=== PATIENT | male | born 1970 | race Caucasian/White ===

== ENCOUNTER → 2020-10-24 | Outpatient (CLI) | payer OTHER, MEDICARE ==
[~2020-10-24] MED LIST: AC325T; AC500T PO; ACHYD1T PO; ACID REDUCER; ALBU17AE23 IH; ALN70T PO; AMIT100T2; AMIT100T2 PO; ASP325T PO; ASP325TEC PO; ASPI-892 PO; ASPI-999 PO; ASPI325T32 PO; CARV3.122 PO; CEPH250C PO; CIPR-225 PO; CITA40TA19 PO; CLIN150C17 PO; CLOP75TA PO; CLOP75TA28 PO; CPR500T PO; CYCL10TA9 PO; D50KC PO; DCS100C PO; DIGO125T PO; DOXY100C42 PO; DOXY100T61 PO; ENLP2.5T PO; ETAN50PE; FISH OIL 1,2001 EAC1; FLC1T PO; FOLIC ACID; FURO-124 PO; FURO20TA4 PO; FURO40TA4 PO; GABA-488 PO; GBPN300C PO; GBPN600T; GLIP5TAB26; GLIP5TAB26 PO; HYDR-2890 PO; HYDR1TAB PO; HYDR200T46 PO; HYDROXYCHLOROQUINE PO; IBP600T1 PO; IBUP-15 PO; IBUP-2473 PO; INSASP10V SQ; INSU100I14 SQ; INSU100I29 SQ; INSU100V16 SC; INSU100V5 SQ; Insulin Human Lispro SC; KCL20TCR PO; LEVE1U SQ; LNS30CCR; LOSA25TA15 PO; LSNP10T; LSRT50T PO; MAGN400T6 PO; METF-380; METF-380 PO; METF500T8 PO; METHOTREXATE; METO25TA PO; MICO90PO TOP; MORP30TA16; MTF500T; MTF500T PO; MTP25TSR PO; MTX2.5T; MULT-963 PO; Metformin Hcl PO; NCT14P TD; OMEP20TA2 PO; OXYC-12 PO; POLY17PO6 PO; PRD10T PO; PREDNISONE; PROP1TAB2 PO; PROP1TAB77 PO; Polyethylene Glycol PO; RANI150T90 PO; RNT150T PO; ROSU10TA12 PO; ROSU20TA14 PO; SIMV40TA2 PO; SITA100T PO; SPIR25TA3 PO; SULF-222 PO; SULF1TAB38 PO; SULF500T3 PO; SULFAZINE PO; TRAM50TA2 PO; TRM50T; VANC5VIA5 IV; [UNRECOGNIZED DRUG - OTHER]; [UNRECOGNIZED DRUG - OTHER] PO
== END ==
LOC: LABNPT 22:32
PROVIDERS: ATTEND Nurse Practitioner Family
DX: Z20.828 Contact with and (suspected) exposure to other viral communicable diseases (principal)
CPT/HCPCS: 84145; 87635

== ENCOUNTER 2020-10-25 00:33 | Inpatient (IN) | payer MEDICAID, MEDICARE ==
[~2020-10-25] VITALS: Ht 180.3 cm; Wt 78.6 kg
[~2020-10-25 00:33] MED LIST changes: -ACHYD1T PO; -ASPI-999 PO; -CARV3.122 PO; -CEPH250C PO; -ENLP2.5T PO; -FURO-124 PO; -IBUP-2473 PO; -INSU100V16 SC; -INSU100V5 SQ; -MICO90PO TOP
[2020-10-25] MEDS ORDERED: NS IV 1000 ML 1,000 ML ONE (01:24)
[2020-10-25] MEDS: NS IV 1000 ML 1,000 ML IV SCH ×3 (01:26→16:53)
[2020-10-25] MEDS ORDERED: morphine INJ 10 MG/ML 1ML (SYR OR VIAL) IVP STA (02:23)
[2020-10-25 02:25] LABS: BASOPHILS % (AUTO) 0 % (0-10); EOSINOPHILS % (AUTO) 0 % (0-10); HEMATOCRIT 29 % (40-54); LYMPHOCYTES # (AUTO) 0.4 10^3/uL (1.0-4.0); LYMPHOCYTES % (AUTO) 4 % (12-44); MEAN CORPUSCULAR HEMOGLOBIN 29 pg (25-34); MEAN CORPUSCULAR HGB CONC 34 g/dL (32-36); MEAN CORPUSCULAR VOLUME 85 fL (80-99); MEAN PLATELET VOLUME 11.1 fL (9.0-12.2); MONOCYTES # (AUTO) 0.4 10^3/uL (0.0-1.0); MONOCYTES % (AUTO) 4 % (0-12); NEUTROPHILS # (AUTO) 9.6 10^3/uL (1.8-7.8); NEUTROPHILS % (AUTO) 92 % (42-75); PLATELET COUNT 137 10^3/uL (130-400); WHITE BLOOD COUNT 10.4 10^3/uL (4.3-11.0)
[2020-10-25] MEDS ORDERED: MEROPENEM 1,000 MG in WATER (STERILE) FOR INJECTION 20 ML IV ONE (02:30)
[2020-10-25] MEDS ORDERED: VANCOMYCIN INJECTION 1,000 MG in NS (IVPB) 250 ML IV SCH (02:30)
[2020-10-25 02:32] LABS: ALBUMIN 2.3 GM/DL (3.2-4.5); CHLORIDE 90 MMOL/L (98-107); POTASSIUM 5.2 MMOL/L (3.6-5.0)
[2020-10-25 02:35] LABS: GLUCOSE 223 MG/DL (70-105); TOTAL PROTEIN 6.8 GM/DL (6.4-8.2)
[2020-10-25 02:36] LABS: CARBON DIOXIDE 19 MMOL/L (21-32)
[2020-10-25 02:37] LABS: BILIRUBIN,TOTAL 0.7 MG/DL (0.1-1.0)
[2020-10-25 02:38] LABS: ALKALINE PHOSPHATASE 118 U/L (40-136); CREATININE SERUM 0.81 MG/DL (0.60-1.30); PHOSPHORUS 2.6 MG/DL (2.3-4.7)
[2020-10-25 02:39] LABS: BUN/CREATININE RATIO 15
[2020-10-25 02:41] LABS: ALANINE AMINOTRANSFERASE 13 U/L (0-55); MAGNESIUM 1.5 MG/DL (1.6-2.4)
[2020-10-25 03:17] LABS: GFR ESTIMATED > 60
[2020-10-25 03:18] LABS: SODIUM 119 MMOL/L (135-145)
[2020-10-25 03:24] LABS: BAND NEUTROPHILS 4 %; LYMPHOCYTES % (MANUAL) 6 %; MICROCYTOSIS SLIGHT; MONOCYTES % (MANUAL) 4 %; NEUTROPHILS % (MANUAL) 86 %; POLYCHROMASIA SLIGHT
[2020-10-25 04:16] LABS: ABG BASE EXCESS 0.1 MMOL/L (-2.5-2.5); ABG OXYGEN SATURATION 94 % (94-100); ABG PCO2 34 MMHG (35-45); ABG PH 7.45 (7.37-7.43); ABG PO2 68 MMHG (79-93); ABG TCO2 24.5 MMOL/L (21.0-31.0)
[2020-10-25 04:19] LABS: ALLENS TEST POSITIVE; INSPIRED O2 3; PATIENT TEMP 37.4; VENTILATOR NO
--- NOTE | 2020-10-25 04:37 | Pulmonary Consultation ---
History of Present Illness History of Present Illness Date Seen by Provider: Oct 25, 2020 Time Seen by Provider: 04:32 Date of Admission History of Present Illness 50yo with hx of BKA and bed bound s/p fall [place] [facility] [place] to severe sepsis, UTI, and findings of right hip fracture. Pt was directly admitted to ICU. Ortho is consulted. Allergies and Home Medications Allergies Coded Allergies: raspberry (Unverified Allergy, Mild, 04/14/15) FROM UNCODED ALLERGIES Penicillins (Verified Allergy, Unknown, FEVER AND NAUSEA, 04/18/15) OCCURED AFTER RECEIVING IV Home Medications Aspirin 325 Mg Tab, 325 MG PO HS, (Reported) Ciprofloxacin HCl 500 Mg Tablet, 500 MG PO BID, (Reported) PICKED UP 08/09/15 FOR 14 DAY THERAPY Clindamycin HCl 150 Mg Capsule, 300 MG PO QID, (Reported) TAKES 2 (150 MG) CAPSULES; PICKED UP 08/09/15 FOR 14 DAY THERAPY Clopidogrel Bisulfate 75 Mg Tablet, 75 MG PO HS, (Reported) LAST PICKED UP 05/30/15 Cyclobenzaprine Hcl 10 Mg Tablet, 20 MG PO HS, (Reported) TAKES 2 (10MG) TABLETS; LAST PICKED UP 05/30/15 Gabapentin 300 Mg Capsule, 300 MG PO TID, (Reported) LAST PICKED UP 05/30/15 Hydrocodone Bit/Acetaminophen 1 Each Tablet, 1 TAB PO Q4H PRN for PAIN, (Reported) Hydroxychloroquine Sulfate 200 Mg Tab, 200 MG PO EVERY EVENING, (Reported) LAST PICKED UP 05/09/15 Insulin Aspart 300 Units/3 Ml Solution, 15 UNITS SQ TID, (Reported) WITH MEALS; LAST PICKED UP 06/14/15 Insulin Detemir 100 Unit/1 Ml Insuln.pen, 31 UNITS SQ HS, (Reported) LAST PICKED UP 06/14/15 Metformin Hcl 500 Mg Tab.sr.24h, 1,000 MG PO HS, (Reported) LAST PICKED UP 05/02/15 Polyethylene Glycol 3350 17 Gm Powd.pack, 17 GM PO DAILY PRN for CONSTIPATION, (Reported) Ranitidine Hcl 150 Mg Tablet, 150 MG PO TID PRN for ACID REFLUX, (Reported) Sitagliptin Phosphate 100 Mg Tablet, 100 MG PO HS, (Reported) LAST PICKED UP 05/09/15 Past Gqdchbn-Omnuul-Pypoln Hx Patient Social History Alcohol Use: Occasionally Uses Recreational Drug Use: No Smoking Status: Current Everyday Smoker Type Used: Cigarettes Recent Foreign Travel: No Contact w/Someone Who Travel: No Recent Infectious Disease Expo: No Immunizations Up To Date Tetanus Booster (TDap): Unknown PED Vaccines UTD: No Date of Pneumonia Vaccine: Sep 17, 2014 Date of Influenza Vaccine: Sep 13, 2014 Past Medical History Reproductive Disorders: No Sexually Transmitted Disease: No HIV/AIDS: No Gastroesophageal Reflux Arthritis Diabetes, Insulin dep Loss of Vision: Left Hearing Impairment: Denies Depression Adverse Reaction/Blood Tranf: No Family Medical History Colon cancer 19 FATHER Diabetes mellitus 19 FATHER Hypertension 19 FATHER Review of Systems Time Seen by Provider: 04:40 Sepsis Event Evaluation Height, Weight, BMI Height: 6'1.00" Weight: 216lbs. 4.0oz. 97.411092ec; 23.71 BMI Method:Stated Exam Exam Vital Signs Date Time Temp Pulse Resp B/P (MAP) Pulse Ox O2 Delivery O2 Flow Rate FiO2 10/25/20 04:23 36.6 10/25/20 04:20 90 22 89/45 (60) 90 Nasal Cannula 3.00 10/25/20 04:00 99 33 104/94 (97) 91 Nasal Cannula 3.00 10/25/20 03:00 96 31 86/44 (58) 92 Nasal Cannula 3.00 10/25/20 02:45 93 30 91/47 (62) 92 Nasal Cannula 3.00 10/25/20 02:30 95 27 86/53 (64) 93 Nasal Cannula 3.00 10/25/20 02:15 98 23 98/60 (73) 91 Nasal Cannula 2.00 10/25/20 02:00 99 24 91/57 (68) 91 Nasal Cannula 2.00 10/25/20 01:45 100 24 103/51 (68) 90 Nasal Cannula 2.00 10/25/20 01:34 104 30 114/56 (75) 89 Nasal Cannula 2.00 10/25/20 01:26 35.8 103 26 107/61 (76) 92 Nasal Cannula 2.00 10/25/20 01:25 105 I & O 10/25/20 07:00 Intake Total 0 ml Output Total 50 ml Balance -50 ml Height & Weight Height: 6'1.00" Weight: 216lbs. 4.0oz. 97.487527ds; 23.71 BMI Method:Stated Results Lab Laboratory Tests 10/25/20 02:08 Assessment/Plan Assessment/Plan Severe sepsis -Severe sepsis protocol -NS currently at 100cc/hr -[place] cultures -Vanco and cefepime R hip fracture -Ortho consulted Hypotension -IVF Will give NS bolus -Monitor -Check echo today. Hyponatremia -Repeat labs at 11 -Monitor -Currently on NS chronic debility CAD with hx of CABG - DVT PPX NILS ACHARYA DO Oct 25, 2020 04:37
[2020-10-25] MEDS ORDERED: NS IV 1000 ML 1,000 ML IV SCH (04:45)
[2020-10-25] MEDS ORDERED: SODIUM BICARB 8.4% 50 MEQ/50 ML VIAL IV ONE (04:45)
[2020-10-25] MEDS ORDERED: SODIUM PHOSPHATE INJ 15 MM in D5W 100 ML IVPB 100 ML IV ONE (04:45)
[2020-10-25] MEDS ORDERED: CEFEPIME 1 GM/10 ML (MAXIPIME) VIAL ONE (05:08)
[2020-10-25] MEDS ORDERED: WATER (STERILE) FOR INJECTION 10 ML ONE (05:08)
[2020-10-25] MEDS: MAGNESIUM 1 GM/100 ML IVPB 100 ML IV SCH ×3 (05:22→07:33)
[2020-10-25] MEDS: CEFEPIME 1,000 MG/SWFI 10 ML IV PUSH IV SCH ×6 (05:56→17:21)
[2020-10-25] MEDS ORDERED: CEFEPIME INJECTION 1,000 MG in NS (IVPB) 50 ML IV SCH (06:00)
[2020-10-25] MEDS ORDERED: NOREPINEPHRINE 4 MG/250 ML 250 ML IV ONE (07:35)
[2020-10-25] MEDS: NOREPINEPHRINE 4 MG/250 ML 250 ML IV SCH ×3 (07:40→17:41)
--- NOTE | 2020-10-25 07:40 | Diagnostic Imaging Report ---
INDICATION: Sepsis, urinary tract infection, hip fracture. TECHNIQUE: Single view chest 2:00 a.m.. CORRELATION STUDY: 04/25/2015 FINDINGS: Poststernotomy changes. Left-sided unipolar pacemaker. Unchanged cardiac enlargement. Vasculature is increased from prior. Question minimal patchy groundglass opacity at the left mid lung field. No consolidating infiltrate. IMPRESSION: 1. Cardiac enlargement. Vasculature has increased from prior study suggestive fluid overload or failure. Dictated by: Dictated on workstation # [id number]
--- NOTE | 2020-10-25 07:50 | NUR ---
pt alert and oriented at this time and stated to this RN and SUMEET Marshall that he did not want chest compressions or a tube down his throat. This was reported to Dr. Marcelino who stated that this RN could put in DNR order.
[2020-10-25] MEDS: ENOXAPARIN 40 MG/0.4 ML (LOVENOX) SYR SC SCH (08:42)
[2020-10-25] MEDS: VANCOMYCIN INJECTION 1,000 MG in NS (IVPB) 250 ML IV SCH ×2 (08:42→17:21)
[2020-10-25] MEDS: HYDROCORTISONE 100 MG/2 ML (Solu-CORTEF) VIAL IV SCH ×3 (08:43→22:11)
--- NOTE | 2020-10-25 10:36 | NUR ---
PTD VANCOMYCIN. 77 KG, SCr 0.81, CrCl 114.8, BMI 23.7. EPHARMACY PLAN WAS TO GIVE LOADING DOSE OF 1250MG FOLLOWED BY 1 G Q8H MAINTENANCE DOSING SCHEDULE, BUT 1 G Q8H WAS GIVEN INITIAL DOSE 10/25 @ 0900. PLAN IS TO NOT ADD TO INITIAL DOSE, BUT CONTINUE WITH 1 G Q8H (15 MG/KG). CHECK VANCOMYCIN LEVEL 10/26 @ 0800. IF TROUGH >20, HOLD DOSE & NOTIFY PHARMACY FOR ADJUSTMENTS.
--- NOTE | 2020-10-25 11:51 | Diagnostic Imaging Report ---
Indication: Fracture. Compared with the radiograph 04/22/2015. Findings: There is a fracture through the base of the neck likely extending into the base of the lesser trochanter and resulting in greater trochanteric irregularity. Its precise acuity is unclear but its new from prior. This may be subacute, correlate with the onset of complaint. There are severe osteoarthritic changes to the right hip. There is no dislocation. Impression: Possibly subacute fracture base neck with trochanteric involvement and severe hip joint osteoarthritis. Dictated by: Dictated on workstation # [id number]
--- NOTE | 2020-10-25 12:17 | Diagnostic Imaging Report ---
Indication: Fracture. Findings/ Impression: There is a fracture of the base of the femoral neck extending into the trochanters. There are positional limitations with no obvious varus or valgus angulation. No dislocation. The mid shaft and distal femur appeared nonacute. There are severe degenerative changes to the knee. We note underlying bony demineralization. The acuity of the femoral neck fracture is unclear. This may be subacute, correlate with the onset of pain and complaint. No findings of a recent midshaft or distal femoral injury Dictated by: Dictated on workstation # [id number]
--- NOTE | 2020-10-25 13:49 | NUR ---
This Palliative Care was consulted. I spoke with Jori Cortez who says to hold on this at this time.
--- NOTE | 2020-10-25 14:01 | History & Physical-Hospitalist ---
History of Present Illness HPI/Chief Complaint Richar Kasper is a 50 year old male who presented to [place] ER after falling out of bed. He is non-ambulatory at baseline and is wheelchair dependent. Upon arrival to [place], he was found to have a hip fracture. He was also found to have severe sepsis. Upon my examination, he was minimally conversant and only said a few words. He was answering questions by shaking his head yes and no. He denies any pain. He denied fevers. He denied trouble breathing. He denies nausea and vomiting. He was not feeling sick recently. Source: patient Exam Limitations: no limitations Date Seen 10/25/20 Time Seen by a Provider: 09:15 Attending Physician Lora Jones David F MD Referring Physician Date of Admission Oct 25, 2020 at 01:18 Home Medications & Allergies Home Medications Reviewed patient Home Medication Reconciliation performed by pharmacy medication reconciliations neon technician and/or nursing. Patients Allergies have been reviewed. Allergies Allergies Coded Allergies raspberry (Unverified Allergy, Mild, 04/14/15) FROM UNCODED ALLERGIES Penicillins (Verified Allergy, Unknown, FEVER AND NAUSEA, 04/18/15) OCCURED AFTER RECEIVING IV Past Smabksl-Cycdnh-Konpgs Hx Past Med/Social Hx: Reviewed Nursing Past Med/Soc Hx Patient Social History Alcohol Use: Occasionally Uses Recreational Drug Use: No Smoking Status: Current Everyday Smoker Type Used: Cigarettes Physical Abuse Screen: No Sexual Abuse: No Recent Foreign Travel: No Contact w/other who traveled: No Recent Hopitalizations: No Recent Infectious Disease Expo: No Immunizations Up To Date Tetanus Booster (TDap): Unknown Pediatric: No Date of Pneumonia Vaccine: Sep 17, 2014 Date of Influenza Vaccine: Sep 13, 2014 Seasonal Allergies Seasonal Allergies: No Past Medical History Reproductive: No Sexually Transmitted Disease: No HIV/AIDS: No Gastrointestinal: Gastroesophageal Reflux Musculoskeletal: Amputee, Arthritis, Rheumatoid Arthritis, Fractures, Co ntracture Endocrine: Diabetes, Insulin dep Loss of Vision: Left Hearing Impairment: Denies Psychosocial: Depression History of Blood Disorders: No Adverse Reaction to Blood Godwin: No Family History Colon cancer 19 FATHER Diabetes mellitus 19 FATHER Hypertension 19 FATHER Review of Systems Constitutional: see HPI Physical Exam Physical Exam Vital Signs Vital Signs - First Documented 10/25/20 10/25/20 01:25 01:26 Temp 35.8 Pulse 105 Resp 26 B/P (MAP) 107/61 (76) Pulse Ox 92 O2 Delivery Nasal Cannula O2 Flow Rate 2.00 Capillary Refill : Less Than 3 Seconds Height, Weight, BMI Height: 6'1.00" Weight: 216lbs. 4.0oz. 97.061866uo; 23.71 BMI Method:Stated General Appearance: No Apparent Distress, Chronically ill HEENT: PERRL/EOMI, Other (dry mucous membranes) Neck: Normal Inspection, Supple Respiratory: Lungs Clear, Normal Breath Sounds, No Respiratory Distress Cardiovascular: Regular Rate, Rhythm, No Edema, No Murmur Gastrointestinal: Normal Bowel Sounds, Non Tender, Soft Extremity: Pedal Edema, Other (left BKA) Neurologic/Psychiatric: Alert, No Motor/Sensory Deficits, Depressed Affect Skin: Warm/Dry, Rash (candidiasis within groin), Other (scaly skin, open lesions on thigh) Results Results/Procedures Labs Laboratory Tests 10/25/20 02:08 10/25/20 14:00 Patient resulted labs reviewed. Imaging: Reviewed Imaging Report Assessment/Plan Admission Diagnosis Closed right hip fracture Admission Status: Inpatient Order (span 2 midnights) Reason for Inpatient Admission: Hip fracture requiring surgical evaluation Sepsis requiring antibiotics Assessment and Plan Closed right hip fracture Hip xrays consistent with fracture Ortho consulted, appreciate assistance No plan for surgical intervention due to overlying cellulitis and baseline non-ambulatory status Pain regimen Septic shock UTI Cellulitis Levophed as needed Vanc and Cefepime Await culture results Hyponatremia Appears hypovolemic Na 119 Normal saline T2DM Levemir Sliding scale Candidal intertrigo Miconazole powder CAD s/p CABG Heart failure with reduced ejection fraction Cardiology consulted, appreciate assistance Echo with EF 25-30% Recommend follow up with CV surgery due to staple protrusion History of left BKA Chronic debility DVT prophylaxis: Lovenox Diagnosis/Problems Diagnosis/Problems (1) Hip fracture Status: Acute Qualifiers: Encounter type: initial encounter Fracture type: closed Laterality: right Qualified Codes: S72.001A - Fracture of unspecified part of neck of ri ght femur, initial encounter for closed fracture (2) Sepsis Status: Acute (3) UTI (urinary tract infection) Status: Acute (4) CAD (coronary artery disease) Status: Chronic (5) S/P CABG (coronary artery bypass graft) Status: Chronic (6) S/P BKA (below knee amputation) Status: Chronic Qualifiers: Laterality: left Qualified Codes: Z89.512 - Acquired absence of left leg below knee (7) Septic shock Status: Acute (8) Lactic acidosis Status: Acute (9) Cellulitis Status: Acute (10) Candidal intertrigo Status: Acute (11) T2DM (type 2 diabetes mellitus) Status: Chronic (12) HFrEF (heart failure with reduced ejection fraction) Status: Acute Clinical Quality Measures DVT/VTE Risk/Contraindication: Risk Factor Score Per Nursin RFS Level Per Nursing on Admit: 4+=Very High DIANA VINES MD Oct 25, 2020 14:01
--- NOTE | 2020-10-25 14:10 | NUR ---
"RD ASSESSMENT PMHx: GERD; DM: L BKA; PT INTERACTION: Note pt has AMS, per Kendy RN. Note all diet information for nutrition assessment is per Kendy or per princess review. Kendy states current appetite appears poor. Note pt is currently NPO, per chart review. Kendy states no issues with nausea, vomiting, constipation, or diarrhea that she is aware of, and pt has not had a BM yet. Note pt not currently on bowel regimen per chart review. Note unable to determine recent wt hx, per chart review. Note unable to determine current level of DM, and unable to determine recent HbA1c, per chart review. ABNORMAL NUTRITION-RELATED LAB VALUES LOW: Na 119; Cl 90; Ca 7.0; Mg 1.5; alb 2.3; HIGH: K 5.2; glu 223; AST 42; Est. kcal needs: 6014-0145 kcal | 25-30 kcal/kg Est. Pro needs: 77-93 g Pro | 1.0-1.2 g Pro/kg PES STATEMENT: Inadequate oral intake (NI-2.1) related to loss of appetite, and NPO status, as evidenced by chart review. INTERVENTION: Would recommend diet advancement to consistent CHO diet, when medically able and as tolerated. Did not offer diet education on DM management d/t pt's AMS. Will continue to follow and reassess as pt needs, intake, and status change. Bree TOPETE, MS RD LD [phone] cell"
--- NOTE | 2020-10-25 14:15 | CONSULTATION REPORT ---
DATE OF SERVICE: 10/25/2020 REASON FOR CONSULTATION: Right intertrochanteric femur fracture. HISTORY OF PRESENT ILLNESS: The patient is a 50-year-old gentleman, who was transferred from outside facility in the middle of the night due to sepsis. Apparently, he was admitted for hip fracture at another facility. I was consulted this morning. Obtaining history from the nurse and somewhat from the patient, he is bedbound. He has had a BKA on the contralateral side. He apparently fell out of bed and sustained this fracture. I asked the patient if he gets out of bed at all. He states that he does not. PHYSICAL EXAMINATION: Right lower extremity is slightly shortened and slightly externally rotated. Unfortunately, there is skin breakdown throughout the lateral aspect of his hip with open purulent wound directly over his potential incision sites. He is neurovascularly intact distally. Radiographs reveal displaced right intertrochanteric femur fracture. IMPRESSION: Right intertrochanteric femur fracture with skin compromise and sepsis. PLAN: Unfortunately, at this time, this fracture would have to be treated nonoperatively due to the skin breakdown with gross purulence. If the incisions were made through this area, which would be required for operative intervention, this will become infected. His hardware would become infected and would likely be a terminal event. I explained this to the patient. He is understanding. This fracture will likely heal without any operative intervention and as the patient is bedbound is a reasonable treatment. The patient can continue to turn as symptoms allow. He does not require traction or any other modality for the lower extremity other than pain management. Thank you for the consultation. I have spoken with Dr. Carrera regarding this as well. Job ID: [id number] DocumentID: [id number] Dictated Date: 10/25/2020 13:53:41 Geomorphology Teacher Date: 10/25/2020 14:14:23 Dictated By: DOM CORTÉS MD
[2020-10-25 14:44] LABS: ALANINE AMINOTRANSFERASE 12 U/L (0-55); ALBUMIN 2.3 GM/DL (3.2-4.5); ALKALINE PHOSPHATASE 102 U/L (40-136); BILIRUBIN,TOTAL 0.7 MG/DL (0.1-1.0); BUN/CREATININE RATIO 14; CALCIUM 6.8 MG/DL (8.5-10.1); CARBON DIOXIDE 24 MMOL/L (21-32); CHLORIDE 95 MMOL/L (98-107); CREATININE SERUM 0.73 MG/DL (0.60-1.30); GFR ESTIMATED > 60; GLUCOSE 229 MG/DL (70-105); PHOSPHORUS 2.8 MG/DL (2.3-4.7); POTASSIUM 4.1 MMOL/L (3.6-5.0); TOTAL PROTEIN 6.1 GM/DL (6.4-8.2)
[2020-10-25 14:56] LABS: SODIUM 125 MMOL/L (135-145)
--- NOTE | 2020-10-25 15:50 | Consultation-Cardiology ---
HPI-Cardiology Cardiology Consultation: Date of Consultation 10/25/20 Time Seen by a Provider: 15:30 Date of Admission 10-24-2020 Attending Physician Lora Jones DO Admitting Physician Andrew Dominguez MD Consulting Physician Dell Martel MD HPI: Chief Complaint: Pre-op cardiac clearance Mr. Kasper is a 50 yr old male admitted to ICU from [facility] [place] post fall at home resulting in a right hip fracture. He is a poor historian. He states he lives at home. He denies any c/o CP, SOB or palpitations. He reports he is bed bound. He has a h/o LLE amputation, he does not know the details. he reports h/o CABG in [place], at the "[facility]". He reports he smokes cigs. He has what appears to be sternal wires from his CABG protruding from the skin at the top of the sternum. He reports it has been like that for years. He states he has not followed with CV surgeons or cardiology since his CABG. Review of Systems-Cardiology Review of Systems Eyes: No vision change Ears/Nose/Throat: No epistaxis, No recent hearing loss Respiratory: As described under HPI Cardiovascular: As described under HPI Gastrointestinal: No diarrhea, No nausea, No vomiting Genitourinary: No dysuria Musculoskeletal: joint pain, muscle pain, other (L BKA) Skin: rash on exposed areas, ulcerations on exposed areas Psychiatric/Neurological: No seizure, No syncope Hematologic: No bleeding abnormalities LZK-Kkkdlg-Sidjon Hx Patient Social History Alcohol Use: Occasionally Uses Recreational Drug Use: No Smoking Status: Current Everyday Smoker Type Used: Cigarettes Recent Foreign Travel: No Recent Infectious Disease Expo: No Physical Abuse Screen: No Sexual Abuse: No Immunizations Up To Date Tetanus Booster (TDap): Unknown Date of Pneumonia Vaccine: Sep 17, 2014 Date of Influenza Vaccine: Sep 13, 2014 Past Medical History PMH As described under Assessment. Family Medical History Family Medical History: Reported history of father having HTN and DM Family History: Colon cancer 19 FATHER Diabetes mellitus 19 FATHER Hypertension 19 FATHER Allergies and Home Medications Allergies Coded Allergies: raspberry (Unverified Allergy, Mild, 04/14/15) FROM UNCODED ALLERGIES Penicillins (Verified Allergy, Unknown, FEVER AND NAUSEA, 04/18/15) OCCURED AFTER RECEIVING IV Home Medications Aspirin 325 Mg Tab, 325 MG PO HS, (Reported) Ciprofloxacin HCl 500 Mg Tablet, 500 MG PO BID, (Reported) PICKED UP 08/09/15 FOR 14 DAY THERAPY Clindamycin HCl 150 Mg Capsule, 300 MG PO QID, (Reported) TAKES 2 (150 MG) CAPSULES; PICKED UP 08/09/15 FOR 14 DAY THERAPY Clopidogrel Bisulfate 75 Mg Tablet, 75 MG PO HS, (Reported) LAST PICKED UP 05/30/15 Cyclobenzaprine Hcl 10 Mg Tablet, 20 MG PO HS, (Reported) TAKES 2 (10MG) TABLETS; LAST PICKED UP 05/30/15 Gabapentin 300 Mg Capsule, 300 MG PO TID, (Reported) LAST PICKED UP 05/30/15 Hydrocodone Bit/Acetaminophen 1 Each Tablet, 1 TAB PO Q4H PRN for PAIN, (Reported) Hydroxychloroquine Sulfate 200 Mg Tab, 200 MG PO EVERY EVENING, (Reported) LAST PICKED UP 05/09/15 Insulin Aspart 300 Units/3 Ml Solution, 15 UNITS SQ TID, (Reported) WITH MEALS; LAST PICKED UP 06/14/15 Insulin Detemir 100 Unit/1 Ml Insuln.pen, 31 UNITS SQ HS, (Reported) LAST PICKED UP 06/14/15 Metformin Hcl 500 Mg Tab.sr.24h, 1,000 MG PO HS, (Reported) LAST PICKED UP 05/02/15 Polyethylene Glycol 3350 17 Gm Powd.pack, 17 GM PO DAILY PRN for CONSTIPATION, (Reported) Ranitidine Hcl 150 Mg Tablet, 150 MG PO TID PRN for ACID REFLUX, (Reported) Sitagliptin Phosphate 100 Mg Tablet, 100 MG PO HS, (Reported) LAST PICKED UP 05/09/15 Physical Exam-Cardiology Physical Exam Vital Signs/I&O 10/25/20 10/25/20 10/25/20 10/25/20 04:00 04:20 04:23 05:00 Temp 36.6 Pulse 99 90 90 Resp 33 22 24 B/P (MAP) 104/94 (97) 89/45 (60) 79/43 (55) Pulse Ox 91 90 93 O2 Delivery Nasal Cannula Nasal Cannula Nasal Cannula O2 Flow Rate 3.00 3.00 3.00 10/25/20 10/25/20 10/25/20 10/25/20 06:00 07:00 07:00 07:40 Pulse 87 83 84 85 Resp 25 21 B/P (MAP) 92/43 (59) 83/42 (56) 81/42 Pulse Ox 93 89 O2 Delivery Nasal Cannula Nasal Cannula O2 Flow Rate 3.00 3.00 10/25/20 10/25/20 10/25/20 10/25/20 07:54 08:00 09:00 10:00 Temp 36.8 Pulse 84 87 90 Resp 23 23 22 B/P (MAP) 112/55 (74) 112/52 (72) 89/46 (60) Pulse Ox 99 99 92 O2 Delivery Nasal Cannula Nasal Cannula Nasal Cannula O2 Flow Rate 7.00 7.00 7.00 10/25/20 10/25/20 10/25/20 10/25/20 11:00 12:00 12:34 13:00 Temp 35.7 Pulse 92 90 90 Resp 29 19 19 B/P (MAP) 107/73 (84) 112/73 (86) 127/70 (89) Pulse Ox 90 93 96 O2 Delivery Nasal Cannula Nasal Cannula Nasal Cannula O2 Flow Rate 7.00 7.00 7.00 10/25/20 10/25/20 10/25/20 13:00 14:00 15:00 Pulse 91 93 85 Resp 35 21 B/P (MAP) 117/57 (77) 101/66 (78) Pulse Ox 95 95 O2 Delivery Nasal Cannula Nasal Cannula O2 Flow Rate 7.00 7.00 Capillary Refill : Less Than 3 Seconds Data Review Labs Laboratory Tests 10/25/20 02:08: White Blood Count 10.4, Red Blood Count 3.43L, Hemoglobin 10.0L, Hematocrit 29L, Mean Corpuscular Volume 85, Mean Corpuscular Hemoglobin 29, Mean Corpuscular Hemoglobin Concent 34, Red Cell Distribution Width 14.7H, Platelet Count 137, Mean Platelet Volume 11.1, Immature Granulocyte % (Auto) 1, Neutrophils (%) (Auto) 92H, Lymphocytes (%) (Auto) 4L, Monocytes (%) (Auto) 4, Eosinophils (%) (Auto) 0, Basophils (%) (Auto) 0, Neutrophils # (Auto) 9.6H, Lymphocytes # (Auto) 0.4L, Monocytes # (Auto) 0.4, Eosinophils # (Auto) 0.0, Basophils # (Auto) 0.0, Immature Granulocyte # (Auto) 0.1, Neutrophils % (Manual) 86, Lymphocytes % (Manual) 6, Monocytes % (Manual) 4, Band Neutrophils 4, Polychromasia SLIGHT, Microcytosis SLIGHT, Sodium Level 119*L, Potassium Level 5.2H, Chloride Level 90L, Carbon Dioxide Level 19L, Anion Gap 10, Blood Urea Nitrogen 12, Creatinine 0.81, Estimat Glomerular Filtration Rate > 60, BUN/Creatinine Ratio 15, Glucose Level 223H, Lactic Acid Level 2.25*H, Calcium Level 7.0L, Corrected Calcium 8.4L, Phosphorus Level 2.6, Magnesium Level 1.5L, Total Bilirubin 0.7, Aspartate Amino Transf (AST/SGOT) 42H, Alanine Aminotransferase (ALT/SGPT) 13, Alkaline Phosphatase 118, B-Type Natriuretic Peptide 1048.6H, Total Protein 6.8, Albumin 2.3L, Procalcitonin 0.47H 10/25/20 04:08: Lactic Acid Level 1.42, Blood Gas Puncture Site LEFT BRACHIAL, Blood Gas Patient Temperature 37.4, Arterial Blood pH 7.45H, Arterial Blood Partial Pressure CO2 34L, Arterial Blood Partial Pressure O2 68L, Arterial Blood HCO3 24, Arterial Blood Total CO2 24.5, Arterial Blood Oxygen Saturation 94, Arterial Blood Base Excess 0.1, Shantanu Test POSITIVE, Blood Gas Ventilator Setting NO, Blood Gas Inspired Oxygen 3 10/25/20 14:00: Sodium Level 125*L, Potassium Level 4.1, Chloride Level 95L, Carbon Dioxide Level 24, Anion Gap 6, Blood Urea Nitrogen 10, Creatinine 0.73, Estimat Glomerular Filtration Rate > 60, BUN/Creatinine Ratio 14, Glucose Level 229H, Calcium Level 6.8L, Corrected Calcium 8.2L, Phosphorus Level 2.8, Magnesium Level 2.0, Total Bilirubin 0.7, Aspartate Amino Transf (AST/SGOT) 25, Alanine Aminotransferase (ALT/SGPT) 12, Alkaline Phosphatase 102, Total Protein 6.1L, Albumin 2.3L Microbiology 10/25/20 Blood Culture - Preliminary, Resulted No growth A/P-Cardiology Assessment/Admission Diagnosis S/P non-syncopal fall out of bed resulting in a right hip fx - Dr. Atwood consulted H/O CABG - details unknown - records requested from [facility] Tobaccoism - cessation advised Probable COPD Left BKA - details unknown Chronic Clinical Quality Measures DVT/VTE Risk/Contraindication: Risk Factor Score Per Nursin RFS Level Per Nursing on Admit: 4+=Very High GOLDIE VARMA [facility] Oct 25, 2020 15:50
--- NOTE | 2020-10-25 18:17 | Consultation-Cardiology ---
HPI-Cardiology Cardiology Consultation: Date of Consultation 10/25/20 Time Seen by a Provider: 16:30 Date of Admission Attending Physician Lora Jones DO Admitting Physician Andrew Dominguez MD Consulting Physician ELLIOT NATH MD, MA, FACP, FACC, [facility], CCDS Physician requesting consult: Dr Hsieh HPI: Chief Complaint: Reason for consultation: Preop card eval for fall leading to R hip fracture HPI 50 yo man transferred to Dr Hsieh's S[facility] for eval and treatment of a hip fracture. He doesn't provide much history and tends to get angry if asked too many questions. He says that the fall was as he was trying to roll out of the bed in effort to use the toilet. He fell and broke his hip. No syncope. Not able to state when that happened. Denies cp or palp or syncope or shortness of breath. Has a h/o CABG and cardiac device placement. Unable to state when and where that was done. Has not been following with any campus wellness coordinator. Has not had any device f/u Does not report n/v. Denies focal weakness. Has gen weakness. Doesn't know why and when he had his L BKA Review of Systems-Cardiology Review of Systems Constitutional: other (To the extent that he provided a ROS is given above HPI. He tended to get angry if asked more questions. Most questions were answered by, "I don't know.") [id number] Hx Patient Social History Alcohol Use: Occasionally Uses Recreational Drug Use: No Smoking Status: Current Everyday Smoker Type Used: Cigarettes Recent Foreign Travel: No Recent Infectious Disease Expo: No Physical Abuse Screen: No Sexual Abuse: No Immunizations Up To Date Tetanus Booster (TDap): Unknown Date of Pneumonia Vaccine: Sep 17, 2014 Date of Influenza Vaccine: Sep 13, 2014 Past Medical History PMH As described under Assessment. Family Medical History Family History: Colon cancer 19 FATHER Diabetes mellitus 19 FATHER Hypertension 19 FATHER Allergies and Home Medications Allergies Coded Allergies: raspberry (Unverified Allergy, Mild, 04/14/15) FROM UNCODED ALLERGIES Penicillins (Verified Allergy, Unknown, FEVER AND NAUSEA, 04/18/15) OCCURED AFTER RECEIVING IV Home Medications Aspirin 325 Mg Tab, 325 MG PO HS, (Reported) Ciprofloxacin HCl 500 Mg Tablet, 500 MG PO BID, (Reported) PICKED UP 08/09/15 FOR 14 DAY THERAPY Clindamycin HCl 150 Mg Capsule, 300 MG PO QID, (Reported) TAKES 2 (150 MG) CAPSULES; PICKED UP 08/09/15 FOR 14 DAY THERAPY Clopidogrel Bisulfate 75 Mg Tablet, 75 MG PO HS, (Reported) LAST PICKED UP 05/30/15 Cyclobenzaprine Hcl 10 Mg Tablet, 20 MG PO HS, (Reported) TAKES 2 (10MG) TABLETS; LAST PICKED UP 05/30/15 Gabapentin 300 Mg Capsule, 300 MG PO TID, (Reported) LAST PICKED UP 05/30/15 Hydrocodone Bit/Acetaminophen 1 Each Tablet, 1 TAB PO Q4H PRN for PAIN, (Reported) Hydroxychloroquine Sulfate 200 Mg Tab, 200 MG PO EVERY EVENING, (Reported) LAST PICKED UP 05/09/15 Insulin Aspart 300 Units/3 Ml Solution, 15 UNITS SQ TID, (Reported) WITH MEALS; LAST PICKED UP 06/14/15 Insulin Detemir 100 Unit/1 Ml Insuln.pen, 31 UNITS SQ HS, (Reported) LAST PICKED UP 06/14/15 Metformin Hcl 500 Mg Tab.sr.24h, 1,000 MG PO HS, (Reported) LAST PICKED UP 05/02/15 Polyethylene Glycol 3350 17 Gm Powd.pack, 17 GM PO DAILY PRN for CONSTIPATION, (Reported) Ranitidine Hcl 150 Mg Tablet, 150 MG PO TID PRN for ACID REFLUX, (Reported) Sitagliptin Phosphate 100 Mg Tablet, 100 MG PO HS, (Reported) LAST PICKED UP 05/09/15 Patient Home Medication List Home Medication List Reviewed: Yes Physical Exam-Cardiology Physical Exam Vital Signs/I&O 10/25/20 10/25/20 10/25/20 10/25/20 07:00 07:00 07:40 07:54 Temp 36.8 Pulse 83 84 85 Resp 21 B/P (MAP) 83/42 (56) 81/42 Pulse Ox 89 O2 Delivery Nasal Cannula O2 Flow Rate 3.00 10/25/20 10/25/20 10/25/20 10/25/20 08:00 09:00 10:00 11:00 Pulse 84 87 90 92 Resp 23 23 22 29 B/P (MAP) 112/55 (74) 112/52 (72) 89/46 (60) 107/73 (84) Pulse Ox 99 99 92 90 O2 Delivery Nasal Cannula Nasal Cannula Nasal Cannula Nasal Cannula O2 Flow Rate 7.00 7.00 7.00 7.00 10/25/20 10/25/20 10/25/20 10/25/20 12:00 12:34 13:00 13:00 Temp 35.7 Pulse 90 90 91 Resp 19 19 B/P (MAP) 112/73 (86) 127/70 (89) Pulse Ox 93 96 O2 Delivery Nasal Cannula Nasal Cannula O2 Flow Rate 7.00 7.00 10/25/20 10/25/20 10/25/20 10/25/20 14:00 15:00 16:00 16:00 Temp 36.8 Pulse 93 85 87 Resp 35 21 19 B/P (MAP) 117/57 (77) 101/66 (78) 98/72 (81) Pulse Ox 95 95 97 O2 Delivery Nasal Cannula Nasal Cannula Nasal Cannula O2 Flow Rate 7.00 7.00 7.00 10/25/20 10/25/20 17:00 17:41 Pulse 92 97 Resp 28 B/P (MAP) 109/84 (92) 90/68 Pulse Ox 98 O2 Delivery Nasal Cannula O2 Flow Rate 7.00 Capillary Refill : Less Than 3 Seconds Constitutional: other (Appears oriented, but is intermittently agitated and combative. Appears to have poor short and roasterman memory) HEENT: PERRL; No xanthelasmas are seen Neck: carotid pulses are 2 + bilaterally Respiratory: No accessory muscle use; other (Fair air entry, diminished at the bases) Cardiovascular: regular rate-rhythm, S1 and S2, systolic murmur (soft LYNETTE at card base) Gastrointestinal: No tender; soft, audible bowel sounds Extremities: other (L BKA. We did not attemp any motion at the lower limbs because of his recent fracture) Neurologic/Psychiatric: other (for mental status exam, see above; he did not cooperate with any neuro exam) Skin: other (He has multiple areas of skin break down on the torso and abdomen and limbs; a short end of a sternal wire (apparently from his CABG) projects form the top of the sternum but there does not appeart to much inlammation at this area (he says he has had that projecting for years and has not consulted any one for it, nor does he want to)) Data Review Labs Laboratory Tests 10/25/20 02:08: White Blood Count 10.4, Red Blood Count 3.43L, Hemoglobin 10.0L, Hematocrit 29L, Mean Corpuscular Volume 85, Mean Corpuscular Hemoglobin 29, Mean Corpuscular Hemoglobin Concent 34, Red Cell Distribution Width 14.7H, Platelet Count 137, Mean Platelet Volume 11.1, Immature Granulocyte % (Auto) 1, Neutrophils (%) (Auto) 92H, Lymphocytes (%) (Auto) 4L, Monocytes (%) (Auto) 4, Eosinophils (%) (Auto) 0, Basophils (%) (Auto) 0, Neutrophils # (Auto) 9.6H, Lymphocytes # (Auto) 0.4L, Monocytes # (Auto) 0.4, Eosinophils # (Auto) 0.0, Basophils # (Auto) 0.0, Immature Granulocyte # (Auto) 0.1, Neutrophils % (Manual) 86, Lymphocytes % (Manual) 6, Monocytes % (Manual) 4, Band Neutrophils 4, Polychromasia SLIGHT, Microcytosis SLIGHT, Sodium Level 119*L, Potassium Level 5.2H, Chloride Level 90L, Carbon Dioxide Level 19L, Anion Gap 10, Blood Urea Nitrogen 12, Creatinine 0.81, Estimat Glomerular Filtration Rate > 60, BUN/Creatinine Ratio 15, Glucose Level 223H, Lactic Acid Level 2.25*H, Calcium Level 7.0L, Corrected Calcium 8.4L, Phosphorus Level 2.6, Magnesium Level 1.5L, Total Bilirubin 0.7, Aspartate Amino Transf (AST/SGOT) 42H, Alanine Aminotransferase (ALT/SGPT) 13, Alkaline Phosphatase 118, B-Type Natriuretic Peptide 1048.6H, Total Protein 6.8, Albumin 2.3L, Procalcitonin 0.47H 10/25/20 04:08: Lactic Acid Level 1.42, Blood Gas Puncture Site LEFT BRACHIAL, Blood Gas Patient Temperature 37.4, Arterial Blood pH 7.45H, Arterial Blood Partial Pressure CO2 34L, Arterial Blood Partial Pressure O2 68L, Arterial Blood HCO3 24, Arterial Blood Total CO2 24.5, Arterial Blood Oxygen Saturation 94, Arterial Blood Base Excess 0.1, Shantanu Test POSITIVE, Blood Gas Ventilator Setting NO, Blood Gas Insp ired Oxygen 3 10/25/20 14:00: Sodium Level 125*L, Potassium Level 4.1, Chloride Level 95L, Carbon Dioxide Level 24, Anion Gap 6, Blood Urea Nitrogen 10, Creatinine 0.73, Estimat Glomerular Filtration Rate > 60, BUN/Creatinine Ratio 14, Glucose Level 229H, Calcium Level 6.8L, Corrected Calcium 8.2L, Phosphorus Level 2.8, Magnesium Level 2.0, Total Bilirubin 0.7, Aspartate Amino Transf (AST/SGOT) 25, Alanine Aminotransferase (ALT/SGPT) 12, Alkaline Phosphatase 102, Total Protein 6.1L, Albumin 2.3L Microbiology 10/25/20 Blood Culture - Preliminary, Resulted No growth Laboratory Tests 10/25/20 02:08 10/25/20 14:00 A/P-Cardiology Assessment/Admission Diagnosis CAD. H/o CABG. Pt has no recollection, but previous records at this hosp indicate CABG was in 2009 in [place], [place]. Last card cath at this hosp was in 2012: occluded LAD and RCA, severely diseased LCX; patent JACINTO to LAD, patent SVG to PDA, patent SVG to OM, diffusely atretic and occluded SVG to RI, SVG 35- 40% A protruding end of a sternal wire from the cephalic part of the sternum. The patient states this has been present for many years and refuses any eval or treatment of this Ischemic cardiomyopathy (see above). Echo of 12/16/19 shows dilated cardiomyopathy with LV enlargement, diffuse hypokinesis and LVEF 25-30%, PASP approx 55 mmHg S/p single chamber ICD (as seen on CXR of 10/25/20). According to the patient, he has no f/u on this or any cardiac f/u for many years L BKA. He doesn't know when or where or why it was done, and has had no f/u R hip fracture in Oct 2020 after a nonsyncopal fall. Wound now considered inoperable due to pt's neglect of it that has led to purulent skin breakdown Multiple areas of skin breakdown Sepsis and anemia Deliberate self-neglect (see above) Discussion and Recomendations * Complex management, primarily because self-neglect on part of the patient * I advised that he see his CV surgeon to address the issue of the protruding sternal wire. He refuses * I have advised device f/u. He has not agreed * We recommend therapy for dilated ischemic cardiomyopathy. This should include bb, BEA-inhib, ASA. Spironolactone and furosemide should be considered if diuretic is needed at a later time. Currently, he appears volume depleted and that is being replenished * We also recommend DVT prophylaxis Clinical Quality Measures DVT/VTE Risk/Contraindication: Risk Factor Score Per Nursin RFS Level Per Nursing on Admit: 4+=Very High ELLIOT NATH MD FACP [facility] CCDS Oct 25, 2020 18:17
[2020-10-25] MEDS ORDERED: inSUlin ASPART (NovoLOG) 1 UNIT/0.01 ML (CHARGE PER UNIT) SC SCH (20:15)
[2020-10-25] MEDS: MICONAZOLE 2% POWDER (DESENEX AF) 90 GM TOP SCH (22:06)
[2020-10-26] MEDS: VANCOMYCIN INJECTION 1,000 MG in NS (IVPB) 250 ML IV SCH ×2 (01:22→08:58)
[2020-10-26] MEDS: CEFEPIME 1,000 MG/SWFI 10 ML IV PUSH IV SCH ×8 (01:23→16:30)
[2020-10-26 01:37] LABS: BASOPHILS % (AUTO) 0 % (0-10); EOSINOPHILS % (AUTO) 0 % (0-10); HEMATOCRIT 29 % (40-54); HEMOGLOBIN 9.7 g/dL (13.3-17.7); LYMPHOCYTES # (AUTO) 0.6 10^3/uL (1.0-4.0); LYMPHOCYTES % (AUTO) 7 % (12-44); MEAN CORPUSCULAR HEMOGLOBIN 29 pg (25-34); MEAN CORPUSCULAR HGB CONC 34 g/dL (32-36); MEAN CORPUSCULAR VOLUME 86 fL (80-99); MEAN PLATELET VOLUME 9.7 fL (9.0-12.2); MONOCYTES # (AUTO) 0.5 10^3/uL (0.0-1.0); MONOCYTES % (AUTO) 6 % (0-12); NEUTROPHILS # (AUTO) 7.3 10^3/uL (1.8-7.8); NEUTROPHILS % (AUTO) 86 % (42-75); PLATELET COUNT 148 10^3/uL (130-400); WHITE BLOOD COUNT 8.5 10^3/uL (4.3-11.0)
[2020-10-26 01:47] LABS: CHLORIDE 94 MMOL/L (98-107)
[2020-10-26 01:48] LABS: CALCIUM 7.1 MG/DL (8.5-10.1)
[2020-10-26 01:49] LABS: GLUCOSE 273 MG/DL (70-105)
[2020-10-26 01:51] LABS: CARBON DIOXIDE 19 MMOL/L (21-32)
[2020-10-26 01:53] LABS: CREATININE SERUM 0.69 MG/DL (0.60-1.30); GFR ESTIMATED > 60; PHOSPHORUS 2.4 MG/DL (2.3-4.7)
[2020-10-26 01:54] LABS: BUN/CREATININE RATIO 17
[2020-10-26 01:55] LABS: MAGNESIUM 2.1 MG/DL (1.6-2.4)
[2020-10-26 01:56] LABS: SODIUM 123 MMOL/L (135-145)
[2020-10-26] MEDS: fentaNYL INJECTION 100 MCG/2 ML AMP IVP PRN ×5 (02:00→10:19)
[2020-10-26] MEDS ORDERED: HYDROcodone/APAP 5 MG/325 MG (LORTAB) TAB PO PRN (04:00)
[2020-10-26] MEDS: HYDROcodone/APAP 10 MG/325 MG (LORTAB) TAB PO PRN ×3 (04:03→15:19)
[2020-10-26] MEDS: NS IV 1000 ML 1,000 ML IV SCH ×2 (04:07→15:18)
--- NOTE | 2020-10-26 05:44 | Pulmonary Progress Note ---
Subjective Time Seen by a Provider: 05:39 Subjective/Events-last exam Pt is awake and alert. Levophed is currently off Sepsis Event Evaluation Height, Weight, BMI Height: 6'1.00" Weight: 216lbs. 4.0oz. 97.752079gh; 23.71 BMI Method:Stated Focused Exam Lactate Level 10/25/20 02:08: Lactic Acid Level 2.25*H 10/25/20 04:08: Lactic Acid Level 1.42 Exam Exam Vital Signs Date Time Temp Pulse Resp B/P (MAP) Pulse Ox O2 Delivery O2 Flow Rate FiO2 10/26/20 04:00 96 19 99/73 (82) 92 Nasal Cannula 3.00 10/26/20 03:30 36.2 10/26/20 03:00 96 19 101/72 (82) 96 Nasal Cannula 3.00 10/26/20 02:00 93 22 94/70 (78) 95 Nasal Cannula 3.00 10/26/20 01:00 92 10/26/20 01:00 87 16 90/62 (71) 95 Nasal Cannula 3.00 10/26/20 00:30 36.3 95 Nasal Cannula 3.00 10/26/20 00:00 86 21 103/71 (82) 96 Nasal Cannula 5.00 10/25/20 23:00 88 20 92/60 (71) 97 Nasal Cannula 5.00 10/25/20 22:00 92 24 90/73 (79) 94 Nasal Cannula 5.00 10/25/20 21:00 98 High Flow N/C 5.00 10/25/20 21:00 89 20 102/67 (79) 95 Nasal Cannula 5.00 10/25/20 20:45 96 Nasal Cannula 5.00 10/25/20 20:00 87 14 104/69 (81) 98 Nasal Cannula 5.00 10/25/20 19:00 92 10/25/20 19:00 92 24 94/64 (74) 98 Nasal Cannula 5.00 10/25/20 18:54 36.3 10/25/20 18:00 94 30 102/69 (80) 98 Nasal Cannula 7.00 10/25/20 17:41 97 90/68 10/25/20 17:00 92 28 109/84 (92) 98 Nasal Cannula 7.00 10/25/20 16:00 36.8 10/25/20 16:00 87 19 98/72 (81) 97 Nasal Cannula 7.00 10/25/20 15:00 85 21 101/66 (78) 95 Nasal Cannula 7.00 10/25/20 14:00 93 35 117/57 (77) 95 Nasal Cannula 7.00 10/25/20 13:00 91 10/25/20 13:00 90 19 127/70 (89) 96 Nasal Cannula 7.00 10/25/20 12:34 35.7 10/25/20 12:00 90 19 112/73 (86) 93 Nasal Cannula 7.00 10/25/20 11:00 92 29 107/73 (84) 90 Nasal Cannula 7.00 10/25/20 10:00 90 22 89/46 (60) 92 Nasal Cannula 7.00 10/25/20 09:00 87 23 112/52 (72) 99 Nasal Cannula 7.00 10/25/20 08:00 84 23 112/55 (74) 99 Nasal Cannula 7.00 10/25/20 07:54 36.8 10/25/20 07:40 85 81/42 10/25/20 07:00 84 21 83/42 (56) 89 Nasal Cannula 3.00 10/25/20 07:00 83 10/25/20 06:00 87 25 92/43 (59) 93 Nasal Cannula 3.00 I & O 10/26/20 07:00 Intake Total 865 ml Output Total 1400 ml Balance -535 ml Height & Weight Height: 6'1.00" Weight: 216lbs. 4.0oz. 97.552514ub; 23.71 BMI Method:Stated General Appearance: No Apparent Distress, Chronically ill HEENT: PERRL/EOMI, Other (dry mucous membranes) Neck: Normal Inspection, Supple Respiratory: Lungs Clear, Normal Breath Sounds, No Respiratory Distress Cardiovascular: Regular Rate, Rhythm, No Edema, No Murmur Extremity: Pedal Edema, Other (left BKA) Neurologic/Psychiatric: Alert, No Motor/Sensory Deficits, Depressed Affect Skin: Warm/Dry, Rash (candidiasis within groin), Other (scaly skin, open lesions on thigh) Results Lab Laboratory Tests 10/25/20 02:08 10/25/20 14:00 10/26/20 01:24 Assessment/Plan Assessment/Plan Severe sepsis -Severe sepsis protocol -NS currently at 100cc/hr -[place] cultures -Vanco and cefepime R hip fracture -Ortho consulted Hypotension -IVF Will give NS bolus -Levophed is now off -Continue solucortef for now -Monitor -Check echo today. Cellulitis -Consult wound care CHF with EF 25-30% Hyponatremia -Monitor -Currently on NS chronic debility CAD with hx of CABG - DVT PPX NILS ACHARYA DO Oct 26, 2020 05:44
[2020-10-26] MEDS: HYDROCORTISONE 100 MG/2 ML (Solu-CORTEF) VIAL IV SCH ×3 (06:13→21:05)
[2020-10-26] MEDS ORDERED: TROUGH ORDER-PHARMACY XX NR (08:00)
--- NOTE | 2020-10-26 08:18 | Diagnostic Imaging Report ---
Indication: Sepsis Portable AP view of the chest is obtained with comparison made study one day earlier. There is cardiomegaly and pulmonary venous congestion similar to previous study. No pneumothorax or new consolidation is identified. There does appear to be mild left pleural fluid. IMPRESSION: Findings remain compatible with congestive heart failure and probable mild pulmonary edema. Dictated by: Dictated on workstation # [id number]
[2020-10-26] MEDS: ENOXAPARIN 40 MG/0.4 ML (LOVENOX) SYR SC SCH (08:58)
[2020-10-26] MEDS: FAMOTIDINE 20MG/2ML IV (PEPCID) IVP SCH (08:58)
[2020-10-26] MEDS: ASPIRIN 81 MG CHEW (CHILDREN'S ASA) PO SCH (08:58)
[2020-10-26] MEDS: MICONAZOLE 2% POWDER (DESENEX AF) 90 GM TOP SCH ×2 (09:11→20:51)
[2020-10-26] MEDS: NOREPINEPHRINE 4 MG/250 ML 250 ML IV SCH ×2 (11:05→17:07)
[2020-10-26] MEDS: inSUlin ASPART (NovoLOG) 1 UNIT/0.01 ML (CHARGE PER UNIT) SC SCH ×5 (11:22→20:51)
--- NOTE | 2020-10-26 13:38 | Progress Note - Hospitalist ---
Subjective HPI/CC On Admission Date Seen by Provider: Oct 26, 2020 Time Seen by Provider: 09:20 Richar Kasper is a 50 year old male who presented to [facility] after falling out of bed. He is non-ambulatory at baseline and is wheelchair dependent. Upon arrival to [facility], he was found to have a hip fracture. He was also found to have severe sepsis. Upon my examination, he was minimally conversant and only said a few words. He was answering questions by shaking his head yes and no. He denies any pain. He denied fevers. He denied trouble breathing. He denies nausea and vomiting. He was not feeling sick recently. Subjective/Events-last exam He is more talkative today. He is thirsty. He has some pain in his hip. He denies fevers. He denies trouble breathing. He denies nausea and vomiting. He has no other complaints. Focused Exam Lactate Level 10/25/20 02:08: Lactic Acid Level 2.25*H 10/25/20 04:08: Lactic Acid Level 1.42 Objective Exam Vital Signs Vital Signs Date Time Temp Pulse Resp B/P (MAP) Pulse Ox O2 Delivery O2 Flow Rate FiO2 10/26/20 13:00 79 25 118/70 (93) 100 Nasal Cannula 3.00 10/26/20 11:56 35.8 Capillary Refill : Less Than 3 Seconds General Appearance: No Apparent Distress, WD/WN Respiratory: Lungs Clear, Normal Breath Sounds, No Respiratory Distress Cardiovascular: Regular Rate, Rhythm, No Edema, No Murmur Gastrointestinal: Normal Bowel Sounds, Non Tender, Soft Extremity: Pedal Edema, Other (left BKA) Neurologic/Psychiatric: Alert, Oriented x3, No Motor/Sensory Deficits, Normal Mood/Affect Skin: Warm/Dry, Other (skin lesions bilateral lower extremities) Results/Procedures Lab Laboratory Tests 10/25/20 14:00 10/26/20 01:24 Patient resulted labs reviewed. Imaging: Reviewed Imaging Report Assessment/Plan Assessment and Plan Assess & Plan/Chief Complaint Closed right hip fracture Hip xrays consistent with fracture Ortho consulted, appreciate assistance No plan for surgical intervention due to overlying cellulitis and baseline non-ambulatory status Pain regimen Septic shock UTI Cellulitis Levophed stopped this morning Vanc and Cefepime Await culture results Hyponatremia Appears hypovolemic Na 123 Increase normal saline Obtain urine studies Repeat BMP this afternoon T2DM Levemir Sliding scale Candidal intertrigo Miconazole powder CAD s/p CABG Heart failure with reduced ejection fraction Cardiology consulted, appreciate assistance Echo with EF 25-30% Recommend follow up with CV surgery due to staple protrusion History of left BKA Chronic debility DVT prophylaxis: Lovenox Diagnosis/Problems Diagnosis/Problems (1) Hip fracture Status: Acute Qualifiers: Encounter type: initial encounter Fracture type: closed Laterality: right Qualified Codes: S72.001A - Fracture of unspecified part of neck of right femur, initial encounter for closed fracture (2) Sepsis Status: Acute (3) UTI (urinary tract infection) Status: Acute (4) CAD (coronary artery disease) Status: Chronic (5) S/P CABG (coronary artery bypass graft) Status: Chronic (6) S/P BKA (below knee amputation) Status: Chronic Qualifiers: Laterality: left Qualified Codes: Z89.512 - Acquired absence of left leg below knee (7) Septic shock Status: Acute (8) Lactic acidosis Status: Acute (9) Cellulitis Status: Acute (10) Candidal intertrigo Status: Acute (11) T2DM (type 2 diabetes mellitus) Status: Chronic (12) HFrEF (heart failure with reduced ejection fraction) Status: Acute Clinical Quality Measures DVT/VTE Risk/Contraindication: Risk Factor Score Per Nursin RFS Level Per Nursing on Admit: 4+=Very High DIANA VINES MD Oct 26, 2020 13:38
[2020-10-26 14:08] LABS: CHLORIDE 99 MMOL/L (98-107); POTASSIUM 3.6 MMOL/L (3.6-5.0)
[2020-10-26 14:09] LABS: CALCIUM 6.3 MG/DL (8.5-10.1); GLUCOSE 183 MG/DL (70-105)
[2020-10-26 14:11] LABS: CARBON DIOXIDE 18 MMOL/L (21-32)
[2020-10-26 14:13] LABS: CREATININE SERUM 0.57 MG/DL (0.60-1.30); GFR ESTIMATED > 60
[2020-10-26 14:14] LABS: BUN/CREATININE RATIO 21; SODIUM 124 MMOL/L (135-145)
[2020-10-26] MEDS ORDERED: IBUP-2473 PO (15:14)
--- NOTE | 2020-10-26 15:14 | NUR ---
SPOKE WITH THE PT (CALLED THE ROOM PHONE) TO COMPLETE THE MED REC PT DENIES TAKING ANY PRESCRIPTION MEDICATIONS OTC MEDS: IBUPROFEN 200MG- ACCORDING TO THE PT HE TAKES 1-2 TABS PRN AND NEVER TAKES MORE THEN 2 AT A TIME
--- NOTE | 2020-10-26 15:26 | Physical Therapy Progress Note ---
Therapy Progress Note Order for PT addy received. Nurse requests to start tomorrow due to agitation. Will check back in the morning. ELLA PINEDA PT Oct 26, 2020 15:26
--- NOTE | 2020-10-26 15:36 | Occ Therapy Progress Note ---
Therapy Progress Note OT orders received and chart reviewed. Nurse requests OT to start tomorrow due to pt's agitated state on this date. OT will attempt evaluation tomorrow. BONY KRUEGER OT Oct 26, 2020 15:36
--- NOTE | 2020-10-26 15:52 | NUR ---
CM/SS visited with patient for social service consult. The patient was lying in bed at time of visit. He reports that he is burning up right now but otherwise doing well. He was wiling to discuss discharge planning. Home: The patient lives at home with his daughter, Elizabeth. He states that he is bedbound and does not use a wheelchair to get around. The patient is concerned about transportation home due to not sitting in a seated position. Home Health: None. He reports he would be willing to have at time of discharge for wound care. CM/SS is unsure of the care that is being provided by Daughter for wound care. The patient reports that she "refuses" to do it because she doesn't want him to get infected. SNF: The patient's daughter reports he has never been to a skilled facility but feels that he would be willing to do short term if needed. Caregivers: None that are paid. Daughter helps clean and cook for the patient. Equipment: Hospital Bed Financial: Receives SSDI. Insurance: Medicare and has a Medicaid card. He is unsure if it is current. CM/SS contacted the daughter to get the card number. . CM/SS will call and check if it is active. CM/SS will continue to follow.
--- NOTE | 2020-10-26 16:00 | NUR ---
MADE CONTACT WITH [employer] IN [place] TO PT DEFIBRILLATOR. NO RECORD FOUND WITH [employer]. CONTACTED [facility]. PT WAS FOUND IN THEIR SYSTEM. PT HAS SINGLE CHAMBER ICD MODEL # [id number] SERIAL # [id number] WITH IMPLANT DATE OF 11-14-2010
[2020-10-26] MEDS: VANCOMYCIN INJECTION 750 MG in NS (IVPB) 250 ML IV SCH (16:28)
--- NOTE | 2020-10-26 18:32 | Progress Note - Cardiology ---
Cardiology SOAP Progress Note Subjective: No cp or palp or syncope or shortness of breath Gen malaise Gen body discomfort Objective: I&O/Vital Signs 10/26/20 10/26/20 10/26/20 10/26/20 06:30 06:45 07:00 07:00 Pulse 98 92 86 101 Resp 9 20 18 B/P (MAP) 94/82 (85) 87/57 (75) 82/56 (67) Pulse Ox 96 93 95 O2 Delivery Nasal Cannula O2 Flow Rate 3.00 10/26/20 10/26/20 10/26/20 10/26/20 07:15 07:30 07:45 07:53 Temp 36.3 Pulse 100 94 96 Resp 14 40 8 B/P (MAP) 99/66 (80) 92/66 (78) 101/71 (88) Pulse Ox 96 94 92 10/26/20 10/26/20 10/26/20 10/26/20 08:00 08:15 08:30 08:45 Pulse 92 91 87 84 Resp 13 18 33 16 B/P (MAP) 106/71 (89) 96/66 (76) 85/60 (69) 83/58 (66) Pulse Ox 94 94 O2 Delivery Nasal Cannula O2 Flow Rate 3.00 10/26/20 10/26/20 10/26/20 10/26/20 09:00 09:00 09:15 09:30 Pulse 84 91 92 Resp 13 14 13 B/P (MAP) 89/55 (69) 96/60 (68) 93/46 (72) Pulse Ox 94 94 94 94 O2 Delivery High Flow N/C Nasal Cannula O2 Flow Rate 4.00 3.00 10/26/20 10/26/20 10/26/20 10/26/20 09:45 10:00 10:15 10:30 Pulse 92 91 94 89 Resp 16 26 9 11 B/P (MAP) 103/60 (91) 93/69 (76) 103/73 (81) Pulse Ox 94 92 93 100 O2 Delivery Nasal Cannula O2 Flow Rate 3.00 10/26/20 10/26/20 10/26/20 10/26/20 10:45 11:00 11:15 11:30 Pulse 94 91 93 87 Resp 21 10 13 16 B/P (MAP) 97/68 (78) 129/103 (114) 135/67 (87) 136/80 (103) Pulse Ox 99 100 100 100 O2 Delivery Nasal Cannula O2 Flow Rate 3.00 10/26/20 10/26/20 10/26/20 10/26/20 11:45 11:56 12:00 12:15 Temp 35.8 Pulse 92 92 82 Resp 15 13 B/P (MAP) 143/78 (88) 132/77 (98) 122/81 (94) Pulse Ox 100 100 100 O2 Delivery Nasal Cannula O2 Flow Rate 3.00 10/26/20 10/26/20 10/26/20 10/26/20 12:30 12:45 12:56 13:00 Pulse 82 84 99 79 Resp 10 13 25 B/P (MAP) 125/81 (103) 131/74 (96) 118/70 (93) Pulse Ox 100 100 100 O2 Delivery Nasal Cannula O2 Flow Rate 3.00 10/26/20 10/26/20 10/26/20 10/26/20 13:15 13:30 13:45 14:00 Pulse 75 80 75 75 Resp 13 11 13 12 B/P (MAP) 129/71 (93) 133/73 (82) 123/71 (90) 125/70 (93) Pulse Ox 100 100 100 100 O2 Delivery Nasal Cannula O2 Flow Rate 3.00 10/26/20 10/26/20 10/26/20 10/26/20 14:15 14:30 14:45 15:00 Pulse 74 77 77 85 Resp 17 13 14 19 B/P (MAP) 127/73 (93) 133/68 (97) 136/74 (98) 142/83 (113) Pulse Ox 100 100 100 100 O2 Delivery Nasal Cannula O2 Flow Rate 3.00 10/26/20 10/26/20 10/26/20 10/26/20 15:15 15:30 15:45 15:58 Temp 36.0 Pulse 87 89 81 Resp 15 15 B/P (MAP) 113/70 (75) 142/78 (98) 135/82 (113) Pulse Ox 100 100 100 10/26/20 10/26/20 10/26/20 10/26/20 16:00 16:15 16:30 16:45 Pulse 75 78 78 74 Resp 11 14 27 14 B/P (MAP) 121/65 (90) 131/83 (106) 134/73 (93) 123/76 (95) Pulse Ox 100 100 O2 Delivery Nasal Cannula O2 Flow Rate 3.00 10/26/20 10/26/20 17:00 18:04 Pulse 76 81 Resp 11 13 B/P (MAP) 125/78 (97) 123/80 (94) Pulse Ox 100 99 O2 Delivery Nasal Cannula Nasal Cannula O2 Flow Rate 3.00 3.00 10/26/20 00:00 Intake Total 715 ml Output Total 900 ml Balance -185 ml Weight (Pounds): 216 Weight (Ounces): 4.0 Weight (Calculated Kilograms): 97.949107 Constitutional: other (Appears oriented, but is intermittently agitated and combative. Appears to have poor short and skilled nursing memory) Respiratory: No accessory muscle use; other (Fair air entry, diminished at the bases) Cardiovascular: regular rate-rhythm, S1 and S2, systolic murmur (soft LYNETTE at card base) Gastrointestional: No tender; soft, audible bowel sounds Extremities: other (L BKA. We did not attemp any motion at the lower limbs because of his recent fracture) Neurologic/Psychiatric: other (for mental status exam, see above; he did not cooperate with any neuro exam) Skin: other (He has multiple areas of skin break down on the torso and abdomen and limbs; a short end of a sternal wire (apparently from his CABG) projects form the top of the sternum but there does not appeart to much inlammation at this area (he says he has had that projecting for years and has not consulted any one for it, nor does he want to)) Results/Procedures: Labs Laboratory Tests 10/25/20 21:32: Glucometer 295H 10/26/20 01:24: White Blood Count 8.5, Red Blood Count 3.34L, Hemoglobin 9.7L, Hematocrit 29L, Mean Corpuscular Volume 86, Mean Corpuscular Hemoglobin 29, Mean Corpuscular Hemoglobin Concent 34, Red Cell Distribution Width 14.9H, Platelet Count 148, Mean Platelet Volume 9.7, Immature Granulocyte % (Auto) 1, Neutrophils (%) (Auto) 86H, Lymphocytes (%) (Auto) 7L, Monocytes (%) (Auto) 6, Eosinophils (%) (Auto) 0, Basophils (%) (Auto) 0, Neutrophils # (Auto) 7.3, Lymphocytes # (Auto) 0.6L, Monocytes # (Auto) 0.5, Eosinophils # (Auto) 0.0, Basophils # (Auto) 0.0, Immature Granulocyte # (Auto) 0.1, Sodium Level 123*L, Potassium Level 4.0, Chloride Level 94L, Carbon Dioxide Level 19L, Anion Gap 10, Blood Urea Nitrogen 12, Creatinine 0.69, Estimat Glomerular Filtration Rate > 60, BUN/Creatinine Ratio 17, Glucose Level 273H, Calcium Level 7.1L, Phosphorus Level 2.4, Magnesium Level 2.1 10/26/20 07:55: Vancomycin Level Trough 19.9 10/26/20 09:32: Urine Creatinine 166H 10/26/20 10:41: Glucometer 220H 10/26/20 13:50: Sodium Level 124*L, Potassium Level 3.6, Chloride Level 99, Carbon Dioxide Level 18L, Anion Gap 7, Blood Urea Nitrogen 12, Creatinine 0.57L, Estimat Glomerular Filtration Rate > 60, BUN/Creatinine Ratio 21, Glucose Level 183H, Calcium Level 6.3L 10/26/20 16:10: Glucometer 218H Microbiology 10/25/20 Blood Culture - Preliminary, Resulted No growth 10/25/20 MRSA Screen - Final, Complete MRSA not isolated Laboratory Tests 10/25/20 02:08 10/25/20 14:00 10/26/20 01:24 10/26/20 13:50 A/P: Assessment: CAD. H/o CABG. Pt has no recollection, but previous records at this hosp indicate CABG was in 2009 in [place], [place]. Last card cath at this hosp was in 2012: occluded LAD and RCA, severely diseased LCX; patent JACINTO to LAD, patent SVG to PDA, patent SVG to OM, diffusely atretic and occluded SVG to RI, SVG 35-4 0% A protruding end of a sternal wire from the cephalic part of the sternum. The patient states this has been present for many years and refuses any eval or treatment of this Ischemic cardiomyopathy (see above). Echo of 12/16/19 shows dilated cardiomyopathy with LV enlargement, diffuse hypokinesis and LVEF 25-30%, PASP approx 55 mmHg S/p single chamber ICD (as seen on CXR of 10/25/20). According to the patient, he has no f/u on this or any cardiac f/u for many years L BKA. He doesn't know when or where or why it was done, and has had no f/u R hip fracture in Oct 2020 after a nonsyncopal fall. Wound now considered inoperable due to pt's neglect of it that has led to purulent skin breakdown Multiple areas of skin breakdown Sepsis and anemia Apparently deliberate self-neglect (see above) Plan: * Complex management, primarily because of apparent self-neglect on part of the patient * This morning, had at first refused to see Cardiology. Then wanted us to see him * I advised that he see his CV surgeon to address the issue of the protruding sternal wire. He refuses * I have advised device f/u. He does not know the real estate closer of the device. We will try to investigate. This device is likely currently nonfunctional. He has not agreed to a new device, if needed, neither is this a suitable time for device replacement (sepsis) * We recommend therapy for dilated ischemic cardiomyopathy. This should include bb, BEA-inhib, ASA. Spironolactone and furosemide should be considered if diuretic is needed at a later time. Will try to add gradually * We also recommend DVT prophylaxis ELLIOT NATH MD FACP [facility] Oct 26, 2020 18:32
--- NOTE | 2020-10-26 18:44 | Wound Care Assessment ---
Wound Care Assessment Date Seen by Provider: Oct 26, 2020 Time Seen by Provider: 18:00 Chief Complaint Ulcers on R leg. HPI The patient is a 50 year old male with diabetes and disabling rheumatoid arthritis, admitted for fracture of hip from fall with unusual pettichial rash of the R leg and two necrotic ulcers, which appear to be full thickness. History of hypotension on admission and possible sepsis. Necrotic ulcers currently treated with Xeroform. Past Medical History: Admits Diabetes Type II Rheumatoid arthritis Smoking Status: Current Everyday Smoker Recreational Drug Use: No Alcohol Use: Occasionally Uses Review of Systems Pulmonary: No Dyspnea Cardiovascular: No: Chest Pain Exam Vital Signs Date Time Temp Pulse Resp B/P (MAP) Pulse Ox O2 Delivery O2 Flow Rate FiO2 10/26/20 18:04 81 13 123/80 (94) 99 Nasal Cannula 3.00 10/26/20 15:58 36.0 Capillary Refill : Less Than 3 Seconds General Appearance: no apparent distress Respiratory: no respiratory distress Extremities: other (Necrotic full thickness ulcers of R lateral leg.) Results Laboratory Tests 10/25/20 21:32: Glucometer 295H 10/26/20 01:24: White Blood Count 8.5, Red Blood Count 3.34L, Hemoglobin 9.7L, Hematocrit 29L, Mean Corpuscular Volume 86, Mean Corpuscular Hemoglobin 29, Mean Corpuscular Hemoglobin Concent 34, Red Cell Distribution Width 14.9H, Platelet Count 148, Mean Platelet Volume 9.7, Immature Granulocyte % (Auto) 1, Neutrophils (%) (Auto) 86H, Lymphocytes (%) (Auto) 7L, Monocytes (%) (Auto) 6, Eosinophils (%) (Auto) 0, Basophils (%) (Auto) 0, Neutrophils # (Auto) 7.3, Lymphocytes # (Auto) 0.6L, Monocytes # (Auto) 0.5, Eosinophils # (Auto) 0.0, Basophils # (Auto) 0.0, Immature Granulocyte # (Auto) 0.1, Sodium Level 123*L, Potassium Level 4.0, Chloride Level 94L, Carbon Dioxide Level 19L, Anion Gap 10, Blood Urea Nitrogen 12, Creatinine 0.69, Estimat Glomerular Filtration Rate > 60, BUN/Creatinine Ratio 17, Glucose Level 273H, Calcium Level 7.1L, Phosphorus Level 2.4, Magnesium Level 2.1 10/26/20 07:55: Vancomycin Level Trough 19.9 10/26/20 09:32: Urine Creatinine 166H 10/26/20 10:41: Glucometer 220H 10/26/20 13:50: Sodium Level 124*L, Potassium Level 3.6, Chloride Level 99, Carbon Dioxide Level 18L, Anion Gap 7, Blood Urea Nitrogen 12, Creatinine 0.57L, Estimat Glomerular Filtration Rate > 60, BUN/Creatinine Ratio 21, Glucose Level 183H, Calcium Level 6.3L 10/26/20 16:10: Glucometer 218H Microbiology 10/25/20 Blood Culture - Preliminary, Resulted No growth 10/25/20 MRSA Screen - Final, Complete MRSA not isolated Microbiology 10/25/20 Blood Culture - Preliminary, Resulted No growth 10/25/20 MRSA Screen - Final, Complete MRSA not isolated Assessment/Plan/Dx 1. Necrotic ulcers of R lateral leg, uncertain etiology. 2. Pettichial rash. 3. Tinea cruris. 4. Diabetes. 5. Rheumatoid arthritis. 6. Anasarca. Plan: continue present dressings, observe for deterioration of pettichial rash. DOM GU MD Oct 26, 2020 18:44
[2020-10-26] MEDS: ENALAPRIL 2.5 MG (VASOTEC) TAB PO SCH (20:50)
[2020-10-26] MEDS: CARVEDILOL 3.125 MG (COREG) TABLET PO SCH (20:51)
[2020-10-27] MEDS: VANCOMYCIN INJECTION 750 MG in NS (IVPB) 250 ML IV SCH ×3 (00:20→18:28)
[2020-10-27] MEDS: CEFEPIME 1,000 MG/SWFI 10 ML IV PUSH IV SCH ×12 (00:24→23:46)
[2020-10-27] MEDS: NS IV 1000 ML 1,000 ML IV SCH (00:24)
[2020-10-27] MEDS: HYDROcodone/APAP 10 MG/325 MG (LORTAB) TAB PO PRN ×5 (00:58→18:38)
[2020-10-27 03:40] LABS: BASOPHILS % (AUTO) 0 % (0-10); EOSINOPHILS % (AUTO) 0 % (0-10); HEMATOCRIT 28 % (40-54); HEMOGLOBIN 9.1 g/dL (13.3-17.7); LYMPHOCYTES # (AUTO) 0.8 10^3/uL (1.0-4.0); LYMPHOCYTES % (AUTO) 11 % (12-44); MEAN CORPUSCULAR HEMOGLOBIN 29 pg (25-34); MEAN CORPUSCULAR HGB CONC 33 g/dL (32-36); MEAN CORPUSCULAR VOLUME 88 fL (80-99); MEAN PLATELET VOLUME 9.8 fL (9.0-12.2); MONOCYTES # (AUTO) 0.6 10^3/uL (0.0-1.0); MONOCYTES % (AUTO) 8 % (0-12); NEUTROPHILS # (AUTO) 5.6 10^3/uL (1.8-7.8); NEUTROPHILS % (AUTO) 81 % (42-75); PLATELET COUNT 130 10^3/uL (130-400); WHITE BLOOD COUNT 6.9 10^3/uL (4.3-11.0)
[2020-10-27] MEDS: fentaNYL INJECTION 100 MCG/2 ML AMP IVP PRN ×2 (03:46→21:55)
[2020-10-27 04:04] LABS: BUN/CREATININE RATIO 26; CALCIUM 7.1 MG/DL (8.5-10.1); CARBON DIOXIDE 22 MMOL/L (21-32); CHLORIDE 95 MMOL/L (98-107); CREATININE SERUM 0.74 MG/DL (0.60-1.30); GFR ESTIMATED > 60; GLUCOSE 233 MG/DL (70-105); MAGNESIUM 2.2 MG/DL (1.6-2.4); PHOSPHORUS 1.8 MG/DL (2.3-4.7); POTASSIUM 4.4 MMOL/L (3.6-5.0)
[2020-10-27 04:22] LABS: SODIUM 123 MMOL/L (135-145)
--- NOTE | 2020-10-27 04:30 | NUR ---
Dressing to right upper leg saturated. Dressing removed, area cleaned, new xeroform and ABD pad applied. Patient very particular as to how perform each step. Pain medication given before and after dressing change.
[2020-10-27] MEDS: NOREPINEPHRINE 4 MG/250 ML 250 ML IV SCH (04:56)
[2020-10-27] MEDS: HYDROCORTISONE 100 MG/2 ML (Solu-CORTEF) VIAL IV SCH ×3 (06:40→21:49)
[2020-10-27] MEDS: inSUlin ASPART (NovoLOG) 1 UNIT/0.01 ML (CHARGE PER UNIT) SC SCH ×7 (06:41→21:49)
--- NOTE | 2020-10-27 06:47 | NUR ---
Unable to accurately weigh patient. When attempt to weigh it is showing only 20 lbs.
--- NOTE | 2020-10-27 07:41 | NUR ---
CLEAN WOUNDS ON R LEG WITH SOAP AND WATER. PAT DRY. USE XEROFORM GAUZE AND ABD PADS ON WOUNDS FROM HIP TO KNEE. SECURE WITH TAPE. USE NYSTATIN CREAM ON LOWER LEG AND GROIN. Addendum: 10/27/20 at 0746 by GREGORY BLUE RN Amended: Links added.
[2020-10-27] MEDS ORDERED: FUROSEMIDE 40 MG/4 ML INJ (LASIX) IVP NR (07:56)
--- NOTE | 2020-10-27 08:08 | Diagnostic Imaging Report ---
INDICATION: Coronary artery disease, shortness of breath Portable chest 1:07 AM There are postoperative changes from CABG surgery. Right upper extremity PICC line tip projects over the SVC. There is unipolar pacemaker with ICD. There is cardiomegaly. There is some volume loss at both lung bases with some vascular congestion. IMPRESSION: Mild pulmonary venous hypertension. Dictated by: Dictated on workstation # [id number]
[2020-10-27] MEDS: ENOXAPARIN 40 MG/0.4 ML (LOVENOX) SYR SC SCH (08:21)
[2020-10-27] MEDS: ENALAPRIL 2.5 MG (VASOTEC) TAB PO SCH ×2 (08:21→21:49)
[2020-10-27] MEDS: ASPIRIN 81 MG CHEW (CHILDREN'S ASA) PO SCH (08:21)
[2020-10-27] MEDS: FAMOTIDINE 20MG/2ML IV (PEPCID) IVP SCH (08:21)
[2020-10-27] MEDS: CARVEDILOL 3.125 MG (COREG) TABLET PO SCH ×2 (08:21→21:49)
[2020-10-27] MEDS: MICONAZOLE 2% POWDER (DESENEX AF) 90 GM TOP SCH ×2 (08:22→21:54)
[2020-10-27] MEDS: NYSTATIN CREAM (MYCOSTATIN) 30 GM TUBE TP SCH ×3 (08:22→21:55)
--- NOTE | 2020-10-27 09:48 | Physical Therapy Progress Note ---
Therapy Progress Note Patient is nonambulatory and bed bound PLOF at home with assist of family. PT visited with patient and patient declined PT. Due to patient's dependent PLOF, no skilled therapy indicated. 1 visit (560) IRAIS BEAN PT Oct 27, 2020 09:48
--- NOTE | 2020-10-27 10:00 | NUR ---
PT TRANSFERRED TO [phone] FROM ICU AT THIS TIME. A/O, PT WAS ORIENTED TO ROOM/CALL LIGHT.
--- NOTE | 2020-10-27 10:19 | NUR ---
CM/SS follow up. Plan: Patient will likely discharge to a ch[facility] facility for wound care, physical therapy, and occupational therapy. SNF: CM/SS was informed by Physician that the patient would benefit from a chcf facility placement. The physician spoke with the patient and he was agreeable with plan and wanted this sw to send a referral to [facility]. CM/SS contacted the facility but [facility] and [facility] were unavailable. A message was left with staff and the referral was faxed. CM/SS contacted the patient's daughter to give an update and inform her of a chcf referral. She verbalized understanding and was agreeable with plan. CM/SS will continue to follow.
[2020-10-27 11:27] VITALS: BP 132/68
--- NOTE | 2020-10-27 12:07 | Occupational Therapy Eval ---
OT Evaluation-General/PLF Medical Diagnosis Admission Date Oct 25, 2020 at 01:18 Medical Diagnosis: hip fx Onset Date: Oct 25, 2020 Therapy Diagnosis Therapy Diagnosis: decreased ADL status Height/Weight Height (Feet): 6 Height (Inches): 1.00 Weight (Pounds): 216 Weight (Ounces): 4.0 Precautions Precautions/Isolations: Fall Prevention, Standard Precautions Referral Physician: Jori Referral Reason: Evaluation/Treatment Medical History Pertinent Medical History: Arthritis, CABG, CAD, DM, Rheumatoid Arthritis, Smoking Additional Medical History GERD, Amputee, arthritis, RA, Fxs, contracture, DM, depression Current History Pt fell from bed and fractured hip. Social History Current Living Status: Children ADL-Prior Level of Function SCALE: Activities may be completed with or without assistive devices. 6-Dfidoklqrz-bymssfb completes the activity by him/herself with no assistance from a helper. 5-Set-up or Clean-up Assistance-helper sets up or cleans up; patient completes activity. Echo assists only prior to or following the activity. 4-Supervision or Touching Assistance-helper provides verbal cues and/or touching/steadying and/or contact guard assistance as patient completes activity. Assistance may be provided throughout the activity or intermittently. 3-Partial/Moderate Assistance-helper does LESS THAN HALF the effort. Echo lifts, holds or supports trunk or limbs, but provides less than half the effort. 2-Substantial/Maximal Assistance-helper does MORE THAN HALF the effort. Echo lifts or holds trunk or limbs and provides more than half the effort. 4-Mtnlfikgf-bgvkmw does ALL the effort. Patient does none of the effort to complete the activity. Or, the assistance of 2 or more helpers is required for the patient to complete the activity. If activity was not attempted, code reason: 7-Patient Refused. 9-Not Applicable-not attempted and the patient did not perform the activity before the current illness, exacerbation or injury. 10-Not Attempted due to Environmental Limitations-(lack of equipment, weather restraints, etc.). 88-Not Attempted due to Medical Conditions or Safety Concerns. ADL PLOF Comments Pt dependent with bathing, cooking, and cleaning. He does not wear clothing at PLOF, he uses a sheet or does not wear clothes. He lives with his daughter who takes care of him. Pt reports he is sometimes able to feed himself if he has a bent spoon and his meal is set up for him. Pt is bed bound at PLOF and non- ambulatory Self Care: Dependent Functional Cognition: Independent OT Current Status Subjective Pt laying in bed, indicates he does not feel like he needs OT services as there is nothing we are going to be able to help him with Current Upper Extremity ROM BUE contractures, pt able to move L thumb in order to hold utensil and water jug when placed in hand Upper Extremity Sensation WFL Upper Extremity Strength decreased due to contractures ADL-Treatment Eating (QC): 3 (Assist placing water jug in pt's hand, and turning lid/straw. Pt then able to bring to cup and take a drink.) Toileting Hygiene (QC): 1 (based on clinical [employer], pt would be dependent with task) Other Treatments Pt laying in bed, OT educated pt on purpose and benefit of OT, he verbalized understanding. Pt indicates he does not wish to have OT services as he does not feel like there is anything we can help him with. OT set up water jug, labeling level of ice and water so pt is able to bring cup to mouth. OT also provided pt with adaptive spoon that is bent and has tape, he is able to place utensil in hand and move spoon in motion like eating. Pt thanks OT for assistance but declines further tx as he is at his PLOF. Post tx, pt laying in bed, call light in reach and all needs met. Education OT Patient Education: Correct positioning, Modified ADL techniques, Progress toward Goal/Update tx plan, Purpose of tx/functional activities, Rehab process OT Mcfp Goals [employer] Goals 1=Demonstrate adherence to instructed precautions during ADL tasks. 2=Patient will verbalize/demonstrate understanding of assistive devices/modifications for ADL. 3=Patient will improve strength/tolerance for activity to enable patient to perform ADL's. OT Education/Plan Problem List/Assessment Assessment: No Skilled OT Needs ID'd No skilled OT services indicated at this time as pt is at his PLOF and he does not wish to have further tx. Discharge Recommendations Plan/Recommendations: Discharge/Goals Met Treatment Plan/Plan of Care Patient would benefit from OT for education, treatment and training to promote independence in ADL's, mobility, safety and/or upper extremity function for ADL's. Plan of Care: ADL Retraining Treatment Duration: Oct 27, 2020 Frequency: 1 time per week (eval only) Time/GCodes Start Time: 10:50 Stop Time: 11:13 Total Time Billed (hr/min): 23 Billed Treatment Time 1, EVL (10'), ADL (13') BONY KRUEGER OT Oct 27, 2020 12:07
--- NOTE | 2020-10-27 14:17 | Progress Note - Hospitalist ---
Subjective HPI/CC On Admission Date Seen by Provider: Oct 27, 2020 Time Seen by Provider: 09:15 Richar Kasper is a 50 year old male who presented to [facility] after falling out of bed. He is non-ambulatory at baseline and is wheelchair dependent. Upon arrival to [facility], he was found to have a hip fracture. He was also found to have severe sepsis. Upon my examination, he was minimally conversant and only said a few words. He was answering questions by shaking his head yes and no. He denies any pain. He denied fevers. He denied trouble breathing. He denies nausea and vomiting. He was not feeling sick recently. Subjective/Events-last exam He is feeling better. He denies fevers. He denies shortness of breath. He denies pain. Focused Exam Lactate Level 10/25/20 02:08: Lactic Acid Level 2.25*H 10/25/20 04:08: Lactic Acid Level 1.42 Objective Exam Vital Signs Vital Signs Date Time Temp Pulse Resp B/P (MAP) Pulse Ox O2 Delivery O2 Flow Rate FiO2 10/27/20 11:27 36.2 86 20 132/68 (89) 100 High Flow N/C 4.00 Capillary Refill : Less Than 3 Seconds General Appearance: No Apparent Distress, Chronically ill Respiratory: Lungs Clear, Normal Breath Sounds, No Respiratory Distress Cardiovascular: Regular Rate, Rhythm, No Murmur Gastrointestinal: Normal Bowel Sounds, Non Tender, Soft Extremity: Normal Inspection, Non Tender, Pedal Edema Neurologic/Psychiatric: Alert, Oriented x3 Skin: Rash, Other (lesions on bilateral legs) Results/Procedures Lab Laboratory Tests 10/27/20 03:30 Patient resulted labs reviewed. Imaging: Reviewed Imaging Report Assessment/Plan Assessment and Plan Assess & Plan/Chief Complaint Cellulitis Vanc and Cefepime Await culture results Hyponatremia Na 123, stable Begin Lasix T2DM Levemir Sliding scale Candidal intertrigo Miconazole powder CAD s/p CABG Heart failure with reduced ejection fraction Cardiology consulted, appreciate assistance Echo with EF 25-30% Begin Lasix Recommend follow up with CV surgery due to staple protrusion Closed right hip fracture Hip xrays consistent with fracture Ortho consulted, appreciate assistance No plan for surgical intervention due to overlying cellulitis and baseline non-ambulatory status Pain regimen History of left BKA Chronic debility PT/OT Likely discharge to [facility] next week DVT prophylaxis: Lovenox Septic shock, resolved Diagnosis/Problems Diagnosis/Problems (1) Cellulitis Status: Acute (2) Sepsis Status: Resolved Resolution Date/Time: 10/27/20 @ 14:20 (3) UTI (urinary tract infection) Status: Acute (4) CAD (coronary artery disease) Status: Chronic (5) S/P CABG (coronary artery bypass graft) Status: Chronic (6) S/P BKA (below knee amputation) Status: Chronic Qualifiers: Laterality: left Qualified Codes: Z89.512 - Acquired absence of left leg below knee (7) Septic shock Status: Resolved Resolution Date/Time: 10/27/20 @ 14:20 (8) Lactic acidosis Status: Resolved Resolution Date/Time: 10/27/20 @ 14:20 (9) Candidal intertrigo Status: Acute (10) T2DM (type 2 diabetes mellitus) Status: Chronic (11) HFrEF (heart failure with reduced ejection fraction) Status: Acute (12) Hip fracture Status: Acute Qualifiers: Encounter type: initial encounter Fracture type: closed Laterality: right Qualified Codes: S72.001A - Fracture of unspecified part of neck of right femur, initial encounter for closed fracture Clinical Quality Measures DVT/VTE Risk/Contraindication: Risk Factor Score Per Nursin RFS Level Per Nursing on Admit: 4+=Very High DIANA VINES MD Oct 27, 2020 14:17
--- NOTE | 2020-10-27 15:56 | Progress Note - Cardiology ---
Cardiology SOAP Progress Note Subjective: No cp or palp or syncope or shortness of breath No n/v Gen malaise present Objective: I&O/Vital Signs 10/27/20 10/27/20 10/27/20 10/27/20 04:00 05:00 06:00 06:41 Pulse 81 73 70 75 Resp 17 12 12 B/P (MAP) 139/74 (95) 138/80 (99) 131/76 (94) Pulse Ox 100 99 100 O2 Delivery Nasal Cannula Nasal Cannula Nasal Cannula O2 Flow Rate 4.00 4.00 4.00 10/27/20 10/27/20 10/27/20 10/27/20 07:00 08:00 09:00 11:27 Temp 36.3 36.2 Pulse 58 86 Resp 17 20 B/P (MAP) 101/66 (78) 132/68 (89) Pulse Ox 88 96 100 O2 Delivery Nasal Cannula High Flow N/C High Flow N/C O2 Flow Rate 4.00 4.00 4.00 10/27/20 00:00 Intake Total 1080 ml Output Total 550 ml Balance 530 ml Weight (Pounds): 216 Weight (Ounces): 4.0 Weight (Calculated Kilograms): 97.340363 Constitutional: other (Appears oriented, but is intermittently agitated and combative. Appears to have poor short and salvage determiner memory) Respiratory: No accessory muscle use; other (Fair air entry, diminished at the bases) Cardiovascular: regular rate-rhythm, S1 and S2, systolic murmur (soft LYNETTE at card base) Gastrointestional: No tender; soft, audible bowel sounds Extremities: other (L BKA. We did not attemp any motion at the lower limbs because of his recent fracture) Neurologic/Psychiatric: other (for mental status exam, see above; he did not cooperate with any neuro exam) Skin: other (He has multiple areas of skin break down on the torso and abdomen and limbs; a short end of a sternal wire (apparently from his CABG) projects form the top of the sternum but there does not appeart to much inlammation at this area (he says he has had that projecting for years and has not consulted any one for it, nor does he want to)) Results/Procedures: Labs Laboratory Tests 10/26/20 16:10: Glucometer 218H 10/26/20 20:44: Glucometer 226H 10/27/20 03:30: White Blood Count 6.9, Red Blood Count 3.11L, Hemoglobin 9.1L, Hematocrit 28L, Mean Corpuscular Volume 88, Mean Corpuscular Hemoglobin 29, Mean Corpuscular Hemoglobin Concent 33, Red Cell Distribution Width 14.8H, Platelet Count 130, Mean Platelet Volume 9.8, Immature Granulocyte % (Auto) 1, Neutrophils (%) (Auto) 81H, Lymphocytes (%) (Auto) 11L, Monocytes (%) (Auto) 8, Eosinophils (%) (Auto) 0, Basophils (%) (Auto) 0, Neutrophils # (Auto) 5.6, Lymphocytes # (Auto) 0.8L, Monocytes # (Auto) 0.6, Eosinophils # (Auto) 0.0, Basophils # (Auto) 0.0, Immature Granulocyte # (Auto) 0.1, Sodium Level 123*L, Potassium Level 4.4, Chloride Level 95L, Carbon Dioxide Level 22, Anion Gap 6, Blood Urea Nitrogen 19H, Creatinine 0.74, Estimat Glomerular Filtration Rate > 60, BUN/Creatinine Ratio 26, Glucose Level 233H, Calcium Level 7.1L, Phosphorus Level 1.8L, Magnesium Level 2.2 10/27/20 11:22: Glucometer 287H Microbiology 10/25/20 Blood Culture - Preliminary, Resulted No growth 10/25/20 MRSA Screen - Final, Complete MRSA not isolated Laboratory Tests 10/26/20 01:24 10/26/20 13:50 10/27/20 03:30 A/P: Assessment: CAD. H/o CABG. Pt has no recollection, but previous records at this hosp indicate CABG was in 2009 in [place], [place]. Last card cath at this hosp was in 2012: occluded LAD and RCA, severely diseased LCX; patent JACINTO to LAD, patent SVG to PDA, patent SVG to OM, diffusely atretic and occluded SVG to RI, SVG 35- 40% A protruding end of a sternal wire from the cephalic part of the sternum. The patient states this has been present for many years and refuses any eval or treatment of this Ischemic cardiomyopathy (see above). Echo of 12/16/19 shows dilated cardiomyopathy with LV enlargement, diffuse hypokinesis and LVEF 25-30%, PASP approx 55 mmHg S/p single chamber ICD (as seen on CXR of 10/25/20). This is [employer] device that was interrogated on 10/26/20 and found to be functioning normally with greter than 2 yrs of battery remaining L BKA. He doesn't know when or where or why it was done, and has had no f/u R hip fracture in Oct 2020 after a nonsyncopal fall. Wound now considered inoperable due to pt's neglect of it that has led to purulent skin breakdown Multiple areas of skin breakdown Sepsis and anemia Apparently deliberate self-neglect (see above) Plan: * Complex management, primarily because of apparent self-neglect on part of the patient * I again advised that he see his CV surgeon to address the issue of the protruding sternal wire. He has stil not agreed * Device has been interrogated (see above) * Continue therapy for dilated ischemic cardiomyopathy. This should include bb, BEA-inhib, ASA. Spironolactone and furosemide should be considered if diuretic is needed at a later time. Will try to add gradually * Continue DVT prophylaxis ELLIOT NATH MD FACP FAC CCDS Oct 27, 2020 15:55
[2020-10-27 16:05] VITALS: BP 132/68
[2020-10-27 16:29] VITALS: BP 93/65
[2020-10-27 19:49] VITALS: BP 98/61
[2020-10-27 23:54] VITALS: BP 100/55
[2020-10-28] MEDS: VANCOMYCIN INJECTION 750 MG in NS (IVPB) 250 ML IV SCH ×2 (00:55→09:01)
[2020-10-28] MEDS: HYDROcodone/APAP 10 MG/325 MG (LORTAB) TAB PO PRN ×4 (04:12→18:33)
[2020-10-28 04:13] VITALS: BP 120/66
[2020-10-28 04:18] LABS: BASOPHILS % (AUTO) 0 % (0-10); EOSINOPHILS % (AUTO) 0 % (0-10); HEMATOCRIT 26 % (40-54); HEMOGLOBIN 8.7 g/dL (13.3-17.7); LYMPHOCYTES # (AUTO) 0.8 10^3/uL (1.0-4.0); LYMPHOCYTES % (AUTO) 11 % (12-44); MEAN CORPUSCULAR HEMOGLOBIN 29 pg (25-34); MEAN CORPUSCULAR HGB CONC 33 g/dL (32-36); MEAN CORPUSCULAR VOLUME 88 fL (80-99); MEAN PLATELET VOLUME 9.3 fL (9.0-12.2); MONOCYTES # (AUTO) 0.5 10^3/uL (0.0-1.0); MONOCYTES % (AUTO) 8 % (0-12); NEUTROPHILS # (AUTO) 5.7 10^3/uL (1.8-7.8); NEUTROPHILS % (AUTO) 80 % (42-75); PLATELET COUNT 134 10^3/uL (130-400); WHITE BLOOD COUNT 7.1 10^3/uL (4.3-11.0)
[2020-10-28 04:29] LABS: CHLORIDE 97 MMOL/L (98-107); POTASSIUM 4.6 MMOL/L (3.6-5.0)
[2020-10-28 04:30] LABS: CALCIUM 7.5 MG/DL (8.5-10.1); GLUCOSE 190 MG/DL (70-105)
[2020-10-28 04:31] LABS: SODIUM 125 MMOL/L (135-145)
[2020-10-28 04:32] LABS: CARBON DIOXIDE 21 MMOL/L (21-32)
[2020-10-28 04:34] LABS: CREATININE SERUM 0.73 MG/DL (0.60-1.30); GFR ESTIMATED > 60
[2020-10-28 04:35] LABS: BUN/CREATININE RATIO 36
[2020-10-28] MEDS: inSUlin ASPART (NovoLOG) 1 UNIT/0.01 ML (CHARGE PER UNIT) SC SCH ×7 (06:24→21:25)
[2020-10-28] MEDS: HYDROCORTISONE 100 MG/2 ML (Solu-CORTEF) VIAL IV SCH ×3 (06:25→21:24)
[2020-10-28] MEDS: FUROSEMIDE 40 MG/4 ML INJ (LASIX) IVP SCH ×2 (06:25→17:43)
[2020-10-28] MEDS: CEFEPIME 1,000 MG/SWFI 10 ML IV PUSH IV SCH ×2 (06:25)
[2020-10-28 08:00] VITALS: BP 137/74
[2020-10-28] MEDS: CARVEDILOL 3.125 MG (COREG) TABLET PO SCH ×2 (09:01→21:24)
[2020-10-28] MEDS: ENALAPRIL 2.5 MG (VASOTEC) TAB PO SCH ×2 (09:01→21:24)
[2020-10-28] MEDS: FAMOTIDINE 20MG/2ML IV (PEPCID) IVP SCH (09:01)
[2020-10-28] MEDS: ASPIRIN 81 MG CHEW (CHILDREN'S ASA) PO SCH (09:01)
[2020-10-28] MEDS: ENOXAPARIN 40 MG/0.4 ML (LOVENOX) SYR SC SCH (09:02)
[2020-10-28] MEDS: MICONAZOLE 2% POWDER (DESENEX AF) 90 GM TOP SCH ×2 (09:03→21:26)
[2020-10-28] MEDS: NYSTATIN CREAM (MYCOSTATIN) 30 GM TUBE TP SCH ×3 (09:03→21:26)
--- NOTE | 2020-10-28 09:11 | Diagnostic Imaging Report ---
Indication: Septic. Broken hip. Examination: Chest 10/28/2020 Comparison: 10/27/2020 FINDINGS: There is cardiomegaly. There is pulmonary vascular congestion. There are findings of edema throughout both lungs with bibasal infiltrates suspected and similar to previous imaging. No significant effusions are seen with no pneumothorax. A right PICC line tip is in the SVC. Left-sided pacemaker and sternotomy wires stable. Impression: 1. Stable chest. Dictated by: Dictated on workstation # [id number]
--- NOTE | 2020-10-28 11:04 | Progress Note - Hospitalist ---
Subjective HPI/CC On Admission Date Seen by Provider: Oct 28, 2020 Time Seen by Provider: 07:10 Richar Kasper is a 50 year old male who presented to [facility] after falling out of bed. He is non-ambulatory at baseline and is wheelchair dependent. Upon arrival to [facility], he was found to have a hip fracture. He was also found to have severe sepsis. Upon my examination, he was minimally conversant and only said a few words. He was answering questions by shaking his head yes and no. He denies any pain. He denied fevers. He denied trouble breathing. He denies nausea and vomiting. He was not feeling sick recently. Subjective/Events-last exam He slept well. He feels like his legs are swollen. He denies fevers. He denies shortness of breath. Objective Exam Vital Signs Vital Signs Date Time Temp Pulse Resp B/P (MAP) Pulse Ox O2 Delivery O2 Flow Rate FiO2 10/28/20 08:00 36.6 88 20 137/74 (95) 99 High Flow N/C 4.00 Capillary Refill : Less Than 3 Seconds General Appearance: No Apparent Distress, Chronically ill Respiratory: Lungs Clear, Normal Breath Sounds, No Respiratory Distress Cardiovascular: Regular Rate, Rhythm, No Murmur Gastrointestinal: Normal Bowel Sounds, Non Tender, Soft Extremity: Non Tender, Pedal Edema, Other (left BKA) Neurologic/Psychiatric: Alert, Oriented x3 Skin: Other (bilateral leg wounds, skin lesions) Results/Procedures Lab Laboratory Tests 10/28/20 04:00 Patient resulted labs reviewed. Imaging: Reviewed Imaging Report Assessment/Plan Assessment and Plan Assess & Plan/Chief Complaint Cellulitis Cultures with no growth MRSA swab negative Stop Vanc and Cefepime Transition to oral Keflex Hyponatremia Na 125, improving Increase to twice daily Lasix T2DM with hyperglycemia Increase Levemir Increase mealtime Novolog Sliding scale Candidal intertrigo Miconazole powder CAD s/p CABG Heart failure with reduced ejection fraction Cardiology consulted, appreciate assistance Echo with EF 25-30% Increase Lasix Started on low dose Enalapril and Coreg Recommend follow up with CV surgery due to staple protrusion Closed right hip fracture Hip xrays consistent with fracture Ortho consulted, appreciate assistance No plan for surgical intervention due to overlying cellulitis and baseline non-ambulatory status Pain regimen History of left BKA Chronic debility PT/OT Likely discharge to [facility] next week DVT prophylaxis: Lovenox Septic shock, resolved Diagnosis/Problems Diagnosis/Problems (1) Cellulitis Status: Acute (2) Sepsis Status: Resolved Resolution Date/Time: 10/27/20 @ 14:20 (3) UTI (urinary tract infection) Status: Acute (4) CAD (coronary artery disease) Status: Chronic (5) S/P CABG (coronary artery bypass graft) Status: Chronic (6) S/P BKA (below knee amputation) Status: Chronic Qualifiers: Laterality: left Qualified Codes: Z89.512 - Acquired absence of left leg below knee (7) Septic shock Status: Resolved Resolution Date/Time: 10/27/20 @ 14:20 (8) Lactic acidosis Status: Resolved Resolution Date/Time: 10/27/20 @ 14:20 (9) Candidal intertrigo Status: Acute (10) T2DM (type 2 diabetes mellitus) Status: Acute Qualifiers: Diabetes mellitus skilled nursing insulin use: with watermelon inspector use Diabetes mellitus complication status: with hyperglycemia Qualified Codes: E11.65 - Type 2 diabetes mellitus with hyperglycemia; Z79.4 - MCC (current) use of insulin (11) HFrEF (heart failure with reduced ejection fraction) Status: Acute (12) Hip fracture Status: Acute Qualifiers: Encounter type: initial encounter Fracture type: closed Laterality: right Qualified Codes: S72.001A - Fracture of unspecified part of neck of right femur, initial encounter for closed fracture Clinical Quality Measures DVT/VTE Risk/Contraindication: Risk Factor Score Per Nursin RFS Level Per Nursing on Admit: 4+=Very High DIANA VINES MD Oct 28, 2020 11:04
[2020-10-28] MEDS: fentaNYL INJECTION 100 MCG/2 ML AMP IVP PRN ×4 (11:24→21:37)
[2020-10-28 12:00] VITALS: BP 117/63
[2020-10-28] MEDS: CEPHALEXIN 250 MG (KEFLEX) CAP PO SCH ×2 (12:47→21:24)
--- NOTE | 2020-10-28 15:49 | Progress Note - Cardiology ---
Cardiology SOAP Progress Note Subjective: Gen weakness and malaise and poor stamina Shortness of breath with activity No cp or palp or syncope No n/v Objective: I&O/Vital Signs 10/28/20 10/28/20 10/28/20 10/28/20 04:13 08:00 08:00 12:00 Temp 36.1 36.6 36.4 Pulse 77 88 80 Resp 18 20 16 B/P (MAP) 120/66 (84) 137/74 (95) 117/63 (81) Pulse Ox 97 99 98 O2 Delivery High Flow N/C High Flow N/C High Flow N/C High Flow N/C O2 Flow Rate 4.00 4.00 4.00 4.00 10/28/20 00:00 Intake Total 1440 ml Output Total 1475 ml Balance -35 ml Weight (Pounds): 216 Weight (Ounces): 4.0 Weight (Calculated Kilograms): 97.772887 Constitutional: other (Appears oriented, but is intermittently agitated and combative. Appears to have poor short and supervisor steno pool memory) Respiratory: No accessory muscle use; other (Fair air entry, diminished at the bases) Cardiovascular: regular rate-rhythm, S1 and S2, systolic murmur (soft LYNETTE at card base) Gastrointestional: No tender; soft, audible bowel sounds Extremities: other (L BKA. We did not attemp any motion at the lower limbs because of his recent fracture) Neurologic/Psychiatric: other (for mental status exam, see above; he did not cooperate with any neuro exam) Skin: other (He has multiple areas of skin break down on the torso and abdomen and limbs; a short end of a sternal wire (apparently from his CABG) projects form the top of the sternum but there does not appeart to much inlammation at this area (he says he has had that projecting for years and has not consulted any one for it, nor does he want to)) Results/Procedures: Labs Laboratory Tests 10/27/20 15:50: Glucometer 171H 10/27/20 20:27: Glucometer 224H 10/28/20 04:00: White Blood Count 7.1, Red Blood Count 3.00L, Hemoglobin 8.7L, Hematocrit 26L, Mean Corpuscular Volume 88, Mean Corpuscular Hemoglobin 29, Mean Corpuscular Hemoglobin Concent 33, Red Cell Distribution Width 14.6H, Platelet Count 134, Mean Platelet Volume 9.3, Immature Granulocyte % (Auto) 1, Neutrophils (%) (Auto) 80H, Lymphocytes (%) (Auto) 11L, Monocytes (%) (Auto) 8, Eosinophils (%) (Auto) 0, Basophils (%) (Auto) 0, Neutrophils # (Auto) 5.7, Lymphocytes # (Auto) 0.8L, Monocytes # (Auto) 0.5, Eosinophils # (Auto) 0.0, Basophils # (Auto) 0.0, Immature Granulocyte # (Auto) 0.1, Sodium Level 125*L, Potassium Level 4.6, Chloride Level 97L, Carbon Dioxide Level 21, Anion Gap 7, Blood Urea Nitrogen 26H, Creatinine 0.73, Estimat Glomerular Filtration Rate > 60, BUN/Creatinine Ratio 36, Glucose Level 190H, Calcium Level 7.5L 10/28/20 11:44: Glucometer 220H 10/28/20 15:26: Glucometer 186H Microbiology 10/25/20 Blood Culture - Preliminary, Resulted No growth 10/25/20 MRSA Screen - Final, Complete MRSA not isolated Laboratory Tests 10/27/20 03:30 10/28/20 04:00 A/P: Assessment: CAD. H/o CABG. Pt has no recollection, but previous records at this hosp indicate CABG was in 2009 in [place], [place]. Last card cath at this hosp was in 2012: occluded LAD and RCA, severely diseased LCX; patent JACINTO to LAD, patent SVG to PDA, patent SVG to OM, diffusely atretic and occluded SVG to RI, SVG 35- 40% A protruding end of a sternal wire from the cephalic part of the sternum. The patient states this has been present for many years and refuses any eval or treatment of this Ischemic cardiomyopathy (see above). Echo of 12/16/19 shows dilated cardiomyopathy with LV enlargement, diffuse hypokinesis and LVEF 25-30%, PASP approx 55 mmHg S/p single chamber ICD (as seen on CXR of 10/25/20). This is [employer] device that was interrogated on 10/26/20 and found to be functioning normally with greter than 2 yrs of battery remaining L BKA. He doesn't know when or where or why it was done, and has had no f/u R hip fracture in Oct 2020 after a nonsyncopal fall. Wound now considered inoperable due to pt's neglect of it that has led to purulent skin breakdown Multiple areas of skin breakdown Sepsis and anemia Apparently deliberate self-neglect (see above) Plan: * Continue therapy for dilated ischemic cardiomyopathy. This should include bb, BEA-inhib, ASA. Spironolactone and furosemide should be considered if diuretic is needed at a later time * We have advised that he see his CV surgeon to address the issue of the protruding sternal wire. He has not agreed * Continue DVT prophylaxis ELLIOT NATH MD FACP FAC CCDS Oct 28, 2020 15:49
[2020-10-28 16:10] VITALS: BP 114/69
[2020-10-28 20:00] VITALS: BP 129/75
[2020-10-29 00:40] VITALS: BP 127/67
[2020-10-29] MEDS: HYDROcodone/APAP 10 MG/325 MG (LORTAB) TAB PO PRN ×3 (02:51→17:45)
[2020-10-29 04:42] VITALS: BP 114/63
[2020-10-29] MEDS: fentaNYL INJECTION 100 MCG/2 ML AMP IVP PRN ×3 (05:04→21:40)
[2020-10-29 05:05] LABS: BASOPHILS % (AUTO) 0 % (0-10); EOSINOPHILS % (AUTO) 0 % (0-10); HEMATOCRIT 28 % (40-54); HEMOGLOBIN 9.1 g/dL (13.3-17.7); LYMPHOCYTES # (AUTO) 0.9 10^3/uL (1.0-4.0); LYMPHOCYTES % (AUTO) 13 % (12-44); MEAN CORPUSCULAR HEMOGLOBIN 29 pg (25-34); MEAN CORPUSCULAR HGB CONC 33 g/dL (32-36); MEAN CORPUSCULAR VOLUME 88 fL (80-99); MEAN PLATELET VOLUME 9.5 fL (9.0-12.2); MONOCYTES # (AUTO) 0.6 10^3/uL (0.0-1.0); MONOCYTES % (AUTO) 9 % (0-12); NEUTROPHILS # (AUTO) 5.2 10^3/uL (1.8-7.8); NEUTROPHILS % (AUTO) 77 % (42-75); PLATELET COUNT 140 10^3/uL (130-400); WHITE BLOOD COUNT 6.7 10^3/uL (4.3-11.0)
[2020-10-29 05:18] LABS: CHLORIDE 98 MMOL/L (98-107); POTASSIUM 4.4 MMOL/L (3.6-5.0); SODIUM 128 MMOL/L (135-145)
[2020-10-29 05:19] LABS: CALCIUM 7.8 MG/DL (8.5-10.1)
[2020-10-29 05:20] LABS: GLUCOSE 182 MG/DL (70-105)
[2020-10-29 05:21] LABS: CARBON DIOXIDE 23 MMOL/L (21-32)
[2020-10-29 05:23] LABS: CREATININE SERUM 0.71 MG/DL (0.60-1.30); GFR ESTIMATED > 60
[2020-10-29 05:24] LABS: BUN/CREATININE RATIO 39
[2020-10-29] MEDS: FUROSEMIDE 40 MG/4 ML INJ (LASIX) IVP SCH ×2 (06:45→17:45)
[2020-10-29] MEDS: HYDROCORTISONE 100 MG/2 ML (Solu-CORTEF) VIAL IV SCH ×3 (06:46→22:24)
[2020-10-29] MEDS: inSUlin ASPART (NovoLOG) 1 UNIT/0.01 ML (CHARGE PER UNIT) SC SCH ×7 (06:46→22:24)
[2020-10-29 08:00] VITALS: BP 134/76
[2020-10-29] MEDS: ENOXAPARIN 40 MG/0.4 ML (LOVENOX) SYR SC SCH (09:34)
[2020-10-29] MEDS: FAMOTIDINE 20MG/2ML IV (PEPCID) IVP SCH (09:35)
[2020-10-29] MEDS: ENALAPRIL 2.5 MG (VASOTEC) TAB PO SCH ×2 (09:36→21:39)
[2020-10-29] MEDS: CARVEDILOL 3.125 MG (COREG) TABLET PO SCH ×2 (09:36→21:40)
[2020-10-29] MEDS: NYSTATIN CREAM (MYCOSTATIN) 30 GM TUBE TP SCH ×3 (09:36→21:41)
[2020-10-29] MEDS: CEPHALEXIN 250 MG (KEFLEX) CAP PO SCH ×3 (09:36→21:39)
[2020-10-29] MEDS: ASPIRIN 81 MG CHEW (CHILDREN'S ASA) PO SCH (09:36)
[2020-10-29] MEDS: MICONAZOLE 2% POWDER (DESENEX AF) 90 GM TOP SCH ×2 (09:37→21:40)
[2020-10-29 12:00] VITALS: BP 112/56
--- NOTE | 2020-10-29 12:21 | Progress Note - Hospitalist ---
Subjective HPI/CC On Admission Date Seen by Provider: Oct 29, 2020 Time Seen by Provider: 07:25 Richar Kasper is a 50 year old male who presented to [facility] after falling out of bed. He is non-ambulatory at baseline and is wheelchair dependent. Upon arrival to [place], he was found to have a hip fracture. He was also found to have severe sepsis. Upon my examination, he was minimally conversant and only said a few words. He was answering questions by shaking his head yes and no. He denies any pain. He denied fevers. He denied trouble breathing. He denies nausea and vomiting. He was not feeling sick recently. Subjective/Events-last exam He is sleeping on my arrival. He reports some pain in his hip. He still has leg swelling. He is thirsty. He denies fevers. He denies chest pain. He is having some shortness of breath. He denies cough. Objective Exam Vital Signs Vital Signs Date Time Temp Pulse Resp B/P (MAP) Pulse Ox O2 Delivery O2 Flow Rate FiO2 10/29/20 08:00 35.6 91 18 134/76 (95) 100 High Flow N/C 4.00 Capillary Refill : Less Than 3 Seconds General Appearance: No Apparent Distress, Chronically ill Respiratory: Lungs Clear, Normal Breath Sounds, No Respiratory Distress Cardiovascular: Regular Rate, Rhythm, No Murmur Gastrointestinal: Normal Bowel Sounds, Non Tender, Soft Extremity: Pedal Edema, Swelling, Other (left BKA) Neurologic/Psychiatric: Alert, Oriented x3, Depressed Affect Skin: Other (bilateral leg lesions, no inflammation or drainage present) Results/Procedures Lab Laboratory Tests 10/29/20 04:55 Patient resulted labs reviewed. Imaging: Reviewed Imaging Report Assessment/Plan Assessment and Plan Assess & Plan/Chief Complaint Cellulitis Cultures with no growth MRSA swab negative Continue Keflex Hyponatremia Na 128, improving Continue Lasix T2DM with hyperglycemia Continue Levemir Continue mealtime Novolog Sliding scale Candidal intertrigo Miconazole powder CAD s/p CABG Heart failure with reduced ejection fraction Cardiology consulted, appreciate assistance Echo with EF 25-30% Continue Lasix Continue low dose Enalapril and Coreg Recommend follow up with CV surgery due to staple protrusion Closed right hip fracture Hip xrays consistent with fracture Ortho consulted, appreciate assistance No plan for surgical intervention due to overlying cellulitis and baseline non-ambulatory status Pain regimen History of left BKA Chronic debility PT/OT Likely discharge to [facility] next week DVT prophylaxis: Lovenox Septic shock, resolved Diagnosis/Problems Diagnosis/Problems (1) Cellulitis Status: Acute (2) Sepsis Status: Resolved Resolution Date/Time: 10/27/20 @ 14:20 (3) UTI (urinary tract infection) Status: Acute (4) CAD (coronary artery disease) Status: Chronic (5) S/P CABG (coronary artery bypass graft) Status: Chronic (6) S/P BKA (below knee amputation) Status: Chronic Qualifiers: Laterality: left Qualified Codes: Z89.512 - Acquired absence of left leg below knee (7) Septic shock Status: Resolved Resolution Date/Time: 10/27/20 @ 14:20 (8) Lactic acidosis Status: Resolved Resolution Date/Time: 10/27/20 @ 14:20 (9) Candidal intertrigo Status: Acute (10) T2DM (type 2 diabetes mellitus) Status: Acute Qualifiers: Diabetes mellitus fci insulin use: with intermediate designer use Diabetes mellitus complication status: with hyperglycemia Qualified Codes: E11.65 - Type 2 diabetes mellitus with hyperglycemia; Z79.4 - shelter (current) use of insulin (11) HFrEF (heart failure with reduced ejection fraction) Status: Acute (12) Hip fracture Status: Acute Qualifiers: Encounter type: initial encounter Fracture type: closed Laterality: right Qualified Codes: S72.001A - Fracture of unspecified part of neck of right femur, initial encounter for closed fracture Clinical Quality Measures DVT/VTE Risk/Contraindication: Risk Factor Score Per Nursin RFS Level Per Nursing on Admit: 4+=Very High DIANA VINES MD Oct 29, 2020 12:21
--- NOTE | 2020-10-29 15:33 | Progress Note - Cardiology ---
Cardiology SOAP Progress Note Subjective: Weakness and malaise No shortness of breath at rest No cp or palp or syncope No n/v/d Objective: I&O/Vital Signs 10/29/20 10/29/20 10/29/20 10/29/20 04:42 08:00 09:00 12:00 Temp 36.0 35.6 35.6 Pulse 81 91 81 Resp 19 18 16 B/P (MAP) 114/63 (80) 134/76 (95) 112/56 (74) Pulse Ox 98 100 98 O2 Delivery High Flow N/C High Flow N/C High Flow N/C High Flow N/C O2 Flow Rate 4.00 4.00 4.00 4.00 10/29/20 00:00 Intake Total 2020 ml Output Total 3300 ml Balance -1280 ml Weight (Pounds): 216 Weight (Ounces): 4.0 Weight (Calculated Kilograms): 97.500857 Constitutional: other (Appears oriented, but is intermittently agitated and combative. Appears to have poor short and longterm memory) Respiratory: No accessory muscle use; other (Fair air entry, diminished at the bases) Cardiovascular: regular rate-rhythm, S1 and S2, systolic murmur (soft LYNETTE at card base) Gastrointestional: No tender; soft, audible bowel sounds Extremities: other (L BKA. We did not attemp any motion at the lower limbs because of his recent fracture) Neurologic/Psychiatric: other (for mental status exam, see above; he did not cooperate with any neuro exam) Skin: other (He has multiple areas of skin break down on the torso and abdomen and limbs; a short end of a sternal wire (apparently from his CABG) projects form the top of the sternum but there does not appeart to much inlammation at this area (he says he has had that projecting for years and has not consulted any one for it, nor does he want to)) Results/Procedures: Labs Laboratory Tests 10/28/20 20:44: Glucometer 212H 10/29/20 04:55: White Blood Count 6.7, Red Blood Count 3.14L, Hemoglobin 9.1L, Hematocrit 28L, Mean Corpuscular Volume 88, Mean Corpuscular Hemoglobin 29, Mean Corpuscular Hemoglobin Concent 33, Red Cell Distribution Width 14.6H, Platelet Count 140, Mean Platelet Volume 9.5, Immature Granulocyte % (Auto) 1, Neutrophils (%) (Auto) 77H, Lymphocytes (%) (Auto) 13, Monocytes (%) (Auto) 9, Eosinophils (%) (Auto) 0, Basophils (%) (Auto) 0, Neutrophils # (Auto) 5.2, Lymphocytes # (Auto) 0.9L, Monocytes # (Auto) 0.6, Eosinophils # (Auto) 0.0, Basophils # (Auto) 0.0, Immature Granulocyte # (Auto) 0.1, Sodium Level 128L, Potassium Level 4.4, Chloride Level 98, Carbon Dioxide Level 23, Anion Gap 7, Blood Urea Nitrogen 28H , Creatinine 0.71, Estimat Glomerular Filtration Rate > 60, BUN/Creatinine Ratio 39, Glucose Level 182H, Calcium Level 7.8L 10/29/20 10:45: Glucometer 189H Microbiology 10/25/20 Blood Culture - Preliminary, Resulted No growth 10/25/20 MRSA Screen - Final, Complete MRSA not isolated Laboratory Tests 10/28/20 04:00 10/29/20 04:55 A/P: Assessment: CAD. H/o CABG. Pt has no recollection, but previous records at this hosp ind icate CABG was in 2009 in [place], [place]. Last card cath at this hosp was in 2012: occluded LAD and RCA, severely diseased LCX; patent JACINTO to LAD, patent SVG to PDA, patent SVG to OM, diffusely atretic and occluded SVG to RI, SVG 35-40% A protruding end of a sternal wire from the cephalic part of the sternum. The patient states this has been present for many years and refuses any eval or treatment of this Ischemic cardiomyopathy (see above). Echo of 12/16/19 shows dilated cardiomyopathy with LV enlargement, diffuse hypokinesis and LVEF 25-30%, PASP approx 55 mmHg S/p single chamber ICD (as seen on CXR of 10/25/20). This is [employer] device that was interrogated on 10/26/20 and found to be functioning normally with greter than 2 yrs of battery remaining L BKA. He doesn't know when or where or why it was done, and has had no f/u R hip fracture in Oct 2020 after a nonsyncopal fall. Wound now considered inoperable due to pt's neglect of it that has led to purulent skin breakdown Multiple areas of skin breakdown Sepsis and anemia Apparently deliberate self-neglect (see above) Plan: * Continue therapy for dilated ischemic cardiomyopathy. * We have advised that he see his CV surgeon to address the issue of the protruding sternal wire. He has not agreed * Continue DVT prophylaxis ELLIOT NATH MD FACP FAC CCDS Oct 29, 2020 15:33
[2020-10-29 16:00] VITALS: BP 110/64
[2020-10-29 21:30] VITALS: BP 129/66
[2020-10-30 00:12] VITALS: BP 119/59
[2020-10-30] MEDS: HYDROcodone/APAP 10 MG/325 MG (LORTAB) TAB PO PRN ×4 (02:13→21:32)
[2020-10-30 03:25] VITALS: BP 118/61
[2020-10-30] MEDS: fentaNYL INJECTION 100 MCG/2 ML AMP IVP PRN ×3 (05:05→15:28)
[2020-10-30 05:24] LABS: BASOPHILS % (AUTO) 0 % (0-10); EOSINOPHILS % (AUTO) 0 % (0-10); HEMATOCRIT 27 % (40-54); HEMOGLOBIN 8.7 g/dL (13.3-17.7); LYMPHOCYTES % (AUTO) 15 % (12-44); MEAN CORPUSCULAR HEMOGLOBIN 29 pg (25-34); MEAN CORPUSCULAR HGB CONC 33 g/dL (32-36); MEAN CORPUSCULAR VOLUME 89 fL (80-99); MEAN PLATELET VOLUME 9.5 fL (9.0-12.2); MONOCYTES # (AUTO) 0.7 10^3/uL (0.0-1.0); MONOCYTES % (AUTO) 10 % (0-12); NEUTROPHILS % (AUTO) 74 % (42-75); PLATELET COUNT 131 10^3/uL (130-400); WHITE BLOOD COUNT 6.8 10^3/uL (4.3-11.0)
[2020-10-30 05:40] LABS: CHLORIDE 97 MMOL/L (98-107); POTASSIUM 4.3 MMOL/L (3.6-5.0); SODIUM 129 MMOL/L (135-145)
[2020-10-30 05:41] LABS: CALCIUM 7.9 MG/DL (8.5-10.1)
[2020-10-30 05:42] LABS: GLUCOSE 192 MG/DL (70-105)
[2020-10-30 05:43] LABS: CARBON DIOXIDE 25 MMOL/L (21-32)
[2020-10-30 05:46] LABS: GFR ESTIMATED > 60
[2020-10-30 05:47] LABS: BUN/CREATININE RATIO 43
[2020-10-30] MEDS: FUROSEMIDE 40 MG/4 ML INJ (LASIX) IVP SCH ×2 (06:23→17:26)
[2020-10-30] MEDS: HYDROCORTISONE 100 MG/2 ML (Solu-CORTEF) VIAL IV SCH ×3 (06:23→21:32)
[2020-10-30 08:00] VITALS: BP 125/71
[2020-10-30] MEDS: inSUlin ASPART (NovoLOG) 1 UNIT/0.01 ML (CHARGE PER UNIT) SC SCH ×7 (08:59→21:33)
[2020-10-30] MEDS: ENOXAPARIN 40 MG/0.4 ML (LOVENOX) SYR SC SCH (09:00)
[2020-10-30] MEDS: CARVEDILOL 3.125 MG (COREG) TABLET PO SCH ×2 (09:01→21:32)
[2020-10-30] MEDS: ASPIRIN 81 MG CHEW (CHILDREN'S ASA) PO SCH (09:01)
[2020-10-30] MEDS: CEPHALEXIN 250 MG (KEFLEX) CAP PO SCH ×3 (09:01→21:32)
[2020-10-30] MEDS: ENALAPRIL 2.5 MG (VASOTEC) TAB PO SCH ×2 (09:01→21:32)
[2020-10-30] MEDS: MICONAZOLE 2% POWDER (DESENEX AF) 90 GM TOP SCH ×2 (09:02→21:34)
[2020-10-30] MEDS: NYSTATIN CREAM (MYCOSTATIN) 30 GM TUBE TP SCH ×3 (09:02→21:34)
[2020-10-30] MEDS: FAMOTIDINE 20MG/2ML IV (PEPCID) IVP SCH (09:25)
[2020-10-30 12:00] VITALS: BP 111/63
--- NOTE | 2020-10-30 15:05 | Progress Note - Cardiology ---
Cardiology SOAP Progress Note Subjective: No cp or palp or syncope Shortness of breath gradually improving Gen malaise No n/v Objective: I&O/Vital Signs 10/30/20 10/30/20 10/30/20 10/30/20 03:25 08:00 09:00 12:00 Temp 36.6 36.4 36.1 Pulse 79 86 90 Resp 20 18 18 B/P (MAP) 118/61 (80) 125/71 (89) 111/63 (79) Pulse Ox 96 96 94 O2 Delivery Room Air Room Air High Flow N/C Room Air O2 Flow Rate 3.00 10/30/20 00:00 Intake Total 2250 ml Output Total 2550 ml Balance -300 ml Weight (Pounds): 216 Weight (Ounces): 4.0 Weight (Calculated Kilograms): 97.352217 Constitutional: other (Appears oriented, but is intermittently agitated and combative. Appears to have poor short and watermaster memory) Respiratory: No accessory muscle use; other (Fair air entry, diminished at the bases) Cardiovascular: regular rate-rhythm, S1 and S2, systolic murmur (soft LYNETTE at card base) Gastrointestional: No tender; soft, audible bowel sounds Extremities: other (L BKA. We did not attemp any motion at the lower limbs because of his recent fracture) Neurologic/Psychiatric: other (for mental status exam, see above; he did not cooperate with any neuro exam) Skin: other (He has multiple areas of skin break down on the torso and abdomen and limbs; a short end of a sternal wire (apparently from his CABG) projects form the top of the sternum but there does not appeart to much inlammation at this area (he says he has had that projecting for years and has not consulted any one for it, nor does he want to)) Results/Procedures: Labs Laboratory Tests 10/29/20 16:11: Glucometer 147H 10/29/20 21:36: Glucometer 212H 10/30/20 05:15: White Blood Count 6.8, Red Blood Count 2.98L, Hemoglobin 8.7L, Hematocrit 27L, Mean Corpuscular Volume 89, Mean Corpuscular Hemoglobin 29, Mean Corpuscular Hemoglobin Concent 33, Red Cell Distribution Width 14.6H, Platelet Count 131, Mean Platelet Volume 9.5, Immature Granulocyte % (Auto) 1, Neutrophils (%) (Auto) 74, Lymphocytes (%) (Auto) 15, Monocytes (%) (Auto) 10, Eosinophils (%) (Auto) 0, Basophils (%) (Auto) 0, Neutrophils # (Auto) 5.0, Lymphocytes # (Auto) 1.0, Monocytes # (Auto) 0.7, Eosinophils # (Auto) 0.0, Basophils # (Auto) 0.0, Immature Granulocyte # (Auto) 0.1, Sodium Level 129L, Potassium Level 4.3, Chloride Level 97L, Carbon Dioxide Level 25, Anion Gap 7, Blood Urea Nitrogen 30H, Creatinine 0.70, Estimat Glomerular Filtration Rate > 60, BUN/Creatinine Ratio 43, Glucose Level 192H, Calcium Level 7.9L 10/30/20 11:11: Glucometer 221H Microbiology 10/25/20 Blood Culture - Preliminary, Resulted No growth 10/25/20 MRSA Screen - Final, Complete MRSA not isolated A/P: Assessment: CAD. H/o CABG. Pt has no recollection, but previous records at this hosp indicate CABG was in 2009 in [place], [place]. Last card cath at this hosp was in 2012: occluded LAD and RCA, severely diseased LCX; patent JACINTO to LAD, patent SVG to PDA, patent SVG to OM, diffusely atretic and occluded SVG to RI, SVG 35- 40% A protruding end of a sternal wire from the cephalic part of the sternum. The patient states this has been present for many years and refuses any eval or treatment of this Ischemic cardiomyopathy (see above). Echo of 12/16/19 shows dilated cardiomyopathy with LV enlargement, diffuse hypokinesis and LVEF 25-30%, PASP approx 55 mmHg S/p single chamber ICD (as seen on CXR of 10/25/20). This is [employer] device that was interrogated on 10/26/20 and found to be functioning normally with greter than 2 yrs of battery remaining L BKA. He doesn't know when or where or why it was done, and has had no f/u R hip fracture in Oct 2020 after a nonsyncopal fall. Wound now considered inoperable due to pt's neglect of it that has led to purulent skin breakdown Multiple areas of skin breakdown Sepsis and anemia Apparently deliberate self-neglect (see above) Plan: * Continue therapy for dilated ischemic cardiomyopathy. * We have advised that he see his CV surgeon to address the issue of the protruding sternal wire. He has not agreed * Continue DVT prophylaxis ELLIOT NATH MD FACP [facility] CCDS Oct 30, 2020 15:05
--- NOTE | 2020-10-30 15:27 | Progress Note - Hospitalist ---
Subjective HPI/CC On Admission Date Seen by Provider: Oct 30, 2020 Time Seen by Provider: 10:25 Richar Kasper is a 50 year old male who presented to [facility] after falling out of bed. He is non-ambulatory at baseline and is wheelchair dependent. Upon arrival to [facility], he was found to have a hip fracture. He was also found to have severe sepsis. Upon my examination, he was minimally conversant and only said a few words. He was answering questions by shaking his head yes and no. He denies any pain. He denied fevers. He denied trouble breathing. He denies nausea and vomiting. He was not feeling sick recently. Subjective/Events-last exam He is wanting to get out of the hospital. He is a bit grumpy this morning. He gets better once he realizes that it is only Saturday, not yet Saturday. He still has swollen legs. He is thirsty. He is not having any pain right now. Objective Exam Vital Signs Vital Signs Date Time Temp Pulse Resp B/P (MAP) Pulse Ox O2 Delivery O2 Flow Rate FiO2 10/30/20 12:00 36.1 90 18 111/63 (79) 94 Room Air 10/30/20 09:00 3.00 Capillary Refill : Less Than 3 Seconds General Appearance: No Apparent Distress, Chronically ill Respiratory: Lungs Clear, Normal Breath Sounds, No Respiratory Distress Cardiovascular: Regular Rate, Rhythm, No Murmur Gastrointestinal: Normal Bowel Sounds, Non Tender, Soft Extremity: Normal Inspection, Non Tender, Pedal Edema, Swelling Neurologic/Psychiatric: Alert, Oriented x3, Depressed Affect, Motor Weakness Skin: Warm/Dry, Other (skin lesions on bilateral legs) Results/Procedures Lab Laboratory Tests 10/30/20 05:15 Patient resulted labs reviewed. Imaging: Reviewed Imaging Report Assessment/Plan Assessment and Plan Assess & Plan/Chief Complaint Cellulitis Cultures with no growth MRSA swab negative Continue Keflex Heart failure with reduced ejection fraction Hyponatremia CAD s/p CABG Cardiology consulted, appreciate assistance Echo with EF 25-30% Continue Lasix Continue low dose Enalapril and Coreg Recommend follow up with CV surgery due to staple protrusion T2DM with hyperglycemia Increase Levemir Increase mealtime Novolog Sliding scale Candidal intertrigo Miconazole powder Closed right hip fracture Hip xrays consistent with fracture Ortho consulted, appreciate assistance No plan for surgical intervention due to overlying cellulitis and baseline non-ambulatory status Pain regimen History of left BKA Chronic debility PT/OT Likely discharge to [facility] next week DVT prophylaxis: Lovenox Septic shock, resolved Diagnosis/Problems Diagnosis/Problems (1) Cellulitis Status: Acute (2) Sepsis Status: Resolved Resolution Date/Time: 10/27/20 @ 14:20 (3) UTI (urinary tract infection) Status: Acute (4) CAD (coronary artery disease) Status: Chronic (5) S/P CABG (coronary artery bypass graft) Status: Chronic (6) S/P BKA (below knee amputation) Status: Chronic Qualifiers: Laterality: left Qualified Codes: Z89.512 - Acquired absence of left leg below knee (7) Septic shock Status: Resolved Resolution Date/Time: 10/27/20 @ 14:20 (8) Lactic acidosis Status: Resolved Resolution Date/Time: 10/27/20 @ 14:20 (9) Candidal intertrigo Status: Acute (10) T2DM (type 2 diabetes mellitus) Status: Acute Qualifiers: Diabetes mellitus terminal gauger supervisor insulin use: with terminal gauger supervisor use Diabetes mellitus complication status: with hyperglycemia Qualified Codes: E11.65 - Type 2 diabetes mellitus with hyperglycemia; Z79.4 - watermelon inspector (current) use of insulin (11) HFrEF (heart failure with reduced ejection fraction) Status: Acute (12) Hip fracture Status: Acute Qualifiers: Encounter type: initial encounter Fracture type: closed Laterality: right Qualified Codes: S72.001A - Fracture of unspecified part of neck of right femur, initial encounter for closed fracture Clinical Quality Measures DVT/VTE Risk/Contraindication: Risk Factor Score Per Nursin RFS Level Per Nursing on Admit: 4+=Very High DIANA VINES MD Oct 30, 2020 15:27
[2020-10-30 16:00] VITALS: BP 106/55
[2020-10-30 19:48] VITALS: BP 137/66
[2020-10-31] VITALS: BP 130/61
[2020-10-31] MEDS: HYDROcodone/APAP 10 MG/325 MG (LORTAB) TAB PO PRN ×3 (01:32→15:45)
[2020-10-31] MEDS: FUROSEMIDE 40 MG/4 ML INJ (LASIX) IVP SCH (05:37)
[2020-10-31] MEDS: inSUlin ASPART (NovoLOG) 1 UNIT/0.01 ML (CHARGE PER UNIT) SC SCH ×4 (05:37→12:22)
[2020-10-31] MEDS: HYDROCORTISONE 100 MG/2 ML (Solu-CORTEF) VIAL IV SCH (05:37)
[2020-10-31 05:52] LABS: BASOPHILS % (AUTO) 0 % (0-10); EOSINOPHILS % (AUTO) 0 % (0-10); HEMATOCRIT 27 % (40-54); HEMOGLOBIN 8.6 g/dL (13.3-17.7); LYMPHOCYTES # (AUTO) 1.4 10^3/uL (1.0-4.0); LYMPHOCYTES % (AUTO) 22 % (12-44); MEAN CORPUSCULAR HEMOGLOBIN 28 pg (25-34); MEAN CORPUSCULAR HGB CONC 32 g/dL (32-36); MEAN CORPUSCULAR VOLUME 89 fL (80-99); MEAN PLATELET VOLUME 9.4 fL (9.0-12.2); MONOCYTES # (AUTO) 0.7 10^3/uL (0.0-1.0); MONOCYTES % (AUTO) 11 % (0-12); NEUTROPHILS # (AUTO) 4.3 10^3/uL (1.8-7.8); NEUTROPHILS % (AUTO) 67 % (42-75); PLATELET COUNT 136 10^3/uL (130-400); WHITE BLOOD COUNT 6.5 10^3/uL (4.3-11.0)
[2020-10-31 06:04] LABS: BUN/CREATININE RATIO 42; CALCIUM 7.9 MG/DL (8.5-10.1); CARBON DIOXIDE 29 MMOL/L (21-32); CHLORIDE 97 MMOL/L (98-107); CREATININE SERUM 0.73 MG/DL (0.60-1.30); GFR ESTIMATED > 60; GLUCOSE 158 MG/DL (70-105); POTASSIUM 4.2 MMOL/L (3.6-5.0); SODIUM 130 MMOL/L (135-145)
[2020-10-31 08:46] VITALS: BP 135/67
[2020-10-31] MEDS: ASPIRIN 81 MG CHEW (CHILDREN'S ASA) PO SCH (09:26)
[2020-10-31] MEDS: ENALAPRIL 2.5 MG (VASOTEC) TAB PO SCH (09:26)
[2020-10-31] MEDS: CARVEDILOL 3.125 MG (COREG) TABLET PO SCH (09:26)
[2020-10-31] MEDS: FAMOTIDINE 20MG/2ML IV (PEPCID) IVP SCH (09:26)
[2020-10-31] MEDS: CEPHALEXIN 250 MG (KEFLEX) CAP PO SCH ×2 (09:26→13:01)
[2020-10-31] MEDS: ENOXAPARIN 40 MG/0.4 ML (LOVENOX) SYR SC SCH (09:27)
[2020-10-31] MEDS: MICONAZOLE 2% POWDER (DESENEX AF) 90 GM TOP SCH (09:29)
[2020-10-31] MEDS: NYSTATIN CREAM (MYCOSTATIN) 30 GM TUBE TP SCH (09:29)
--- NOTE | 2020-10-31 10:35 | Progress Note - Cardiology ---
Cardiology SOAP Progress Note Objective: I&O/Vital Signs 11/01/20 00:00 Intake Total 580 ml Output Total 1100 ml Balance -520 ml Weight (Pounds): 216 Weight (Ounces): 4.0 Weight (Calculated Kilograms): 97.076196 Constitutional: other (Appears oriented, but is intermittently agitated and combative. Appears to have poor short and exterminator helper memory) Respiratory: No accessory muscle use; other (Fair air entry, diminished at the bases) Cardiovascular: regular rate-rhythm, S1 and S2, systolic murmur (soft LYNETTE at card base) Gastrointestional: No tender; soft, audible bowel sounds Extremities: other (L BKA. We did not attemp any motion at the lower limbs because of his recent fracture) Neurologic/Psychiatric: other (for mental status exam, see above; he did not cooperate with any neuro exam) Skin: other (He has multiple areas of skin break down on the torso and abdomen and limbs; a short end of a sternal wire (apparently from his CABG) projects form the top of the sternum but there does not appeart to much inlammation at this area (he says he has had that projecting for years and has not consulted any one for it, nor does he want to)) Results/Procedures: Labs Microbiology 10/25/20 Blood Culture - Final, Complete No growth 10/25/20 MRSA Screen - Final, Complete MRSA not isolated A/P: Assessment: CAD. H/o CABG. Pt has no recollection, but previous records at this hosp indicate CABG was in 2009 in [place], [place]. Last card cath at this hosp was in 2012: occluded LAD and RCA, severely diseased LCX; patent JACINTO to LAD, patent SVG to PDA, patent SVG to OM, diffusely atretic and occluded SVG to RI, SVG 35- 40% A protruding end of a sternal wire from the cephalic part of the sternum. The patient states this has been present for many years and refuses any eval or treatment of this Ischemic cardiomyopathy (see above). Echo of 12/16/19 shows dilated cardiomyopathy with LV enlargement, diffuse hypokinesis and LVEF 25-30%, PASP approx 55 mmHg S/p single chamber ICD (as seen on CXR of 10/25/20). This is [employer] device that was interrogated on 10/26/20 and found to be functioning normally with greter than 2 yrs of battery remaining L BKA. He doesn't know when or where or why it was done, and has had no f/u R hip fracture in Oct 2020 after a nonsyncopal fall. Wound now considered radha perable due to pt's neglect of it that has led to purulent skin breakdown Multiple areas of skin breakdown Sepsis and anemia Apparently deliberate self-neglect (see above) Plan: * Continue therapy for dilated ischemic cardiomyopathy. * We have advised that he see his CV surgeon to address the issue of the protruding sternal wire. He has not agreed * Continue DVT prophylaxis GOLDIE VARMA Oct 31, 2020 10:35
[2020-10-31] MEDS ORDERED: ASPI-999 PO (11:36)
[2020-10-31] MEDS ORDERED: FURO-124 PO (11:36)
[2020-10-31] MEDS ORDERED: ENLP2.5T PO (11:36)
[2020-10-31] MEDS ORDERED: CEPH250C PO (11:36)
[2020-10-31] MEDS ORDERED: INSU100V5 SQ (11:36)
[2020-10-31] MEDS ORDERED: MICO90PO TOP (11:36)
[2020-10-31] MEDS ORDERED: CARV3.122 PO (11:36)
[2020-10-31] MEDS ORDERED: ACHYD1T PO (11:36)
[2020-10-31] MEDS ORDERED: INSU100V16 SC (11:36)
--- NOTE | 2020-10-31 11:43 | Discharge Inst-Simple/Standard ---
Discharge Inst-Standard Patient Instructions/Follow Up Plan of Care/Instructions/FU: Please continue to take your medications as written. Please follow up with your primary care doctor tomorrow as scheduled to follow up this hospital stay. Activity as Tolerated: Yes Discharge Diet: Cardiac Diet Return to The Hospital For: Chest pain, shortness of breath, abdominal pain, hip pain, confusion, fever, if you feel you are getting worse. CHIO HERNANDEZ MD Oct 31, 2020 11:43
--- NOTE | 2020-10-31 12:45 | NUR ---
Xeroform in place on Rt leg wounds X3, covered with gauze and ABD, secured with tape. Red, Scaly, moist Wounds redressed with xeroform, gauze, abd/tape. education to re-dress wounds @ home shared, as patient is planning to leave after lunch. voices understanding. Tolerates dressing change well.
--- NOTE | 2020-10-31 13:08 | NUR ---
CM/SS finalized discharge. Plan: Patient will discharge home today 10/31. The patient will be transported by non-emergent EMS. Summary: CM/SS received a call from the patient's daughter Elizabeth stating the patient wanted her to speak with this sw in person. CM/SS informed her that there are no visitors at this time but a phone meeting can be arranged when this sw, patient, and Elizabeth. CM/SS visited with the patient while daughter was present via phone. The patient expressed that he was wanting to and going to discharge home today with assistance from his daughter (for wounds) until set up with home health. The patient at this time refuses a [facility]. The patient reports that he will discharge today and there is no question about it. He reports his daughter's significant other used to work for [employer] and could also assist. [facility]: CM/SS contacted the facility to cancel the referral. CM/SS notified physician of patient's choice. Hospice: The patient reports he is seeking curative treatment and Hospice is not an option. CM/SS explained Hospice and the services they can offer. Patient declines at this time. Home Health: The patient is seeking home health services. CM/SS explained that this sw cannot set up home health due to patient not having a primary care physician. He verbalized understanding and is [facility] New primary care will set up. Primary Care: CM/SS set up an appointment for tomorrow 11/01 at 1:40 p.m. to see Laureen Moon. They will set up home health after getting established. The nurse will provide dressing changes for the patient to hold him over until tomorrows appointment. Will send discharge to [facility]. Transportation: A non-emergent EMS will be used for transportation due to broken hip, wounds, and patient being bed bound. A form was filled out and faxed to EMS. The nurse will call when patient is ready. No further needs.
--- NOTE | 2020-10-31 15:30 | Progress Note - Cardiology ---
Cardiology SOAP Progress Note Subjective: Gen malaise present, but improved Shortness of breath with activity, albeit improved No cp or palp or syncope No n/v Objective: I&O/Vital Signs 10/31/20 10/31/20 08:46 09:00 Temp 36.2 Pulse 85 Resp 20 B/P (MAP) 135/67 (89) Pulse Ox 94 94 O2 Delivery Room Air Room Air 10/31/20 00:00 Intake Total 1940 ml Output Total 2350 ml Balance -410 ml Weight (Pounds): 216 Weight (Ounces): 4.0 Weight (Calculated Kilograms): 97.435190 Constitutional: other (Appears oriented, but is intermittently agitated and combative. Appears to have poor short and long distance billing operator memory) Respiratory: No accessory muscle use; other (Fair air entry, diminished at the bases) Cardiovascular: regular rate-rhythm, S1 and S2, systolic murmur (soft LYNETTE at card base) Gastrointestional: No tender; soft, audible bowel sounds Extremities: other (L BKA. We did not attemp any motion at the lower limbs because of his recent fracture) Neurologic/Psychiatric: other (for mental status exam, see above; he did not cooperate with any neuro exam) Skin: other (He has multiple areas of skin break down on the torso and abdomen and limbs; a short end of a sternal wire (apparently from his CABG) projects form the top of the sternum but there does not appeart to much inlammation at this area (he says he has had that projecting for years and has not consulted any one for it, nor does he want to)) Results/Procedures: Labs Laboratory Tests 10/30/20 15:52: Glucometer 194H 10/30/20 20:17: Glucometer 192H 10/31/20 05:34: Glucometer 135H 10/31/20 05:40: White Blood Count 6.5, Red Blood Count 3.03L, Hemoglobin 8.6L, Hematocrit 27L, Mean Corpuscular Volume 89, Mean Corpuscular Hemoglobin 28, Mean Corpuscular Hemoglobin Concent 32, Red Cell Distribution Width 14.6H, Platelet Count 136, Mean Platelet Volume 9.4, Immature Granulocyte % (Auto) 1, Neutrophils (%) (Auto) 67, Lymphocytes (%) (Auto) 22, Monocytes (%) (Auto) 11, Eosinophils (%) (Auto) 0, Basophils (%) (Auto) 0, Neutrophils # (Auto) 4.3, Lymphocytes # (Auto) 1.4, Monocytes # (Auto) 0.7, Eosinophils # (Auto) 0.0, Basophils # (Auto) 0.0, Immature Granulocyte # (Auto) 0.1, Sodium Level 130L, Potassium Level 4.2, Chloride Level 97L, Carbon Dioxide Level 29, Anion Gap 4L, Blood Urea Nitrogen 31H, Creatinine 0.73, Estimat Glomerular Filtration Rate > 60, BUN/Creatinine Ratio 42, Glucose Level 158H, Calcium Level 7.9L 10/31/20 11:33: Glucometer 231H Microbiology 10/25/20 Blood Culture - Final, Complete No growth 10/25/20 MRSA Screen - Final, Complete MRSA not isolated Laboratory Tests 10/30/20 05:15 10/31/20 05:40 A/P: Assessment: CAD. H/o CABG. Pt has no recollection, but previous records at this hosp indicate CABG was in 2009 in [place], [place]. Last card cath at this hosp was in 2012: occluded LAD and RCA, severely diseased LCX; patent JACINTO to LAD, patent SVG to PDA, patent SVG to OM, diffusely atretic and occluded SVG to RI, SVG 35- 40% A protruding end of a sternal wire from the cephalic part of the sternum. The patient states this has been present for many years and refuses any eval or treatment of this Ischemic cardiomyopathy (see above). Echo of 12/16/19 shows dilated cardiomyopathy with LV enlargement, diffuse hypokinesis and LVEF 25-30%, PASP approx 55 mmHg S/p single chamber ICD (as seen on CXR of 10/25/20). This is [employer] device that was interrogated on 10/26/20 and found to be functioning normally with greter than 2 yrs of battery remaining L BKA. He doesn't know when or where or why it was done, and has had no f/u R hip fracture in Oct 2020 after a nonsyncopal fall. Wound now considered inoperable due to pt's neglect of it that has led to purulent skin breakdown Multiple areas of skin breakdown Sepsis and anemia Apparently deliberate self-neglect (see above) Plan: * Continue therapy for dilated ischemic cardiomyopathy * We have advised that he see his CV surgeon to address the issue of the protruding sternal wire. He has not agreed * Continue DVT prophylaxis * Close outpt f/u advised ELLIOT NATH MD FACP [facility] CCDS Oct 31, 2020 15:30
--- NOTE | 2020-10-31 16:00 | NUR ---
EMS contacted for non emergent transportation and they arrived about 1550 to pick Patient up. Paperwork provided to them. I contacted daughter Elizabeth regarding discharge orders, medications and follow up. Pt also will be starting on insulin and I discussed process for this. She indicated she felt comfortable with this, diabetic supplies and glucometer sent with patient as well as dressing supplies. He has an appointment tomorrow with [facility] and they will provide other supplies for diabetes. Patient discharged at 1600.
--- NOTE | 2020-10-31 19:28 | Discharge Summary ---
Diagnosis/Chief Complaint Date of Admission Oct 25, 2020 at 01:18 Date of Discharge Discharge Date: Oct 31, 2020 Admission Diagnosis Closed right hip fracture Primary Care Discharge Diagnosis (1) Cellulitis Status: Acute (2) Sepsis Status: Resolved (3) UTI (urinary tract infection) Status: Acute (4) CAD (coronary artery disease) Status: Chronic (5) S/P CABG (coronary artery bypass graft) Status: Chronic (6) S/P BKA (below knee amputation) Status: Chronic (7) Septic shock Status: Resolved (8) Lactic acidosis Status: Resolved (9) Candidal intertrigo Status: Acute (10) T2DM (type 2 diabetes mellitus) Status: Acute (11) HFrEF (heart failure with reduced ejection fraction) Status: Acute (12) Hip fracture Status: Acute Discharge Summary Discharge Physical Exam Allergies: Coded Allergies: raspberry (Unverified Allergy, Mild, 04/14/15) FROM UNCODED ALLERGIES Penicillins (Verified Allergy, Unknown, FEVER AND NAUSEA, 04/18/15) OCCURED AFTER RECEIVING IV Vitals & I&Os Vital Signs Date Time Temp Pulse Resp B/P (MAP) Pulse Ox O2 Delivery O2 Flow Rate FiO2 10/31/20 09:00 94 Room Air 10/31/20 08:46 36.2 85 20 135/67 (89) 10/30/20 09:00 3.00 Hospital Course Labs (last 24 hrs) Laboratory Tests 10/30/20 20:17: Glucometer 192H 10/31/20 05:34: Glucometer 135H 10/31/20 05:40: White Blood Count 6.5, Red Blood Count 3.03L, Hemoglobin 8.6L, Hematocrit 27L, Mean Corpuscular Volume 89, Mean Corpuscular Hemoglobin 28, Mean Corpuscular Hemoglobin Concent 32, Red Cell Distribution Width 14.6H, Platelet Count 136, Mean Platelet Volume 9.4, Immature Granulocyte % (Auto) 1, Neutrophils (%) (Auto) 67, Lymphocytes (%) (Auto) 22, Monocytes (%) (Auto) 11, Eosinophils (%) (Auto) 0, Basophils (%) (Auto) 0, Neutrophils # (Auto) 4.3, Lymphocytes # (Auto) 1.4, Monocytes # (Auto) 0.7, Eosinophils # (Auto) 0.0, Basophils # (Auto) 0.0, Immature Granulocyte # (Auto) 0.1, Sodium Level 130L, Potassium Level 4.2, Chloride Level 97L, Carbon Dioxide Level 29, Anion Gap 4L, Blood Urea Nitrogen 31H, Creatinine 0.73, Estimat Glomerular Filtration Rate > 60, BUN/Creatinine Ratio 42, Glucose Level 158H, Calcium Level 7.9L 10/31/20 11:33: Glucometer 231H Microbiology 10/25/20 Blood Culture - Final, Complete No growth 10/25/20 MRSA Screen - Final, Complete MRSA not isolated Patient resulted labs reviewed. Pending Labs Laboratory Tests 10/31/20 11:33: Glucometer 231 Imaging: Reviewed Imaging Report Discharge Home Medications: Active Scripts Active HYDROcodone/APAP 10/325 TABLET (Acetaminophen/Hydrocodone Bitart) 1 Ea Tab 1 Ea PO Q4H PRN Lasix (Furosemide) 40 Mg Tablet 40 Mg PO DAILY Lotrimin AF (Miconazole Nitrate) 90 Gm Powder 0 Gm TOP BID Novolog (Insulin Aspart) 100 Unit/1 Ml Susp 10 Unit SC AC Levemir (Insulin Determir) 1,000 Units/10 Ml Soln 25 Unit SQ BID Cephalexin 250 Mg Capsule 500 Mg PO TID Carvedilol 3.125 Mg Tablet 3.125 Mg PO BID Enalapril Maleate 2.5 Mg Tablet 2.5 Mg PO BID Aspirin 81 Mg Tab.chew 81 Mg PO DAILY Reported Ibuprofen 200 Mg Tablet 200-400 Mg PO Q6H PRN Instructions to patient/family Please see electronic discharge instructions given to patient. Clinical Quality Measures DVT/VTE Risk/Contraindication: Risk Factor Score Per Nursin RFS Level Per Nursing on Admit: 4+=Very High Problem Qualifiers (1) S/P BKA (below knee amputation): Laterality: left Qualified Codes: Z89.512 - Acquired absence of left leg below knee (2) T2DM (type 2 diabetes mellitus): Diabetes mellitus manager terminal insulin use: with penitentiary use Diabetes mellitus complication status: with hyperglycemia Qualified Codes: E11.65 - Type 2 diabetes mellitus with hyperglycemia; Z79.4 - senior care (current) use of insulin (3) Hip fracture: Encounter type: initial encounter Fracture type: closed Laterality: right Qualified Codes: S72.001A - Fracture of unspecified part of neck of right femur, initial encounter for closed fracture CHIO HERNANDEZ MD Oct 31, 2020 19:28
== END 2020-10-31 16:00 | disposition home health service (06) | DRG 871 ==
LOC: ICU 01:18 → 4TH 10-27 09:53
PROVIDERS: ADMIT Internal Medicine; ATTEND Internal Medicine
DX: A41.9 Sepsis, unspecified organism (principal); S72.141A Displaced intertrochanteric fracture of right femur, initial encounter for closed fracture; R65.21 Severe sepsis with septic shock; I50.21 Acute systolic (congestive) heart failure; N39.0 Urinary tract infection, site not specified; L03.115 Cellulitis of right lower limb; I42.0 Dilated cardiomyopathy; L97.919 Non-pressure chronic ulcer of unspecified part of right lower leg with unspecified severity; Z66 Do not resuscitate; E87.1 Hypo-osmolality and hyponatremia; I25.810 Atherosclerosis of coronary artery bypass graft(s) without angina pectoris; Z99.3 Dependence on wheelchair; E11.9 Type 2 diabetes mellitus without complications; T84.298D Other mechanical complication of internal fixation device of other bones, subsequent encounter; R60.1 Generalized edema; I25.5 Ischemic cardiomyopathy; B35.6 Tinea cruris; B37.2 Candidiasis of skin and nail; L30.4 Erythema intertrigo; I95.9 Hypotension, unspecified; I25.10 Atherosclerotic heart disease of native coronary artery without angina pectoris; M06.9 Rheumatoid arthritis, unspecified; M19.91 Primary osteoarthritis, unspecified site; K21.9 Gastro-esophageal reflux disease without esophagitis; F17.210 Nicotine dependence, cigarettes, uncomplicated; F32.9 Major depressive disorder, single episode, unspecified; Z89.512 Acquired absence of left leg below knee; Z79.4 Long term (current) use of insulin; Z95.1 Presence of aortocoronary bypass graft; Z88.0 Allergy status to penicillin; Y92.003 Bedroom of unspecified non-institutional (private) residence as the place of occurrence of the external cause; W06.XXXA Fall from bed, initial encounter
CPT/HCPCS: 36415; 36569; 71045; 73502; 73552; 76937; 80048; 80053; 80202; 82570; 82805; 82962; 83605; 83735; 83880; 83930; 83935; 84100; 84145; 84300; 85007; 85025; 85027; 87040; 87081; 93306

== ENCOUNTER 2020-11-12 09:56 | Inpatient (IN) | payer MEDICARE ==
[~2020-11-12] VITALS: Ht 175 cm; Wt 115.3 kg
[2020-11-12] VITALS (15 sets, daily range): BP systolic 87–112; BP diastolic 50–77
[~2020-11-12 09:56] MED LIST changes: +ACHYD1T PO; +ASPI-999 PO; +CARV3.122 PO; +CEPH250C PO; -CLIN150C17 PO; +CLIN150C18 PO; +ENLP2.5T PO; +FURO-124 PO; +IBUP-2473 PO; +INSU100V16 SC; +INSU100V5 SQ; +MICO90PO TOP
[2020-11-12] MEDS ORDERED: LACTATED RINGERS 1,000 ML IV ONE (10:00)
--- NOTE | 2020-11-12 10:00 | NUR ---
PT REFUSES TO LET US WARM HIM WITH BLANKTS. PT ARRIVED WITH BLANKETS THAT EMS ARRIVED. SHEET UNDER HIM COVERED IN FECES AND URINE.
--- NOTE | 2020-11-12 10:19 | NUR ---
LAB HERE FOR BLOOD DRAW.
[2020-11-12 10:40] LABS: BILIRUBIN,URINE 1+ (NEGATIVE); CLARITY,URINE CLOUDY; COLOR,URINE YELLOW; GLUCOSE, URINE (UA) NEGATIVE (NEGATIVE); KETONES,URINE TRACE (NEGATIVE); LEUKOCYTE ESTERASE ,URINE TRACE (NEGATIVE); NITRITE,URINE NEGATIVE (NEGATIVE); PROTEIN,URINE 2+ (NEGATIVE)
--- NOTE | 2020-11-12 10:50 | NUR ---
SUZIE IN ROOM STARTING A CENTRAL LINE.
[2020-11-12 10:57] LABS: BASOPHILS % (AUTO) 0 % (0-10); EOSINOPHILS # (AUTO) 0.1 10^3/uL (0.0-0.3); EOSINOPHILS % (AUTO) 1 % (0-10); LYMPHOCYTES # (AUTO) 1.7 10^3/uL (1.0-4.0); LYMPHOCYTES % (AUTO) 10 % (12-44); MEAN CORPUSCULAR HEMOGLOBIN 29 pg (25-34); MEAN CORPUSCULAR HGB CONC 31 g/dL (32-36); MEAN CORPUSCULAR VOLUME 94 fL (80-99); MEAN PLATELET VOLUME 11.3 fL (9.0-12.2); MONOCYTES # (AUTO) 0.9 10^3/uL (0.0-1.0); MONOCYTES % (AUTO) 5 % (0-12); NEUTROPHILS # (AUTO) 14.1 10^3/uL (1.8-7.8); NEUTROPHILS % (AUTO) 81 % (42-75); PLATELET COUNT 238 10^3/uL (130-400); WHITE BLOOD COUNT 17.4 10^3/uL (4.3-11.0)
--- NOTE | 2020-11-12 11:01 | ED Cough/URI ---
General Chief Complaint: Respiratory Problems Stated Complaint: SOB Nursing Triage Note: ARRIVED VIA EMS FROM HOME WITH INCREASED SOA. WAS DISCHARGED FROM THE HOSPITAL RECENTLY WITH A RIGHT BROKEN HIP. PT ARRIVED NAKED. BREAKDOWN NOTICED ON RIGHT OUTER THIGH. PT ALERT. Sepsis Screen: No Definite Risk (SUZIE REYES APRN) Source: patient, old records Exam Limitations: no limitations (GEORGES GAMINO MD) History of Present Illness Date Seen by Provider: Nov 12, 2020 Time Seen by Provider: 09:58 Initial Comments This is a 50-year-old gentleman presents to the emergency room via EMS from his home because he was short of breath and not feeling well this morning. EMS notes he appeared to be in respiratory distress and they applied a nonrebreather. He had been discharged from the hospital October 31 after falling out of bed and fracturing his right hip. He was deemed to be a poor surgical candidate. He also had sepsis at that time. He declined long term admission and went home. EMS reports his living conditions were quite poor and not sanitary. Patient states he has had no appetite for food or beverage since returning home. He is afebrile but noted to be hypotensive. He has lower extremity edema of his right foot. He has amputation of the left leg. (GEORGES GAMINO MD) Allergies and Home Medications Allergies Coded Allergies: raspberry (Unverified Allergy, Mild, 04/14/15) FROM UNCODED ALLERGIES Penicillins (Verified Allergy, Unknown, FEVER AND NAUSEA, 04/18/15) OCCURED AFTER RECEIVING IV Home Medications Aspirin 81 Mg Tab.chew, 81 MG PO DAILY Prescribed by: CHIO HERNANDEZ on 10/31/20 1136 Carvedilol 3.125 Mg Tablet, 3.125 MG PO BID Prescribed by: CHIO HERNANDEZ on 10/31/20 1136 Cephalexin 250 Mg Capsule, 500 MG PO TID Prescribed by: CHIO HERNANEDZ on 10/31/20 1136 Enalapril Maleate 2.5 Mg Tablet, 2.5 MG PO BID Prescribed by: CHIO HERNANDEZ on 10/31/20 1136 Furosemide 40 Mg Tablet, 40 MG PO DAILY Prescribed by: CHIO HERNANDEZ on 10/31/20 1136 Hydrocodone Bit/Acetaminophen 1 Ea Tab, 1 EA PO Q4H PRN for PAIN-MODERATE (5-7) Prescribed by: CHIO HERNANDEZ on 10/31/20 1136 Ibuprofen 200 Mg Tablet, 200-400 MG PO Q6H PRN for PAIN-MILD (1-4), (Reported) Insulin Aspart 100 Unit/1 Ml Susp, 10 UNIT SC AC Prescribed by: CHIO HERNANDEZ on 10/31/20 1136 Insulin Determir 1,000 Units/10 Ml Soln, 25 UNIT SQ BID Prescribed by: CHIO HERNANDEZ on 10/31/20 1136 Miconazole Nitrate 90 Gm Powder, 0 GM TOP BID Prescribed by: CHIO HERNANDEZ on 10/31/20 1136 Patient Home Medication List Home Medication List Reviewed: Yes (GEORGES GAMINO MD) Review of Systems Review of Systems Constitutional: no symptoms reported EENTM: no symptoms reported Respiratory: see HPI Cardiovascular: see HPI Gastrointestinal: no symptoms reported Genitourinary: no symptoms reported Musculoskeletal: see HPI Skin: other (Decubitus ulcers on the feet) Psychiatric/Neurological: No Symptoms Reported Hematologic/Lymphatic: No Symptoms Reported Immunological/Allergic: no symptoms reported (GEORGES GAMINO MD) Past Hzgborb-[place] Hx Past Med/Social Hx: Reviewed Nursing Past Med/Soc Hx (GEORGES GAMINO MD) Patient Social History Type Used: Cigarettes Recent Foreign Travel: No Contact w/Someone Who Travel: No Recent Infectious Disease Expo: No Recent Hopitalizations: No (SUZIE REYES APRN) Immunizations Up To Date Tetanus Booster (TDap): Unknown PED Vaccines UTD: No Date of Pneumonia Vaccine: Sep 17, 2014 Date of Influenza Vaccine: Sep 13, 2014 (SUZIE REYES APRN) Seasonal Allergies Seasonal Allergies: No (SUZIE REYES APRN) Past Medical History Surgeries: Yes (LEFT BKA, DEBRIDEMENT) Respiratory: No Cardiac: Yes Neurological: Yes Reproductive Disorders: No Sexually Transmitted Disease: No HIV/AIDS: No Genitourinary: No Gastrointestinal: Yes Gastroesophageal Reflux Musculoskeletal: Yes Amputee, Arthritis, Rheumatoid Arthritis, Fractures, Contracture Endocrine: Yes Diabetes, Insulin dep HEENT: No Loss of Vision: Left Hearing Impairment: Denies Cancer: No (FAMILY) Psychosocial: Yes Depression Integumentary: Yes (ULCER WOUNDS ON RIGHT LOWER LEG/FOOT) Blood Disorders: No Adverse Reaction/Blood Tranf: No (SUZIE REYES APRN) CABG, Pacemaker (GEORGES GAMINO MD) Family Medical History Colon cancer 19 FATHER Diabetes mellitus 19 FATHER Hypertension 19 FATHER Physical Exam Vital Signs - First Documented 11/12/20 11/12/20 09:56 10:21 Temp 34.4 Pulse 85 Resp 16 B/P (MAP) 84/43 (57) Pulse Ox 100 O2 Delivery Non Rebreather O2 Flow Rate 4.00 (GEORGES GAMINO MD) Capillary Refill : Less Than 3 Seconds (SUZIE REYES APRN) Height: 6'1.00" Weight: 216lbs. 4.0oz. 97.442051nv; 29.00 BMI Method:Stated (SUZIE REYES APRN) General Appearance: WD/WN, mild distress HEENT: PERRL/EOMI, normal ENT inspection, other (Mucous membranes dry) Neck: normal inspection Respiratory: lungs clear, no respiratory distress, no accessory muscle use, decreased breath sounds Cardiovascular: regular rate, rhythm, no edema, no murmur Gastrointestinal: normal bowel sounds, soft, tenderness (Generalized) Extremities: non-tender, normal inspection, pedal edema, swelling, other (Left BKA) Neurologic/Psychiatric: door patcher II-XII nml as tested, no motor/sensory deficits, alert, oriented x 3, other (Irritable) Skin: warm/dry, ecchymosis (Bruising over the right arm and right abdomen), other (Sternotomy wire protruding from the chest wall) (GEORGES GAMINO MD) Focused Exam Sepsis Stage: Septic Shock Possible Source: Unknown Lactate Level 11/12/20 10:41: Lactic Acid Level 8.41*H 11/12/20 13:18: Lactic Acid Level 5.80*H (GEORGES GAMINO MD) Time of Focused Exam: 14:15 Respiratory: Normal Breath Sounds, No Accessory Muscle Use, No Respiratory Distress Cardiovascular: Regular Rate, Rhythm, Normal Peripheral Pulses (Radial) Capillary Refill: Greater Than 3 Seconds Peripheral Pulses: 1+ Radial Pulses (L) Skin: normal color, warm/dry Lactic Acid Level Laboratory Tests Test 11/12/20 10:41 11/12/20 13:18 Lactic Acid Level 8.41 MMOL/L (0.50-2.00) *H 5.80 MMOL/L (0.50-2.00) *H (GEORGES GAMINO MD) Within 3hrs of presentation: Admin fluids, Admin ABX, Blood cultures prior to ABX's, Focus exam, Lactate level, Vasopressin therapy (GEORGES GAMINO MD) Procedures/Interventions Central Line Procedure: betadine prep, sterile drapes applied, sterile dressing applied Position: internal jugular (R) Anesthesia: local Volume Anesthetic (ccs): 5 Complications: none Post Position: sutured (SUZIE REYES APRN) Progress/Results/Core Measures Suspected Sepsis Recent Fever Within 48 Hours: No Infection Criteria Present: Suspected New Infection New/Unexplained Altered Menta: No Sepsis Screen: No Definite Risk SIRS Temperature: Pulse: 85 Respiratory Rate: 16 Laboratory Tests 11/12/20 10:41: Blood Pressure 84 /43 Mean: 57 11/12/20 10:41: Laboratory Tests 11/12/20 10:41: (SUZIE REYES APRN) Results/Orders Lab Results Laboratory Tests Test 11/12/20 10:10 11/12/20 10:41 11/12/20 13:18 Range/Units Urine Color YELLOW Urine Clarity CLOUDY Urine pH 5.0 5-9 Urine Specific [place] >=1.030 1.016-1.022 Urine Protein 2+ H NEGATIVE Urine Glucose (UA) NEGATIVE NEGATIVE Urine Ketones TRACE H NEGATIVE Urine Nitrite NEGATIVE NEGATIVE Urine Bilirubin 1+ H NEGATIVE Urine Urobilinogen 1.0 < = 1.0 MG/DL Urine Leukocyte Esterase TRACE H NEGATIVE Urine RBC (Auto) NEGATIVE NEGATIVE Urine RBC 0 /HPF Urine WBC 0 /HPF Urine Crystals NONE /LPF Urine Bacteria TRACE /HPF Urine Casts NONE /LPF Urine Mucus NEGATIVE /LPF Urine Culture Indicated NO Coronavirus 2019 (CITLALY) Negative Negative White Blood Count 17.4 H 4.3-11.0 10^3/uL Red Blood Count 1.65 L 4.30-5.52 10^6/uL Hemoglobin 4.8 *L 13.3-17.7 g/dL Hematocrit 16 *L 40-54 % Mean Corpuscular Volume 94 80-99 fL Mean Corpuscular Hemoglobin 29 25-34 pg Mean Corpuscular Hemoglobin Concent 31 L 32-36 g/dL Red Cell Distribution Width 18.6 H 10.0-14.5 % Platelet Count 238 130-400 10^3/uL Mean Platelet Volume 11.3 9.0-12.2 fL Immature Granulocyte % (Auto) 3 % Neutrophils (%) (Auto) 81 H 42-75 % Lymphocytes (%) (Auto) 10 L 12-44 % Monocytes (%) (Auto) 5 0-12 % Eosinophils (%) (Auto) 1 0-10 % Basophils (%) (Auto) 0 0-10 % Neutrophils # (Auto) 14.1 H 1.8-7.8 10^3/uL Lymphocytes # (Auto) 1.7 1.0-4.0 10^3/uL Monocytes # (Auto) 0.9 0.0-1.0 10^3/uL Eosinophils # (Auto) 0.1 0.0-0.3 10^3/uL Basophils # (Auto) 0.0 0.0-0.1 10^3/uL Immature Granulocyte # (Auto) 0.6 H 0.0-0.1 10^3/uL Neutrophils % (Manual) 83 % Lymphocytes % (Manual) 14 % Monocytes % (Manual) 3 % Blood Morphology Comment NORMAL Prothrombin Time 17.3 H 12.2-14.7 SEC INR Comment 1.4 0.8-1.4 Activated Partial Thromboplast Time 28 24-35 SEC D-Dimer 4.25 H 0.00-0.49 UG/ML Sodium Level 122 *L 135-145 MMOL/L Potassium Level 5.3 H 3.6-5.0 MMOL/L Chloride Level 91 L 98-107 MMOL/L Carbon Dioxide Level 15 L 21-32 MMOL/L Anion Gap 16 H 5-14 MMOL/L Blood Urea Nitrogen 92 H 7-18 MG/DL Creatinine 1.51 H 0.60-1.30 MG/DL Estimat Glomerular Filtration Rate 49 BUN/Creatinine Ratio 61 Glucose Level 340 H 70-105 MG/DL Lactic Acid Level 8.41 *H 5.80 *H 0.50-2.00 MMOL/L Calcium Level 7.3 L 8.5-10.1 MG/DL Corrected Calcium 8.6 8.5-10.1 MG/DL Total Bilirubin 0.5 0.1-1.0 MG/DL Aspartate Amino Transf (AST/SGOT) 64 H 5-34 U/L Alanine Aminotransferase (ALT/SGPT) 49 0-55 U/L Alkaline Phosphatase 157 H 40-136 U/L Lactate Dehydrogenase 219 125-220 U/L C-Reactive Protein High Sensitivity 5.72 H 0.00-0.50 MG/DL B-Type Natriuretic Peptide 1259.6 H <100.0 PG/ML Total Protein 5.4 L 6.4-8.2 GM/DL Albumin 2.4 L 3.2-4.5 GM/DL Procalcitonin 0.29 H <0.10 NG/ML (GEORGES GAMINO MD) Micro Results Microbiology 11/12/20 Influenza Types A,B Antigen (DIANA) - Final, Complete (GEORGES GAMINO MD) My Orders Orders - GEORGES GAMINO MD Cbc With Automated Diff (11/12/20 10:00) Comprehensive Metabolic Panel (11/12/20 10:00) Blood Culture (11/12/20 10:00) Sputum Culture (11/12/20 10:00) Urinalysis (11/12/20 10:00) Urine Culture (11/12/20 10:00) Protime With Inr (11/12/20 10:00) Partial Thromboplastin Time (11/12/20 10:00) Ed Iv/Invasive Line Start (11/12/20 10:00) Ed Iv/Invasive Line Start (11/12/20 10:00) Vital Signs Adult Sepsis Patie Q15M (11/12/20 10:00) O2 (11/12/20 10:00) Remove Rings In Anticipation O (11/12/20 10:00) Lactic Acid Analyzer (11/12/20 10:00) Lactated Ringers (Lr 1000 Ml Iv Solution (11/12/20 10:00) Fibrin Degradation Products (11/12/20 10:00) Procalcitonin (Pct) (11/12/20 10:00) Hs C Reactive Protein (11/12/20 10:00) LDH (11/12/20 10:00) Influenza A And B Antigens (11/12/20 10:00) Covid 19 Inhouse Test (11/12/20 10:00) Manual Differential (11/12/20 10:41) Red Cells Leukocytes Reduced (11/12/20 11:03) Type And Screen (11/12/20 11:03) Morphine Injection (Morphine Injection (11/12/20 11:13) Ct Roxana Chest/Noang Abd-Pelv W (11/12/20 11:25) Iohexol Injection (Omnipaque 350 Mg/Ml 1 (11/12/20 11:30) Received Contrast (Hold Metformin- Contr (11/12/20 11:30) Ns (Ivpb) (Sodium Chloride 0.9% Ivpb Bag (11/12/20 11:30) Ns Iv 500 Ml (Sodium Chloride 0.9%) (11/12/20 12:45) BNP (11/12/20 12:49) Norepinephrine 4 Mg/250 Ml (Norepinephri (11/12/20 13:28) Norepinephrine 4 Mg/250 Ml (Norepinephri (11/12/20 13:45) (GEORGES GAMINO MD) Medications Given in ED Current Medications Medications Dose Ordered Sig/Rachell Route Start Time Stop Time Status Last Admin Dose Admin Iohexol 100 ml ONCE ONCE IV 11/12/20 11:30 11/12/20 11:31 DC 11/12/20 12:28 88 ML Lactated Ringer's 1,000 ml @ 0 mls/hr Q0M ONCE IV 11/12/20 10:00 11/12/20 10:02 DC 11/12/20 11:15 1,000 MLS/HR Sodium Chloride 100 ml ONCE ONCE IV 11/12/20 11:30 11/12/20 11:31 DC 11/12/20 12:28 80 ML Sodium Chloride 500 ml @ 0 mls/hr Q0M ONCE IV 11/12/20 12:45 11/12/20 12:46 DC 11/12/20 12:54 500 MLS/HR (GEORGES GAMINO MD) Vital Signs/I&O 11/12/20 11/12/20 11/12/20 11/12/20 09:56 10:21 13:18 13:37 Temp 34.4 34.1 Pulse 85 87 86 Resp 16 B/P (MAP) 84/43 (57) 111/67 (82) 77/51 Pulse Ox 100 100 O2 Delivery Non Rebreather Nasal Cannula O2 Flow Rate 4.00 (GEORGES GAMINO MD) Vital Signs/I&O Capillary Refill : Less Than 3 Seconds (SUZIE REYES APRN) Blood Pressure Mean: 57 Progress Note : Progress Note Septic work-up was pursued. Fluid resuscitation with 2 L of IVF was administered. He was also receiving 2 units of blood along with a 500 mL normal saline drip with the blood. These fluids combine satisfy the 30 mL/kg fluid bolus requirements. Antibiotic therapy was initiated with meropenem as he has a penicillin allergy. Exact cause of the sepsis is uncertain. Patient has history of osteomyelitis in the past. D-dimer was elevated and patient had respiratory symptoms. CT angiogram of the chest was obtained. No pulmonary emboli were found. CT was extended into the abdomen where ascites was noted. This was discussed with Dr. Bennett. Given the patient's severe anemia, it is likely this is old blood from his prior trauma. Patient's blood pressure did not resuscitate with IV fluids. Levophed was started in the ER. Rapid Covid screen was negative. The PCR specimen was obtained. Dr. Jones presented to the ER to evaluate the patient. She requested paracentesis for diagnostic purposes. Abdomen was evaluated by Dr. Bennett. Ultrasound did not reveal a large enough pocket to safely perform paracentesis. Patient was admitted to the ICU. (GEORGES GAMINO MD) Diagnostic Imaging Diagonstic Imaging: CT Plain Films/CT/US/NM/MRI: chest, abdomen, pelvis Comments CT angiogram of the chest and CT abdomen and pelvis viewed by me and report reviewed. See report below: NAME: MANJIT OZUNA [facility] REC#: [id number] PT STATUS: REG ER : 1970 PHYSICIAN: GEORGES GAMINO MD ADMIT DATE: 11/12/20/ER Draft Date of Exam:11/12/20 CT ROXANA CHEST/NOANG ABD-PELV W INDICATION: Abdominal pain, hypotension. Increasing shortness of air. Recent discharge from hospital for a broken right hip. CTA chest, abdomen and pelvis TECHNIQUE: Thin axial sections through the chest, abdomen and pelvis are obtained following intravenous contrast bolus. Multiplanar MIP images were reconstructed and reviewed. All CT scans use one or more of the following dose optimizing techniques: automated exposure control, MA and/or KvP adjustment based on patient size and exam type or iterative reconstruction. CORRELATION STUDY: CT chest 11/23/2009 FINDINGS: CTA CHEST: Heart size is enlarged. Left unipolar pacemaker lead tip near the right ventricular apex. No significant pericardial effusion. Coronary artery calcification. Scattered mediastinal clips. There is no definitive pulmonary artery filling defects to suggest pulmonary embolism. Small bilateral pleural effusions layer dependently. Advanced emphysematous changes about the lung parenchyma. Subpleural bullous and honeycombing changes are present. No consolidating infiltrate. No pneumothorax. Very small semisolid nodule right middle lobe at approximately 5 mm. There is severely advanced degenerative changes of the right shoulder. There is mild compression deformity at the superior T4-T5 as well as T3 vertebral endplates. Age of these are indeterminate but appear to be likely nonacute. CT ABDOMEN and PELVIS: There is presence of moderate abdominal and pelvic fluid. No free air. Generalized 3rd spacing with anasarca present. There is extensive attenuation artifact in the upper extremities in the zdeps-lj-nool over the abdomen. Given this, the liver, spleen, pancreas, adrenal glands demonstrate no acute findings. Kidneys with a normal appendix. No hydronephrosis. Gallbladder is slightly thick walled likely owing to the ascites. No overt bile duct dilatation. The abdominal aorta with mild wall calcification, nonaneurysmal. Stomach is distended with fluid and retained gastric contents. No small bowel obstruction. Moderate stool retention throughout the colon. Normal appendix is present. Urinary bladder decompressed around a Farias catheter. There is presence of a comminuted impacted right intertrochanteric femur fracture. Findings are superimposed on rather severely advanced degenerative changes of both hips. IMPRESSION: CTA CHEST: 1. No CTA evidence for pulmonary embolism. 2. Small bilateral pleural effusions layering dependently. Advanced emphysematous changes about the lung parenchyma. Question of very small right middle lobe nodule. Follow-up assessment. 3. Mild compression deformity with multiple thoracic vertebral bodies favoring nonacute findings. Age however is indeterminate. CT ABDOMEN and PELVIS: 1. Moderate abdominal and pelvic ascites. Generalized 3rd spacing with subcutaneous edema. 2. Comminuted impacted right intertrochanteric femur fracture. The possibility of this being pathologic fracture is not completely excluded on this study. 3. Moderate atherosclerotic changes about the abdominal aorta, nonaneurysmal. Dictated on workstation # [id number] Dict: 11/12/20 1244 Trans: 11/12/20 1303 [facility] [id number] Interpreted by: MICHELLE LEE DO Diagonstic Imaging: Xray Plain Films/CT/US/NM/MRI: chest Comments Chest x-ray viewed by me and report reviewed. See report below: NAME: MANJIT OZUNA [facility] REC#: [id number] PT STATUS: REG ER : 1970 PHYSICIAN: SUZIE REYES APRN ADMIT DATE: 11/12/20/ER Draft Date of Exam:11/12/20 CHEST 1 VIEW, AP/PA ONLY INDICATION: Central line placement. TECHNIQUE: Single view chest 11:59 a.m. CORRELATION STUDY: 10/28/2020. FINDINGS: A right IJ central line has been placed. Tip appears to be over the expected location of the SVC. Left-sided unipolar pacemaker. Poststernotomy. Cardiac enlargement is present. Pulmonary vascular congestion and perihilar edema appear slightly more prominent from previous study. Diffuse groundglass opacities as well as small pleural effusion. No indira lobar consolidation. IMPRESSION: 1. Right IJ central line tip in the expected location of the SVC. 2. Cardiac enlargement, pulmonary vascular congestion and perihilar edema. There may be a component of underlying pulmonary edema as well. Probable small effusions. Dictated on workstation # [id number] Dict: 11/12/20 1233 Trans: 11/12/20 1241 [facility] [id number] Interpreted by: MICHELLE LEE DO (GEORGES GAMINO MD) Departure Communication (Admissions) Time/Spoke to Admitting Phy: 13:45 Dr. Jones Time/Spoke to Consulting Phy: 13:45 Dr. Bennett (GEORGES GAMINO MD) Impression Primary Impression: Septic shock Additional Impressions: Severe anemia Abdominal fluid collection Hyponatremia Person under investigation for COVID-19 Disposition: ADMITTED INPATIENT Condition: Critical Admissions Decision to Admit Reason: Admit from ER (General) Decision to Admit/Date: Nov 12, 2020 Time/Decision to Admit Time: 11:00 (GEORGES GAMINO MD) Departure-Patient Inst. Referrals: BRAD MUNOZ MD (PCP/Family) Primary Care Physician Copy Copies To 1: BRAD MUNOZ MD, PETER J APRN Nov 12, 2020 11:00 GEORGES GAMINO MD Nov 12, 2020 14:22
[2020-11-12 11:02] LABS: ALBUMIN 2.4 GM/DL (3.2-4.5); HEMATOCRIT 16 % (40-54); HEMOGLOBIN 4.8 g/dL (13.3-17.7); POTASSIUM 5.3 MMOL/L (3.6-5.0)
[2020-11-12 11:03] LABS: CALCIUM 7.3 MG/DL (8.5-10.1)
[2020-11-12 11:05] LABS: TOTAL PROTEIN 5.4 GM/DL (6.4-8.2)
[2020-11-12 11:06] LABS: BILIRUBIN,TOTAL 0.5 MG/DL (0.1-1.0)
[2020-11-12 11:08] LABS: CREATININE SERUM 1.51 MG/DL (0.60-1.30)
[2020-11-12 11:12] LABS: FIBRIN DEGRADATION PRODUCTS 4.25 UG/ML (0.00-0.49); INR 1.4 (0.8-1.4); PROTHROMBIN TIME PATIENT 17.3 SEC (12.2-14.7)
[2020-11-12] MEDS ORDERED: morphine INJ 10 MG/ML 1ML (SYR OR VIAL) IVP STA (11:13)
[2020-11-12 11:22] LABS: BACTERIA,URINE TRACE /HPF; RBC,URINE 0 /HPF; WBC,URINE 0 /HPF
[2020-11-12] MEDS ORDERED: HOLD METFORMIN - RECEIVED CONTRAST 20 ML VIAL IV SCH (11:30)
[2020-11-12] MEDS ORDERED: NS 100 ML (IVPB) BAG IV ONE (11:30)
[2020-11-12] MEDS ORDERED: IOHEXOL 350 MG/ML 100 ML (OMNIPAQUE 350) VIAL IV ONE (11:30)
[2020-11-12 11:34] LABS: LYMPHOCYTES % (MANUAL) 14 %; MONOCYTES % (MANUAL) 3 %; NEUTROPHILS % (MANUAL) 83 %
[2020-11-12 11:35] LABS: RBC MORPH NORMAL
--- NOTE | 2020-11-12 12:42 | Diagnostic Imaging Report ---
INDICATION: Central line placement. TECHNIQUE: Single view chest 11:59 a.m. CORRELATION STUDY: 10/28/2020. FINDINGS: A right IJ central line has been placed. Tip appears to be over the expected location of the SVC. Left-sided unipolar pacemaker. Poststernotomy. Cardiac enlargement is present. Pulmonary vascular congestion and perihilar edema appear slightly more prominent from previous study. Diffuse groundglass opacities as well as small pleural effusion. No indira lobar consolidation. IMPRESSION: 1. Right IJ central line tip in the expected location of the SVC. 2. Cardiac enlargement, pulmonary vascular congestion and perihilar edema. There may be a component of underlying pulmonary edema as well. Probable small effusions. Dictated by: Dictated on workstation # [id number]
[2020-11-12] MEDS ORDERED: NS IV 500 ML 500 ML IV ONE (12:45)
--- NOTE | 2020-11-12 13:05 | Diagnostic Imaging Report ---
INDICATION: Abdominal pain, hypotension. Increasing shortness of air. Recent discharge from hospital for a broken right hip. CTA chest, abdomen and pelvis TECHNIQUE: Thin axial sections through the chest, abdomen and pelvis are obtained following intravenous contrast bolus. Multiplanar MIP images were reconstructed and reviewed. All CT scans use one or more of the following dose optimizing techniques: automated exposure control, MA and/or KvP adjustment based on patient size and exam type or iterative reconstruction. CORRELATION STUDY: CT chest 11/23/2009 FINDINGS: CTA CHEST: Heart size is enlarged. Left unipolar pacemaker lead tip near the right ventricular apex. No significant pericardial effusion. Coronary artery calcification. Scattered mediastinal clips. There is no definitive pulmonary artery filling defects to suggest pulmonary embolism. Small bilateral pleural effusions layer dependently. Advanced emphysematous changes about the lung parenchyma. Subpleural bullous and honeycombing changes are present. No consolidating infiltrate. No pneumothorax. Very small semisolid nodule right middle lobe at approximately 5 mm. There is severely advanced degenerative changes of the right shoulder. There is mild compression deformity at the superior T4-T5 as well as T3 vertebral endplates. Age of these are indeterminate but appear to be likely nonacute. CT ABDOMEN and PELVIS: There is presence of moderate abdominal and pelvic fluid. No free air. Generalized 3rd spacing with anasarca present. There is extensive attenuation artifact in the upper extremities in the [id number]-rm-qtka over the abdomen. Given this, the liver, spleen, pancreas, adrenal glands demonstrate no acute findings. Kidneys with a normal appendix. No hydronephrosis. Gallbladder is slightly thick walled likely owing to the ascites. No overt bile duct dilatation. The abdominal aorta with mild wall calcification, nonaneurysmal. Stomach is distended with fluid and retained gastric contents. No small bowel obstruction. Moderate stool retention throughout the colon. Normal appendix is present. Urinary bladder decompressed around a Farias catheter. There is presence of a comminuted impacted right intertrochanteric femur fracture. Findings are superimposed on rather severely advanced degenerative changes of both hips. IMPRESSION: CTA CHEST: 1. No CTA evidence for pulmonary embolism. 2. Small bilateral pleural effusions layering dependently. Advanced emphysematous changes about the lung parenchyma. Question of very small right middle lobe nodule. Follow-up assessment. 3. Mild compression deformity with multiple thoracic vertebral bodies favoring nonacute findings. Age however is indeterminate. CT ABDOMEN and PELVIS: 1. Moderate abdominal and pelvic ascites. Generalized 3rd spacing with subcutaneous edema. 2. Comminuted impacted right intertrochanteric femur fracture. The possibility of this being pathologic fracture is not completely excluded on this study. 3. Moderate atherosclerotic changes about the abdominal aorta, nonaneurysmal. Dictated by: Dictated on workstation # [id number]
--- NOTE | 2020-11-12 13:10 | NUR ---
UNABLE TO SCAN BLOOD. THIS NURSE AND CATHERINE FAY ATTEMPTED. UNIT NUMBER [id number] STARTED. 34.1-87 -64/46. BLOOD STARTED AT 75ML/HR WITH NS HANGING AT 30CC/HR. OTHER LITER OF FLUID HANGING WAS PLACED ON A PRESSURE BAG.
--- NOTE | 2020-11-12 13:10 | NUR ---
Kody rivera in [facility] - 11/12/20 at 1326 by SEA UNABLE TO SCAN BLOOD. THIS NURSE AND CATHERINE FAY ATTEMPTED. UNIT NUMBER [id number] STARTED. 34.1-87 -116/67
--- NOTE | 2020-11-12 13:18 | NUR ---
LARGE DECUBE NOTICED ON OUTER RIGHT FOOT. DR HILLIARD IN ROOM ET AWARE.
--- NOTE | 2020-11-12 13:22 | NUR ---
PT CONTINUES TO NOT LET US WARM HIM WITH BLANKETS.
--- NOTE | 2020-11-12 13:25 | NUR ---
STAYED WITH PT FOR 15 MINS DURING. NO SIGNS OF A REACTION. VS 34.1-85-65/45 BLOOD INFUSING AT 300ML/HR PER DR GAMINO VERBAL ORDER.
[2020-11-12] MEDS ORDERED: NOREPINEPHRINE 4 MG/250 ML 250 ML IV ONE (13:28)
[2020-11-12] MEDS ORDERED: NOREPINEPHRINE 4 MG/250 ML 250 ML IV SCH ×2 (13:45)
--- NOTE | 2020-11-12 14:00 | NUR ---
PT HAS BEEN CUSSING AT STAFF THE ENTIRE TIME HE HAS BEEN HERE. STATES HE DOES NOT THINK WE HAVE DONE NOTHING FOR HIM SINCE HE HAS BEEN HERE. EXPLAINED TO HIM I HAVE BEEN IN THE ROOM THE LAST HOUR AND A HALF TAKING CARE OF HIM PLUS EVERYTHING THAT WAS DONE BEFORE. PT APOLOGISED.
[2020-11-12] MEDS ORDERED: MEROPENEM 1,000 MG in WATER (STERILE) FOR INJECTION 20 ML IV ONE (14:15)
--- NOTE | 2020-11-12 14:20 | NUR ---
BLOOD STILL INFUSING UPON TRANSFER .
--- NOTE | 2020-11-12 14:52 | NUR ---
PT'S DAUGHTER UPDATED.
[2020-11-12] MEDS ORDERED: VANCOMYCIN INJECTION 0.1 MG in NS (IVPB) 250 ML IV SCH (15:00)
[2020-11-12] MEDS ORDERED: VANCOMYCIN INJECTION 1,000 MG in NS (IVPB) 250 ML IV SCH (15:00)
[2020-11-12] MEDS ORDERED: EPINEPHrine 1 MG INJECTION 4 MG in NS (IVPB) 248 ML IV SCH (15:00)
[2020-11-12] MEDS ORDERED: CATHETER FLUSH 10 ML SYR IV PRN (15:15)
--- NOTE | 2020-11-12 15:18 | NUR ---
CR 1.51; CR CL ~57; WT 90 KG; VANCO 1500 MG IV BOLUS THEN 1000 MG IV Q12H X 3 DAYS
[2020-11-12] MEDS: VASOPRESSIN INJECTION 20 UNIT in NS (IVPB) 100 ML IV SCH ×2 (15:24→23:25)
[2020-11-12] MEDS: NOREPINEPHRINE 4 MG/250 ML 250 ML IV SCH ×2 (15:24→18:37)
[2020-11-12] MEDS: NS IV 1000 ML 1,000 ML IV SCH ×2 (15:26→21:35)
[2020-11-12] MEDS ORDERED: VANCOMYCIN 1500 MG/NS 500 ML IVPB IV NR ×2 (15:30)
--- NOTE | 2020-11-12 15:46 | History & Physical-Hospitalist ---
History of Present Illness HPI/Chief Complaint CC: Septic shock with severe anemia HPI: This is a 50yoWM who presented to the ER with AMS and overall body pain. Patient was found to have septic shock with ascites on CT scan and new decubitus ulcer right lateral foot and right lateral leg. To note he was admitted here on 10/25/20 for hip fracture and cellulitis and ultimately did not undergo surgical repair due to high risk for complications in addition to cellulitis of the skin of the affected hip and since he was bedbound anyway they elected to not repair it so jail was arranged but ultimately patient refused NH placement and daughter brought him home to be caregiver. He presented today with stained bed clothes and hypotensive with elevated lactic acid and finding c/w septic shock with severe anemia of hgb 4.8. Patient was placed on broad spectrum abx and transfused and Dr Bennett has been consulted for acites which was too minimal for paracentesis but also for hemoccult positive stools and severe diarrhea requiring rectal tube. Patient has high risk for mortality considering his baseline debility and other med issues like left AKA and bedbound status. Source: RN/MD, old records Exam Limitations: clinical condition Date Seen 11/12/20 Time Seen by a Provider: 13:40 Attending Physician Lora Jones David F MD Referring Physician Date of Admission Nov 12, 2020 at 13:59 Home Medications & Allergies Home Medications Reviewed patient Home Medication Reconciliation performed by pharmacy medication reconciliations drafting technician and/or nursing. Patients Allergies have been reviewed. Allergies Allergies Coded Allergies raspberry (Unverified Allergy, Mild, 04/14/15) FROM UNCODED ALLERGIES Penicillins (Verified Allergy, Unknown, FEVER AND NAUSEA, 04/18/15) OCCURED AFTER RECEIVING IV Past Afaunjy-Hcawtg-Jwwdvc Hx Past Med/Social Hx: Reviewed Nursing Past Med/Soc Hx, Reviewed and Corrections made Patient Social History Marrital Status: single Employed/Student: unemployed Smoking Status: Current Everyday Smoker Type Used: Cigarettes Recent Foreign Travel: No Contact w/other who traveled: No Recent Hopitalizations: No Recent Infectious Disease Expo: No Immunizations Up To Date Tetanus Booster (TDap): Unknown Pediatric: No Date of Pneumonia Vaccine: Sep 17, 2014 Date of Influenza Vaccine: Sep 13, 2014 Seasonal Allergies Seasonal Allergies: No Past Medical History Surgeries: CABG, Orthopedic (left BKA), Pacemaker Cardiac: High Cholesterol Reproductive: No Sexually Transmitted Disease: No HIV/AIDS: No Gastrointestinal: Gastroesophageal Reflux Musculoskeletal: Amputee, Arthritis, Rheumatoid Arthritis, Fractures, Contracture Endocrine: Diabetes, Insulin dep Loss of Vision: Left Hearing Impairment: Denies Psychosocial: Depression History of Blood Disorders: No Adverse Reaction to Blood Godwin: No Family History Colon cancer 19 FATHER Diabetes mellitus 19 FATHER Hypertension 19 FATHER Review of Systems Constitutional: see HPI, weakness Gastrointestinal: diarrhea Physical Exam Physical Exam Vital Signs Vital Signs - First Documented 11/12/20 11/12/20 09:56 10:21 Temp 34.4 Pulse 85 Resp 16 B/P (MAP) 84/43 (57) Pulse Ox 100 O2 Delivery Non Rebreather O2 Flow Rate 4.00 Capillary Refill : Greater Than 3 SecondsGreater Than 3 Seconds Height, Weight, BMI Height: 6'1.00" Weight: 216lbs. 4.0oz. 97.610408pp; 29.00 BMI Method:Stated General Appearance: Anxious, Chronically ill, Severe Distress, Other (acutely ill, pale) Respiratory: Accessory Muscle Use, Decreased Breath Sounds Cardiovascular: Regular Rate, Rhythm Neurologic/Psychiatric: Alert, Disoriented Results Results/Procedures Labs Laboratory Tests 11/12/20 10:41 Patient resulted labs reviewed. Assessment/Plan Admission Diagnosis Assessment: Septic shock Decubitus ulcers Cellulitis Anemia severe 4.8 hgb Elevated lactic acid Bedound status baseline GIB Left BKA hx Plan: ICU Abx IVF Pressors Transfuse Mortality high Admission Status: Inpatient Order (span 2 midnights) Reason for Inpatient Admission: septic shock Diagnosis/Problems Diagnosis/Problems (1) Septic shock Status: Resolved Resolution Date/Time: 10/27/20 @ 14:20 (2) Person under investigation for COVID-19 Status: Acute (3) Abdominal fluid collection Status: Acute (4) Severe anemia Status: Acute (5) Hyponatremia Status: Acute (6) Hip fracture Status: Acute (7) CAD (coronary artery disease) Status: Chronic (8) T2DM (type 2 diabetes mellitus) Status: Acute (9) Lactic acidosis Status: Resolved Resolution Date/Time: 10/27/20 @ 14:20 (10) HFrEF (heart failure with reduced ejection fraction) Status: Acute (11) S/P BKA (below knee amputation) Status: Chronic (12) S/P CABG (coronary artery bypass graft) Status: Chronic Clinical Quality Measures DVT/VTE Risk/Contraindication: Risk Factor Score Per Nursin RFS Level Per Nursing on Admit: 4+=Very High LORA JONES DO Nov 12, 2020 15:46
[2020-11-12] MEDS: inSUlin ASPART (NovoLOG) 1 UNIT/0.01 ML (CHARGE PER UNIT) SC SCH ×2 (17:04→21:34)
[2020-11-12] MEDS: ONDANSETRON 4 MG/2 ML (SDV) Z0FRAN IV PRN (18:10)
--- NOTE | 2020-11-12 19:47 | Diagnostic Imaging Report ---
INDICATION: NG tube placement. EXAMINATION: Frontal chest was obtained at 7:18 p.m. COMPARISON: Same day at 11:59 a.m. FINDINGS: There is cardiomegaly and post sternotomy change with unchanged pacemaker device. Right IJ central catheter is unchanged. There is central vascular congestion with interstitial edema and bibasilar infiltrate appearing similar to the prior study. There is a new NG tube seen with tip overlying the proximal portion of the stomach. IMPRESSION: New NG tube seen with tip overlying the proximal portion of stomach. Cardiomegaly and postoperative changes are again noted with unchanged central vascular congestion, edema and bibasilar infiltrate. Dictated by: Dictated on workstation # [id number]
[2020-11-12 20:39] LABS: MEAN PLATELET VOLUME 10.7 fL (9.0-12.2)
[2020-11-12 20:46] LABS: HEMOGLOBIN 6.6 g/dL (13.3-17.7)
[2020-11-12 20:48] LABS: POTASSIUM 4.5 MMOL/L (3.6-5.0)
[2020-11-12 20:49] LABS: CALCIUM 7.2 MG/DL (8.5-10.1)
[2020-11-12 20:53] LABS: CREATININE SERUM 1.3 MG/DL (0.60-1.30)
--- NOTE | 2020-11-12 21:07 | NUR ---
CALLED [facility] AND INFORMED THEM OF CRITICAL LAB VALUES-H&H, NA+, AND LACTIC ACID. RECEIVED ORDER TO INFUSE ONE UNIT PACKED RED CELLS.
[2020-11-12] MEDS: PANTOPRAZOLE 40 MG (PROTONIX) VIAL IV SCH (21:27)
[2020-11-12] MEDS: MEROPENEM 500 MG/SWFI 10 ML IV PUSH IV SCH ×2 (21:27)
[2020-11-12] MEDS ORDERED: NS IV 500 ML 500 ML IV SCH (21:30)
--- NOTE | 2020-11-12 23:46 | Consultation - Surgery ---
History of Present Illness History of Present Illness Patient Consulted On(remedios/time) 11/12/20 23:41 Date Seen by Provider: Nov 12, 2020 Time Seen by Provider: 23:41 History of Present Illness Consult requested by Dr. Jones for anemia, gi bleed 50 year old male to er who had altered mental status and body aches. Was found to have hgb of 4.8. Recent admission for right hip fracture which he did not have surgical intervention. Patient with multiple medical issues. Has been bed bound for about 5 years. Patient having diarrhea multiple that is occult positive. Patient has been feeling weak and had cough. Found to be in septic shock. Not having any abdominal pain. States has been taking pain medication maybe ibuprofen at home to help control pain. Has been having nausea and vomiting that he thinks maybe was blood. No other complaints at this time. Being transfused prbc currently and on Protonix. Had CTA: CTA CHEST: 1. No CTA evidence for pulmonary embolism. 2. Small bilateral pleural effusions layering dependently. Advanced emphysematous changes about the lung parenchyma. Question of very small right middle lobe nodule. Follow-up assessment. 3. Mild compression deformity with multiple thoracic vertebral bodies favoring nonacute findings. Age however is indeterminate. CT ABDOMEN and PELVIS: 1. Moderate abdominal and pelvic ascites. Generalized 3rd spacing with subcutaneous edema. 2. Comminuted impacted right intertrochanteric femur fracture. The possibility of this being pathologic fracture is not completely excluded on this study. 3. Moderate atherosclerotic changes about the abdominal aorta, nonaneurysmal. Allergies and Home Medications Allergies Coded Allergies: raspberry (Unverified Allergy, Mild, 04/14/15) FROM UNCODED ALLERGIES Penicillins (Verified Allergy, Unknown, FEVER AND NAUSEA, 04/18/15) OCCURED AFTER RECEIVING IV Home Medications Aspirin 81 Mg Tab.chew, 81 MG PO DAILY Prescribed by: CHIO HERNANDEZ on 10/31/20 1136 Carvedilol 3.125 Mg Tablet, 3.125 MG PO BID Prescribed by: CHIO HERNANDEZ on 10/31/20 1136 Cephalexin 250 Mg Capsule, 500 MG PO TID Prescribed by: CHIO HERNANDEZ on 10/31/20 1136 Enalapril Maleate 2.5 Mg Tablet, 2.5 MG PO BID Prescribed by: CHIO HERNANDEZ on 10/31/20 1136 Furosemide 40 Mg Tablet, 40 MG PO DAILY Prescribed by: CHIO HERNANDEZ on 10/31/20 113 Hydrocodone Bit/Acetaminophen 1 Ea Tab, 1 EA PO Q4H PRN for PAIN-MODERATE (5-7) Prescribed by: CHIO HERNANDEZ on 10/31/20 113 Ibuprofen 200 Mg Tablet, 200-400 MG PO Q6H PRN for PAIN-MILD (1-4), (Reported) Insulin Aspart 100 Unit/1 Ml Susp, 10 UNIT SC AC Prescribed by: CHIO HERNANDEZ on 10/31/201135 Insulin Determir 1,000 Units/10 Ml Soln, 25 UNIT SQ BID Prescribed by: CHIO HERNANDEZ on 10/31/201135 Miconazole Nitrate 90 Gm Powder, 0 GM TOP BID Prescribed by: CHIO HERNANDEZ on 10/31/201135 Patient Home Medication List Home Medication List Reviewed: Yes Past Blypojl-Dlbagf-Kotmuu Hx Patient Social History Smoking Status: Current Everyday Smoker Type Used: Cigarettes Recent Foreign Travel: No Contact w/Someone Who Travel: No Recent Infectious Disease Expo: No Recent Hopitalizations: No Immunizations Up To Date Tetanus Booster (TDap): Unknown PED Vaccines UTD: No Date of Pneumonia Vaccine: Sep 17, 2014 Date of Influenza Vaccine: Sep 13, 2014 Seasonal Allergies Seasonal Allergies: No Surgeries History of Surgeries: Yes (LEFT BKA, DEBRIDEMENT) Surgeries: CABG, Orthopedic (left BKA), Pacemaker Respiratory History of Respiratory Disorde: No Cardiovascular History of Cardiac Disorders: Yes Cardiac Disorders: High Cholesterol Neurological History of Neurological Disord: Yes Reproductive System Hx Reproductive Disorders: No Sexually Transmitted Disease: No HIV/AIDS: No Genitourinary History of Genitourinary Disor: No Gastrointestinal History of Gastrointestinal Di: Yes Gastrointestinal Disorders: Gastroesophageal Reflux Musculoskeletal History of Musculoskeletal Dis: Yes Musculoskeletal Disorders: Amputee, Arthritis, Rheumatoid Arthritis, Fractures, Contracture Endocrine History of Endocrine Disorders: Yes Endocrine Disorders: Diabetes, Insulin dep HEENT History of HEENT Disorders: No Loss of Vision: Left Hearing Impairment: Denies Cancer History of Cancer: No (FAMILY) Psychosocial History of Psychiatric Problem: Yes Behavioral Health Disorders: Depression Integumentary History of Skin or Integumenta: Yes (ULCER WOUNDS ON RIGHT LOWER LEG/FOOT) Blood Transfusions History of Blood Disorders: No Adverse Reaction to a Blood Tr: No Reviewed Nursing Assessment Reviewed/Agree w Nursing PMH: Yes Family Medical History Significant Family History: No Pertinent Family Hx Family Medial History: Colon cancer 19 FATHER Diabetes mellitus 19 FATHER Hypertension 19 FATHER Review of Systems-General Constitutional: No chills; weakness EENTM: No ear pain, No blurred vision Respiratory: cough, short of breath Cardiovascular: No chest pain; edema; No palpitations Gastrointestinal: No abdominal pain; diarrhea, nausea, vomiting Genitourinary: decreased output; No discharge Musculoskeletal: joint pain Psychiatric/Neurological: Denies Anxiety, Denies Depressed, Denies Emotional Problems All Other Systems Reviewed Negative Unless Noted: Yes (Negative excepted noted.) Physical Exam-General Problems Physical Exam Vital Signs Vital Signs - First Documented 11/12/20 11/12/20 09:56 10:21 Temp 34.4 Pulse 85 Resp 16 B/P (MAP) 84/43 (57) Pulse Ox 100 O2 Delivery Non Rebreather O2 Flow Rate 4.00 Capillary Refill : Greater Than 3 SecondsLess Than 3 Seconds General Appearance: no apparent distress, obese HEENT: PERRL/EOMI, normal ENT inspection, other (Ng tube ) Neck: supple, normal inspection (right IJ central line) Respiratory: chest non-tender, no respiratory distress, no accessory muscle use, other (chest wound at sternotomy scar open wound with exposed wire.) Cardiovascular: regular rate, rhythm, no JVD Gastrointestinal: non tender, other (edema lower portion of abdomen) Rectal: deferred Back: no CVA tenderness Extremities: other (left bka, right lower extremity wounds) Neurologic/Psychiatric: alert, motor weakness Skin: other (right lower ext wounds), pallor Lymphatic: no adenopathy Data Review Labs Laboratory Tests 11/12/20 00:00: Stool Occult Blood Immunoassay POSITIVEH 11/12/20 10:10: Urine Color YELLOW, Urine Clarity CLOUDY, Urine pH 5.0, Urine Specific [place] >=1.030, Urine Protein 2+H, Urine Glucose (UA) NEGATIVE, Urine Ketones TRACEH, Urine Nitrite NEGATIVE, Urine Bilirubin 1+H, Urine Urobilinogen 1.0, Urine Leukocyte Esterase TRACEH, Urine RBC (Auto) NEGATIVE, Urine RBC 0, Urine WBC 0, Urine Crystals NONE, Urine Bacteria TRACE, Urine Casts NONE, Urine Mucus NEGATIVE, Urine Culture Indicated NO, Coronavirus 2019 (CITLALY) Negative 11/12/20 10:41: White Blood Count 17.4H, Red Blood Count 1.65L, Hemoglobin 4.8*L, Hematocrit 16*L, Mean Corpuscular Volume 94, Mean Corpuscular Hemoglobin 29, Mean Corpuscular Hemoglobin Concent 31L, Red Cell Distribution Width 18.6H, Platelet Count 238, Mean Platelet Volume 11.3, Immature Granulocyte % (Auto) 3, Neutrophils (%) (Auto) 81H, Lymphocytes (%) (Auto) 10L, Monocytes (%) (Auto) 5, Eosinophils (%) (Auto) 1, Basophils (%) (Auto) 0, Neutrophils # (Auto) 14.1H, Lymphocytes # (Auto) 1.7, Monocytes # (Auto) 0.9, Eosinophils # (Auto) 0.1, Basophils # (Auto) 0.0, Immature Granulocyte # (Auto) 0.6H, Neutrophils % (Manual) 83, Lymphocytes % (Manual) 14, Monocytes % (Manual) 3, Blood Morphology Comment NORMAL, Prothrombin Time 17.3H, INR Comment 1.4, Activated Partial Thromboplast Time 28, D-Dimer 4.25H, Sodium Level 122*L, Potassium Level 5.3H, Chloride Level 91L, Carbon Dioxide Level 15L, Anion Gap 16H, Blood Urea Nitrogen 92H, Creatinine 1.51H, Estimat Glomerular Filtration Rate 49, BUN/Creatinine Ratio 61, Glucose Level 340H, Lactic Acid Level 8.41*H, Calcium Level 7.3L, Corrected Calcium 8.6, Total Bilirubin 0.5, Aspartate Amino Transf (AST/SGOT) 64H, Alanine Aminotransferase (ALT/SGPT) 49, Alkaline Phosphatase 157H, Lactate Dehydrogenase 219, C-Reactive Protein High Sensitivity 5.72H, B-Type Natriuretic Peptide 1259.6H, Total Protein 5.4L, Albumin 2.4L, Procalcitonin 0.29H 11/12/20 13:18: Lactic Acid Level 5.80*H 11/12/20 14:00: 11/12/20 15:36: Lactic Acid Level 4.21*H 11/12/20 16:15: Glucometer 330H 11/12/20 17:58: Lactic Acid Level 2.60*H 11/12/20 20:30: White Blood Count 19.0H, Red Blood Count 2.30L, Hemoglobin 6.6#*L, Hematocrit 20*L, Mean Corpuscular Volume 87, Mean Corpuscular Hemoglobin 29, Mean Corpuscular Hemoglobin Concent 33, Red Cell Distribution Width 17.2H, Platelet Count 249, Mean Platelet Volume 10.7, Sodium Level 124*L, Potassium Level 4.5, Chloride Level 92L, Carbon Dioxide Level 20L, Anion Gap 12, Blood Urea Nitrogen 88H, Creatinine 1.30, Estimat Glomerular Filtration Rate 58, BUN/Creatinine Ratio 68, Glucose Level 261H, Lactic Acid Level 2.16*H, Calcium Level 7.2L Microbiology 11/12/20 Influenza Types A,B Antigen (DIANA) - Final, Complete Assessment/Plan Assessment/Plan Assessment/Plan severe anemia upper GI bleed right hip fracture ascites PUI covid 19 CAD Chest wound -exposed wire from cabg NPO Being transfused prbc follow hgb and transfuse prbc as needed Protonix NG tube to liws- bloody return Avoid any anticoagulation Continue conservative measures, may need EGD Mulitple wounds right lower extremity and chest with exposed wire, wound care keep clean and dry. Clinical Quality Measures DVT/VTE Risk/Contraindication: Risk Factor Score Per Nursin RFS Level Per Nursing on Admit: 4+=Very High ANTONY DANIELS DO Nov 12, 2020 23:46
[2020-11-13] VITALS (64 sets, daily range): BP systolic 90–123; BP diastolic 57–79
[2020-11-13] MEDS: NOREPINEPHRINE 4 MG/250 ML 250 ML IV SCH ×5 (00:12→16:13)
[2020-11-13] MEDS: NS IV 1000 ML 1,000 ML IV SCH ×4 (03:04→18:57)
[2020-11-13] MEDS: VANCOMYCIN 1 GM/NS 250 ML IVPB IV SCH ×4 (03:16→16:09)
[2020-11-13] MEDS: MEROPENEM 500 MG/SWFI 10 ML IV PUSH IV SCH ×8 (03:16→22:13)
[2020-11-13 03:29] LABS: BASOPHILS # (AUTO) 0.1 10^3/uL (0.0-0.1); BASOPHILS % (AUTO) 0 % (0-10); EOSINOPHILS # (AUTO) 0.1 10^3/uL (0.0-0.3); EOSINOPHILS % (AUTO) 0 % (0-10); HEMATOCRIT 22 % (40-54); HEMOGLOBIN 7.3 g/dL (13.3-17.7); LYMPHOCYTES # (AUTO) 1.9 10^3/uL (1.0-4.0); LYMPHOCYTES % (AUTO) 9 % (12-44); MEAN CORPUSCULAR HEMOGLOBIN 29 pg (25-34); MEAN CORPUSCULAR HGB CONC 34 g/dL (32-36); MEAN CORPUSCULAR VOLUME 87 fL (80-99); MEAN PLATELET VOLUME 10.5 fL (9.0-12.2); MONOCYTES % (AUTO) 5 % (0-12); NEUTROPHILS # (AUTO) 17.9 10^3/uL (1.8-7.8); NEUTROPHILS % (AUTO) 85 % (42-75); PLATELET COUNT 238 10^3/uL (130-400); WHITE BLOOD COUNT 21.2 10^3/uL (4.3-11.0)
[2020-11-13 03:41] LABS: INR 1.2 (0.8-1.4); PROTHROMBIN TIME PATIENT 15.6 SEC (12.2-14.7)
[2020-11-13 03:43] LABS: ALBUMIN 2.3 GM/DL (3.2-4.5)
[2020-11-13 03:44] LABS: CHLORIDE 94 MMOL/L (98-107); POTASSIUM 4.3 MMOL/L (3.6-5.0)
[2020-11-13 03:45] LABS: CALCIUM 7.1 MG/DL (8.5-10.1)
[2020-11-13 03:46] LABS: GLUCOSE 184 MG/DL (70-105); TOTAL PROTEIN 5.1 GM/DL (6.4-8.2)
[2020-11-13 03:47] LABS: CARBON DIOXIDE 21 MMOL/L (21-32)
[2020-11-13 03:48] LABS: BILIRUBIN,TOTAL 0.6 MG/DL (0.1-1.0)
[2020-11-13 03:49] LABS: ALKALINE PHOSPHATASE 136 U/L (40-136); PHOSPHORUS 3.2 MG/DL (2.3-4.7)
[2020-11-13 03:50] LABS: CREATININE SERUM 1.23 MG/DL (0.60-1.30); GFR ESTIMATED > 60
[2020-11-13 03:51] LABS: BUN/CREATININE RATIO 68
[2020-11-13 03:52] LABS: ALANINE AMINOTRANSFERASE 57 U/L (0-55); MAGNESIUM 1.8 MG/DL (1.6-2.4)
[2020-11-13] MEDS: KCL 20 MEQ TAB (K-DUR) PO SCH (04:01)
[2020-11-13] MEDS: POTASSIUM CL 10MEQ/50ML IVPB 50 ML IV SCH (04:01)
[2020-11-13] MEDS: MAGNESIUM 1 GM/100 ML IVPB 100 ML IV SCH (04:01)
[2020-11-13 04:04] LABS: SODIUM 125 MMOL/L (135-145)
[2020-11-13] MEDS: inSUlin ASPART (NovoLOG) 1 UNIT/0.01 ML (CHARGE PER UNIT) SC SCH ×4 (04:25→21:14)
--- NOTE | 2020-11-13 06:35 | NUR ---
DR. DANIELS ON FLOOR TO SEE PATIENT.
--- NOTE | 2020-11-13 07:08 | Progress Note - Surgery ---
Subjective Date Seen by a Provider: Nov 13, 2020 Time Seen by a Provider: 07:03 Subjective/Events-last exam On Levophed. Ng tube in place. Less bloody bm. NG tube bloody/coffee ground appearance. Hgb 7.3 After 3 units of PRBC. NPO Focused Exam Lactate Level 11/12/20 17:58: Lactic Acid Level 2.60*H 11/12/20 20:30: Lactic Acid Level 2.16*H 11/13/20 03:10: Lactic Acid Level 0.98 Time of Focused Exam: 14:15 Lactic Acid Level Laboratory Tests Test 11/13/20 03:10 Lactic Acid Level 0.98 MMOL/L (0.50-2.00) Objective Exam Vital Signs Date Time Temp Pulse Resp B/P (MAP) Pulse Ox O2 Delivery O2 Flow Rate FiO2 11/13/20 06:00 93 30 109/62 (78) 95 Nasal Cannula 2.00 11/13/20 05:00 89 16 109/64 (79) 97 Nasal Cannula 2.00 11/13/20 04:36 36.6 11/13/20 04:26 93 101/61 11/13/20 04:00 92 22 101/61 (74) 94 Nasal Cannula 2.00 11/13/20 03:00 93 22 105/62 (76) 95 Nasal Cannula 2.00 11/13/20 02:00 92 24 113/64 (80) 93 Nasal Cannula 2.00 11/13/20 01:00 91 11/13/20 01:00 91 30 99/59 (72) 99 Nasal Cannula 2.00 11/13/20 00:40 36.0 96 96/61 11/13/20 00:13 36.0 11/13/20 00:12 96 92/59 11/13/20 00:00 95 25 98/72 (81) 99 Nasal Cannula 2.00 11/13/20 00:00 36.0 11/12/20 23:00 93 21 101/60 (74) 97 Nasal Cannula 2.00 11/12/20 22:33 36.9 95 99/56 96 Nasal Cannula 2.00 11/12/20 22:18 36.9 96 90/51 95 11/12/20 22:00 97 20 87/50 (62) 98 Nasal Cannula 2.00 11/12/20 21:36 36.4 1/9/21 21:27 95 87/50 11/12/20 21:00 96 20 106/64 (78) 93 Nasal Cannula 2.00 11/12/20 20:12 36.0 11/12/20 20:00 35.6 Nasal Cannula 2.00 11/12/20 20:00 96 22 104/61 (75) 96 Nasal Cannula 2.00 11/12/20 19:00 92 28 108/63 (78) 100 Nasal Cannula 2.00 11/12/20 19:00 92 11/12/20 18:54 97 Room Air 11/12/20 18:37 99 95/77 11/12/20 18:37 35.1 98 16 95/77 100 Nasal Cannula 2.00 11/12/20 18:00 90 14 103/62 (76) 100 Nasal Cannula 2.00 11/12/20 17:33 92 112/62 11/12/20 17:23 36.7 92 22 112/64 100 Nasal Cannula 2.00 11/12/20 17:08 34.2 96 27 93/69 100 Nasal Cannula 2.00 11/12/20 17:00 96 11 93/69 (77) 100 Nasal Cannula 2.00 11/12/20 16:00 96 24 107/65 (79) 100 Nasal Cannula 2.00 11/12/20 15:33 92 85/56 11/12/20 15:23 Nasal Cannula 2.00 11/12/20 15:04 100 Nasal Cannula 4.00 11/12/20 15:00 92 11 108/77 (87) 100 Nasal Cannula 2.00 11/12/20 14:45 92 27 109/68 (82) 100 Nasal Cannula 2.00 11/12/20 14:42 33.4 Nasal Cannula 4.00 11/12/20 14:42 33.4 Nasal Cannula 4.00 11/12/20 14:20 34.1 89 16 89/46 100 Room Air 11/12/20 13:37 86 77/51 11/12/20 13:18 34.1 87 111/67 (82) 11/12/20 10:21 100 Nasal Cannula 4.00 11/12/20 09:56 34.4 85 16 84/43 (57) 100 Non Rebreather I & O 11/13/20 07:00 Intake Total 3585 ml Output Total 2350 ml Balance 1235 ml Capillary Refill : Greater Than 3 SecondsLess Than 3 Seconds General Appearance: Anxious, Chronically ill, Other (acutely ill, pale) HEENT: Normal ENT Inspection Neck: Normal Inspection, Non Tender Respiratory: Chest Non Tender, No Respiratory Distress, Accessory Muscle Use, Decreased Breath Sounds Cardiovascular: Regular Rate, Rhythm, No JVD Peripheral Pulses: 1+ Radial Pulses (L) Gastrointestinal: non tender, soft, other (edema lower portion of abdomen) Extremity: Other (left bka, right leg wounds) Neurologic/Psychiatric: Alert Skin: Pallor, Other (sternotomy wound with exposed wire) Lymphatic: No Adenopathy Results Lab Laboratory Tests 11/12/20 10:10: Urine Color YELLOW, Urine Clarity CLOUDY, Urine pH 5.0, Urine Specific [place] >=1.030, Urine Protein 2+H, Urine Glucose (UA) NEGATIVE, Urine Ketones TRACEH, Urine Nitrite NEGATIVE, Urine Bilirubin 1+H, Urine Urobilinogen 1.0, Urine Leukocyte Esterase TRACEH, Urine RBC (Auto) NEGATIVE, Urine RBC 0, Urine WBC 0, Urine Crystals NONE, Urine Bacteria TRACE, Urine Casts NONE, Urine Mucus NEGATIVE, Urine Culture Indicated NO, Coronavirus 2019 (CITL[facility]Y) Negative 11/12/20 10:41: White Blood Count 17.4H, Red Blood Count 1.65L, Hemoglobin 4.8*L, Hematocrit 16*L, Mean Corpuscular Volume 94, Mean Corpuscular Hemoglobin 29, Mean Corpuscular Hemoglobin Concent 31L, Red Cell Distribution Width 18.6H, Platelet Count 238, Mean Platelet Volume 11.3, Immature Granulocyte % (Auto) 3, Neutrophils (%) (Auto) 81H, Lymphocytes (%) (Auto) 10L, Monocytes (%) (Auto) 5, Eosinophils (%) (Auto) 1, Basophils (%) (Auto) 0, Neutrophils # (Auto) 14.1H, Lymphocytes # (Auto) 1.7, Monocytes # (Auto) 0.9, Eosinophils # (Auto) 0.1, Basophils # (Auto) 0.0, Immature Granulocyte # (Auto) 0.6H, Neutrophils % (Manual) 83, Lymphocytes % (Manual) 14, Monocytes % (Manual) 3, Blood Morphology Comment NORMAL, Prothrombin Time 17.3H, INR Comment 1.4, Activated Partial Thromboplast Time 28, D-Dimer 4.25H, Sodium Level 122*L, Potassium Level 5.3H, Chloride Level 91L, Carbon Dioxide Level 15L, Anion Gap 16H, Blood Urea Nitrogen 92H, Creatinine 1.51H, Estimat Glomerular Filtration Rate 49, BUN/Creatinine Ratio 61, Glucose Level 340H, Lactic Acid Level 8.41*H, Calcium Level 7.3L, Corrected Calcium 8.6, Total Bilirubin 0.5, Aspartate Amino Transf (AST/SGOT) 64H, Alanine Aminotransferase (ALT/SGPT) 49, Alkaline Phosphatase 157H, Lactate Dehydrogenase 219, C-Reactive Protein High Sensitivity 5.72H, B-Type Natriuretic Peptide 1259.6H, Total Protein 5.4L, Albumin 2.4L, Procalcitonin 0.29H 11/12/20 13:18: Lactic Acid Level 5.80*H 11/12/20 14:00: 11/12/20 15:36: Lactic Acid Level 4.21*H 11/12/20 16:15: Glucometer 330H 11/12/20 17:58: Lactic Acid Level 2.60*H 11/12/20 20:30: Lactic Acid Level 2.16*H, White Blood Count 19.0H, Red Blood Count 2.30L, Hemoglobin 6.6#*L, Hematocrit 20*L, Mean Corpuscular Volume 87, Mean Corpuscular Hemoglobin 29, Mean Corpuscular Hemoglobin Concent 33, Red Cell Distribution Width 17.2H, Platelet Count 249, Mean Platelet Volume 10.7, Sodium Level 124*L, Potassium Level 4.5, Chloride Level 92L, Carbon Dioxide Level 20L, Anion Gap 12, Blood Urea Nitrogen 88H, Creatinine 1.30, Estimat Glomerular Filtration Rate 58, BUN/Creatinine Ratio 68, Glucose Level 261H, Calcium Level 7.2L 11/13/20 03:10: White Blood Count 21.2H, Red Blood Count 2.52L, Hemoglobin 7.3L, Hematocrit 22L, Mean Corpuscular Volume 87, Mean Corpuscular Hemoglobin 29, Mean Corpuscular Hemoglobin Concent 34, Red Cell Distribution Width 17.0H, Platelet Count 238, Mean Platelet Volume 10.5, Immature Granulocyte % (Auto) 1, Neutrophils (%) (Auto) 85H, Lymphocytes (%) (Auto) 9L, Monocytes (%) (Auto) 5, Eosinophils (%) (Auto) 0, Basophils (%) (Auto) 0, Neutrophils # (Auto) 17.9H, Lymphocytes # (Auto) 1.9, Monocytes # (Auto) 1.0, Eosinophils # (Auto) 0.1, Basophils # (Auto) 0.1, Immature Granulocyte # (Auto) 0.2H, Prothrombin Time 15.6H, INR Comment 1.2, Sodium Level 125*L, Potassium Level 4.3, Chloride Level 94L, Carbon Dioxide Level 21, Anion Gap 10, Blood Urea Nitrogen 84H, Creatinine 1.23, Estimat G lomerular Filtration Rate > 60, BUN/Creatinine Ratio 68, Glucose Level 184H, Lactic Acid Level 0.98, Calcium Level 7.1L, Corrected Calcium 8.5, Phosphorus Level 3.2, Magnesium Level 1.8, Total Bilirubin 0.6, Aspartate Amino Transf (AST/SGOT) 74H, Alanine Aminotransferase (ALT/SGPT) 57H, Alkaline Phosphatase 136, Total Protein 5.1L, Albumin 2.3L Microbiology 11/12/20 Influenza Types A,B Antigen (DIANA) - Final, Complete Assessment/Plan Assessment/Plan Assessment/Plan severe anemia upper GI bleed right hip fracture ascites PUI covid 19 CAD Chest wound -exposed wire from cabg hyponatremia NPO Transfused prbc 3 units. follow hgb and transfuse prbc as needed Protonix NG tube to liws- bloody return Avoid any anticoagulation Continue conservative measures, may need EGD Mulitple wounds right lower extremity and chest with exposed wire, wound care keep clean and dry. Clinical Quality Measures DVT/VTE Risk/Contraindication: Risk Factor Score Per Nursin RFS Level Per Nursing on Admit: 4+=Very High ANTONY DANIELS DO Nov 13, 2020 07:08
[2020-11-13] MEDS: VASOPRESSIN INJECTION 20 UNIT in NS (IVPB) 100 ML IV SCH ×2 (07:22→15:31)
--- NOTE | 2020-11-13 07:41 | Diagnostic Imaging Report ---
EXAM: Portable erect AP chest at 3:40 INDICATION: Dyspnea FINDINGS: The cardiomegaly and the sternotomy wires and left-sided defibrillator device seen on the prior exam of 11/12/2020 are again evident and no different. The central pulmonary vasculature does not seem quite as prominent as on the prior exam and the right lower lobe also appears better aerated. There still appears to be some residual atelectasis/infiltrate and fluid in both lung bases however. The mediastinum is not widened. The osseous structures are intact. The supportive tubes and lines seem similar in position to the prior exam. IMPRESSION: The appearance of the chest has improved somewhat since the prior exam as there does appear to be slightly less pulmonary congestion. The right lung base is also better aerated. A follow-up study would be recommended for continued evaluation. Dictated by: Dictated on workstation # [id number]
[2020-11-13] MEDS: PANTOPRAZOLE 40 MG (PROTONIX) VIAL IV SCH ×2 (08:06→20:00)
[2020-11-13] MEDS ORDERED: ALBUMIN 25% 25 GM/100 ML 50 ML IV ONE (10:30)
--- NOTE | 2020-11-13 12:17 | Progress Note - Hospitalist ---
Subjective HPI/CC On Admission Date Seen by Provider: Nov 13, 2020 Time Seen by Provider: 11:00 CC: Septic shock with severe anemia HPI: This is a 50yoWM who presented to the ER with AMS and overall body pain. Patient was found to have septic shock with ascites on CT scan and new decubitus ulcer right lateral foot and right lateral leg. To note he was admitted here on 10/25/20 for hip fracture and cellulitis and ultimately did not undergo surgical repair due to high risk for complications in addition to cellulitis of the skin of the affected hip and since he was bedbound anyway they elected to not repair it so custodial was arranged but ultimately patient refused NH placement and daughter brought him home to be caregiver. He presented today with stained bed clothes and hypotensive with elevated lactic acid and finding c/w septic shock with severe anemia of hgb 4.8. Patient was placed on broad spectrum abx and transfused and Dr Bennett has been consulted for acites which was too minimal for paracentesis but also for hemoccult positive stools and severe diarrhea requiring rectal tube. Patient has high risk for mortality considering his baseline debility and other med issues like left AKA and bedbound status. Subjective/Events-last exam Patient has improved Diarrhea is less Dr Bennett placed NGT due to hematemesis and blood in stool Levophed weaning off Albumin will be given before IVF next Full code still PPI BID Patient very pale and debilitated Poor prognosis Review of Systems General: Fatigue, Malaise Focused Exam Lactate Level 11/12/20 17:58: Lactic Acid Level 2.60*H 11/12/20 20:30: Lactic Acid Level 2.16*H 11/13/20 03:10: Lactic Acid Level 0.98 Time of Focused Exam: 14:15 Objective Exam Vital Signs Vital Signs Date Time Temp Pulse Resp B/P (MAP) Pulse Ox O2 Delivery O2 Flow Rate FiO2 11/13/20 18:00 25 114/63 (82) 95 Nasal Cannula 2.00 11/13/20 17:00 93 11/13/20 16:04 36.6 Capillary Refill : Greater Than 3 SecondsLess Than 3 Seconds General Appearance: Chronically ill, Thin, Other (pale, jensen) Respiratory: Lungs Clear Cardiovascular: Regular Rate, Rhythm Neurologic/Psychiatric: Alert, Depressed Affect, Disoriented Results/Procedures Lab Laboratory Tests 11/12/20 20:30 11/13/20 03:10 11/13/20 14:52 Patient resulted labs reviewed. Assessment/Plan Assessment and Plan Assess & Plan/Chief Complaint Assessment: Septic shock Decubitus ulcers Cellulitis Anemia severe 4.8 hgb Elevated lactic acid Bedound status baseline GIB Left BKA hx Plan: ICU Abx IVF Pressors Transfuse Mortality high 11/13/20: Wean pressors Monitor diarrhea Supportive care Diagnosis/Problems Diagnosis/Problems (1) Septic shock Status: Resolved Resolution Date/Time: 10/27/20 @ 14:20 (2) Person under investigation for COVID-19 Status: Acute (3) Abdominal fluid collection Status: Acute (4) Severe anemia Status: Acute (5) Hyponatremia Status: Acute (6) Hip fracture Status: Acute (7) CAD (coronary artery disease) Status: Chronic (8) T2DM (type 2 diabetes mellitus) Status: Acute (9) Lactic acidosis Status: Resolved Resolution Date/Time: 10/27/20 @ 14:20 (10) HFrEF (heart failure with reduced ejection fraction) Status: Acute (11) S/P BKA (below knee amputation) Status: Chronic (12) S/P CABG (coronary artery bypass graft) Status: Chronic Clinical Quality Measures DVT/VTE Risk/Contraindication: Risk Factor Score Per Nursin RFS Level Per Nursing on Admit: 4+=Very High ALLISON HILLIARD DO Nov 13, 2020 12:17
[2020-11-13 15:07] LABS: HEMOGLOBIN 7.3 g/dL (13.3-17.7)
[2020-11-13 15:18] LABS: CHLORIDE 96 MMOL/L (98-107); POTASSIUM 3.9 MMOL/L (3.6-5.0); SODIUM 126 MMOL/L (135-145)
[2020-11-13 15:20] LABS: CALCIUM 7.3 MG/DL (8.5-10.1); GLUCOSE 180 MG/DL (70-105)
[2020-11-13 15:21] LABS: CARBON DIOXIDE 20 MMOL/L (21-32)
[2020-11-13 15:24] LABS: GFR ESTIMATED > 60
[2020-11-13 15:25] LABS: BUN/CREATININE RATIO 62
[2020-11-13] MEDS: morphine INJ 4 MG/ML 1 ML (VIAL/SYRINGE) IV PRN (17:04)
--- NOTE | 2020-11-13 21:16 | NUR ---
CALLED PATIENT'S DAUGHTER, RADHIKA, TO ATTEMPT TO UPDATE HER ON PATIENT CONDITION. SHE DID NOT KNOW PASSWORD. INFORMED HER THAT I WOULD BE GOWNING UP TO GO BACK INTO THE PATIENT'S ROOM AND THAT I WOULD CALL HER AT THAT POINT AND HAVE HIM GIVE HER THE PASSWORD SO THAT I WOULD BE ABLE TO UPDATE HER ON HIS CONDITION. 2224-ENTERED PATIENT'S ROOM AND INFORMED HIM THAT I COULD CALL HIS DAUGHTER AND IF HE WOULD GIVE HER THE PASSWORD, THEN I COULD UPDATE HER ON HIS STATUS. PATIENT STATED "NO, DON'T DO THAT. I'LL GET HOME WHEN I GET HOME". CLARIFIED THAT WITHOUT THE PASSWORD, HIS FAMILY WOULD NOT BE UPDATED ON HIS CONDITION. PATIENT CONTINUED TO MAINTAIN THAT HE DID NOT CARE IF THEY WERE UPDATED. 2227-CALLED PATIENT'S DAUGHTER BACK AND INFORMED HER THAT HE CHOSE NOT TO SHARE HIS PASSWORD WITH HER AND, THEREFORE, SHE WOULD NOT GETTING ANY UPDATES. SHE VERBALIZED UNDERSTANDING.
[2020-11-14] VITALS (26 sets, daily range): BP systolic 89–134; BP diastolic 50–82
[2020-11-14] MEDS: NOREPINEPHRINE 4 MG/250 ML 250 ML IV SCH ×3 (00:16→17:33)
[2020-11-14] MEDS: VASOPRESSIN INJECTION 20 UNIT in NS (IVPB) 100 ML IV SCH ×3 (00:37→17:37)
[2020-11-14 02:38] LABS: BASOPHILS % (AUTO) 0 % (0-10); EOSINOPHILS # (AUTO) 0.1 10^3/uL (0.0-0.3); EOSINOPHILS % (AUTO) 1 % (0-10); HEMATOCRIT 21 % (40-54); LYMPHOCYTES # (AUTO) 1.7 10^3/uL (1.0-4.0); LYMPHOCYTES % (AUTO) 13 % (12-44); MEAN CORPUSCULAR HEMOGLOBIN 29 pg (25-34); MEAN CORPUSCULAR HGB CONC 33 g/dL (32-36); MEAN CORPUSCULAR VOLUME 88 fL (80-99); MONOCYTES # (AUTO) 0.8 10^3/uL (0.0-1.0); MONOCYTES % (AUTO) 6 % (0-12); NEUTROPHILS # (AUTO) 10.3 10^3/uL (1.8-7.8); NEUTROPHILS % (AUTO) 79 % (42-75); PLATELET COUNT 167 10^3/uL (130-400); WHITE BLOOD COUNT 13.1 10^3/uL (4.3-11.0)
[2020-11-14 02:53] LABS: PHOSPHORUS 2.6 MG/DL (2.3-4.7)
[2020-11-14 02:55] LABS: MAGNESIUM 1.9 MG/DL (1.6-2.4)
[2020-11-14 02:58] LABS: HEMOGLOBIN 6.7 g/dL (13.3-17.7)
[2020-11-14] MEDS: POTASSIUM CL 10MEQ/50ML IVPB 50 ML IV SCH (03:28)
[2020-11-14] MEDS: KCL 20 MEQ TAB (K-DUR) PO SCH (03:28)
[2020-11-14] MEDS: MAGNESIUM 1 GM/100 ML IVPB 100 ML IV SCH (03:28)
[2020-11-14 03:43] LABS: CHLORIDE 98 MMOL/L (98-107); SODIUM 128 MMOL/L (135-145)
[2020-11-14 03:45] LABS: CALCIUM 7.3 MG/DL (8.5-10.1); GLUCOSE 192 MG/DL (70-105)
[2020-11-14 03:47] LABS: CARBON DIOXIDE 19 MMOL/L (21-32)
[2020-11-14 03:49] LABS: CREATININE SERUM 0.96 MG/DL (0.60-1.30); GFR ESTIMATED > 60
[2020-11-14 03:50] LABS: BUN/CREATININE RATIO 57
--- NOTE | 2020-11-14 04:40 | Pulmonary Consultation ---
History of Present Illness History of Present Illness Date Seen by Provider: Nov 14, 2020 Time Seen by Provider: 04:35 Date of Admission Allergies and Home Medications Allergies Coded Allergies: raspberry (Unverified Allergy, Mild, 04/14/15) FROM UNCODED ALLERGIES Penicillins (Verified Allergy, Unknown, FEVER AND NAUSEA, 04/18/15) OCCURED AFTER RECEIVING IV Home Medications Aspirin 81 Mg Tab.chew, 81 MG PO DAILY Prescribed by: CHIO HERNANDEZ on 10/31/20 1136 Carvedilol 3.125 Mg Tablet, 3.125 MG PO BID Prescribed by: CHIO HERNANDEZ on 10/31/20 1136 Cephalexin 250 Mg Capsule, 500 MG PO TID Prescribed by: CHIO HERNANDEZ on 10/31/20 1136 Enalapril Maleate 2.5 Mg Tablet, 2.5 MG PO BID Prescribed by: CHIO HERNANDEZ on 10/31/20 1136 Furosemide 40 Mg Tablet, 40 MG PO DAILY Prescribed by: CHIO HERNANDEZ on 10/31/20 1136 Hydrocodone Bit/Acetaminophen 1 Ea Tab, 1 EA PO Q4H PRN for PAIN-MODERATE (5-7) Prescribed by: CHIO HERNANDEZ on 10/31/20 1136 Ibuprofen 200 Mg Tablet, 200-400 MG PO Q6H PRN for PAIN-MILD (1-4), (Reported) Insulin Aspart 100 Unit/1 Ml Susp, 10 UNIT SC AC Prescribed by: CHIO HERNANDEZ on 10/31/20 113 Insulin Determir 1,000 Units/10 Ml Soln, 25 UNIT SQ BID Prescribed by: CHIO HERNANDEZ on 10/31/20 113 Miconazole Nitrate 90 Gm Powder, 0 GM TOP BID Prescribed by: CHIO HERNANDEZ on 10/31/20 1136 Past Scqzdyz-Ryuwut-Swkbwu Hx Past Med/Social Hx: Reviewed Nursing Past Med/Soc Hx, Reviewed and Corrections made Patient Social History Smoking Status: Current Everyday Smoker Type Used: Cigarettes Recent Foreign Travel: No Contact w/Someone Who Travel: No Recent Infectious Disease Expo: No Recent Hopitalizations: No Immunizations Up To Date Tetanus Booster (TDap): Unknown PED Vaccines UTD: No Date of Pneumonia Vaccine: Sep 17, 2014 Date of Influenza Vaccine: Sep 13, 2014 Seasonal Allergies Seasonal Allergies: No Past Medical History Surgeries: Yes (LEFT BKA, DEBRIDEMENT) CABG, Orthopedic (left BKA), Pacemaker Respiratory: No Cardiac: Yes High Cholesterol Neurological: Yes Reproductive Disorders: No Sexually Transmitted Disease: No HIV/AIDS: No Genitourinary: No Gastrointestinal: Yes Gastroesophageal Reflux Musculoskeletal: Yes Amputee, Arthritis, Rheumatoid Arthritis, Fractures, Contracture Endocrine: Yes Diabetes, Insulin dep HEENT: No Loss of Vision: Left Hearing Impairment: Denies Cancer: No (FAMILY) Psychosocial: Yes Depression Integumentary: Yes (ULCER WOUNDS ON RIGHT LOWER LEG/FOOT) Blood Disorders: No Adverse Reaction/Blood Tranf: No Family Medical History Colon cancer 19 FATHER Diabetes mellitus 19 FATHER Hypertension 19 FATHER No Pertinent Family Hx Review of Systems Time Seen by Provider: 04:35 Sepsis Event Evaluation Height, Weight, BMI Height: 6'1.00" Weight: 216lbs. 4.0oz. 97.162302pk; 29.00 BMI Method:Stated Exam Exam Vital Signs Date Time Temp Pulse Resp B/P (MAP) Pulse Ox O2 Delivery O2 Flow Rate FiO2 11/14/20 04:00 92 20 118/76 (90) 94 Nasal Cannula 2.00 11/14/20 03:32 98 95/60 11/14/20 03:00 92 20 111/54 (73) 94 Nasal Cannula 2.00 11/14/20 02:00 92 20 93/50 (64) 94 Nasal Cannula 2.00 11/14/20 01:00 92 20 95/57 (70) 94 Nasal Cannula 2.00 11/14/20 00:57 91 11/14/20 00:33 36.5 11/14/20 00:16 95 93/57 11/14/20 00:00 92 20 113/50 (71) 94 Nasal Cannula 2.00 11/13/20 23:00 92 20 93/79 (84) 95 Nasal Cannula 2.00 11/13/20 22:13 112/65 11/13/20 22:00 91 22 112/65 (85) 95 11/13/20 21:00 96 Nasal Cannula 2.00 11/13/20 21:00 91 22 111/64 (81) 96 11/13/20 20:03 97 115/58 11/13/20 20:00 36.6 11/13/20 20:00 93 11 115/58 (80) 96 11/13/20 19:45 93 24 115/66 (87) 96 11/13/20 19:30 92 33 105/66 (79) 95 11/13/20 19:15 93 0 113/64 (84) 11/13/20 19:00 91 11/13/20 19:00 92 26 109/64 (80) 96 11/13/20 18:00 25 114/63 (82) 95 Nasal Cannula 2.00 11/13/20 17:45 39 107/65 (82) 96 11/13/20 17:30 34 112/77 (87) 93 11/13/20 17:15 28 103/71 (88) 11/13/20 17:00 93 17 101/61 (73) 95 Nasal Cannula 2.00 11/13/20 16:45 93 26 113/66 (81) 11/13/20 16:30 96 56 120/72 (88) 11/13/20 16:15 94 23 112/62 (84) 11/13/20 16:13 93 117/70 11/13/20 16:04 36.6 11/13/20 16:00 93 29 117/70 (89) 96 Nasal Cannula 2.00 11/13/20 15:45 93 16 117/66 (86) 93 11/13/20 15:30 93 21 117/68 (85) 97 11/13/20 15:15 93 21 117/69 (83) 100 11/13/20 15:00 93 17 110/72 (84) 96 Nasal Cannula 2.00 11/13/20 14:58 94 122/69 11/13/20 14:45 91 15 122/69 (86) 93 11/13/20 14:30 91 20 116/70 (82) 92 11/13/20 14:15 92 22 116/72 (88) 11/13/20 14:00 92 16 114/71 (84) 96 Nasal Cannula 2.00 11/13/20 13:45 90 21 116/78 (89) 97 11/13/20 13:30 89 15 118/68 (88) 96 11/13/20 13:15 89 18 120/69 (88) 98 11/13/20 13:00 91 11/13/20 13:00 89 16 120/67 (84) 97 Nasal Cannula 2.00 11/13/20 12:45 90 16 116/74 (88) 96 11/13/20 12:30 81 36 114/66 (82) 95 11/13/20 12:19 36.6 11/13/20 12:15 93 14 90/62 (76) 95 11/13/20 12:15 93 108/63 11/13/20 12:00 89 16 108/63 (77) 97 Nasal Cannula 2.00 11/13/20 11:45 89 17 107/64 (76) 96 11/13/20 11:30 90 17 119/67 (83) 96 11/13/20 11:15 91 19 111/68 (81) 94 11/13/20 11:00 90 15 109/67 (84) 97 Nasal Cannula 2.00 11/13/20 10:45 89 17 123/68 (95) 99 11/13/20 10:30 89 18 117/68 (85) 95 11/13/20 10:15 89 18 109/65 (76) 95 11/13/20 10:00 89 15 114/65 (82) 96 Nasal Cannula 2.00 11/13/20 09:45 89 17 110/64 (79) 96 11/13/20 09:30 89 25 107/67 (78) 91 11/13/20 09:15 90 17 107/60 (77) 94 11/13/20 09:00 90 18 109/65 (82) 97 Nasal Cannula 2.00 11/13/20 08:45 90 32 107/59 (77) 96 11/13/20 08:32 95 Nasal Cannula 2.00 11/13/20 08:30 89 25 110/63 (75) 92 11/13/20 08:15 90 32 102/57 (73) 96 11/13/20 08:11 36.4 11/13/20 08:07 92 118/66 11/13/20 08:00 91 17 118/66 (84) 96 Nasal Cannula 2.00 11/13/20 07:45 92 28 105/60 (86) 95 11/13/20 07:30 90 21 112/67 (81) 11/13/20 07:15 92 53 114/67 (83) 94 11/13/20 07:00 117 28 108/63 (71) 95 Nasal Cannula 2.00 11/13/20 07:00 91 11/13/20 06:45 89 20 99/58 (68) 97 11/13/20 06:30 93 23 112/60 (73) 91 11/13/20 06:15 28 115/66 (85) 96 11/13/20 06:00 93 30 109/62 (78) 95 Nasal Cannula 2.00 11/13/20 05:00 89 16 109/64 (79) 97 Nasal Cannula 2.00 11/13/20 04:36 36.6 I & O 11/14/20 06:59 Intake Total 800 ml Output Total 1725 ml Balance -925 ml Height & Weight Height: 6'1.00" Weight: 216lbs. 4.0oz. 97.208235av; 29.00 BMI Method:Stated General Appearance: Chronically ill, Thin, Other (pale, jensen) HEENT: Normal ENT Inspection Neck: Normal Inspection, Non Tender Respiratory: Lungs Clear Cardiovascular: Regular Rate, Rhythm Capillary Refill: Less Than 3 Seconds Peripheral Pulses: 1+ Radial Pulses (L) Gastrointestinal: non tender, soft, other (edema lower portion of abdomen) Extremity: Other (left bka, right leg wounds) Neurologic/Psychiatric: Alert, Depressed Affect, Disoriented Skin: Pallor, Other (sternotomy wound with exposed wire) Lymphatic: No Adenopathy Results Lab Laboratory Tests 11/12/20 10:41 11/12/20 20:30 11/13/20 03:10 11/13/20 14:52 11/14/20 02:25 Assessment/Plan Assessment/Plan Cellulitis with severe septic shock -Currently on Levophed - Titrate to D/C -Start Solucortef -Merrem and Vanco -liter bolus of LR -give 25gms of Albumin Anemia with upper GIB s/p 3 units of PRBC -Transfuse another unit of PRBC -Start Octreotide gtt -Protonix BID -Bleeding from NG tube -Surgery is consulted Cardiomyopathy Decubitus ulcers - pt is bed bound Left NILS MARTINEZ DO Nov 14, 2020 04:40
[2020-11-14] MEDS ORDERED: LACTATED RINGERS 1,000 ML IV ONE (04:42)
[2020-11-14] MEDS ORDERED: LACTATED RINGERS 1,000 ML IV SCH (04:45)
[2020-11-14] MEDS: MEROPENEM 500 MG/SWFI 10 ML IV PUSH IV SCH ×8 (04:46→20:52)
[2020-11-14] MEDS: VANCOMYCIN 1 GM/NS 250 ML IVPB IV SCH ×2 (04:46)
[2020-11-14] MEDS: inSUlin ASPART (NovoLOG) 1 UNIT/0.01 ML (CHARGE PER UNIT) SC SCH ×4 (04:52→20:52)
[2020-11-14] MEDS ORDERED: ALBUMIN 25% 25 GM/100 ML 100 ML IV ONE (04:52)
[2020-11-14] MEDS: HYDROCORTISONE 100 MG/2 ML (Solu-CORTEF) VIAL IV SCH ×3 (06:12→20:51)
[2020-11-14] MEDS: morphine INJ 4 MG/ML 1 ML (VIAL/SYRINGE) IV PRN ×2 (06:37→09:30)
--- NOTE | 2020-11-14 06:59 | Progress Note - Surgery ---
RONY DÍAZ MED STUDENT 11/14/20 0659: Subjective Date Seen by a Provider: Nov 14, 2020 Time Seen by a Provider: 06:57 Subjective/Events-last exam Pt asleep upon entering room. Pt lethargic and unable to maintain open eyes. Pt c/o general pain, headache, and thirst. Pt notes passing flatus but denies BM. Denies N/V reported. Review of Systems HEENT: Head Aches Pulmonary: Cough (Sputum production) Cardiovascular: Edema (Pitting); No: Chest Pain Gastrointestinal: No: Nausea, Vomiting, Abdominal Pain Musculoskeletal: other (Hip pain), back pain, leg pain Focused Exam Lactate Level 11/12/20 17:58: Lactic Acid Level 2.60*H 11/12/20 20:30: Lactic Acid Level 2.16*H 11/13/20 03:10: Lactic Acid Level 0.98 Time of Focused Exam: 14:15 Objective Exam Vital Signs Date Time Temp Pulse Resp B/P (MAP) Pulse Ox O2 Delivery O2 Flow Rate FiO2 11/14/20 06:48 36.4 89 89/51 Nasal Cannula 2.00 11/14/20 06:33 36.7 89 94/59 Nasal Cannula 2.00 11/14/20 06:28 90 97/50 11/14/20 06:00 93 20 97/50 (66) 97 Nasal Cannula 2.00 11/14/20 05:00 92 20 118/76 (90) 94 Nasal Cannula 2.00 11/14/20 05:00 91 20 92/56 (68) 97 Nasal Cannula 2.00 11/14/20 04:00 92 20 118/76 (90) 94 Nasal Cannula 2.00 11/14/20 03:32 98 95/60 11/14/20 03:00 92 20 111/54 (73) 94 Nasal Cannula 2.00 11/14/20 02:00 92 20 93/50 (64) 94 Nasal Cannula 2.00 11/14/20 01:00 92 20 95/57 (70) 94 Nasal Cannula 2.00 11/14/20 00:57 91 11/14/20 00:33 36.5 11/14/20 00:16 95 93/57 11/14/20 00:00 92 20 113/50 (71) 94 Nasal Cannula 2.00 11/13/20 23:00 92 20 93/79 (84) 95 Nasal Cannula 2.00 11/13/20 22:13 112/65 11/13/20 22:00 91 22 112/65 (85) 95 11/13/20 21:00 96 Nasal Cannula 2.00 11/13/20 21:00 91 22 111/64 (81) 96 11/13/20 20:03 97 115/58 11/13/20 20:00 36.6 11/13/20 20:00 93 11 115/58 (80) 96 11/13/20 19:45 93 24 115/66 (87) 96 11/13/20 19:30 92 33 105/66 (79) 95 11/13/20 19:15 93 0 113/64 (84) 11/13/20 19:00 91 11/13/20 19:00 92 26 109/64 (80) 96 11/13/20 18:00 25 114/63 (82) 95 Nasal Cannula 2.00 11/13/20 17:45 39 107/65 (82) 96 11/13/20 17:30 34 112/77 (87) 93 11/13/20 17:15 28 103/71 (88) 11/13/20 17:00 93 17 101/61 (73) 95 Nasal Cannula 2.00 11/13/20 16:45 93 26 113/66 (81) 11/13/20 16:30 96 56 120/72 (88) 11/13/20 16:15 94 23 112/62 (84) 11/13/20 16:13 93 117/70 11/13/20 16:04 36.6 11/13/20 16:00 93 29 117/70 (89) 96 Nasal Cannula 2.00 11/13/20 15:45 93 16 117/66 (86) 93 11/13/20 15:30 93 21 117/68 (85) 97 11/13/20 15:15 93 21 117/69 (83) 100 11/13/20 15:00 93 17 110/72 (84) 96 Nasal Cannula 2.00 11/13/20 14:58 94 122/69 11/13/20 14:45 91 15 122/69 (86) 93 11/13/20 14:30 91 20 116/70 (82) 92 11/13/20 14:15 92 22 116/72 (88) 11/13/20 14:00 92 16 114/71 (84) 96 Nasal Cannula 2.00 11/13/20 13:45 90 21 116/78 (89) 97 11/13/20 13:30 89 15 118/68 (88) 96 11/13/20 13:15 89 18 120/69 (88) 98 11/13/20 13:00 91 11/13/20 13:00 89 16 120/67 (84) 97 Nasal Cannula 2.00 11/13/20 12:45 90 16 116/74 (88) 96 11/13/20 12:30 81 36 114/66 (82) 95 11/13/20 12:19 36.6 11/13/20 12:15 93 14 90/62 (76) 95 11/13/20 12:15 93 108/63 11/13/20 12:00 89 16 108/63 (77) 97 Nasal Cannula 2.00 11/13/20 11:45 89 17 107/64 (76) 96 11/13/20 11:30 90 17 119/67 (83) 96 11/13/20 11:15 91 19 111/68 (81) 94 11/13/20 11:00 90 15 109/67 (84) 97 Nasal Cannula 2.00 11/13/20 10:45 89 17 123/68 (95) 99 11/13/20 10:30 89 18 117/68 (85) 95 11/13/20 10:15 89 18 109/65 (76) 95 11/13/20 10:00 89 15 114/65 (82) 96 Nasal Cannula 2.00 11/13/20 09:45 89 17 110/64 (79) 96 11/13/20 09:30 89 25 107/67 (78) 91 11/13/20 09:15 90 17 107/60 (77) 94 11/13/20 09:00 90 18 109/65 (82) 97 Nasal Cannula 2.00 11/13/20 08:45 90 32 107/59 (77) 96 11/13/20 08:32 95 Nasal Cannula 2.00 11/13/20 08:30 89 25 110/63 (75) 92 11/13/20 08:15 90 32 102/57 (73) 96 11/13/20 08:11 36.4 1/10/21 08:07 92 118/66 11/13/20 08:00 91 17 118/66 (84) 96 Nasal Cannula 2.00 11/13/20 07:45 92 28 105/60 (86) 95 11/13/20 07:30 90 21 112/67 (81) 11/13/20 07:15 92 53 114/67 (83) 94 11/13/20 07:00 117 28 108/63 (71) 95 Nasal Cannula 2.00 11/13/20 07:00 91 I & O 11/14/20 06:59 Intake Total 800 ml Output Total 3075 ml Balance -2275 ml Capillary Refill : Greater Than 3 SecondsLess Than 3 Seconds General Appearance: Chronically ill, Thin, Other (pale, jensen) HEENT: Normal ENT Inspection Neck: Normal Inspection, Non Tender Respiratory: Chest Non Tender, No Respiratory Distress, Rhonci (Bilateral) Cardiovascular: Regular Rate, Rhythm; No No Edema Gastrointestinal: non tender, soft, other (edema lower portion of abdomen) Extremity: Non Tender, Pedal Edema (Pitting), Other (left bka, right leg wounds) Neurologic/Psychiatric: Alert, Depressed Affect, Disoriented Skin: Pallor, Other (sternotomy wound with exposed wire) Lymphatic: No Adenopathy Results Lab Laboratory Tests 11/13/20 11:10: Glucometer 184H 11/13/20 14:52: White Blood Count 18.0H, Red Blood Count 2.56L, Hemoglobin 7.3L, Hematocrit 22L, Mean Corpuscular Volume 87, Mean Corpuscular Hemoglobin 29, Mean Corpuscular Hemoglobin Concent 33, Red Cell Distribution Width 17.5H, Platelet Count 206, Mean Platelet Volume 10.0, Sodium Level 126L, Potassium Level 3.9, Chloride Level 96L, Carbon Dioxide Level 20L, Anion Gap 10, Blood Urea Nitrogen 68H, Creatinine 1.10, Estimat Glomerular Filtration Rate > 60, BUN/Creatinine Ratio 62, Glucose Level 180H, Calcium Level 7.3L 11/13/20 21:11: Glucometer 180H 11/14/20 02:25: White Blood Count 13.1H, Red Blood Count 2.35L, Hemoglobin 6.7*L, Hematocrit 21L , Mean Corpuscular Volume 88, Mean Corpuscular Hemoglobin 29, Mean Corpuscular Hemoglobin Concent 33, Red Cell Distribution Width 17.6H, Platelet Count 167, Mean Platelet Volume 10.0, Sodium Level 128L, Potassium Level 4.0, Chloride Level 98, Carbon Dioxide Level 19L, Anion Gap 11, Blood Urea Nitrogen 55H, Creatinine 0.96, Estimat Glomerular Filtration Rate > 60, BUN/Creatinine Ratio 57, Glucose Level 192H, Calcium Level 7.3L, Immature Granulocyte % (Auto) 1, N eutrophils (%) (Auto) 79H, Lymphocytes (%) (Auto) 13, Monocytes (%) (Auto) 6, Eosinophils (%) (Auto) 1, Basophils (%) (Auto) 0, Neutrophils # (Auto) 10.3H, Lymphocytes # (Auto) 1.7, Monocytes # (Auto) 0.8, Eosinophils # (Auto) 0.1, Basophils # (Auto) 0.0, Immature Granulocyte # (Auto) 0.1, Phosphorus Level 2.6, Magnesium Level 1.9, Albumin 2.3L Microbiology 11/12/20 MRSA Screen - Final, Complete 11/12/20 Blood Culture - Preliminary, Resulted No growth 11/12/20 Urine Culture - Final, Complete NO GROWTH Assessment/Plan Assessment/Plan Assessment/Plan severe anemia upper GI bleed right hip fracture ascites Covid negative CAD Chest wound -exposed wire from cabg hyponatremia NPO Transfused prbc 3 units. follow hgb and transfuse prbc as needed Protonix NG tube to liws- bloody return Avoid any anticoagulation Continue conservative measures, may need EGD Multiple wounds right lower extremity and chest with exposed wire, wound care keep clean and dry. Clinical Quality Measures DVT/VTE Risk/Contraindication: Risk Factor Score Per Nursin RFS Level Per Nursing on Admit: 4+=Very High ANTONY DANIELS DO 11/14/20 1356: Subjective Subjective/Events-last exam Patient resting. Reports pain especially in the right hip. BM slowed down. NG tube. Wanting food/drink. Currently NPO. Hgb slight drop. On Protonix. Denies n/v fever sweats chills or chest pain. Objective Exam General Appearance: No Apparent Distress, Chronically ill HEENT: PERRL/EOMI, Normal ENT Inspection Neck: Normal Inspection, Non Tender Respiratory: Chest Non Tender, No Accessory Muscle Use, No Respiratory Distress Cardiovascular: Regular Rate, Rhythm, No JVD Gastrointestinal: non tender, soft, other (edema lower portion of abdomen) Extremity: Pedal Edema (Pitting), Other (left bka, right leg wounds, extreme pain with movement) Neurologic/Psychiatric: Alert, Depressed Affect Skin: Pallor, Other (sternotomy wound with exposed wire) Lymphatic: No Adenopathy Assessment/Plan Assessment/Plan Assessment/Plan severe anemia upper GI bleed right hip fracture ascites Covid negative CAD Chest wound -exposed wire from cabg hyponatremia NPO Transfused prbc 3 units. follow hgb and transfuse prbc as needed Protonix NG tube to liws- bloody return Avoid any anticoagulation Continue conservative measures, may need EGD Multiple wounds right lower extremity and chest with exposed wire, wound care keep clean and dry. If hgb stable remove ng tomorrow and start clears Supervisory-Addendum Brief Verification & Attestation Participated in pt care: history, MDM, physical Personally performed: exam, history, MDM, supervision of care Care discussed with: Medical Student Procedures: n/a Results interpretation: Verified all documentation Verification and Attestation of Medical Student E/M Service A medical student performed and documented this service in my presence. I reviewed and verified all information documented by the medical student and made modifications to such information, when appropriate. I personally performed the physical exam and medical decision making. Antony Daniels, Nov 14, 2020,13:56 RONY DÍAZ MED STUDENT Nov 14, 2020 06:59 ANTONY DANIELS DO Nov 14, 2020 13:56
--- NOTE | 2020-11-14 07:25 | Diagnostic Imaging Report ---
Indication: Shortness of breath. Comparison: 11/13/2020 Findings: Single view of the chest demonstrates cardiac enlargement with unchanged interstitial edema. There is no pneumothorax or effusion. Support devices are stable. Sternal wires are midline. Impression: Unchanged aeration of the lungs. Dictated by: Dictated on workstation # [id number]
[2020-11-14] MEDS ORDERED: SODIUM PHOSPHATE INJ 30 MM in NS (IVPB) 250 ML INJ ONE (08:00)
[2020-11-14] MEDS: PANTOPRAZOLE 40 MG (PROTONIX) VIAL IV SCH ×2 (08:35→20:51)
[2020-11-14] MEDS: OCTREOTIDE INJECTION 500 MCG in NS (IVPB) 99 ML IV SCH ×2 (08:47→17:36)
[2020-11-14] MEDS: NS IV 1000 ML 1,000 ML IV SCH (08:53)
--- NOTE | 2020-11-14 10:24 | Progress Note - Hospitalist ---
BUSHRA MOBLEY MED STUDENT 11/14/20 1024: Subjective HPI/CC On Admission Date Seen by Provider: Nov 14, 2020 Time Seen by Provider: 08:15 CC: Septic shock with severe anemia HPI: This is a 50yoWM who presented to the ER with AMS and overall body pain. Patient was found to have septic shock with ascites on CT scan and new decubitus ulcer right lateral foot and right lateral leg. To note he was admitted here on 10/25/20 for hip fracture and cellulitis and ultimately did not undergo surgical repair due to high risk for complications in addition to cellulitis of the skin of the affected hip and since he was bedbound anyway they elected to not repair it so detention was arranged but ultimately patient refused NH placement and daughter brought him home to be caregiver. He presented today with stained bed clothes and hypotensive with elevated lactic acid and finding c/w septic shock with severe anemia of hgb 4.8. Patient was placed on broad spectrum abx and transfused and Dr Bennett has been consulted for acites which was too minimal for paracentesis but also for hemoccult positive stools and severe diarrhea requiring rectal tube. Patient has high risk for mortality considering his baseline debility and other med issues like left AKA and bedbound status. Subjective/Events-last exam Pt doing well this am Requests pain medication for LEROY and overall body pain Vasopressin drip continued (BP 110/67) NGT remains with bloody output Pt requested use of stethoscope to listen to his heart Focused Exam Lactate Level 11/12/20 17:58: Lactic Acid Level 2.60*H 11/12/20 20:30: Lactic Acid Level 2.16*H 11/13/20 03:10: Lactic Acid Level 0.98 Time of Focused Exam: 14:15 Objective Exam Vital Signs Vital Signs Date Time Temp Pulse Resp B/P (MAP) Pulse Ox O2 Delivery O2 Flow Rate FiO2 11/14/20 09:00 86 25 120/70 (87) 97 Nasal Cannula 2.00 11/14/20 07:52 36.8 Capillary Refill : Greater Than 3 SecondsLess Than 3 Seconds General Appearance: No Apparent Distress, Chronically ill, Thin Respiratory: Lungs Clear, No Accessory Muscle Use, No Respiratory Distress Cardiovascular: Regular Rate, Rhythm, No JVD Gastrointestinal: Other (NGT remains in place) Neurologic/Psychiatric: Alert, Oriented x3, Depressed Affect Skin: No Normal Color (pale) Results/Procedures Lab Laboratory Tests 11/13/20 14:52 11/14/20 02:25 Patient resulted labs reviewed. Assessment/Plan Assessment and Plan Assess & Plan/Chief Complaint Assessment: Septic shock Decubitus ulcers Cellulitis Anemia 6.7 hgb Elevated lactic acid Bedound status baseline GIB Left BKA hx Plan: ICU Abx IVF Pressors Mortality high 11/13/20: Wean pressors Monitor diarrhea Supportive care 11/14/20: Continue to wean pressors Continue Octreotide Monitor diarrhea Supportive care Clinical Quality Measures DVT/VTE Risk/Contraindication: Risk Factor Score Per Nursin RFS Level Per Nursing on Admit: 4+=Very High LORA HILLIARD DO 11/15/20 0829: Subjective Subjective/Events-last exam Pt was up all night with a headache NG tube is still receiving bloody return Dr. Bennett evaluated him Hgb 6.7, given one unit of blood BP 106/52 Pt appears to be much more alert Review of Systems General: Fatigue Objective Exam General Appearance: No Apparent Distress, WD/WN, Chronically ill Respiratory: Lungs Clear Cardiovascular: Regular Rate, Rhythm Neurologic/Psychiatric: Alert, Oriented x3 Assessment/Plan Assessment and Plan Assess & Plan/Chief Complaint 11/14/20: Monitor hgb and GIB Diagnosis/Problems Diagnosis/Problems (1) Septic shock Status: Resolved Resolution Date/Time: 10/27/20 @ 14:20 (2) Lactic acidosis Status: Resolved Resolution Date/Time: 10/27/20 @ 14:20 (3) HFrEF (heart failure with reduced ejection fraction) Status: Acute (4) T2DM (type 2 diabetes mellitus) Status: Acute (5) Severe anemia Status: Acute Supervisory-Addendum Brief Verification & Attestation Participated in pt care: history, MDM, physical Personally performed: exam, history, MDM, supervision of care Care discussed with: Medical Student Procedures: n/a Results interpretation: Verified all documentation Verification and Attestation of Medical Student E/M Service A medical student performed and documented this service in my presence. I review ed and verified all information documented by the medical student and made modifications to such information, when appropriate. I personally performed the physical exam and medical decision making. Lora Hilliard, Nov 15, 2020,08:27 BUSHRA MOBLEY MED STUDENT Nov 14, 2020 10:24 LORA HILLIARD DO Nov 15, 2020 08:29
--- NOTE | 2020-11-14 11:05 | NUR ---
JAYLEEN following patient for social service consult. APS Report ID: [id number] JIM/CAITLIN made a Adult Protective Service report based on EMS stating there are poor living conditions, wounds, refusal for snf, and readmission due to failed outpatient. The patient refused snf placement at last admission. JIM/CAITLIN will discuss with patient again. The patient was resting when this sw went to visit. JIM/CAITLIN will visit with nurse for further information and visit with patient at a later time. Addendum: 11/14/20 at 1431 by DIANN FERGUSON Update: Received a call from Wen with [facility]. She asked to come visit the patient today. JIM/CAITLIN contacted powerhouse operator who reported she should be able to come. JAYLEEN called ICU desk to inform them of visit.
[2020-11-14] MEDS ORDERED: FURO40TA4 PO (12:57)
[2020-11-14] MEDS ORDERED: HYDR-3820 PO (12:57)
[2020-11-14] MEDS ORDERED: INSU100V5 SQ (12:57)
[2020-11-14] MEDS ORDERED: CARV3.122 PO (12:57)
[2020-11-14] MEDS ORDERED: ASPI-999 PO (12:57)
[2020-11-14] MEDS ORDERED: ENLP2.5T PO (12:57)
[2020-11-14] MEDS ORDERED: INSU100V16 SQ (12:57)
--- NOTE | 2020-11-14 12:58 | NUR ---
SPOKE WITH THE PT (CALLED THE ROOM PHONE) AND GOT A MED LIST FROM [facility] (WILL ATTACH TO THE CHART) TO COMPLETE THE MED REC PT WAS RECENTLY DISCHARGED AND ACCORDING TO THE PT HE IS TAKING ALL THE MEDICATIONS PRESCRIBED TO HIM DIRECTED LEVEMIR AND NOVOLOG WERE BOTH FILLED ON 10-31-2020 #1 VIAL BUT ARE NOT SHOWN ON THE EXT MED HISTORY OTC MEDS: IBUPROFEN
[2020-11-14] MEDS ORDERED: TROUGH ORDER-PHARMACY XX ONE (15:00)
--- NOTE | 2020-11-14 15:52 | NUR ---
JIM/CAITLIN follow up. JIM/SS spoke with the patient's nurse Yeimi. She reports that Wen from [facility] did visit with patient for a short period of time. Wen did not give an update on visit. Wen did not inform this sw of plans at this time. Will continue to follow.
[2020-11-14] MEDS ORDERED: VANCOMYCIN 1500 MG/NS 500 ML IVPB IV SCH ×2 (16:00)
--- NOTE | 2020-11-14 16:57 | NUR ---
Received dietary consult for TF. Note pt currently has GI bleed, per chart review. Would not recommend initiation of TF at this time. Will continue to follow and reassess as pt needs, intake, and status change. London Mishra, MS RD LD [phone] cell
--- NOTE | 2020-11-14 17:56 | NUR ---
Pt on phone with daughter at this time, daughter updated at this time.
[2020-11-14] MEDS: VANCOMYCIN 1500 MG/NS 500 ML IVPB IV SCH ×2 (20:51)
[2020-11-15] VITALS (25 sets, daily range): BP systolic 100–134; BP diastolic 57–84
[2020-11-15] MEDS: OCTREOTIDE INJECTION 500 MCG in NS (IVPB) 99 ML IV SCH ×3 (02:57→23:06)
[2020-11-15] MEDS: MEROPENEM 500 MG/SWFI 10 ML IV PUSH IV SCH ×8 (02:58→21:55)
[2020-11-15] MEDS: morphine INJ 4 MG/ML 1 ML (VIAL/SYRINGE) IV PRN ×4 (03:16→18:09)
[2020-11-15 03:19] LABS: BASOPHILS % (AUTO) 0 % (0-10); EOSINOPHILS % (AUTO) 0 % (0-10); HEMATOCRIT 23 % (40-54); HEMOGLOBIN 7.5 g/dL (13.3-17.7); LYMPHOCYTES % (AUTO) 11 % (12-44); MEAN CORPUSCULAR HEMOGLOBIN 28 pg (25-34); MEAN CORPUSCULAR HGB CONC 32 g/dL (32-36); MEAN CORPUSCULAR VOLUME 88 fL (80-99); MEAN PLATELET VOLUME 10.3 fL (9.0-12.2); MONOCYTES # (AUTO) 0.5 10^3/uL (0.0-1.0); MONOCYTES % (AUTO) 5 % (0-12); NEUTROPHILS % (AUTO) 83 % (42-75); PLATELET COUNT 129 10^3/uL (130-400); WHITE BLOOD COUNT 9.6 10^3/uL (4.3-11.0)
[2020-11-15 03:32] LABS: ALBUMIN 2.6 GM/DL (3.2-4.5); CHLORIDE 100 MMOL/L (98-107); POTASSIUM 4.5 MMOL/L (3.6-5.0); SODIUM 130 MMOL/L (135-145)
[2020-11-15 03:33] LABS: CALCIUM 7.6 MG/DL (8.5-10.1)
[2020-11-15 03:34] LABS: GLUCOSE 194 MG/DL (70-105); TOTAL PROTEIN 5.4 GM/DL (6.4-8.2)
[2020-11-15 03:35] LABS: CARBON DIOXIDE 21 MMOL/L (21-32)
[2020-11-15 03:36] LABS: BILIRUBIN,TOTAL 0.8 MG/DL (0.1-1.0)
[2020-11-15 03:37] LABS: ALKALINE PHOSPHATASE 107 U/L (40-136); PHOSPHORUS 3.7 MG/DL (2.3-4.7)
[2020-11-15 03:38] LABS: CREATININE SERUM 0.85 MG/DL (0.60-1.30); GFR ESTIMATED > 60
[2020-11-15 03:39] LABS: BUN/CREATININE RATIO 46
[2020-11-15 03:40] LABS: MAGNESIUM 2.1 MG/DL (1.6-2.4)
[2020-11-15 03:41] LABS: ALANINE AMINOTRANSFERASE 36 U/L (0-55)
--- NOTE | 2020-11-15 05:25 | Pulmonary Progress Note ---
Subjective Time Seen by a Provider: 05:20 Subjective/Events-last exam PT is still requiring levophed Sepsis Event Evaluation Height, Weight, BMI Height: 6'1.00" Weight: 216lbs. 4.0oz. [id number]; 29.00 BMI Method:Stated Focused Exam Lactate Level 11/12/20 17:58: Lactic Acid Level 2.60*H 11/12/20 20:30: Lactic Acid Level 2.16*H 11/13/20 03:10: Lactic Acid Level 0.98 Time of Focused Exam: 14:15 Exam Exam Vital Signs Date Time Temp Pulse Resp B/P (MAP) Pulse Ox O2 Delivery O2 Flow Rate FiO2 11/15/20 03:22 36.2 Room Air 11/15/20 02:00 82 13 103/65 (78) 100 Nasal Cannula 2.00 11/15/20 01:00 80 11/15/20 01:00 79 10 107/61 (76) 100 Nasal Cannula 2.00 11/15/20 00:00 84 15 100/61 (74) 100 Nasal Cannula 2.00 11/14/20 23:00 80 14 104/54 (71) 100 Nasal Cannula 2.00 11/14/20 23:00 Nasal Cannula 2.00 11/14/20 22:00 84 16 105/60 (75) 100 Nasal Cannula 2.00 11/14/20 21:00 94 Nasal Cannula 2.00 11/14/20 21:00 86 22 128/76 (93) 98 Nasal Cannula 2.00 11/14/20 20:00 81 13 121/76 (91) 98 Nasal Cannula 2.00 11/14/20 20:00 Nasal Cannula 2.00 11/14/20 19:46 35.8 11/14/20 19:00 81 11/14/20 19:00 82 25 131/82 (98) 95 Nasal Cannula 2.00 11/14/20 18:00 84 31 133/81 (98) 99 Nasal Cannula 2.00 11/14/20 17:33 98 121/71 11/14/20 17:00 79 14 122/73 (89) 97 Nasal Cannula 2.00 11/14/20 16:00 85 25 126/79 (95) 97 Nasal Cannula 2.00 11/14/20 15:16 35.7 11/14/20 15:00 84 28 134/78 (96) 100 Nasal Cannula 2.00 11/14/20 14:00 84 34 109/73 (85) 95 Nasal Cannula 2.00 11/14/20 13:00 87 14 107/66 (80) 97 Nasal Cannula 2.00 11/14/20 13:00 87 11/14/20 12:00 87 20 125/70 (88) 97 Nasal Cannula 2.00 11/14/20 11:09 36.1 11/14/20 11:00 87 22 126/70 (88) 95 Nasal Cannula 2.00 11/14/20 10:00 87 32 111/62 (78) 95 Nasal Cannula 2.00 11/14/20 09:00 86 25 120/70 (87) 97 Nasal Cannula 2.00 11/14/20 08:50 95 Nasal Cannula 2.00 11/14/20 08:00 94 22 110/67 (81) 94 Nasal Cannula 2.00 11/14/20 07:52 36.8 11/14/20 07:00 89 23 111/62 (78) 95 Nasal Cannula 2.00 11/14/20 06:48 36.4 89 89/51 Nasal Cannula 2.00 11/14/20 06:47 88 11/14/20 06:33 36.7 89 94/59 Nasal Cannula 2.00 11/14/20 06:28 90 97/50 11/14/20 06:00 93 20 97/50 (66) 97 Nasal Cannula 2.00 I & O 11/15/20 07:00 Intake Total 820 ml Output Total 1400 ml Balance -580 ml Height & Weight Height: 6'1.00" Weight: 216lbs. 4.0oz. [id number]; 29.00 BMI Method:Stated General Appearance: No Apparent Distress, Chronically ill HEENT: PERRL/EOMI, Normal ENT Inspection Neck: Normal Inspection, Non Tender Respiratory: Chest Non Tender, No Accessory Muscle Use, No Respiratory Distress Cardiovascular: Regular Rate, Rhythm, No JVD Capillary Refill: Less Than 3 Seconds Gastrointestinal: non tender, soft, other (edema lower portion of abdomen) Extremity: Pedal Edema (Pitting), Other (left bka, right leg wounds, extreme pain with movement) Neurologic/Psychiatric: Alert, Depressed Affect Skin: Pallor, Other (sternotomy wound with exposed wire) Lymphatic: No Adenopathy Results Lab Laboratory Tests 11/13/20 14:52 11/14/20 02:25 11/15/20 03:05 Assessment/Plan Assessment/Plan Cellulitis with severe septic shock -Currently on Levophed - Titrate to D/C - Solucortef -Liter bolus of LR -Merrem and Vanco -liter bolus of LR -give 25gms of Albumin Anemia with upper GIB s/p 4 units of PRBC -Monitor Hb - Octreotide gtt started 11/14 -Protonix BID -Bleeding from NG tube -Surgery is consulted Cardiomyopathy Decubitus ulcers - pt is bed bound Left NILS MARTINEZ DO Nov 15, 2020 05:25
[2020-11-15] MEDS ORDERED: LACTATED RINGERS 1,000 ML IV SCH (05:30)
[2020-11-15] MEDS: KCL 20 MEQ TAB (K-DUR) PO SCH (05:34)
[2020-11-15] MEDS: MAGNESIUM 1 GM/100 ML IVPB 100 ML IV SCH (05:34)
[2020-11-15] MEDS: POTASSIUM CL 10MEQ/50ML IVPB 50 ML IV SCH (05:34)
[2020-11-15] MEDS: inSUlin ASPART (NovoLOG) 1 UNIT/0.01 ML (CHARGE PER UNIT) SC SCH ×4 (05:40→21:55)
[2020-11-15] MEDS: HYDROCORTISONE 100 MG/2 ML (Solu-CORTEF) VIAL IV SCH ×3 (05:40→21:55)
[2020-11-15] MEDS: NS IV 1000 ML 1,000 ML IV SCH ×3 (05:41→19:40)
--- NOTE | 2020-11-15 07:10 | Progress Note - Surgery ---
RONY DÍAZ MED STUDENT 11/15/20 0710: Subjective Date Seen by a Provider: Nov 15, 2020 Time Seen by a Provider: 07:05 Subjective/Events-last exam Pt awake and alert upon entry. Pt is less lethargic and more cooperative with assessment. Pt c/o hip pain and headache. Pt foot ulcer still showing exudate appreciated on bed linens. NG tube contains bloody return remnants. Continued cough with sputum production. Review of Systems General: No Chills HEENT: Head Aches Pulmonary: Cough (sputum produced) Cardiovascular: No: Chest Pain Gastrointestinal: No: Abdominal Pain Musculoskeletal: other (Hip pain), leg pain (with movement), foot pain (with movement) Focused Exam Lactate Level 11/12/20 17:58: Lactic Acid Level 2.60*H 11/12/20 20:30: Lactic Acid Level 2.16*H 11/13/20 03:10: Lactic Acid Level 0.98 Time of Focused Exam: 14:15 Objective Exam Vital Signs Date Time Temp Pulse Resp B/P (MAP) Pulse Ox O2 Delivery O2 Flow Rate FiO2 11/15/20 06:00 86 14 106/70 (82) 96 Room Air 11/15/20 05:46 Room Air 11/15/20 05:00 86 17 125/74 (91) 96 Room Air 11/15/20 04:00 82 19 134/84 (101) 95 Room Air 11/15/20 03:22 36.2 Room Air 11/15/20 03:00 83 20 102/57 (72) 100 Nasal Cannula 2.00 11/15/20 02:00 82 13 103/65 (78) 100 Nasal Cannula 2.00 11/15/20 01:00 80 11/15/20 01:00 79 10 107/61 (76) 100 Nasal Cannula 2.00 11/15/20 00:00 84 15 100/61 (74) 100 Nasal Cannula 2.00 11/14/20 23:00 80 14 104/54 (71) 100 Nasal Cannula 2.00 11/14/20 23:00 Nasal Cannula 2.00 11/14/20 22:00 84 16 105/60 (75) 100 Nasal Cannula 2.00 11/14/20 21:00 94 Nasal Cannula 2.00 11/14/20 21:00 86 22 128/76 (93) 98 Nasal Cannula 2.00 11/14/20 20:00 81 13 121/76 (91) 98 Nasal Cannula 2.00 11/14/20 20:00 Nasal Cannula 2.00 11/14/20 19:46 35.8 11/14/20 19:00 81 11/14/20 19:00 82 25 131/82 (98) 95 Nasal Cannula 2.00 11/14/20 18:00 84 31 133/81 (98) 99 Nasal Cannula 2.00 11/14/20 17:33 98 121/71 11/14/20 17:00 79 14 122/73 (89) 97 Nasal Cannula 2.00 11/14/20 16:00 85 25 126/79 (95) 97 Nasal Cannula 2.00 11/14/20 15:16 35.7 11/14/20 15:00 84 28 134/78 (96) 100 Nasal Cannula 2.00 11/14/20 14:00 84 34 109/73 (85) 95 Nasal Cannula 2.00 11/14/20 13:00 87 14 107/66 (80) 97 Nasal Cannula 2.00 11/14/20 13:00 87 11/14/20 12:00 87 20 125/70 (88) 97 Nasal Cannula 2.00 11/14/20 11:09 36.1 11/14/20 11:00 87 22 126/70 (88) 95 Nasal Cannula 2.00 11/14/20 10:00 87 32 111/62 (78) 95 Nasal Cannula 2.00 11/14/20 09:00 86 25 120/70 (87) 97 Nasal Cannula 2.00 11/14/20 08:50 95 Nasal Cannula 2.00 11/14/20 08:00 94 22 110/67 (81) 94 Nasal Cannula 2.00 11/14/20 07:52 36.8 I & O 11/15/20 07:00 Intake Total 820 ml Output Total 1625 ml Balance -805 ml Capillary Refill : Greater Than 3 SecondsLess Than 3 Seconds General Appearance: No Apparent Distress, Chronically ill HEENT: PERRL/EOMI, Normal ENT Inspection Neck: Normal Inspection, Non Tender Respiratory: Chest Non Tender, No Accessory Muscle Use, No Respiratory Distress Cardiovascular: Regular Rate, Rhythm, No JVD Gastrointestinal: non tender, soft, other (edema lower portion of abdomen) Extremity: Pedal Edema (Pitting), Other (left bka, right leg wounds, extreme pain with movement) Neurologic/Psychiatric: Alert, Depressed Affect Skin: Pallor, Other (sternotomy wound with exposed wire) Lymphatic: No Adenopathy Results Lab Laboratory Tests 11/14/20 10:53: Glucometer 205H 11/14/20 14:20: Vancomycin Level Trough 23.1H 11/14/20 15:17: Glucometer 221H 11/14/20 19:44: Glucometer 187H 11/15/20 03:05: White Blood Count 9.6, Red Blood Count 2.65L, Hemoglobin 7.5L, Hematocrit 23L, Mean Corpuscular Volume 88, Mean Corpuscular Hemoglobin 28, Mean Corpuscular Hemoglobin Concent 32, Red Cell Distribution Width 17.2H, Platelet Count 129L, Mean Platelet Volume 10.3, Immature Granulocyte % (Auto) 1, Neutrophils (%) (Auto) 83H, Lymphocytes (%) (Auto) 11L, Monocytes (%) (Auto) 5, Eosinophils (%) (Auto) 0, Basophils (%) (Auto) 0, Neutrophils # (Auto) 8.0H, Lymphocytes # (Auto) 1.0, Monocytes # (Auto) 0.5, Eosinophils # (Auto) 0.0, Basophils # (Auto) 0.0, Immature Granulocyte # (Auto) 0.1, Sodium Level 130L, Potassium Level 4.5, Chloride Level 100, Carbon Dioxide Level 21, Anion Gap 9, Blood Urea Nitrogen 39H, Creatinine 0.85, Estimat Glomerular Filtration Rate > 60, BUN/Creatinine Ratio 46, Glucose Level 194H, Calcium Level 7.6L, Corrected Calcium 8.7, Phosphorus Level 3.7, Magnesium Level 2.1, Total Bilirubin 0.8, Aspartate Amino Transf (AST/SGOT) 25, Alanine Aminotransferase (ALT/SGPT) 36, Alkaline P hosphatase 107, Total Protein 5.4L, Albumin 2.6L Microbiology 11/12/20 MRSA Screen - Final, Complete 11/12/20 Blood Culture - Preliminary, Resulted No growth 11/12/20 Urine Culture - Final, Complete NO GROWTH Assessment/Plan Assessment/Plan Assessment/Plan severe anemia upper GI bleed right hip fracture ascites Covid negative CAD Chest wound -exposed wire from cabg hyponatremia NPO Transfused prbc 3 units. follow hgb and transfuse prbc as needed Protonix NG tube to liws- bloody return Avoid any anticoagulation Continue conservative measures, may need EGD Multiple wounds right lower extremity and chest with exposed wire, wound care keep clean and dry. If hgb stable remove ng tomorrow and start clears Clinical Quality Measures DVT/VTE Risk/Contraindication: Risk Factor Score Per Nursin RFS Level Per Nursing on Admit: 4+=Very High ANTONY BENNETT DO 11/15/201828: Subjective Subjective/Events-last exam Patient states felt better. His hemoglobin is up to 7.7. Patient has NG tube and is n.p.o. No abdominal pain. No new complaints. Denies nausea vomiting fever sweats chills shortness of breath or chest pain at this time. Objective Exam General Appearance: No Apparent Distress, WD/WN HEENT: PERRL/EOMI, TMs Normal Neck: Non Tender, Supple Respiratory: Chest Non Tender, No Accessory Muscle Use, No Respiratory Distress Cardiovascular: Regular Rate, Rhythm Gastrointestinal: non tender, soft, other (Lower abdomen with edema of abdominal wall) Extremity: Pedal Edema (Pitting right), Other (left bka, right leg wounds, extreme pain with movement) Neurologic/Psychiatric: Alert, Oriented x3 Skin: Normal Color, Warm/Dry, Other (Sternotomy scar upper portion opening with exposed wire) Lymphatic: No Adenopathy Assessment/Plan Assessment/Plan Assessment/Plan severe anemia upper GI bleed right hip fracture ascites Covid negative CAD Chest wound -exposed wire from cabg hyponatremia Transfused prbc 3 units. follow hgb and transfuse prbc as needed Protonix NG tube to liws- bloody return Avoid any anticoagulation Continue conservative measures, may need EGD Multiple wounds right lower extremity and chest with exposed wire, wound care keep clean and dry. remove ng and start clears Supervisory-Addendum Brief Verification & Attestation Participated in pt care: history, MDM, physical Personally performed: exam, history, MDM, supervision of care Care discussed with: Medical Student Procedures: n/a Results interpretation: Verified all documentation Verification and Attestation of Medical Student E/M Service A medical student performed and documented this service in my presence. I reviewed and verified all information documented by the medical student and made modifications to such information, when appropriate. I personally performed the physical exam and medical decision making. Antony Bennett, Nov 15, 2020,18:28 RONY DÍAZ MED STUDENT Nov 15, 2020 07:10 ANTONY BENNETT DO Nov 15, 2020 18:29
--- NOTE | 2020-11-15 08:17 | Diagnostic Imaging Report ---
CHEST 1 VIEW, AP/PA ONLY Indication: Dyspnea Comparison: 11/14/2020 Findings: Enteric tube has been retracted and now has tip in the lower one-third of the esophagus. Stable right IJ central venous catheter. Bibasilar hazy pulmonary opacities have improved but persists. Small left pleural effusion has improved. No pneumothorax. Stable cardiomediastinal silhouette. Impression: 1. Enteric tube has now been retracted in the lower one-third of esophagus. Advancement is advised. 2. Improving but persistent small left pleural effusion and left basilar pulmonary opacities. Dictated by: Dictated on workstation # [id number]
[2020-11-15] MEDS: PANTOPRAZOLE 40 MG (PROTONIX) VIAL IV SCH ×2 (08:35→19:40)
[2020-11-15] MEDS: VASOPRESSIN INJECTION 20 UNIT in NS (IVPB) 100 ML IV SCH ×3 (09:40→23:37)
--- NOTE | 2020-11-15 10:03 | Progress Note - Hospitalist ---
BUSHRA MOBLEY MED STUDENT 11/15/20 1003: Subjective HPI/CC On Admission Date Seen by Provider: Nov 15, 2020 Time Seen by Provider: 08:15 CC: Septic shock with severe anemia HPI: This is a 50yoWM who presented to the ER with AMS and overall body pain. Patient was found to have septic shock with ascites on CT scan and new decubitus ulcer right lateral foot and right lateral leg. To note he was admitted here on 10/25/20 for hip fracture and cellulitis and ultimately did not undergo surgical repair due to high risk for complications in addition to cellulitis of the skin of the affected hip and since he was bedbound anyway they elected to not repair it so longterm was arranged but ultimately patient refused NH placement and daughter brought him home to be caregiver. He presented today with stained bed clothes and hypotensive with elevated lactic acid and finding c/w septic shock with severe anemia of hgb 4.8. Patient was placed on broad spectrum abx and transfused and Dr Bennett has been consulted for acites which was too minimal for paracentesis but also for hemoccult positive stools and severe diarrhea requiring rectal tube. Patient has high risk for mortality considering his baseline debility and other med issues like left AKA and bedbound status. Subjective/Events-last exam Pt alert and awake this am Requesting to be taken off NPO status, given wet sponge stick Complains of R hip pain Bloody output subsided from NGT which has regressed into esophagus as seen on CXR, plan to remove tomorrow Focused Exam Lactate Level 11/12/20 17:58: Lactic Acid Level 2.60*H 11/12/20 20:30: Lactic Acid Level 2.16*H 11/13/20 03:10: Lactic Acid Level 0.98 Time of Focused Exam: 14:15 Objective Exam Vital Signs Vital Signs Date Time Temp Pulse Resp B/P (MAP) Pulse Ox O2 Delivery O2 Flow Rate FiO2 11/15/20 08:45 36.3 11/15/20 08:44 97 Room Air 11/15/20 06:00 86 14 106/70 (82) 11/15/20 03:00 2.00 Capillary Refill : Greater Than 3 SecondsLess Than 3 Seconds General Appearance: No Apparent Distress, Chronically ill HEENT: PERRL/EOMI, Pharynx Normal Neck: Non Tender; No JVD Respiratory: Chest Non Tender, Normal Breath Sounds, No Accessory Muscle Use, No Respiratory Distress Cardiovascular: Regular Rate, Rhythm, No Edema, Normal Peripheral Pulses Gastrointestinal: Other (NGT remains in place, bloody ouput subsided) Extremity: Normal Capillary Refill, No Calf Tenderness, Other (L BKA, R leg wounds) Neurologic/Psychiatric: Alert, Oriented x3, Depressed Affect Skin: No Normal Color (pale) Results/Procedures Lab Laboratory Tests 11/15/20 03:05 Patient resulted labs reviewed. Assessment/Plan Assessment and Plan Assess & Plan/Chief Complaint Assessment: Septic shock Decubitus ulcers Cellulitis Anemia 7.5 hgb Elevated lactic acid Bedound status baseline GIB Left BKA hx Plan: ICU Abx IVF Pressors Mortality high 11/13/20: Wean pressors Monitor diarrhea Supportive care 11/14/20: Continue to wean pressors Continue Octreotide Monitor diarrhea Supportive care 11/15/20 Wean Levophed Continue Octreotide Continue Solucortef and abx NGT to be removed tomorrow Start clear liquids tomorrow Supportive care Clinical Quality Measures DVT/VTE Risk/Contraindication: Risk Factor Score Per Nursin RFS Level Per Nursing on Admit: 4+=Very High LORA HILLIARD DO 11/16/20 0612: Subjective Subjective/Events-last exam Pt doing very well CXR appears to require NG tube to advance position Still on Levophed BP 106/70 Hgb 7.5 Overall just very debilitated and still remains very ill Review of Systems General: Fatigue, Malaise Objective Exam General Appearance: No Apparent Distress, WD/WN, Chronically ill Respiratory: Lungs Clear Cardiovascular: Regular Rate, Rhythm Assessment/Plan Assessment and Plan Assess & Plan/Chief Complaint 11/15/20: Monitor BP Wean Levophed Supervisory-Addendum Brief Verification & Attestation Participated in pt care: history, MDM, physical Personally performed: exam, history, MDM, supervision of care Care discussed with: Medical Student Procedures: n/a Results interpretation: Verified all documentation Verification and Attestation of Medical Student E/M Service A medical student performed and documented this service in my presence. I reviewed and verified all information documented by the medical student and made modifications to such information, when appropriate. I personally performed the physical exam and medical decision making. Lora Hilliard, Nov 16, 2020,06:11 BUSHRA MOBLEY MED STUDENT Nov 15, 2020 10:03 LORA HILLIARD DO Nov 16, 2020 06:12
--- NOTE | 2020-11-15 12:00 | NUR ---
NGT removed at this time, pt placed on clear liquid diet by Dr. Bennett.
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
[2020-11-15 15:29] LABS: HEMOGLOBIN 7.7 g/dL (13.3-17.7); MEAN PLATELET VOLUME 9.8 fL (9.0-12.2); WHITE BLOOD COUNT 9.1 10^3/uL (4.3-11.0)
[2020-11-15] MEDS: NOREPINEPHRINE 4 MG/250 ML 250 ML IV SCH ×2 (17:13→23:37)
--- NOTE | 2020-11-15 18:15 | NUR ---
Call placed to E-ICU for pt low urine output. message left with nurse. awaiting orders at this time.
[2020-11-15] MEDS: VANCOMYCIN 1500 MG/NS 500 ML IVPB IV SCH ×2 (19:40)
[2020-11-16] VITALS (13 sets, daily range): BP systolic 90–120; BP diastolic 54–80
[2020-11-16] MEDS: morphine INJ 4 MG/ML 1 ML (VIAL/SYRINGE) IV PRN ×6 (00:57→19:01)
[2020-11-16 03:15] LABS: BASOPHILS % (AUTO) 0 % (0-10); EOSINOPHILS % (AUTO) 0 % (0-10); HEMATOCRIT 24 % (40-54); HEMOGLOBIN 7.5 g/dL (13.3-17.7); LYMPHOCYTES # (AUTO) 0.7 10^3/uL (1.0-4.0); LYMPHOCYTES % (AUTO) 9 % (12-44); MEAN CORPUSCULAR HEMOGLOBIN 29 pg (25-34); MEAN CORPUSCULAR HGB CONC 32 g/dL (32-36); MEAN CORPUSCULAR VOLUME 90 fL (80-99); MEAN PLATELET VOLUME 10.4 fL (9.0-12.2); MONOCYTES # (AUTO) 0.4 10^3/uL (0.0-1.0); MONOCYTES % (AUTO) 5 % (0-12); NEUTROPHILS # (AUTO) 6.5 10^3/uL (1.8-7.8); NEUTROPHILS % (AUTO) 86 % (42-75); PLATELET COUNT 110 10^3/uL (130-400); WHITE BLOOD COUNT 7.7 10^3/uL (4.3-11.0)
[2020-11-16 03:26] LABS: PHOSPHORUS 3.3 MG/DL (2.3-4.7)
[2020-11-16 03:28] LABS: MAGNESIUM 2.1 MG/DL (1.6-2.4)
[2020-11-16 03:29] LABS: CHLORIDE 103 MMOL/L (98-107); POTASSIUM 4.2 MMOL/L (3.6-5.0); SODIUM 132 MMOL/L (135-145)
[2020-11-16 03:30] LABS: CALCIUM 7.4 MG/DL (8.5-10.1)
[2020-11-16 03:31] LABS: GLUCOSE 236 MG/DL (70-105)
[2020-11-16 03:32] LABS: CARBON DIOXIDE 19 MMOL/L (21-32)
[2020-11-16 03:35] LABS: CREATININE SERUM 0.82 MG/DL (0.60-1.30); GFR ESTIMATED > 60
[2020-11-16 03:36] LABS: BUN/CREATININE RATIO 41
[2020-11-16] MEDS: MEROPENEM 500 MG/SWFI 10 ML IV PUSH IV SCH ×8 (03:50→22:24)
[2020-11-16] MEDS: NS IV 1000 ML 1,000 ML IV SCH ×4 (03:59→18:39)
[2020-11-16] MEDS: KCL 20 MEQ TAB (K-DUR) PO SCH (04:00)
[2020-11-16] MEDS: MAGNESIUM 1 GM/100 ML IVPB 100 ML IV SCH (04:00)
[2020-11-16] MEDS: POTASSIUM CL 10MEQ/50ML IVPB 50 ML IV SCH (04:00)
[2020-11-16] MEDS: inSUlin ASPART (NovoLOG) 1 UNIT/0.01 ML (CHARGE PER UNIT) SC SCH ×4 (05:13→21:19)
[2020-11-16] MEDS: HYDROCORTISONE 100 MG/2 ML (Solu-CORTEF) VIAL IV SCH (05:13)
--- NOTE | 2020-11-16 06:02 | Pulmonary Progress Note ---
Subjective Date Seen by a Provider: Nov 16, 2020 Time Seen by a Provider: 05:56 Subjective/Events-last exam No complications noted. Sepsis Event Evaluation Height, Weight, BMI Height: 6'1.00" Weight: 216lbs. 4.0oz. 97.088449me; 29.00 BMI Method:Stated Focused Exam Time of Focused Exam: 14:15 Exam Exam Vital Signs Date Time Temp Pulse Resp B/P (MAP) Pulse Ox O2 Delivery O2 Flow Rate FiO2 11/16/20 05:45 Room Air 11/16/20 05:00 85 25 107/71 (83) 97 Nasal Cannula 2.00 11/16/20 04:00 36.0 11/16/20 04:00 78 31 100/68 (79) 95 Nasal Cannula 2.00 11/16/20 03:00 Nasal Cannula 2.00 11/16/20 03:00 84 18 111/68 (86) 95 Room Air 11/16/20 02:00 84 28 119/72 (87) 95 Room Air 11/16/20 00:55 84 11/16/20 00:00 82 14 107/66 (81) 95 Room Air 11/16/20 00:00 35.9 11/15/20 23:00 84 26 113/69 (82) 94 Room Air 11/15/20 22:00 86 20 113/65 (79) 96 Room Air 11/15/20 21:00 79 11 102/70 (81) 88 Room Air 11/15/20 21:00 95 Room Air 11/15/20 20:00 88 20 122/70 (87) 97 Room Air 11/15/20 19:46 84 14 116/73 (87) 90 Room Air 11/15/20 19:42 35.5 11/15/20 19:00 89 11/15/20 19:00 89 21 116/76 (89) 93 Room Air 11/15/20 18:00 93 26 112/83 (93) 96 Room Air 11/15/20 17:00 89 35 104/76 (85) 95 Room Air 11/15/20 16:00 87 16 117/77 (90) 99 Room Air 11/15/20 15:32 36.4 11/15/20 15:00 81 19 117/70 (86) 98 Room Air 11/15/20 14:00 84 13 119/75 (90) 95 Room Air 11/15/20 13:00 86 15 114/71 (85) 99 Room Air 11/15/20 12:37 88 11/15/20 12:00 87 41 124/76 (92) 99 Room Air 11/15/20 11:00 87 115/70 (85) 99 Room Air 11/15/20 10:00 84 52 111/74 (86) 99 Room Air 11/15/20 09:00 86 16 104/82 (89) 97 Room Air 11/15/20 08:45 36.3 11/15/20 08:44 97 Room Air 11/15/20 08:00 86 18 109/74 (86) 95 Room Air 11/15/20 07:00 91 26 113/78 (90) 98 Room Air 11/15/20 06:55 90 11/15/20 06:00 86 14 106/70 (82) 96 Room Air I & O 11/16/20 07:00 Intake Total 1960 ml Output Total 750 ml Balance 1210 ml Height & Weight Height: 6'1.00" Weight: 216lbs. 4.0oz. 97.890043to; 29.00 BMI Method:Stated General Appearance: No Apparent Distress, WD/WN HEENT: PERRL/EOMI, TMs Normal Neck: Non Tender, Supple Respiratory: Chest Non Tender, No Accessory Muscle Use, No Respiratory Distress Cardiovascular: Regular Rate, Rhythm Capillary Refill: Less Than 3 Seconds Gastrointestinal: non tender, soft, other (Lower abdomen with edema of abdominal wall) Extremity: Pedal Edema (Pitting right), Other (left bka, right leg wounds, extreme pain with movement) Neurologic/Psychiatric: Alert, Oriented x3 Skin: Normal Color, Warm/Dry, Other (Sternotomy scar upper portion opening with exposed wire) Lymphatic: No Adenopathy Results Lab Laboratory Tests 11/15/20 03:05 11/15/20 15:20 11/16/20 03:00 Assessment/Plan Assessment/Plan Cellulitis with severe septic shock -Currently on Levophed is now off -D/C solucortef -Merrem and Vanco Anemia with upper GIB s/p 4 units of PRBC -Monitor Hb - Octreotide gtt started 11/14 - Will D/C -Protonix BID -Bleeding from NG tube -Surgery is consulted Cardiomyopathy Decubitus ulcers - pt is bed bound Left BKA Pt is doing better. I am going to transfer to 4th with tele. I will sign off on ce pt transfers to [facility] please call with any questions or concerns. NILS ACHARYA DO Nov 16, 2020 06:02
--- NOTE | 2020-11-16 06:44 | Progress Note - Surgery ---
RONY DÍAZ MED STUDENT 11/16/20 0644: Subjective Date Seen by a Provider: Nov 16, 2020 Time Seen by a Provider: 06:39 Subjective/Events-last exam Pt awake and alert upon entering room. Pt cooperative with assessment and examination. Pt only c/o of hip pain that is tolerable following pain medicine administration earlier. Pt handling clear liquids well w/o N/V. Pt notes no longer having headache. Cough remains but no longer producing sputum. Review of Systems General: No Chills HEENT: No Head Aches Pulmonary: Cough (No sputum production) Cardiovascular: No: Chest Pain Gastrointestinal: No: Nausea, Vomiting, Abdominal Pain Musculoskeletal: other (Hip pain) Focused Exam Time of Focused Exam: 14:15 Objective Exam Vital Signs Date Time Temp Pulse Resp B/P (MAP) Pulse Ox O2 Delivery O2 Flow Rate FiO2 11/16/20 06:00 74 10 94/71 (79) 89 Room Air 11/16/20 05:45 Room Air 11/16/20 05:00 85 25 107/71 (83) 97 Nasal Cannula 2.00 11/16/20 04:00 36.0 11/16/20 04:00 78 31 100/68 (79) 95 Nasal Cannula 2.00 11/16/20 03:00 Nasal Cannula 2.00 11/16/20 03:00 84 18 111/68 (86) 95 Room Air 11/16/20 02:00 84 28 119/72 (87) 95 Room Air 11/16/20 00:55 84 11/16/20 00:00 82 14 107/66 (81) 95 Room Air 11/16/20 00:00 35.9 11/15/20 23:00 84 26 113/69 (82) 94 Room Air 11/15/20 22:00 86 20 113/65 (79) 96 Room Air 11/15/20 21:00 79 11 102/70 (81) 88 Room Air 11/15/20 21:00 95 Room Air 11/15/20 20:00 88 20 122/70 (87) 97 Room Air 11/15/20 19:46 84 14 116/73 (87) 90 Room Air 11/15/20 19:42 35.5 11/15/20 19:00 89 11/15/20 19:00 89 21 116/76 (89) 93 Room Air 11/15/20 18:00 93 26 112/83 (93) 96 Room Air 11/15/20 17:00 89 35 104/76 (85) 95 Room Air 11/15/20 16:00 87 16 117/77 (90) 99 Room Air 11/15/20 15:32 36.4 11/15/20 15:00 81 19 117/70 (86) 98 Room Air 11/15/20 14:00 84 13 119/75 (90) 95 Room Air 11/15/20 13:00 86 15 114/71 (85) 99 Room Air 11/15/20 12:37 88 11/15/20 12:00 87 41 124/76 (92) 99 Room Air 11/15/20 11:00 87 115/70 (85) 99 Room Air 11/15/20 10:00 84 52 111/74 (86) 99 Room Air 11/15/20 09:00 86 16 104/82 (89) 97 Room Air 11/15/20 08:45 36.3 11/15/20 08:44 97 Room Air 11/15/20 08:00 86 18 109/74 (86) 95 Room Air 11/15/20 07:00 91 26 113/78 (90) 98 Room Air 11/15/20 06:55 90 I & O 11/16/20 07:00 Intake Total 1960 ml Output Total 750 ml Balance 1210 ml Capillary Refill : Greater Than 3 SecondsLess Than 3 Seconds General Appearance: No Apparent Distress, WD/WN, Chronically ill HEENT: PERRL/EOMI, TMs Normal Neck: Non Tender, Supple Respiratory: Chest Non Tender, Lungs Clear, Normal Breath Sounds, No Respiratory Distress Cardiovascular: Regular Rate, Rhythm Gastrointestinal: non tender, soft, other (Lower abdomen with edema of abdominal wall) Extremity: Pedal Edema (Pitting right), Other (left bka, right leg wounds, extreme pain with movement) Neurologic/Psychiatric: Alert, Oriented x3, Normal Mood/Affect Skin: Normal Color, Warm/Dry, Other (Sternotomy scar upper portion opening with exposed wire) Lymphatic: No Adenopathy Results Lab Laboratory Tests 11/15/20 10:57: Glucometer 188H 11/15/20 15:20: White Blood Count 9.1, Red Blood Count 2.70L, Hemoglobin 7.7L, Hematocrit 24L, Mean Corpuscular Volume 90, Mean Corpuscular Hemoglobin 29, Mean Corpuscular Hemoglobin Concent 32, Red Cell Distribution Width 17.2H, Platelet Count 114L, Mean Platelet Volume 9.8 11/15/20 16:37: Glucometer 168H 11/15/20 20:15: Glucometer 248H 11/16/20 03:00: White Blood Count 7.7, Red Blood Count 2.62L, Hemoglobin 7.5L, Hematocrit 24L, Mean Corpuscular Volume 90, Mean Corpuscular Hemoglobin 29, Mean Corpuscular Hemoglobin Concent 32, Red Cell Distribution Width 17.4H, Platelet Count 110L, Mean Platelet Volume 10.4, Immature Granulocyte % (Auto) 1, Neutrophils (%) (Auto) 86H, Lymphocytes (%) (Auto) 9L, Monocytes (%) (Auto) 5, Eosinophils (%) (Auto) 0, Basophils (%) (Auto) 0, Neutrophils # (Auto) 6.5, Lymphocytes # (Auto) 0.7L, Monocytes # (Auto) 0.4, Eosinophils # (Auto) 0.0, Basophils # (Auto) 0.0, Immature Granulocyte # (Auto) 0.1, Sodium Level 132L, Potassium Level 4.2, Chloride Level 103, Carbon Dioxide Level 19L, Anion Gap 10, Blood Urea Nitrogen 34H, Creatinine 0.82, Estimat Glomerular Filtration Rate > 60, BUN/Creatinine Ratio 41, Glucose Level 236H, Calcium Level 7.4L, Phosphorus Level 3.3, Magnesium Level 2.1 Microbiology 11/12/20 MRSA Screen - Final, Complete 11/12/20 Blood Culture - Preliminary, Resulted No growth 11/12/20 Urine Culture - Final, Complete NO GROWTH Assessment/Plan Assessment/Plan Assessment/Plan severe anemia upper GI bleed right hip fracture ascites Covid negative CAD Chest wound -exposed wire from cabg hyponatremia Transfused prbc 3 units. follow hgb and transfuse prbc as needed Protonix Avoid any anticoagulation Continue conservative measures, may need EGD Multiple wounds right lower extremity and chest with exposed wire, wound care keep clean and dry. remove ng and start clears as tolerated Clinical Quality Measures DVT/VTE Risk/Contraindication: Risk Factor Score Per Nursin RFS Level Per Nursing on Admit: 4+=Very High ANTONY BENNETT DO 11/18/20 1139: Subjective Subjective/Events-last exam Pain in right lower extremity. Hurts to be moved. Cough. Pain medicine helping. Denies fever sweats chills or chest pain. Objective Exam General Appearance: No Apparent Distress, Chronically ill HEENT: PERRL/EOMI, TMs Normal Neck: Full Range of Motion, Non Tender, Supple Respiratory: Chest Non Tender, No Accessory Muscle Use, No Respiratory Distress Cardiovascular: Regular Rate, Rhythm, No JVD Gastrointestinal: non tender, soft, other (Lower abdomen with edema of abdominal wall) Extremity: Pedal Edema (Pitting right), Other (left bka, right leg wounds, extreme pain with movement) Neurologic/Psychiatric: Alert, Oriented x3, Normal Mood/Affect Skin: Normal Color, Warm/Dry Lymphatic: No Adenopathy Assessment/Plan Assessment/Plan Assessment/Plan severe anemia upper GI bleed right hip fracture ascites Covid negative CAD Chest wound -exposed wire from cabg hyponatremia Transfused prbc 3 units. follow hgb and transfuse prbc as needed Protonix Avoid any anticoagulation Continue conservative measures, may need EGD Multiple wounds right lower extremity and chest with exposed wire, wound care keep clean and dry. remove ng and start clears as tolerated Supervisory-Addendum Brief Verification & Attestation Participated in pt care: history, MDM, physical Personally performed: exam, history, MDM, supervision of care Care discussed with: Medical Student Procedures: n/a Results interpretation: Verified all documentation Verification and Attestation of Medical Student E/M Service A medical student performed and documented this service in my presence. I reviewed and verified all information documented by the medical student and made modifications to such information, when appropriate. I personally performed the physical exam and medical decision making. Antony Bennett, Nov 16, 2020,11:39 RONY DÍAZ MED STUDENT Nov 16, 2020 06:44 ANTONY BENNETT DO Nov 18, 2020 11:39
--- NOTE | 2020-11-16 07:32 | Progress Note - Surgery ---
Subjective Date Seen by a Provider: Nov 16, 2020 Time Seen by a Provider: 07:27 Subjective/Events-last exam Laying in bed. Hgb stable. tolerating clears. Denies n/v fever sweats chills shortness of breath or chest pain. Patient with right lower ext pain unchanged. Wire out of chest not wanting anything done with. Focused Exam Time of Focused Exam: 14:15 Objective Exam Vital Signs Date Time Temp Pulse Resp B/P (MAP) Pulse Ox O2 Delivery O2 Flow Rate FiO2 11/16/20 07:15 35.8 11/16/20 06:00 74 10 94/71 (79) 89 Room Air 11/16/20 05:45 Room Air 11/16/20 05:00 85 25 107/71 (83) 97 Nasal Cannula 2.00 11/16/20 04:00 36.0 11/16/20 04:00 78 31 100/68 (79) 95 Nasal Cannula 2.00 11/16/20 03:00 Nasal Cannula 2.00 11/16/20 03:00 84 18 111/68 (86) 95 Room Air 11/16/20 02:00 84 28 119/72 (87) 95 Room Air 11/16/20 00:55 84 11/16/20 00:00 82 14 107/66 (81) 95 Room Air 11/16/20 00:00 35.9 11/15/20 23:00 84 26 113/69 (82) 94 Room Air 11/15/20 22:00 86 20 113/65 (79) 96 Room Air 11/15/20 21:00 79 11 102/70 (81) 88 Room Air 11/15/20 21:00 95 Room Air 11/15/20 20:00 88 20 122/70 (87) 97 Room Air 11/15/20 19:46 84 14 116/73 (87) 90 Room Air 11/15/20 19:42 35.5 11/15/20 19:00 89 11/15/20 19:00 89 21 116/76 (89) 93 Room Air 11/15/20 18:00 93 26 112/83 (93) 96 Room Air 11/15/20 17:00 89 35 104/76 (85) 95 Room Air 11/15/20 16:00 87 16 117/77 (90) 99 Room Air 11/15/20 15:32 36.4 11/15/20 15:00 81 19 117/70 (86) 98 Room Air 11/15/20 14:00 84 13 119/75 (90) 95 Room Air 11/15/20 13:00 86 15 114/71 (85) 99 Room Air 11/15/20 12:37 88 11/15/20 12:00 87 41 124/76 (92) 99 Room Air 11/15/20 11:00 87 115/70 (85) 99 Room Air 11/15/20 10:00 84 52 111/74 (86) 99 Room Air 11/15/20 09:00 86 16 104/82 (89) 97 Room Air 11/15/20 08:45 36.3 11/15/20 08:44 97 Room Air 11/15/20 08:00 86 18 109/74 (86) 95 Room Air I & O 11/16/20 07:00 Intake Total 1960 ml Output Total 750 ml Balance 1210 ml Capillary Refill : Greater Than 3 SecondsLess Than 3 Seconds General Appearance: No Apparent Distress, WD/WN, Chronically ill HEENT: PERRL/EOMI, TMs Normal Neck: Non Tender, Supple Respiratory: Chest Non Tender, No Accessory Muscle Use, No Respiratory Distress Cardiovascular: Regular Rate, Rhythm Gastrointestinal: non tender, soft, other (Lower abdomen with edema of abdominal wall) Extremity: Pedal Edema (Pitting right), Other (left bka, right leg wounds, extreme pain with movement) Neurologic/Psychiatric: Alert, Oriented x3, Normal Mood/Affect Skin: Normal Color, Warm/Dry, Other (Sternotomy scar upper portion opening with exposed wire) Lymphatic: No Adenopathy Results Lab Laboratory Tests 11/15/20 10:57: Glucometer 188H 11/15/20 15:20: White Blood Count 9.1, Red Blood Count 2.70L, Hemoglobin 7.7L, Hematocrit 24L, Mean Corpuscular Volume 90, Mean Corpuscular Hemoglobin 29, Mean Corpuscular Hemoglobin Concent 32, Red Cell Distribution Width 17.2H, Platelet Count 114L, Mean Platelet Volume 9.8 11/15/20 16:37: Glucometer 168H 11/15/20 20:15: Glucometer 248H 11/16/20 03:00: White Blood Count 7.7, Red Blood Count 2.62L, Hemoglobin 7.5L, Hematocrit 24L, Mean Corpuscular Volume 90, Mean Corpuscular Hemoglobin 29, Mean Corpuscular Hemoglobin Concent 32, Red Cell Distribution Width 17.4H, Platelet Count 110L, Mean Platelet Volume 10.4, Immature Granulocyte % (Auto) 1, Neutrophils (%) (Auto) 86H, Lymphocytes (%) (Auto) 9L, Monocytes (%) (Auto) 5, Eosinophils (%) (Auto) 0, Basophils (%) (Auto) 0, Neutrophils # (Auto) 6.5, Lymphocytes # (Auto) 0.7L, Monocytes # (Auto) 0.4, Eosinophils # (Auto) 0.0, Basophils # (Auto) 0.0, Immature Granulocyte # (Auto) 0.1, Sodium Level 132L, Potassium Level 4.2, Chloride Level 103, Carbon Dioxide Level 19L, Anion Gap 10, Blood Urea Nitrogen 34H, Creatinine 0.82, Estimat Glomerular Filtration Rate > 60, BUN/Creatinine Ratio 41, Glucose Level 236H, Calcium Level 7.4L, Phosphorus Level 3.3, Magnesium Level 2.1 Microbiology 11/12/20 MRSA Screen - Final, Complete 11/12/20 Blood Culture - Preliminary, Resulted No growth 11/12/20 Urine Culture - Final, Complete NO GROWTH Assessment/Plan Assessment/Plan Assessment/Plan severe anemia upper GI bleed right hip fracture ascites Covid negative CAD Chest wound -exposed wire from cabg hyponatremia Transfused prbc follow hgb and transfuse prbc as needed Protonix Avoid any anticoagulation Continue conservative measures, may need EGD Multiple wounds right lower extremity and chest with exposed wire, wound care keep clean and dry not wanting anything done with it. tolerating clear advance as hgb remains stable Clinical Quality Measures DVT/VTE Risk/Contraindication: Risk Factor Score Per Nursin RFS Level Per Nursing on Admit: 4+=Very High ANTONY DANIELS DO Nov 16, 2020 07:32
[2020-11-16] MEDS: PANTOPRAZOLE 40 MG (PROTONIX) VIAL IV SCH ×2 (09:13→19:52)
--- NOTE | 2020-11-16 10:28 | Progress Note - Hospitalist ---
BUSHRA MOBLEY MED STUDENT 11/16/20 1028: Subjective HPI/CC On Admission Date Seen by Provider: Nov 16, 2020 Time Seen by Provider: 08:15 CC: Septic shock with severe anemia HPI: This is a 50yoWM who presented to the ER with AMS and overall body pain. Patient was found to have septic shock with ascites on CT scan and new decubitus ulcer right lateral foot and right lateral leg. To note he was admitted here on 10/25/20 for hip fracture and cellulitis and ultimately did not undergo surgical repair due to high risk for complications in addition to cellulitis of the skin of the affected hip and since he was bedbound anyway they elected to not repair it so penitentiary was arranged but ultimately patient refused NH placement and daughter brought him home to be caregiver. He presented today with stained bed clothes and hypotensive with elevated lactic acid and finding c/w septic shock with severe anemia of hgb 4.8. Patient was placed on broad spectrum abx and transfused and Dr Bennett has been consulted for acites which was too minimal for paracentesis but also for hemoccult positive stools and severe diarrhea requiring rectal tube. Patient has high risk for mortality considering his baseline debility and other med issues like left AKA and bedbound status. Subjective/Events-last exam Pt awake and requesting breakfast Tolerating clear liquids, NGT removed yesterday Hgb stable Pressor d/c and BP maintained Complains of buttock pain from decubitus ulcer Focused Exam Time of Focused Exam: 14:15 Objective Exam Vital Signs Vital Signs Date Time Temp Pulse Resp B/P (MAP) Pulse Ox O2 Delivery O2 Flow Rate FiO2 11/16/20 09:00 96 Room Air 11/16/20 09:00 89 7 114/78 (90) 11/16/20 07:15 35.8 11/16/20 05:00 2.00 Capillary Refill : Greater Than 3 SecondsLess Than 3 Seconds General Appearance: No Apparent Distress, Chronically ill HEENT: PERRL/EOMI, Moist Mucous Membranes Neck: Normal Inspection, Non Tender Respiratory: Chest Non Tender, Lungs Clear, No Accessory Muscle Use, No Respiratory Distress Cardiovascular: Regular Rate, Rhythm, No Gallop, No JVD Back: No CVA Tenderness, No Vertebral Tenderness Extremity: Normal Capillary Refill, No Calf Tenderness Neurologic/Psychiatric: Alert, Oriented x3, Depressed Affect Skin: No Diaphoresis; Pallor Lymphatic: No Adenopathy Results/Procedures Lab Laboratory Tests 11/15/20 15:20 11/16/20 03:00 Patient resulted labs reviewed. Assessment/Plan Assessment and Plan Assess & Plan/Chief Complaint Assessment: Septic shock Decubitus ulcers Cellulitis Anemia 7.5 hgb Elevated lactic acid Bedound status baseline GIB Left BKA hx Plan: ICU Abx IVF Pressors Mortality high 11/13/20: Wean pressors Monitor diarrhea Supportive care 11/14/20: Continue to wean pressors Continue Octreotide Monitor diarrhea Supportive care 11/15/20 Wean Levophed Continue Octreotide Continue Solucortef and abx NGT to be removed tomorrow Start clear liquids tomorrow Supportive care 11/16/20 Continue Solucortef Continue abx D/C Octreotide Monitor hgb Advance on from clear liquids as tolerated Supportive care Transfer to 4th floor with telemetry Clinical Quality Measures DVT/VTE Risk/Contraindication: Risk Factor Score Per Nursin RFS Level Per Nursing on Admit: 4+=Very High LORA HILLIARD DO 11/17/20 0526: Subjective Subjective/Events-last exam Hgb is stable Picc line will be placed and discontinuing the central line in the right IJ NG tube was removed Clear liquid diet tolerated Decubitus ulcers are causing a lot pain Transfer to fourth floor Review of Systems General: Fatigue, Malaise Pulmonary: Dyspnea Neurological: Weakness Objective Exam General Appearance: No Apparent Distress, WD/WN, Chronically ill Respiratory: Lungs Clear Cardiovascular: Regular Rate, Rhythm Assessment/Plan Assessment and Plan Assess & Plan/Chief Complaint Transfer to [facility] Complicated issues Supervisory-Addendum Brief Verification & Attestation Participated in pt care: history, MDM, physical Personally performed: exam, history, MDM, supervision of care Care discussed with: Medical Student Procedures: n/a Results interpretation: Verified all documentation Verification and Attestation of Medical Student E/M Service A medical student performed and documented this service in my presence. I review ed and verified all information documented by the medical student and made modifications to such information, when appropriate. I personally performed the physical exam and medical decision making. Lora Hilliard, Nov 17, 2020,05:25 BUSHRA MOBLEY MED STUDENT Nov 16, 2020 10:28 LORA HILLIARD DO Nov 17, 2020 05:26
--- NOTE | 2020-11-16 10:35 | NUR ---
REPORT CALLED TO LISET FAY ON FOURTH FLOOR.
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
[2020-11-16] MEDS ORDERED: MEROPENEM 500 MG VIAL (MERREM) IV ONE (16:13)
[2020-11-16] MEDS ORDERED: WATER (STERILE) FOR INJECTION 10 ML ONE (16:13)
[2020-11-16] MEDS ORDERED: ALBUMIN IV NR (17:18)
--- NOTE | 2020-11-16 17:45 | Diagnostic Imaging Report ---
INDICATION: Fluid overload Frontal chest obtained at 0542 p.m. and compared to 11/15/2020. There is poststernotomy change with cardiomegaly. Pacemaker device is unchanged. Right IJ central catheter is unchanged. Previous NG tube has been removed. There is patchy infiltrate in the right upper lobe and base which is new or worsened compared to the prior study. The left lung remains clear. There is a minimal left pleural effusion. IMPRESSION: New or worsening infiltrates are seen in the right upper lobe and base. There is underlying cardiomegaly. There is no pneumothorax. There is some minimal left pleural fluid. Dictated by: Dictated on workstation # [id number]
[2020-11-16 18:07] LABS: ALANINE AMINOTRANSFERASE 25 U/L (0-55); ALBUMIN 2.5 GM/DL (3.2-4.5); ALKALINE PHOSPHATASE 99 U/L (40-136); BILIRUBIN,TOTAL 0.5 MG/DL (0.1-1.0); BUN/CREATININE RATIO 40; CALCIUM 7.6 MG/DL (8.5-10.1); CARBON DIOXIDE 22 MMOL/L (21-32); CHLORIDE 104 MMOL/L (98-107); GFR ESTIMATED > 60; GLUCOSE 219 MG/DL (70-105); POTASSIUM 4.1 MMOL/L (3.6-5.0); SODIUM 133 MMOL/L (135-145); TOTAL PROTEIN 5.3 GM/DL (6.4-8.2)
[2020-11-16] MEDS ORDERED: ALBUMIN IV ONE (18:22)
[2020-11-16] MEDS ORDERED: TROUGH ORDER-PHARMACY XX NR (18:30)
[2020-11-16] MEDS ORDERED: ALBUMIN 25% 25 GM/100 ML 100 ML IV ONE (18:32)
[2020-11-16] MEDS: VANCOMYCIN 1 GM/NS 250 ML IVPB IV SCH ×2 (18:38)
--- NOTE | 2020-11-16 21:52 | NUR ---
Notified Dr. Jones pt having trouble breathing and low urine output. After assessment pt had O2 sat of 95% on room air was crackly on auscultation. Ordered to stop NS infusion for now. Pt reassured and seems calmer now.
[2020-11-17 04:00] VITALS: BP 111/67
[2020-11-17] MEDS: MEROPENEM 500 MG/SWFI 10 ML IV PUSH IV SCH ×6 (04:02→18:18)
[2020-11-17] MEDS: inSUlin ASPART (NovoLOG) 1 UNIT/0.01 ML (CHARGE PER UNIT) SC SCH ×4 (04:03→20:39)
[2020-11-17 05:31] LABS: BASOPHILS % (AUTO) 0 % (0-10); EOSINOPHILS # (AUTO) 0.1 10^3/uL (0.0-0.3); EOSINOPHILS % (AUTO) 1 % (0-10); HEMATOCRIT 23 % (40-54); LYMPHOCYTES # (AUTO) 0.9 10^3/uL (1.0-4.0); LYMPHOCYTES % (AUTO) 18 % (12-44); MEAN CORPUSCULAR HEMOGLOBIN 28 pg (25-34); MEAN CORPUSCULAR HGB CONC 31 g/dL (32-36); MEAN CORPUSCULAR VOLUME 90 fL (80-99); MEAN PLATELET VOLUME 10.1 fL (9.0-12.2); MONOCYTES # (AUTO) 0.3 10^3/uL (0.0-1.0); MONOCYTES % (AUTO) 6 % (0-12); NEUTROPHILS # (AUTO) 3.5 10^3/uL (1.8-7.8); NEUTROPHILS % (AUTO) 73 % (42-75); PLATELET COUNT 103 10^3/uL (130-400); WHITE BLOOD COUNT 4.7 10^3/uL (4.3-11.0)
[2020-11-17] MEDS: KCL 20 MEQ TAB (K-DUR) PO SCH (05:49)
[2020-11-17] MEDS: MAGNESIUM 1 GM/100 ML IVPB 100 ML IV SCH (05:49)
[2020-11-17] MEDS: POTASSIUM CL 10MEQ/50ML IVPB 50 ML IV SCH (05:49)
[2020-11-17 05:54] LABS: PHOSPHORUS 2.6 MG/DL (2.3-4.7)
[2020-11-17] MEDS: inSUlin ASPART (NovoLOG) 1 UNIT/0.01 ML (CHARGE PER UNIT) SQ SCH ×3 (06:17→18:18)
--- NOTE | 2020-11-17 07:13 | Progress Note - Surgery ---
GOLDIE MCCORMICK,MED STUDENT 11/17/20 0713: Subjective Date Seen by a Provider: Nov 17, 2020 Time Seen by a Provider: 06:50 Subjective/Events-last exam Pt seen and examined this AM. He is tachypneic and appears anxious when I enter the room and states he feels short of breath. Oxygen saturation in mid 90s but drops to upper 80s at times. Nurse reports this has happened a few times throughout the night. Reports pain in his back. Denies chest pain, abdominal pain, n/v, fever or chills. Review of Systems General: No Chills; Other (thirsty) HEENT: No Head Aches Pulmonary: Dyspnea; No Cough Cardiovascular: Edema; No: Chest Pain Gastrointestinal: No: Nausea, Vomiting, Abdominal Pain Genitourinary: Other (hunt catheter) Musculoskeletal: back pain Neurological: Weakness; No: Confusion Focused Exam Time of Focused Exam: 14:15 Objective Exam Vital Signs Date Time Temp Pulse Resp B/P (MAP) Pulse Ox O2 Delivery O2 Flow Rate FiO2 11/17/20 04:00 35.7 92 24 111/67 (82) 91 Room Air 11/17/20 00:32 85 11/16/20 23:54 35.5 87 20 113/54 (73) 94 Room Air 11/16/20 23:30 94 Room Air 11/16/20 20:10 Room Air 2.00 11/16/20 19:39 35.8 85 20 112/80 (91) 95 Room Air 11/16/20 18:52 85 11/16/20 16:00 35.7 81 20 90/61 (71) 93 Room Air 11/16/20 14:00 35.8 86 16 120/76 (91) 97 Room Air 11/16/20 09:00 96 Room Air 11/16/20 09:00 89 7 114/78 (90) 96 Room Air 11/16/20 08:00 80 12 107/75 (86) 87 Room Air 11/16/20 07:15 35.8 I & O 11/17/20 07:00 Intake Total 2025 ml Output Total 475 ml Balance 1550 ml Capillary Refill : Greater Than 3 SecondsLess Than 3 Seconds General Appearance: Chronically ill, Mild Distress HEENT: PERRL/EOMI Neck: Normal Inspection, Non Tender Respiratory: Rales (bilateral), Other (tachypnea) Cardiovascular: No Murmur, Normal Peripheral Pulses, Tachycardia Peripheral Pulses: 2+ Radial Pulses (R), 2+ Radial Pulses (L) Gastrointestinal: normal bowel sounds, tenderness (lower abdomen with palpation), other (Lower abdomen with edema of abdominal wall) Extremity: Normal Capillary Refill, No Calf Tenderness, Pedal Edema (RLE pitting edema and wounds ), Other (L BKA) Neurologic/Psychiatric: Alert, Oriented x3 Skin: No Diaphoresis; Other (sternotomy scar with exposed wire) Results Lab Laboratory Tests 11/16/20 10:04: Glucometer 226H 11/16/20 13:50: Lab Scanned Report Transfusion Reaction Form 11/16/20 16:35: Glucometer 226H 11/16/20 17:43: Sodium Level 133L, Potassium Level 4.1, Chloride Level 104, Carbon Dioxide Level 22, Anion Gap 7, Blood Urea Nitrogen 32H, Creatinine 0.80, Estimat Glomerular Filtration Rate > 60, BUN/Creatinine Ratio 40, Glucose Level 219H, Calcium Level 7.6L, Corrected Calcium 8.8, Total Bilirubin 0.5, Aspartate Amino Transf (AST/SGOT) 15, Alanine Aminotransferase (ALT/SGPT) 25, Alkaline Phosphatase 99, Total Protein 5.3L, Albumin 2.5L, Vancomycin Level Trough 22.2H 11/16/20 21:11: Glucometer 169H 11/17/20 05:20: White Blood Count 4.7, Red Blood Count 2.54L, Hemoglobin 7.0L, Hematocrit 23L, Mean Corpuscular Volume 90, Mean Corpuscular Hemoglobin 28, Mean Corpuscular Hemoglobin Concent 31L, Red Cell Distribution Width 17.2H, Platelet Count 103L, Mean Platelet Volume 10.1, Immature Granulocyte % (Auto) 1, Neutrophils (%) (Auto) 73, Lymphocytes (%) (Auto) 18, Monocytes (%) (Auto) 6, Eosinophils (%) (Auto) 1, Basophils (%) (Auto) 0, Neutrophils # (Auto) 3.5, Lymphocytes # (Auto) 0.9L, Monocytes # (Auto) 0.3, Eosinophils # (Auto) 0.1, Basophils # (Auto) 0.0, Immature Granulocyte # (Auto) 0.1, Phosphorus Level 2.6, Magnesium Level 2.0 11/17/20 05:31: Glucometer 177H Microbiology 11/12/20 MRSA Screen - Final, Complete 11/12/20 Blood Culture - Preliminary, Resulted No growth 11/12/20 Urine Culture - Final, Complete NO GROWTH Assessment/Plan Assessment/Plan Assessment/Plan severe anemia upper GI bleed right hip fracture ascites Covid negative CAD Chest wound -exposed wire from cabg hyponatremia follow hgb and transfuse prbc as needed, Hgb 7.0 this AM Continue Protonix Avoid any anticoagulation Continue conservative measures, may need EGD Multiple wounds right lower extremity and chest with exposed wire, wound care keep clean and dry not wanting anything done with it. tolerating clear advance as hgb remains stable Medical management per primary Clinical Quality Measures DVT/VTE Risk/Contraindication: Risk Factor Score Per Nursin RFS Level Per Nursing on Admit: 4+=Very High ANTONY BENNETT DO 11/18/20 1135: Subjective Subjective/Events-last exam Patient slightly short of breath. Transferred out of ICU. Pain controlled. Tolerating diet. Hurts to have right leg moved. Objective Exam General Appearance: Chronically ill, Mild Distress HEENT: PERRL/EOMI Neck: Normal Inspection, Non Tender Respiratory: Chest Non Tender, No Accessory Muscle Use, No Respiratory Distress, Other (tachypnea) Cardiovascular: Tachycardia Gastrointestinal: soft, tenderness (lower abdomen with palpation), other (Lower abdomen with edema of abdominal wall) Extremity: Pedal Edema (RLE pitting edema and wounds ), Other (L BKA) Neurologic/Psychiatric: Alert, Oriented x3 Skin: Other (sternotomy scar with exposed wire, edema ) Lymphatic: No Adenopathy Assessment/Plan Assessment/Plan Assessment/Plan severe anemia upper GI bleed right hip fracture ascites Covid negative CAD Chest wound -exposed wire from cabg hyponatremia follow hgb and transfuse prbc as needed, Hgb 7.0 this AM Continue Protonix Avoid any anticoagulation Continue conservative measures, may need EGD Multiple wounds right lower extremity and chest with exposed wire, wound care keep clean and dry not wanting anything done with it. tolerating clear advance as hgb remains stable Medical management per primary Supervisory-Addendum Brief Verification & Attestation Participated in pt care: history, MDM, physical Personally performed: exam, history, MDM, supervision of care Care discussed with: Medical Student Procedures: n/a Results interpretation: Verified all documentation Verification and Attestation of Medical Student E/M Service A medical student performed and documented this service in my presence. I reviewed and verified all information documented by the medical student and made modifications to such information, when appropriate. I personally performed the physical exam and medical decision making. Antony Bennett, Nov 17, 2020,11:34 GOLDIE MCCORMICK,MARNIE STUDENT Nov 17, 2020 07:13 ANTONY BENNETT DO Nov 18, 2020 11:35
--- NOTE | 2020-11-17 07:30 | NUR ---
DR GANNON NOTIFIED OF CONSULT
[2020-11-17 08:00] VITALS: BP 107/69
--- NOTE | 2020-11-17 08:15 | Consultation-Cardiology ---
HPI-Cardiology Cardiology Consultation Date of Consultation 11/17/20 Date of Admission Time Seen by Provider: 08:05 Indication: CHF HPI Patient is a 50 year old male with history of CAD with CABG in past, ischemic cardiomyopathy with most recent EF 25-30 percent December 2019, hypertension, left BKA. Was hospitalized last month for right hip fracture, presented to the ER with complaints of increased shortness of breath on November 12. Found to be in septic shock with cellulitis to right lower extremity. Patient was also severely anemic on admission. Continues to complain of some increased dyspnea on exertion. Having significant peripheral edema to right lower extremity. Denies any chest pain, dizziness, or lightheadedness. Home Medications & Allergies Allergies: Coded Allergies: raspberry (Unverified Allergy, Mild, 04/14/15) FROM UNCODED ALLERGIES Penicillins (Verified Allergy, Unknown, FEVER AND NAUSEA, 04/18/15) OCCURED AFTER RECEIVING IV Home Medication List Reviewed: Yes [id number] Hx Patient Social History Marital Status: single Employed/Student: unemployed Smoking Status: Current Everyday Smoker Type Used: Cigarettes Recent Hopitalizations: No Immunizations Up To Date Tetanus Booster (TDap): Unknown Date of Pneumonia Vaccine: Sep 17, 2014 Date of Influenza Vaccine: Sep 13, 2014 Past Medical History CAD, CHF, L BKA Family Medical History Significant Family History: No Pertinent Family Hx Family History: Colon cancer 19 FATHER Diabetes mellitus 19 FATHER Hypertension 19 FATHER Review of Systems-General Review of Systems Constitutional: see HPI; No chills; malaise, weakness EENTM: see HPI; No ear pain, No blurred vision, No double vision Respiratory: cough, dyspnea on exertion, short of breath Cardiovascular: see HPI; No chest pain; edema, Hx of Intervention; No palpitations; vascular heart diseas Gastrointestinal: No abdominal pain; diarrhea, nausea, vomiting Genitourinary: decreased output; No discharge Musculoskeletal: joint pain Skin: other (Decubitus ulcers on the feet) Psychiatric/Neurological: Denies Anxiety, Denies Depressed, Denies Emotional Problems All Other Systems Reviewed Negative Unless Noted: Yes (Negative excepted noted.) Reviewed Test Results Reviewed Test Results Lab Laboratory Tests 11/16/20 10:04: Glucometer 226H 11/16/20 13:50: Lab Scanned Report Transfusion Reaction Form 11/16/20 16:35: Glucometer 226H 11/16/20 17:43: Sodium Level 133L, Potassium Level 4.1, Chloride Level 104, Carbon Dioxide Level 22, Anion Gap 7, Blood Urea Nitrogen 32H, Creatinine 0.80, Estimat Glomerular Filtration Rate > 60, BUN/Creatinine Ratio 40, Glucose Level 219H, Calcium Level 7.6L, Corrected Calcium 8.8, Total Bilirubin 0.5, Aspartate Amino Transf (AST/SGOT) 15, Alanine Aminotransferase (ALT/SGPT) 25, Alkaline Phosphatase 99, Total Protein 5.3L, Albumin 2.5L, Vancomycin Level Trough 22.2H 11/16/20 21:11: Glucometer 169H 11/17/20 05:20: White Blood Count 4.7, Red Blood Count 2.54L, Hemoglobin 7.0L, Hematocrit 23L, Mean Corpuscular Volume 90, Mean Corpuscular Hemoglobin 28, Mean Corpuscular Hemoglobin Concent 31L, Red Cell Distribution Width 17.2H, Platelet Count 103L, Mean Platelet Volume 10.1, Immature Granulocyte % (Auto) 1, Neutrophils (%) (Auto) 73, Lymphocytes (%) (Auto) 18, Monocytes (%) (Auto) 6, Eosinophils (%) (Auto) 1, Basophils (%) (Auto) 0, Neutrophils # (Auto) 3.5, Lymphocytes # (Auto) 0.9L, Monocytes # (Auto) 0.3, Eosinophils # (Auto) 0.1, Basophils # (Auto) 0.0, Immature Granulocyte # (Auto) 0.1, Phosphorus Level 2.6, Magnesium Level 2.0 11/17/20 05:31: Glucometer 177H Microbiology 11/12/20 MRSA Screen - Final, Complete 11/12/20 Blood Culture - Preliminary, Resulted No growth 11/12/20 Urine Culture - Final, Complete NO GROWTH Physical Exam Physical Exam Vital Signs Vital Signs - First Documented 11/12/20 11/12/20 09:56 10:21 Temp 34.4 Pulse 85 Resp 16 B/P (MAP) 84/43 (57) Pulse Ox 100 O2 Delivery Non Rebreather O2 Flow Rate 4.00 Capillary Refill : Greater Than 3 SecondsLess Than 3 Seconds Height, Weight, BMI Height: 6'1.00" Weight: 216lbs. 4.0oz. 97.740520rt; 29.00 BMI Method:Stated General Appearance: Chronically ill, Mild Distress HEENT: PERRL/EOMI Neck: Normal Inspection, Non Tender Respiratory: Rales (bilateral), Other (tachypnea) Cardiovascular: Regular Rate, Rhythm, No Murmur, Normal Peripheral Pulses, Other (+3 pitting edema ) Gastrointestinal: Non Tender, Soft, Other (NGT remains in place, bloody ouput subsided) Back: No CVA Tenderness, No Vertebral Tenderness Extremity: Normal Capillary Refill, No Calf Tenderness, Pedal Edema (RLE pitting edema and wounds ), Other (L BKA) Neurologic/Psychiatric: Alert, Oriented x3 Skin: No Diaphoresis; Other (sternotomy scar with exposed wire) A/P-Cardiology Admission Diagnosis CHF CAD Cellulitis Sepsis Assessment/Plan Acute on chronic ischemic cardiomyopathy. Echo of 12/16/19 shows dilated cardiomyopathy with LV enlargement, diffuse hypokinesis and LVEF 25-30%, PASP a pprox 55 mmHg. I will give Lasix IV, restart enalapril and Coreg, reevaluate 2-D echocardiogram CAD. H/o CABG. Pt has no recollection, but previous records at this hosp indicate CABG was in 2009 in [place], [place]. Last card cath at this hosp was in 2012: occluded LAD and RCA, severely diseased LCX; patent JACINTO to LAD, patent SVG to PDA, patent SVG to OM, diffusely atretic and occluded SVG to RI, SVG 35- 40% A protruding end of a sternal wire from the cephalic part of the sternum. The patient states this has been present for many years and refuses any eval or treatment of this RLE cellulitis, continue antibiotics Septic shock on admission, management per hospitalist Severe anemia, s/p transfusion, continue to monitor. GI bleed, management per surgical services. S/p single chamber ICD (as seen on CXR of 10/25/20). This is [employer] device that was interrogated on 10/26/20 and found to be functioning normally with greter than 2 yrs of battery remaining L BKA. He doesn't know when or where or why it was done, and has had no f/u R hip fracture in Oct 2020 after a nonsyncopal fall. Was considered inoperable due to pt's neglect of it that has led to purulent skin breakdown Multiple areas of skin breakdown Apparently deliberate self-neglect Thank you for allowing us to participate in the management of Mr. Kasper. This is Carolyn Slaughter PA-C, as a scribe for Dr. Bustos. Patient was seen and evaluated with Carolyn, examination performed, management plan was discussed, agree with the current scribed note, I made few changes to the note using Italic font Patient was seen at bedside, sitting comfortably, denied any active pain. Having significant shortness of breath, bilateral rhonchi, pulmonary edema Given IV Lasix and started on daily Lasix for now and monitor renal function and his response Restart Coreg and enalapril. Monitor tolerance and response Clinical Quality Measures DVT/VTE Risk/Contraindication: Risk Factor Score Per Nursin RFS Level Per Nursing on Admit: 4+=Very High CAROLYN POPE Nov 17, 2020 08:14 HENRY BUSTOS MD Nov 17, 2020 11:01
[2020-11-17] MEDS ORDERED: FUROSEMIDE 40 MG/4 ML INJ (LASIX) IVP NR (08:45)
[2020-11-17] MEDS: ENALAPRIL 2.5 MG (VASOTEC) TAB PO SCH ×2 (09:29→20:38)
[2020-11-17] MEDS: PANTOPRAZOLE 40 MG (PROTONIX) VIAL IV SCH ×2 (09:29→20:38)
[2020-11-17] MEDS: CARVEDILOL 3.125 MG (COREG) TABLET PO SCH ×2 (09:29→20:38)
--- NOTE | 2020-11-17 09:39 | NUR ---
ULISES GRAYED OUT IN [facility], PHARMACY NOTIFIED
--- NOTE | 2020-11-17 11:36 | NUR ---
JIM/CAITLIN follow up. JIM/CAITLIN visited the patient. He was resting at time of visit but woke easily. He states that today he's been having trouble with his breathing but feels it might be getting better. JIM/CAITLIN discussed follow up with due to the patient never following through with an appointment. He stated "It was a holiday weekend and I tried multiple times". However, [facility] reported they attempted to contact him and his daughter to set up an appointment multiple times. They were able to reach the daughter but an appointment was not made. JIM/CAITLIN informed the patient that [facility] will not accept him back. He verbalized understanding. Home Health: JIM/CAITLIN provided the patient with a patient choice list. He chose [facility]. JIM/CAITLIN attempted to contact the agency and their answering service took the call. They took a message for the [place] office. Awaiting a call back. JIM/SS faxed referral. JIM/CAITLIN notified the patient's primary care nurse that he will need a follow up appointment with [facility] in [place] with Adrianna Mesa for a home visit. JIM/CAITLIN will continue to follow.
[2020-11-17 12:00] VITALS: BP 111/69
--- NOTE | 2020-11-17 12:40 | Progress Note - Hospitalist ---
BUSHRA MOBLEY MED STUDENT 11/17/20 1240: Subjective HPI/CC On Admission Date Seen by Provider: Nov 17, 2020 Time Seen by Provider: 09:15 CC: Septic shock with severe anemia HPI: This is a 50yoWM who presented to the ER with AMS and overall body pain. Patient was found to have septic shock with ascites on CT scan and new decubitus ulcer right lateral foot and right lateral leg. To note he was admitted here on 10/25/20 for hip fracture and cellulitis and ultimately did not undergo surgical repair due to high risk for complications in addition to cellulitis of the skin of the affected hip and since he was bedbound anyway they elected to not repair it so prison was arranged but ultimately patient refused NH placement and daughter brought him home to be caregiver. He presented today with stained bed clothes and hypotensive with elevated lactic acid and finding c/w septic shock with severe anemia of hgb 4.8. Patient was placed on broad spectrum abx and transfused and Dr Bennett has been consulted for acites which was too minimal for paracentesis but also for hemoccult positive stools and severe diarrhea requiring rectal tube. Patient has high risk for mortality considering his baseline debility and other med issues like left AKA and bedbound status. Subjective/Events-last exam Pt tachypneic since last night and continues to have trouble breathing this am - cardiology started Lasix Denies any pain, N/V and diarrhea Pt refuses breakfast Requested warm blanket which was brought to him Focused Exam Time of Focused Exam: 14:15 Objective Exam Vital Signs Vital Signs Date Time Temp Pulse Resp B/P (MAP) Pulse Ox O2 Delivery O2 Flow Rate FiO2 11/17/20 09:00 Room Air 11/17/20 08:00 35.7 89 52 107/69 (82) 91 11/16/20 20:10 2.00 Capillary Refill : Less Than 3 SecondsLess Than 3 Seconds General Appearance: Chronically ill, Mild Distress (mild dyspnea) HEENT: PERRL/EOMI Neck: Normal Inspection, Non Tender Respiratory: Chest Non Tender, Crackles, Decreased Breath Sounds Cardiovascular: Regular Rate, Rhythm, No JVD Gastrointestinal: No Pulsatile Mass, Non Tender, Soft Back: No CVA Tenderness, No Vertebral Tenderness Extremity: Normal Capillary Refill, Non Tender, Pedal Edema, Swelling Neurologic/Psychiatric: Alert, Oriented x3, Depressed Affect Skin: Pallor Lymphatic: No Adenopathy Results/Procedures Lab Laboratory Tests 11/16/20 17:43 11/17/20 05:20 Patient resulted labs reviewed. Assessment/Plan Assessment and Plan Assess & Plan/Chief Complaint Assessment: Septic shock Decubitus ulcers Cellulitis Anemia 7 hgb Elevated lactic acid Bedound status baseline GIB Left BKA hx Plan: ICU Abx IVF Pressors Mortality high 11/13/20: Wean pressors Monitor diarrhea Supportive care 11/14/20: Continue to wean pressors Continue Octreotide Monitor diarrhea Supportive care 11/15/20 Wean Levophed Continue Octreotide Continue Solucortef and abx NGT to be removed tomorrow Start clear liquids tomorrow Supportive care 11/16/20 Continue Solucortef Continue abx D/C Octreotide Monitor hgb Advance on from clear liquids as tolerated Supportive care Transfer to 4th floor with telemetry 11/17/20 Start Lasix Hold IVF Restart Coreg and Enalapril Continue abx and monitor pulmonary infiltrates Supportive care Clinical Quality Measures DVT/VTE Risk/Contraindication: Risk Factor Score Per Nursin RFS Level Per Nursing on Admit: 4+=Very High LORA HILLIARD DO 11/18/20 0555: Subjective Subjective/Events-last exam Lasix helping patient Diuresis maintained Very angry all the time Review of Systems Pulmonary: Dyspnea, Cough Objective Exam General Appearance: No Apparent Distress, WD/WN, Chronically ill Respiratory: Accessory Muscle Use, Decreased Breath Sounds Cardiovascular: Regular Rate, Rhythm Neurologic/Psychiatric: Alert, Oriented x3 Assessment/Plan Assessment and Plan Assess & Plan/Chief Complaint 11/17/20: Diuresis Supportive care Patient very debilitated Supervisory-Addendum Brief Verification & Attestation Participated in pt care: history, MDM, physical Personally performed: exam, history, MDM, supervision of care Care discussed with: Medical Student Procedures: n/a Results interpretation: Verified all documentation Verification and Attestation of Medical Student E/M Service A medical student performed and documented this service in my presence. I reviewed and verified all information documented by the medical student and made modifications to such information, when appropriate. I personally performed the physical exam and medical decision making. Lora Hilliard, Nov 18, 2020,05:54 BUSHRA MOBLEY MED STUDENT Nov 17, 2020 12:40 LORA HILLIARD DO Nov 18, 2020 05:55
[2020-11-17] MEDS: HYDROcodone/APAP 10 MG/325 MG (LORTAB) TAB PO PRN ×2 (14:01→18:30)
--- NOTE | 2020-11-17 14:13 | NUR ---
RD ASSESSMENT PMHx: hypercholesterolemia; GERD; L BKA; RA; DM; PT INTERACTION: Pt was awake and pleasant during nutrition assessment. Not pt has hx of AMS, per chart review. Pt states current appetite is not good. Not avg PO intake 50-75% x1d, per chart review. Pt states following regular diet at home, and has some issues with swallowing food. Pt states some recent issues with nausea and vomiting. Note episode of emesis on 11/15, per chart review. Note last BM was 11/13, and pt not currently on bowel regimen per chart review. Pt states unsure of recent wt changes. Note unable to determine recent wt hx, per chart review. Pt states unsure of current DM management. Note unable to determine recent HbA1c, per chart review. Est. kcal needs: Est. Pro needs: PES STATEMENT: Inadequate oral intake (NI-2.1) related to loss of appetite, nausea, and vomiting, as evidenced by pt interview, chart review, and avg PO intake 25-50% x1d. INTERVENTION: Continue with current diet order of Clear Liquid diet. Would not recommend supplementation as pt is a diabetic and Ensure Clear is high in CHO. Encouraged pt to eat when able. Did not offer diet education on DM management d/t pt's AMS. May attempt to offer when pt is more lucid. Will continue to follow and reassess as pt needs, intake, and status change. Bree TOPETE, MS RD LD [phone] cell
[2020-11-17 16:00] VITALS: BP 98/65
[2020-11-17] MEDS: VANCOMYCIN 1 GM/NS 250 ML IVPB IV SCH ×2 (18:18)
[2020-11-17 19:44] VITALS: BP 111/63
[2020-11-17] MEDS ORDERED: DEXTROSE 50% 50 ML (IMS) SYR IV PRN ×2 (20:10→22:30)
[2020-11-17] MEDS ORDERED: DEXTROSE 50% 50 ML (IMS) SYR ONE (20:13)
[2020-11-17] MEDS: ONDANSETRON 4 MG/2 ML (SDV) Z0FRAN IV PRN (20:41)
[2020-11-17] MEDS: morphine INJ 4 MG/ML 1 ML (VIAL/SYRINGE) IV PRN (20:43)
[2020-11-18] VITALS (28 sets, daily range): BP systolic 84–141; BP diastolic 52–100
[2020-11-18] MEDS ORDERED: DEXTROSE 10% IV SOLUTION 1,000 ML IV SCH (00:30)
[2020-11-18] MEDS ORDERED: DEXTROSE 50% 50 ML (IMS) SYR IV PRN (00:30)
[2020-11-18] MEDS ORDERED: DEXTROSE 10% IV SOLUTION 1,000 ML IV ONE (00:32)
[2020-11-18] MEDS ORDERED: NS IV 1000 ML 1,000 ML ONE (01:56)
[2020-11-18 01:57] LABS: BASOPHILS % (AUTO) 0 % (0-10); EOSINOPHILS # (AUTO) 0.1 10^3/uL (0.0-0.3); EOSINOPHILS % (AUTO) 2 % (0-10); HEMATOCRIT 24 % (40-54); HEMOGLOBIN 7.3 g/dL (13.3-17.7); LYMPHOCYTES # (AUTO) 0.8 10^3/uL (1.0-4.0); LYMPHOCYTES % (AUTO) 13 % (12-44); MEAN CORPUSCULAR HEMOGLOBIN 27 pg (25-34); MEAN CORPUSCULAR HGB CONC 30 g/dL (32-36); MEAN CORPUSCULAR VOLUME 90 fL (80-99); MEAN PLATELET VOLUME 10.4 fL (9.0-12.2); MONOCYTES # (AUTO) 0.3 10^3/uL (0.0-1.0); MONOCYTES % (AUTO) 5 % (0-12); NEUTROPHILS # (AUTO) 4.5 10^3/uL (1.8-7.8); NEUTROPHILS % (AUTO) 78 % (42-75); PLATELET COUNT 105 10^3/uL (130-400); WHITE BLOOD COUNT 5.7 10^3/uL (4.3-11.0)
[2020-11-18 02:14] LABS: BUN/CREATININE RATIO 36; CALCIUM 7.3 MG/DL (8.5-10.1); CARBON DIOXIDE 18 MMOL/L (21-32); CHLORIDE 106 MMOL/L (98-107); GFR ESTIMATED > 60; GLUCOSE 99 MG/DL (70-105); MAGNESIUM 1.9 MG/DL (1.6-2.4); PHOSPHORUS 2.7 MG/DL (2.3-4.7); POTASSIUM 3.9 MMOL/L (3.6-5.0); SODIUM 134 MMOL/L (135-145)
[2020-11-18] MEDS: inSUlin ASPART (NovoLOG) 1 UNIT/0.01 ML (CHARGE PER UNIT) SC SCH ×4 (03:30→21:59)
[2020-11-18] MEDS ORDERED: NS IV 1000 ML 1,000 ML IV ONE (03:30)
[2020-11-18] MEDS: MAGNESIUM 1 GM/100 ML IVPB 100 ML IV SCH (04:59)
[2020-11-18] MEDS: POTASSIUM CL 10MEQ/50ML IVPB 50 ML IV SCH (04:59)
[2020-11-18] MEDS: KCL 20 MEQ TAB (K-DUR) PO SCH (04:59)
[2020-11-18] MEDS ORDERED: NS IV 1000 ML 1,000 ML IV SCH (05:00)
[2020-11-18] MEDS: inSUlin ASPART (NovoLOG) 1 UNIT/0.01 ML (CHARGE PER UNIT) SQ SCH (05:00)
[2020-11-18] MEDS: NOREPINEPHRINE 4 MG/250 ML 250 ML IV SCH ×3 (05:16→13:21)
--- NOTE | 2020-11-18 06:29 | NUR ---
TIMELINE NOTE: 0100: PT TRANSFERRED FROM 4TH MEDICAL FLOOR AT THIS TIME SECONDARY TO HYPOGLYCEMIA. BEDSIDE REPORT FROM SUMEET WHITMAN. PT CONNECTED TO ICU MONITORS. SEE INTERVENTIONS FOR VITAL SIGNS. D10 RUNNING AT 40 ML/HR. PT IS A&O X4. STAT LABS ORDERED AND SENT DOWN. 0140: BLOOD SUGAR: 113 0200: SBP: 60'S-70'S WITH 200 ML OF UOP FOR THE SHIFT NOTED. E-ICU NOTIFIED; NEW ORDER FOR 1 L NS BOLUS X1 NOW. 0240: BLOOD SUGAR: 106 0430: BLOOD SUGAR: 110 0500: SBP IN THE 50'S. THIS RN CALLED E-ICU: NEW ORDER FOR ADDITIONAL 1 L NS BOLUS AND TO START LEVOPHED IF NEEDED. 0530: LEVOPHED STARTED. SEE IV SPREADSHEET FOR RATE/TITRATION. 0540: THIS RN NOTIFIED DR. DANIELS OF LEVOPHED ADMINISTRATION INTO A MIDLINE; ORDER RECEIVED TO HAVE PICC LINE NURSE PLACE PICC LINE FIRST THING IN AM.
[2020-11-18] MEDS: PANTOPRAZOLE 40 MG (PROTONIX) VIAL IV SCH ×2 (08:00→21:59)
[2020-11-18] MEDS: ENALAPRIL 2.5 MG (VASOTEC) TAB PO SCH ×2 (08:03→19:30)
[2020-11-18] MEDS: CARVEDILOL 3.125 MG (COREG) TABLET PO SCH ×2 (08:03→19:30)
--- NOTE | 2020-11-18 09:12 | NUR ---
DUE TO ABOVE O2 SAT PATIENT WAS PLACED ON RA AT THIS TIME; RN AND EGG PROCESSING SUPERVISOR WAS BOTH NOTIFIED OF THIS CHANGE BY THIS RT DOING O2 ROUNDS O2 TKS GREATER THAN 92% 0-6 L Addendum: 11/18/20 at 1435 by PHOEBE OSORIO RT RN HAD TO PLACE PATIENT BACK ON 2 L NC DUE TO O2 SAT DROPPING TO 88%
--- NOTE | 2020-11-18 09:15 | Progress Note - Surgery ---
RONY DÍAZ MED STUDENT 11/18/20 0915: Subjective Date Seen by a Provider: Nov 18, 2020 Time Seen by a Provider: 09:02 Subjective/Events-last exam Pt asleep but easily awoken upon entering. Pt notes better breathing from yesterday but still maintains some SOB. Pt on 2L and 98 O2 sat when seen, RT came in and moved him to RA. Pt notes BM yesterday and flatus. Pt denies pain, chills, N/V. Handling clear liquids well. Review of Systems General: No Chills HEENT: No Head Aches Pulmonary: Dyspnea, Cough Cardiovascular: No: Chest Pain Gastrointestinal: No: Nausea, Vomiting, Abdominal Pain Genitourinary: Other (Folie cath) Focused Exam Lactate Level 11/18/20 01:45: Lactic Acid Level 1.44 Time of Focused Exam: 14:15 Objective Exam Vital Signs Date Time Temp Pulse Resp B/P (MAP) Pulse Ox O2 Delivery O2 Flow Rate FiO2 11/18/20 08:00 66 11 100/71 (81) 94 Nasal Cannula 2.00 11/18/20 07:30 36.0 11/18/20 07:00 66 11/18/20 07:00 66 11 106/64 (78) 94 Nasal Cannula 2.00 11/18/20 06:00 68 14 92/64 (73) 95 Nasal Cannula 2.00 11/18/20 05:16 63 86/54 11/18/20 05:00 66 14 91/71 (78) 97 Nasal Cannula 2.00 11/18/20 04:00 63 16 86/54 (65) 94 Nasal Cannula 2.00 11/18/20 04:00 36.2 11/18/20 02:45 66 15 84/66 (72) 95 Nasal Cannula 2.00 11/18/20 02:15 65 13 94/67 (76) 99 Nasal Cannula 2.00 11/18/20 01:45 68 16 103/77 (86) 100 Nasal Cannula 2.00 11/18/20 01:30 65 11 91/73 (79) 100 Nasal Cannula 2.00 11/18/20 01:15 67 13 84/62 (69) 99 Nasal Cannula 2.00 11/18/20 01:01 36.0 68 21 105/76 (86) 96 Nasal Cannula 2.00 11/18/20 00:55 70 11/18/20 00:00 35.6 71 20 110/69 (83) 91 Room Air 11/17/20 20:00 Room Air 11/17/20 19:44 35.9 80 18 111/63 (79) 93 Room Air 11/17/20 19:00 81 11/17/20 16:00 35.8 82 18 98/65 (76) 90 Room Air 11/17/20 12:45 83 11/17/20 12:00 35.7 88 36 111/69 (83) 91 Room Air I & O 11/18/20 07:00 Intake Total 1380 ml Output Total 1580 ml Balance -200 ml Capillary Refill : Less Than 3 SecondsLess Than 3 Seconds General Appearance: No Apparent Distress, WD/WN, Chronically ill HEENT: PERRL/EOMI Neck: Normal Inspection, Non Tender Respiratory: Accessory Muscle Use, Crackles, Decreased Breath Sounds Cardiovascular: Regular Rate, Rhythm Peripheral Pulses: 2+ Radial Pulses (R), 2+ Radial Pulses (L) Gastrointestinal: normal bowel sounds Extremity: Normal Capillary Refill, Non Tender, Pedal Edema, Swelling Neurologic/Psychiatric: Alert, Oriented x3 Skin: Pallor Lymphatic: No Adenopathy Results Lab Laboratory Tests 11/17/20 11:48: Glucometer 182H 11/17/20 12:07: Lab Scanned Report Transfusion Reaction Form 11/17/20 16:52: Glucometer 125H 11/17/20 19:53: Glucometer 54*L 11/17/20 22:09: Glucometer 41*L 11/17/20 23:05: Glucometer 55*L 11/18/20 00:19: Glucometer 47*L 11/18/20 00:49: Glucometer 177H 11/18/20 01:31: Glucometer 113H 11/18/20 01:45: White Blood Count 5.7, Red Blood Count 2.66L, Hemoglobin 7.3L, Hematocrit 24L, Mean Corpuscular Volume 90, Mean Corpuscular Hemoglobin 27, Mean Corpuscular Hemoglobin Concent 30L, Red Cell Distribution Width 17.2H, Platelet Count 105L, Mean Platelet Volume 10.4, Immature Granulocyte % (Auto) 1, Neutrophils (%) (Auto) 78H, Lymphocytes (%) (Auto) 13, Monocytes (%) (Auto) 5, Eosinophils (%) (Auto) 2, Basophils (%) (Auto) 0, Neutrophils # (Auto) 4.5, Lymphocytes # (Auto) 0.8L, Monocytes # (Auto) 0.3, Eosinophils # (Auto) 0.1, Basophils # (Auto) 0.0, Immature Granulocyte # (Auto) 0.1, Sodium Level 134L, Potassium Level 3.9, Chloride Level 106, Carbon Dioxide Level 18L, Anion Gap 10, Blood Urea Nitrogen 29H, Creatinine 0.80, Estimat Glomerular Filtration Rate > 60, BUN/Creatinine Ratio 36, Glucose Level 99, Lactic Acid Level 1.44, Calcium Level 7.3L, Phosphorus Level 2.7, Magnesium Level 1.9 11/18/20 02:50: Glucometer 106 11/18/20 04:34: Glucometer 111H 11/18/20 06:49: Glucometer 125H Microbiology 11/12/20 MRSA Screen - Final, Complete 11/12/20 Blood Culture - Preliminary, Resulted Positive; See Report 11/12/20 Urine Culture - Final, Complete NO GROWTH Assessment/Plan Assessment/Plan Assessment/Plan severe anemia upper GI bleed right hip fracture ascites Covid negative CAD Chest wound -exposed wire from cabg hyponatremia Unstable blood sugar levels (episodes of hyper/hypoglycemia) follow hgb and transfuse prbc as needed, Hgb 7.0 this AM Continue Protonix Avoid any anticoagulation Continue conservative measures, may need EGD Multiple wounds right lower extremity and chest with exposed wire, wound care keep clean and dry not wanting anything done with it. tolerating clear advance as hgb remains stable Medical management per primary Glucose monitoring/ maintenance Clinical Quality Measures DVT/VTE Risk/Contraindication: Risk Factor Score Per Nursin RFS Level Per Nursing on Admit: 4+=Very High ANTONY BENNETT DO 11/18/20 1144: Subjective Subjective/Events-last exam Patient shortness of breath. Transferred back to ICU. Tolerating diet. Denies requiring pressors. Leg pain better controlled. Denies n/v fever sweats chills chest pain. Objective Exam General Appearance: No Apparent Distress, WD/WN, Chronically ill HEENT: PERRL/EOMI Neck: Normal Inspection, Non Tender Respiratory: No Accessory Muscle Use, No Respiratory Distress, Decreased Breath Sounds Cardiovascular: Regular Rate, Rhythm, No JVD Gastrointestinal: non tender, soft Extremity: Normal Capillary Refill, Pedal Edema, Swelling (right lower ext), Other (left bka) Neurologic/Psychiatric: Alert, Oriented x3 Skin: Warm/Dry, Pallor, Other (right lower ext wounds) Lymphatic: No Adenopathy Assessment/Plan Assessment/Plan Assessment/Plan severe anemia upper GI bleed right hip fracture ascites Covid negative CAD Chest wound -exposed wire from cabg hyponatremia hypotenstion Unstable blood sugar levels (episodes of hyper/hypoglycemia) follow hgb and transfuse prbc as needed, Hgb 7.3 this AM on levophed, titrate off as tolerates Continue Protonix Incentive spirtometer MAT protocol Avoid any anticoagulation Continue conservative measures, may need EGD Multiple wounds right lower extremity and chest with exposed wire, wound care keep clean and dry not wanting anything done with it. tolerating clear advance as hgb remains stable Medical management per primary Glucose monitoring/ maintenance Supervisory-Addendum Brief Verification & Attestation Participated in pt care: history, MDM, physical Personally performed: exam, history, MDM, supervision of care Care discussed with: Medical Student Procedures: n/a Results interpretation: Verified all documentation Verification and Attestation of Medical Student E/M Service A medical student performed and documented this service in my presence. I reviewed and verified all information documented by the medical student and made modifications to such information, when appropriate. I personally performed the physical exam and medical decision making. Antony Bennett, Nov 18, 2020,11:43 RONY DÍAZ MED STUDENT Nov 18, 2020 09:15 ANTONY BENNETT DO Nov 18, 2020 11:44
[2020-11-18] MEDS: HYDROcodone/APAP 10 MG/325 MG (LORTAB) TAB PO PRN (11:08)
[2020-11-18] MEDS: morphine INJ 4 MG/ML 1 ML (VIAL/SYRINGE) IV PRN ×2 (13:01→22:04)
--- NOTE | 2020-11-18 14:12 | Cardiology Progress Note ---
Cardiology SOAP Progress Note Subjective: No active cardiac complaints. Objective: I&O/Vital Signs 11/20/20 11/20/20 11/20/20 11/20/20 06:00 06:35 06:55 07:00 Temp 37.6 36.8 Pulse 88 94 101 101 Resp 16 20 20 19 B/P (MAP) 85/55 (65) 86/58 93/56 97/66 (76) Pulse Ox 91 90 90 91 O2 Delivery Nasal Cannula Room Air Room Air Room Air O2 Flow Rate 2.00 11/20/20 11/20/20 11/20/20 11/20/20 07:00 07:19 08:00 09:00 Temp 36.2 Pulse 97 100 98 Resp 12 10 B/P (MAP) 97/63 (74) 100/62 (75) Pulse Ox 92 92 O2 Delivery Room Air Room Air 11/20/20 11/20/20 11/20/20 11/20/20 09:20 10:00 11:00 12:00 Temp 36.8 Pulse 97 98 98 Resp 13 12 14 B/P (MAP) 106/63 (77) 108/71 (83) 98/71 Pulse Ox 92 93 91 93 O2 Delivery Room Air Room Air Room Air Room Air 11/20/20 11/20/20 11/20/20 12:02 12:10 15:29 Temp 36.8 37.8 Pulse 100 100 Resp 14 18 B/P (MAP) 98/71 (80) 99/71 (80) Pulse Ox 93 93 O2 Delivery Room Air Room Air 11/20/20 00:00 Intake Total 975 ml Output Total 475 ml Balance 500 ml Weight (Pounds): 216 Weight (Ounces): 4.0 Weight (Calculated Kilograms): 97.871820 Constitutional: AAO x 3 Respiratory: chest is bilaterally symmetric, lungs clear to auscultation Cardiovascular: regular rate-rhythm, S1 and S2 Gastrointestional: soft, audible bowel sounds Extremities: no lower extremity edema bilateral Neurologic/Psychiatric: no motor/sensory deficits, alert, normal mood/affect, oriented x 3 Skin: normal color, warm/dry Results/Procedures: Labs Laboratory Tests 11/19/20 20:48: Glucometer 118H 11/20/20 04:29: White Blood Count 6.3, Red Blood Count 2.48L, Hemoglobin 6.7*L, Hematocrit 22L, Mean Corpuscular Volume 89, Mean Corpuscular Hemoglobin 27, Mean Corpuscular Hemoglobin Concent 31L, Red Cell Distribution Width 17.0H, Platelet Count 110L, Mean Platelet Volume 10.4, Immature Granulocyte % (Auto) 1, Neutrophils (%) (Auto) 72, Lymphocytes (%) (Auto) 19, Monocytes (%) (Auto) 5, Eosinophils (%) (Auto) 3, Basophils (%) (Auto) 0, Neutrophils # (Auto) 4.6, Lymphocytes # (Auto) 1.2, Monocytes # (Auto) 0.3, Eosinophils # (Auto) 0.2, Basophils # (Auto) 0.0, Immature Granulocyte # (Auto) 0.1, Sodium Level 134L, Potassium Level 3.6, Chloride Level 107, Carbon Dioxide Level 21, Anion Gap 6, Blood Urea Nitrogen 17, Creatinine 0.73, Estimat Glomerular Filtration Rate > 60, BUN/Creatinine Ratio 23, Glucose Level 124H, Calcium Level 7.1L, Phosphorus Level 2.3, Magnesium Level 1.8 11/20/20 12:11: Glucometer 177H 11/20/20 15:24: Hemoglobin 8.2#L, Hematocrit 26L 11/20/20 16:11: Glucometer 198H Microbiology 11/18/20 Blood Culture - Preliminary, Resulted No growth 11/12/20 MRSA Screen - Final, Complete 11/12/20 Urine Culture - Final, Complete NO GROWTH A/P: Assessment/Dx: CHF CAD Cellulitis Sepsis Plan: Acute on chronic ischemic cardiomyopathy. Echo of 12/16/19 shows dilated cardiomyopathy with LV enlargement, diffuse hypokinesis and LVEF 25-30%, PASP approx 55 mmHg. cardiomyopathy medications held due to hypotension. Echocardiogram showed an EF of 20-25 percent. CAD. H/o CABG. Pt has no recollection, but previous records at this hosp indic ate CABG was in 2009 in [place], [place]. Last card cath at this hosp was in 2012: occluded LAD and RCA, severely diseased LCX; patent JACINTO to LAD, patent SVG to PDA, patent SVG to OM, diffusely atretic and occluded SVG to RI, SVG 35-40% A protruding end of a sternal wire from the cephalic part of the sternum. The patient states this has been present for many years and refuses any eval or treatment of this RLE cellulitis, continue antibiotics Septic shock on admission, management per hospitalist Severe anemia, s/p transfusion, continue to monitor. GI bleed, management per surgical services. S/p single chamber ICD (as seen on CXR of 10/25/20). This is [employer] device that was interrogated on 10/26/20 and found to be functioning normally with greater than 2 yrs of battery remaining L BKA. He doesn't know when or where or why it was done, and has had no f/u R hip fracture in Oct 2020 after a nonsyncopal fall. Was considered inoperable due to pt's neglect of it that has led to purulent skin breakdown Multiple areas of skin breakdown Apparently deliberate self-neglect Thank you for your consultation. Please call me if you have any questions. Akil Arcos MD, FACP, FACC, FSCAI, FHRS, CCDS Interventional Cardiology Cardiac Electrophysiology Vascular Medicine and Endovascular Interventions Focused Exam Lactate Level 11/18/20 01:45: Lactic Acid Level 1.44 Time of Focused Exam: 14:15 Krystyna ARCOS MD Nov 18, 2020 14:11
--- NOTE | 2020-11-18 15:28 | Progress Note - Hospitalist ---
Subjective HPI/CC On Admission Date Seen by Provider: Nov 18, 2020 Time Seen by Provider: 13:00 CC: Septic shock with severe anemia HPI: This is a 50yoWM who presented to the ER with AMS and overall body pain. Patient was found to have septic shock with ascites on CT scan and new decubitus ulcer right lateral foot and right lateral leg. To note he was admitted here on 10/25/20 for hip fracture and cellulitis and ultimately did not undergo surgical repair due to high risk for complications in addition to cellulitis of the skin of the affected hip and since he was bedbound anyway they elected to not repair it so custodial was arranged but ultimately patient refused NH placement and daughter brought him home to be caregiver. He presented today with stained bed clothes and hypotensive with elevated lactic acid and finding c/w septic shock with severe anemia of hgb 4.8. Patient was placed on broad spectrum abx and transfused and Dr Bennett has been consulted for acites which was too minimal for paracentesis but also for hemoccult positive stools and severe diarrhea requiring rectal tube. Patient has high risk for mortality considering his baseline debility and other med issues like left AKA and bedbound status. Subjective/Events-last exam Patient is awake and alert and is lying with elevated head of bed at about 30 degrees. He does not appear to be short of breath. He is a tad grumpy but is approachable. He has no specific complaints other than his right leg is bothering him and is uncomfortable. Nursing staff notes that he was profoundly hypoglycemic and that insulin doses may need to be adjusted since the patient is not taking oral food very well. Review of Systems Musculoskeletal: leg pain Neurological: Weakness Focused Exam Lactate Level 11/18/20 01:45: Lactic Acid Level 1.44 Time of Focused Exam: 14:15 Objective Exam Vital Signs Vital Signs Date Time Temp Pulse Resp B/P (MAP) Pulse Ox O2 Delivery O2 Flow Rate FiO2 11/20/20 12:10 36.8 11/20/20 12:02 100 14 98/71 (80) 93 Room Air 11/20/20 06:00 2.00 11/18/20 14:35 28 Capillary Refill : Less Than 3 SecondsLess Than 3 Seconds General Appearance: Chronically ill Respiratory: Decreased Breath Sounds Cardiovascular: Regular Rate, Rhythm Gastrointestinal: Distended, Other (Fluid wave) Extremity: Pedal Edema, Other (Left AKA) Neurologic/Psychiatric: Alert, Depressed Affect Skin: Pallor Results/Procedures Lab Laboratory Tests 11/20/20 04:29 Patient resulted labs reviewed. Imaging: Reviewed Imaging Report Assessment/Plan Assessment and Plan Assess & Plan/Chief Complaint Hypotension -on Levophed GI bleed currently anemic but stable Thrombocytopenia most likely secondary to portal hypertension suspect cirrhosis as patient has a significant alcohol history in the past Coronary artery disease status post bypass with evidence of previous defibrillat ion. Left BKA Nonrepaired right hip fracture Nonambulatory state with decubitus ulcers Acute on chronic respiratory failure on vancomycin, with right upper lobe infiltrate right base Type 2 diabetes on insulin with labile control will use sliding scale be with low-dose Levemir once a day since his oral intake is poor Clinical Quality Measures DVT/VTE Risk/Contraindication: Risk Factor Score Per Nursin RFS Level Per Nursing on Admit: 4+=Very High YULIANA LANGE MD Nov 18, 2020 15:28
[2020-11-18] MEDS: ONDANSETRON 4 MG/2 ML (SDV) Z0FRAN IV PRN (15:53)
[2020-11-18] MEDS: VANCOMYCIN 1 GM/NS 250 ML IVPB IV SCH ×2 (18:27)
[2020-11-18] MEDS ORDERED: TROUGH ORDER-PHARMACY XX NR (18:30)
[2020-11-18] MEDS ORDERED: RT-ALBUTEROL/IPRATROPIUM 3 ML (DUONEB) VIAL ONE (18:56)
[2020-11-19] VITALS (24 sets, daily range): BP systolic 85–104; BP diastolic 49–86
[2020-11-19] MEDS: morphine INJ 4 MG/ML 1 ML (VIAL/SYRINGE) IV PRN (02:40)
[2020-11-19] MEDS: NOREPINEPHRINE 4 MG/250 ML 250 ML IV SCH ×4 (03:05→16:52)
[2020-11-19 05:35] LABS: BASOPHILS % (AUTO) 0 % (0-10); EOSINOPHILS # (AUTO) 0.4 10^3/uL (0.0-0.3); EOSINOPHILS % (AUTO) 4 % (0-10); HEMATOCRIT 27 % (40-54); HEMOGLOBIN 8.1 g/dL (13.3-17.7); LYMPHOCYTES # (AUTO) 1.3 10^3/uL (1.0-4.0); LYMPHOCYTES % (AUTO) 13 % (12-44); MEAN CORPUSCULAR HEMOGLOBIN 27 pg (25-34); MEAN CORPUSCULAR HGB CONC 31 g/dL (32-36); MEAN CORPUSCULAR VOLUME 89 fL (80-99); MEAN PLATELET VOLUME 10.7 fL (9.0-12.2); MONOCYTES # (AUTO) 0.4 10^3/uL (0.0-1.0); MONOCYTES % (AUTO) 4 % (0-12); NEUTROPHILS # (AUTO) 7.7 10^3/uL (1.8-7.8); NEUTROPHILS % (AUTO) 78 % (42-75); PLATELET COUNT 158 10^3/uL (130-400); WHITE BLOOD COUNT 9.9 10^3/uL (4.3-11.0)
[2020-11-19 05:51] LABS: CHLORIDE 108 MMOL/L (98-107); POTASSIUM 3.7 MMOL/L (3.6-5.0); SODIUM 135 MMOL/L (135-145)
[2020-11-19 05:52] LABS: CALCIUM 7.2 MG/DL (8.5-10.1)
[2020-11-19 05:53] LABS: GLUCOSE 81 MG/DL (70-105)
[2020-11-19 05:54] LABS: CARBON DIOXIDE 22 MMOL/L (21-32)
[2020-11-19 05:56] LABS: CREATININE SERUM 0.74 MG/DL (0.60-1.30); GFR ESTIMATED > 60; PHOSPHORUS 2.4 MG/DL (2.3-4.7)
[2020-11-19 05:57] LABS: BUN/CREATININE RATIO 28
[2020-11-19 05:59] LABS: MAGNESIUM 1.8 MG/DL (1.6-2.4)
[2020-11-19] MEDS: MAGNESIUM 1 GM/100 ML IVPB 100 ML IV SCH (06:08)
[2020-11-19] MEDS: POTASSIUM CL 10MEQ/50ML IVPB 50 ML IV SCH (06:08)
[2020-11-19] MEDS: inSUlin ASPART (NovoLOG) 1 UNIT/0.01 ML (CHARGE PER UNIT) SC SCH ×4 (06:09→21:06)
[2020-11-19] MEDS: KCL 20 MEQ TAB (K-DUR) PO SCH (06:09)
[2020-11-19] MEDS: CARVEDILOL 3.125 MG (COREG) TABLET PO SCH ×2 (07:55→19:12)
[2020-11-19] MEDS: ENALAPRIL 2.5 MG (VASOTEC) TAB PO SCH ×2 (07:55→19:12)
[2020-11-19] MEDS: PANTOPRAZOLE 40 MG (PROTONIX) VIAL IV SCH ×2 (08:59→21:10)
[2020-11-19] MEDS: HYDROcodone/APAP 10 MG/325 MG (LORTAB) TAB PO PRN (09:09)
--- NOTE | 2020-11-19 11:01 | Progress Note - Hospitalist ---
MEEK TRAN, 11/19/20 1101: Subjective HPI/CC On Admission Time Seen by Provider: 10:00 CC: Septic shock with severe anemia HPI: This is a 50yoWM who presented to the ER with AMS and overall body pain. Patient was found to have septic shock with ascites on CT scan and new decubitus ulcer right lateral foot and right lateral leg. To note he was admitted here on 10/25/20 for hip fracture and cellulitis and ultimately did not undergo surgical repair due to high risk for complications in addition to cellulitis of the skin of the affected hip and since he was bedbound anyway they elected to not repair it so intermediate was arranged but ultimately patient refused NH placement and daughter brought him home to be caregiver. He presented today with stained bed clothes and hypotensive with elevated lactic acid and finding c/w septic shock with severe anemia of hgb 4.8. Patient was placed on broad spectrum abx and transfused and Dr Bennett has been consulted for acites which was too minimal for paracentesis but also for hemoccult positive stools and severe diarrhea requiring rectal tube. Patient has high risk for mortality considering his baseline debility and other med issues like left AKA and bedbound status. Subjective/Events-last exam Mr. Kasper was seen and examined in the ICU this am. He voices no concerns at this time. Continues to be on levophed for blood pressure support. Denies any chest pain, shortness of breath, nausea/vomiting. Focused Exam Lactate Level 11/18/20 01:45: Lactic Acid Level 1.44 Time of Focused Exam: 14:15 Objective Exam Vital Signs Vital Signs Date Time Temp Pulse Resp B/P (MAP) Pulse Ox O2 Delivery O2 Flow Rate FiO2 11/19/20 10:00 84 19 94/69 (77) 92 Nasal Cannula 2.00 11/18/20 23:57 36.0 11/18/20 14:35 28 Capillary Refill : Less Than 3 SecondsLess Than 3 Seconds General Appearance: No Apparent Distress HEENT: PERRL/EOMI Respiratory: Lungs Clear, Normal Breath Sounds Cardiovascular: Regular Rate, Rhythm, No Murmur, Normal Peripheral Pulses Gastrointestinal: Abnormal Bowel Sounds (hypoactive), Distended Extremity: Pedal Edema Neurologic/Psychiatric: Alert, Oriented x3 Skin: Normal Color, Warm/Dry Results/Procedures Lab Laboratory Tests 11/19/20 05:10 Patient resulted labs reviewed. Imaging: Reviewed Imaging Report Assessment/Plan Assessment and Plan Assess & Plan/Chief Complaint Anemia * GI bleed but stable Hg * Blood pressure support stable with levophed * Will hold DVT prophylaxis Thrombocytopenia * Most likely secondary to portal hypertension * Suspect cirrhosis as patient has a significant alcohol history in the past Coronary artery disease status post bypass with evidence of previous defibrillation * Monitor Left AKA Nonrepaired right hip fracture Nonambulatory state with decubitus ulcers * Bedbound status * Pain control * Wound care Acute on chronic respiratory failure with right upper lobe infiltrate right base * On vancomycin day 2 Type 2 diabetes on insulin with labile control * Will use sliding scale * Low-dose Levemir 10iu HS once a day since his oral intake is poor Diet: clear liquids DVT PPx: SCDs for now for chronic anemia FULL CODE Clinical Quality Measures DVT/VTE Risk/Contraindication: Risk Factor Score Per Nursin RFS Level Per Nursing on Admit: 4+=Very High YULIANA MI MD 11/19/20 1358: Subjective HPI/CC On Admission Date Seen by Provider: Nov 19, 2020 Objective Exam General Appearance: No Apparent Distress HEENT: PERRL/EOMI Respiratory: Lungs Clear, Normal Breath Sounds Cardiovascular: Regular Rate, Rhythm, No Murmur, Normal Peripheral Pulses Gastrointestinal: Abnormal Bowel Sounds (hypoactive), Distended Extremity: Pedal Edema Neurologic/Psychiatric: Alert, Oriented x3, No Motor/Sensory Deficits Skin: Normal Color, Warm/Dry Supervisory-Addendum Brief Verification & Attestation Participated in pt care: history, MDM, physical Personally performed: exam, MDM, supervision of care Care discussed with: Medical Student Procedures: n/a Patient remains hypotensive requiring pressor support. Will transfer to floor when hemodynamically stable.Verification and Attestation of Medical Student E/M Service A medical student performed and documented this service in my presence. I reviewed and verified all information documented by the medical student and made modifications to such information, when appropriate. I personally performed the physical exam and medical decision making. Yuliana Mi, Nov 19, 2020,13:57 MEEK TRAN, Nov 19, 2020 11:01 YULINAA MI MD Nov 19, 2020 13:58
--- NOTE | 2020-11-19 11:29 | Progress Note - Surgery ---
GOLDIE MCCORMICK,MED STUDENT 11/19/20 1129: Subjective Date Seen by a Provider: Nov 19, 2020 Time Seen by a Provider: 09:05 Subjective/Events-last exam Pt seen and examined this AM. States he is having some pain in his left side but unable to localize exact place. Denies hematemesis, nausea, vomiting, abdominal pain, hematochezia or melena. Hgb up to 8.1 today. Review of Systems General: Fatigue HEENT: No Head Aches Pulmonary: Dyspnea, Cough Cardiovascular: Edema; No: Chest Pain Gastrointestinal: No: Nausea, Vomiting, Abdominal Pain, Melena, Hematochezia Musculoskeletal: leg pain (left thigh area) Neurological: Weakness; No: Confusion Focused Exam Lactate Level 11/18/20 01:45: Lactic Acid Level 1.44 Time of Focused Exam: 14:15 Objective Exam Vital Signs Date Time Temp Pulse Resp B/P (MAP) Pulse Ox O2 Delivery O2 Flow Rate FiO2 11/19/20 10:00 84 19 94/69 (77) 92 Nasal Cannula 2.00 11/19/20 09:00 Room Air 11/19/20 09:00 74 10 95/52 (66) 96 Nasal Cannula 2.00 11/19/20 08:00 74 10 103/68 (80) 96 Nasal Cannula 2.00 11/19/20 07:00 75 11 89/69 (76) 95 Nasal Cannula 2.00 11/19/20 07:00 77 11/19/20 06:00 74 10 92/61 (71) 96 Nasal Cannula 2.00 11/19/20 05:00 75 12 98/70 (79) 95 Nasal Cannula 2.00 11/19/20 04:00 74 11 100/75 (83) 94 Nasal Cannula 2.00 11/19/20 03:05 103/65 11/19/20 03:00 89 16 103/65 (78) 94 Nasal Cannula 2.00 11/19/20 02:00 72 10 85/62 (70) 95 Nasal Cannula 2.00 11/19/20 01:00 74 11/19/20 01:00 74 11 90/63 (72) 94 Nasal Cannula 2.00 11/19/20 00:00 73 11 90/67 (75) 94 Nasal Cannula 2.00 11/18/20 23:57 36.0 11/18/20 23:00 72 11 103/52 (69) 95 Nasal Cannula 2.00 11/18/20 22:00 80 11 108/69 (82) 97 Nasal Cannula 2.00 11/18/20 21:00 75 13 109/65 (80) 96 Nasal Cannula 2.00 11/18/20 21:00 Room Air 11/18/20 20:06 Nasal Cannula 2.00 11/18/20 20:00 79 14 107/73 (84) 98 Nasal Cannula 2.00 11/18/20 19:29 36.8 11/18/20 19:00 73 11/18/20 19:00 73 12 100/75 (83) 95 Nasal Cannula 2.00 11/18/20 18:00 121 141/100 (114) 93 Nasal Cannula 2.00 11/18/20 17:00 74 12 109/76 (87) 99 Nasal Cannula 2.00 11/18/20 16:17 36.1 11/18/20 16:00 78 14 100/64 (76) 98 Nasal Cannula 2.00 11/18/20 15:00 76 15 94/76 (82) 97 Nasal Cannula 2.00 11/18/20 14:35 36.4 74 96 28 11/18/20 14:35 96 Nasal Cannula 2.00 11/18/20 14:00 76 15 110/74 (86) 97 Nasal Cannula 2.00 11/18/20 13:21 74 107/65 11/18/20 13:00 75 11/18/20 13:00 76 15 107/65 (79) 97 Room Air 11/18/20 12:15 36.4 11/18/20 12:00 81 17 113/91 (98) 92 Room Air I & O 11/19/20 07:00 Intake Total 825 ml Output Total 1020 ml Balance -195 ml Capillary Refill : Less Than 3 SecondsLess Than 3 Seconds General Appearance: No Apparent Distress, Chronically ill HEENT: PERRL/EOMI Respiratory: No Accessory Muscle Use, No Respiratory Distress, Other (on 2L NC) Cardiovascular: Regular Rate, Rhythm, No Murmur, Other (exposed sternal wire to R side of chest) Peripheral Pulses: 1+ Dorsalis Pedis (R), 1+ Left Dors-Pedis (L); 2+ Radial Pulses (R), 2+ Radial Pulses (L) Gastrointestinal: non tender, distended, other (ascites) Extremity: No Calf Tenderness; Pedal Edema, Swelling (BLE pitting edema) Neurologic/Psychiatric: Alert, Oriented x3 Skin: Warm/Dry, Other (skin breakdown to BLE) Lymphatic: No Adenopathy Results Lab Laboratory Tests 11/18/20 12:50: Procalcitonin 0.08, Total Cortisol 15.1 11/18/20 12:51: Glucometer 172H 11/18/20 16:18: Glucometer 194H 11/18/20 17:50: Vancomycin Level Trough 20.2H 11/18/20 19:06: Glucometer 168H 11/19/20 05:10: White Blood Count 9.9, Red Blood Count 2.98L, Hemoglobin 8.1L, Hematocrit 27L, Mean Corpuscular Volume 89, Mean Corpuscular Hemoglobin 27, Mean Corpuscular Hemoglobin Concent 31L, Red Cell Distribution Width 17.2H, Platelet Count 158, Mean Platelet Volume 10.7, Immature Granulocyte % (Auto) 1, Neutrophils (%) (Auto) 78H, Lymphocytes (%) (Auto) 13, Monocytes (%) (Auto) 4, Eosinophils (%) (Auto) 4, Basophils (%) (Auto) 0, Neutrophils # (Auto) 7.7, Lymphocytes # (Auto) 1.3, Monocytes # (Auto) 0.4, Eosinophils # (Auto) 0.4H, Basophils # (Auto) 0.0, Immature Granulocyte # (Auto) 0.1, Sodium Level 135, Potassium Level 3.7, Chloride Level 108H, Carbon Dioxide Level 22, Anion Gap 5, Blood Urea Nitrogen 21H, Creatinine 0.74, Estimat Glomerular Filtration Rate > 60, BUN/Creatinine Ratio 28, Glucose Level 81, Calcium Level 7.2L, Phosphorus Level 2.4, Magnesium Level 1.8 11/19/20 11:04: Glucometer 127H Microbiology 11/12/20 MRSA Screen - Final, Complete 11/12/20 Blood Culture - Preliminary, Resulted Positive; See Report 11/12/20 Urine Culture - Final, Complete NO GROWTH Assessment/Plan Assessment/Plan Assessment/Plan severe anemia- improving, Hgb stable at 8.1 today upper GI bleed- stable, no signs of continued bleeding right hip fracture- deemed non-op on last admission ascites Covid negative CAD Chest wound -exposed wire from cabg hypotenstion- on norepinephrine running at 0.04 this AM Unstable blood sugar levels (episodes of hyper/hypoglycemia) follow hgb and transfuse prbc as needed, Hgb 8.1this AM on levophed, titrate off as tolerates Continue Protonix Incentive spirometer MAT protocol Avoid any anticoagulation Continue conservative measures, may need EGD Multiple wounds right lower extremity and chest with exposed wire, wound care keep clean and dry not wanting anything done with it. tolerating clears, advance as hgb remains stable Medical management per primary Glucose monitoring/ maintenance Clinical Quality Measures DVT/VTE Risk/Contraindication: Risk Factor Score Per Nursin RFS Level Per Nursing on Admit: 4+=Very High RAVINDER RAMOS DO 11/19/20 1253: Subjective Time Seen by a Provider: 10:22 Subjective/Events-last exam Pt seen and examined, no new complaints. Denies hematemesis or melena. Nurse states he is still on BP support (norepinephrine). Review of Systems General: Fatigue HEENT: No Head Aches Pulmonary: Dyspnea, Cough Cardiovascular: Edema; No: Chest Pain Gastrointestinal: No: Nausea, Vomiting, Abdominal Pain Objective Exam General Appearance: No Apparent Distress, Chronically ill HEENT: PERRL/EOMI Respiratory: No Accessory Muscle Use, No Respiratory Distress, Other (on 2L NC) Cardiovascular: Regular Rate, Rhythm Gastrointestinal: non tender, distended Extremity: No Calf Tenderness; Pedal Edema, Swelling (BLE pitting edema, legs appear very swollen) Assessment/Plan Assessment/Plan Assessment/Plan Severe anemia- Hgb stable at 8.1 today, continue to monitor H/H, avoid anticoagulation Upper GI bleed- most likely, but no signs of continued bleeding. Protonix, no NSAIDS Right hip fracture- deemed non-op on last admission Ascites, Covid negative, CAD Chest wound -exposed wire from cabg - good local wound care Hypotenstion- on norepinephrine running at 0.04 this AM, continue as needed Unstable blood sugar levels (episodes of hyper/hypoglycemia) Supervisory-Addendum Brief Verification & Attestation Participated in pt care: history, MDM, physical Personally performed: exam, history, MDM Care discussed with: Medical Student Procedures: n/a Verification and Attestation of Medical Student E/M Service A medical student performed and documented this service. I then reviewed and verified all information documented by the medical student and made modifications to such information, when appropriate. I personally performed a physical exam, medical decision making and then discussed any differences betwee n the notes and made revisions as necessary to create one note. Ravinder Ramos , 11/19/20 , 12:53 GOLDIE MCCORMICK,MED STUDENT Nov 19, 2020 11:29 RAVINDER RAMOS DO Nov 19, 2020 12:53
[2020-11-19] MEDS: VANCOMYCIN 1 GM/NS 250 ML IVPB IV SCH ×2 (16:51)
[2020-11-20] VITALS (18 sets, daily range): BP systolic 85–113; BP diastolic 47–84
[2020-11-20] MEDS: HYDROcodone/APAP 10 MG/325 MG (LORTAB) TAB PO PRN ×4 (00:11→15:52)
[2020-11-20] MEDS: NOREPINEPHRINE 4 MG/250 ML 250 ML IV SCH ×4 (02:30→21:10)
[2020-11-20 04:37] LABS: BASOPHILS % (AUTO) 0 % (0-10); EOSINOPHILS # (AUTO) 0.2 10^3/uL (0.0-0.3); EOSINOPHILS % (AUTO) 3 % (0-10); HEMATOCRIT 22 % (40-54); LYMPHOCYTES # (AUTO) 1.2 10^3/uL (1.0-4.0); LYMPHOCYTES % (AUTO) 19 % (12-44); MEAN CORPUSCULAR HEMOGLOBIN 27 pg (25-34); MEAN CORPUSCULAR HGB CONC 31 g/dL (32-36); MEAN CORPUSCULAR VOLUME 89 fL (80-99); MEAN PLATELET VOLUME 10.4 fL (9.0-12.2); MONOCYTES # (AUTO) 0.3 10^3/uL (0.0-1.0); MONOCYTES % (AUTO) 5 % (0-12); NEUTROPHILS # (AUTO) 4.6 10^3/uL (1.8-7.8); NEUTROPHILS % (AUTO) 72 % (42-75); PLATELET COUNT 110 10^3/uL (130-400); WHITE BLOOD COUNT 6.3 10^3/uL (4.3-11.0)
[2020-11-20 04:42] LABS: HEMOGLOBIN 6.7 g/dL (13.3-17.7)
[2020-11-20 04:46] LABS: CHLORIDE 107 MMOL/L (98-107); POTASSIUM 3.6 MMOL/L (3.6-5.0); SODIUM 134 MMOL/L (135-145)
[2020-11-20 04:48] LABS: CALCIUM 7.1 MG/DL (8.5-10.1); GLUCOSE 124 MG/DL (70-105)
[2020-11-20 04:50] LABS: CARBON DIOXIDE 21 MMOL/L (21-32)
[2020-11-20 04:52] LABS: CREATININE SERUM 0.73 MG/DL (0.60-1.30); GFR ESTIMATED > 60; PHOSPHORUS 2.3 MG/DL (2.3-4.7)
[2020-11-20 04:53] LABS: BUN/CREATININE RATIO 23
[2020-11-20 04:54] LABS: MAGNESIUM 1.8 MG/DL (1.6-2.4)
[2020-11-20] MEDS: inSUlin ASPART (NovoLOG) 1 UNIT/0.01 ML (CHARGE PER UNIT) SC SCH ×4 (06:10→20:57)
[2020-11-20] MEDS: MAGNESIUM 1 GM/100 ML IVPB 100 ML IV SCH (06:10)
[2020-11-20] MEDS: POTASSIUM CL 10MEQ/50ML IVPB 50 ML IV SCH (06:10)
[2020-11-20] MEDS: KCL 20 MEQ TAB (K-DUR) PO SCH (06:10)
[2020-11-20] MEDS ORDERED: NS (IVPB) 250 ML ONE (06:25)
[2020-11-20] MEDS: PANTOPRAZOLE 40 MG (PROTONIX) VIAL IV SCH ×2 (09:32→22:00)
[2020-11-20] MEDS: ENALAPRIL 2.5 MG (VASOTEC) TAB PO SCH ×2 (09:33→20:42)
[2020-11-20] MEDS: CARVEDILOL 3.125 MG (COREG) TABLET PO SCH ×2 (09:33→20:42)
--- NOTE | 2020-11-20 11:15 | Progress Note - Hospitalist ---
AMYGRANTMEEK, 11/20/20 1114: Subjective HPI/CC On Admission Time Seen by Provider: 09:30 Subjective/Events-last exam Mr. Kasper was seen and examined in the ICU. He is currently off of levophed with MAP 74. He was experiencing severe R hip pain during interview today. No other acute complaints voiced. Focused Exam Lactate Level 11/18/20 01:45: Lactic Acid Level 1.44 Time of Focused Exam: 14:15 Objective Exam Vital Signs Vital Signs Date Time Temp Pulse Resp B/P (MAP) Pulse Ox O2 Delivery O2 Flow Rate FiO2 11/20/20 10:00 97 13 106/63 (77) 93 Room Air 11/20/20 07:19 36.2 11/20/20 06:00 2.00 11/18/20 14:35 28 Capillary Refill : Less Than 3 SecondsLess Than 3 Seconds General Appearance: Mild Distress Respiratory: Wheezing Cardiovascular: Regular Rate, Rhythm, Normal Peripheral Pulses Gastrointestinal: Non Tender, Soft Extremity: Pedal Edema, Other (L BKA) Results/Procedures Lab Laboratory Tests 11/20/20 04:29 Patient resulted labs reviewed. Imaging: Reviewed Imaging Report Assessment/Plan Assessment and Plan Assess & Plan/Chief Complaint Anemia * GI bleed with Hg drop to 6.7, currently transfusing 1unit pRBC * Wheezing noted on exam, will order lasix after transfusion and repeat CXR * Off of levophed with MAP 74 * Will hold DVT prophylaxis * Will transfer to 4th floor as patient is stabilized without need for pressors Thrombocytopenia * Most likely secondary to portal hypertension * Suspect cirrhosis as patient has a significant alcohol history in the past Coronary artery disease status post bypass with evidence of previous defibrillation * Monitor Left AKA Nonrepaired right hip fracture Nonambulatory state with decubitus ulcers * Bedbound status * Pain control * Wound care Acute on chronic respiratory failure with right upper lobe infiltrate right base * On vancomycin day 3 Type 2 diabetes on insulin with labile control * Will use sliding scale * Low-dose Levemir 10iu HS once a day since his oral intake is poor Diet: clear liquids DVT PPx: SCDs for now for chronic anemia FULL CODE Will transfer to 4th floor as no further need for ICU care Clinical Quality Measures DVT/VTE Risk/Contraindication: Risk Factor Score Per Nursin RFS Level Per Nursing on Admit: 4+=Very High YULIANA LANGE MD 11/20/20 1402: Subjective HPI/CC On Admission Date Seen by Provider: Nov 20, 2020 Supervisory-Addendum Brief Verification & Attestation Participated in pt care: history, MDM, physical Personally performed: exam, history, MDM Care discussed with: Medical Student, other (RN) Procedures: n/a Verification and Attestation of Medical Student E/M Service A medical student performed and documented this service in my presence. I reviewed and verified all information documented by the medical student and made modifications to such information, when appropriate. I personally performed the physical exam and medical decision making. Yuliana Lange, Nov 20, 2020,14:02 MEEK TRAN, Nov 20, 2020 11:14 YULIANA LANGE MD Nov 20, 2020 14:02
[2020-11-20] MEDS: morphine INJ 4 MG/ML 1 ML (VIAL/SYRINGE) IV PRN ×2 (12:29→17:58)
[2020-11-20 15:36] LABS: HEMOGLOBIN 8.2 g/dL (13.3-17.7)
--- NOTE | 2020-11-20 16:39 | Progress Note - Surgery ---
Subjective Time Seen by a Provider: 12:59 Subjective/Events-last exam Pt seen and examined, still complaining of hip pain. He denies any hematemesis or hematochezia. Review of Systems General: Fatigue, Malaise Pulmonary: No Dyspnea, No Cough Cardiovascular: No: Chest Pain, Palpitations Gastrointestinal: No: Nausea, Vomiting, Abdominal Pain Focused Exam Lactate Level 11/18/20 01:45: Lactic Acid Level 1.44 Time of Focused Exam: 14:15 Objective Exam Vital Signs Date Time Temp Pulse Resp B/P (MAP) Pulse Ox O2 Delivery O2 Flow Rate FiO2 11/20/20 15:29 37.8 100 18 99/71 (80) 93 Room Air 11/20/20 12:10 36.8 11/20/20 12:02 100 14 98/71 (80) 93 Room Air 11/20/20 12:00 36.8 98 14 98/71 93 Room Air 11/20/20 11:00 98 12 108/71 (83) 91 Room Air 11/20/20 10:00 97 13 106/63 (77) 93 Room Air 11/20/20 09:00 98 10 100/62 (75) 92 Room Air 11/20/20 08:00 100 12 97/63 (74) 92 Room Air 11/20/20 07:19 36.2 11/20/20 07:00 97 11/20/20 07:00 101 19 97/66 (76) 91 Room Air 11/20/20 06:55 36.8 101 20 93/56 90 Room Air 11/20/20 06:35 37.6 94 20 86/58 90 Room Air 11/20/20 06:00 88 16 85/55 (65) 91 Nasal Cannula 2.00 11/20/20 05:00 90 15 86/47 (60) 91 Nasal Cannula 2.00 11/20/20 04:23 37.0 11/20/20 04:00 96 23 88/61 (70) 92 Nasal Cannula 2.00 11/20/20 03:00 89 13 93/49 (64) 94 Nasal Cannula 2.00 11/20/20 02:00 90 12 93/58 (70) 93 Nasal Cannula 2.00 11/20/20 01:00 93 12 87/52 (64) 92 Nasal Cannula 2.00 11/20/20 01:00 92 11/20/20 00:00 36.4 11/20/20 00:00 103 20 113/63 (80) 90 Nasal Cannula 2.00 11/19/20 23:00 97 14 92/54 (67) 91 Nasal Cannula 2.00 11/19/20 22:00 94 14 93/54 (67) 91 Nasal Cannula 2.00 11/19/20 21:17 Room Air 11/19/20 21:00 94 15 93/49 (64) 93 Nasal Cannula 2.00 11/19/20 20:48 36.0 11/19/20 20:00 88 17 96/80 (85) 93 Nasal Cannula 2.00 11/19/20 19:00 85 16 98/61 (73) 90 Nasal Cannula 2.00 11/19/20 19:00 85 11/19/20 18:00 90 15 104/60 (75) 94 Nasal Cannula 2.00 11/19/20 17:00 90 26 96/61 (73) 96 Nasal Cannula 2.00 I & O 11/20/20 07:00 Intake Total 1475 ml Output Total 1055 ml Balance 420 ml Capillary Refill : Less Than 3 SecondsLess Than 3 Seconds General Appearance: No Apparent Distress HEENT: PERRL/EOMI Respiratory: Lungs Clear, Normal Breath Sounds Cardiovascular: Regular Rate, Rhythm, No Murmur, Normal Peripheral Pulses Peripheral Pulses: 1+ Dorsalis Pedis (R), 1+ Left Dors-Pedis (L); 2+ Radial Pulses (R), 2+ Radial Pulses (L) Gastrointestinal: non tender, no organomegaly Extremity: Pedal Edema Neurologic/Psychiatric: Alert, Oriented x3 Results Lab Laboratory Tests 11/19/20 20:48: Glucometer 118H 11/20/20 04:29: White Blood Count 6.3, Red Blood Count 2.48L, Hemoglobin 6.7*L, Hematocrit 22L, Mean Corpuscular Volume 89, Mean Corpuscular Hemoglobin 27, Mean Corpuscular H emoglobin Concent 31L, Red Cell Distribution Width 17.0H, Platelet Count 110L, Mean Platelet Volume 10.4, Immature Granulocyte % (Auto) 1, Neutrophils (%) (Auto) 72, Lymphocytes (%) (Auto) 19, Monocytes (%) (Auto) 5, Eosinophils (%) (Auto) 3, Basophils (%) (Auto) 0, Neutrophils # (Auto) 4.6, Lymphocytes # (Auto) 1.2, Monocytes # (Auto) 0.3, Eosinophils # (Auto) 0.2, Basophils # (Auto) 0.0, Immature Granulocyte # (Auto) 0.1, Sodium Level 134L, Potassium Level 3.6, Chloride Level 107, Carbon Dioxide Level 21, Anion Gap 6, Blood Urea Nitrogen 17, Creatinine 0.73, Estimat Glomerular Filtration Rate > 60, BUN/Creatinine Ratio 23, Glucose Level 124H, Calcium Level 7.1L, Phosphorus Level 2.3, Magnesium Level 1.8 11/20/20 12:11: Glucometer 177H 11/20/20 15:24: Hemoglobin 8.2#L, Hematocrit 26L 11/20/20 16:11: Glucometer 198H Microbiology 11/18/20 Blood Culture - Preliminary, Resulted No growth 11/12/20 MRSA Screen - Final, Complete 11/12/20 Urine Culture - Final, Complete NO GROWTH Assessment/Plan Assessment/Plan Assessment/Plan Severe anemia- had to be transfused today, continue to monitor H/H, avoid anticoagulation Upper GI bleed- most likely, but no signs of continued bleeding. Protonix, no NSAIDS Right hip fracture- deemed non-op on last admission Ascites, Covid negative, CAD Chest wound -exposed wire from cabg - good local wound care Hypotenstion- on norepinephrine running at 0.04 this AM, continue as needed Unstable blood sugar levels (episodes of hyper/hypoglycemia) Pt will need to be talked to about possible EGD and even colonoscopy, he continues to have drops in Hg. Clinical Quality Measures DVT/VTE Risk/Contraindication: Risk Factor Score Per Nursin RFS Level Per Nursing on Admit: 4+=Very High DIONISIO ALEXANDER DO Nov 20, 2020 16:39
[2020-11-20] MEDS: VANCOMYCIN 1 GM/NS 250 ML IVPB IV SCH ×2 (17:56)
[2020-11-21] VITALS (12 sets, daily range): BP systolic 96–119; BP diastolic 60–98
[2020-11-21] MEDS: morphine INJ 4 MG/ML 1 ML (VIAL/SYRINGE) IV PRN ×5 (02:30→23:47)
[2020-11-21 03:27] LABS: BASOPHILS % (AUTO) 0 % (0-10); EOSINOPHILS # (AUTO) 0.2 10^3/uL (0.0-0.3); EOSINOPHILS % (AUTO) 3 % (0-10); HEMATOCRIT 24 % (40-54); HEMOGLOBIN 7.8 g/dL (13.3-17.7); LYMPHOCYTES % (AUTO) 16 % (12-44); MEAN CORPUSCULAR HEMOGLOBIN 28 pg (25-34); MEAN CORPUSCULAR HGB CONC 32 g/dL (32-36); MEAN CORPUSCULAR VOLUME 87 fL (80-99); MEAN PLATELET VOLUME 10.4 fL (9.0-12.2); MONOCYTES # (AUTO) 0.3 10^3/uL (0.0-1.0); MONOCYTES % (AUTO) 5 % (0-12); NEUTROPHILS # (AUTO) 4.8 10^3/uL (1.8-7.8); NEUTROPHILS % (AUTO) 75 % (42-75); PLATELET COUNT 92 10^3/uL (130-400); WHITE BLOOD COUNT 6.5 10^3/uL (4.3-11.0)
[2020-11-21 03:35] LABS: CHLORIDE 110 MMOL/L (98-107); POTASSIUM 3.7 MMOL/L (3.6-5.0); SODIUM 137 MMOL/L (135-145)
[2020-11-21] MEDS: NOREPINEPHRINE 4 MG/250 ML 250 ML IV SCH ×4 (03:35→22:44)
[2020-11-21 03:36] LABS: CALCIUM 6.7 MG/DL (8.5-10.1); GLUCOSE 177 MG/DL (70-105)
[2020-11-21 03:38] LABS: CARBON DIOXIDE 21 MMOL/L (21-32)
[2020-11-21 03:40] LABS: GFR ESTIMATED > 60; PHOSPHORUS 2.2 MG/DL (2.3-4.7)
[2020-11-21 03:41] LABS: BUN/CREATININE RATIO 21
[2020-11-21 03:42] LABS: MAGNESIUM 1.6 MG/DL (1.6-2.4)
[2020-11-21] MEDS: HYDROcodone/APAP 10 MG/325 MG (LORTAB) TAB PO PRN (05:40)
[2020-11-21] MEDS: inSUlin ASPART (NovoLOG) 1 UNIT/0.01 ML (CHARGE PER UNIT) SC SCH ×4 (05:49→21:09)
--- NOTE | 2020-11-21 06:23 | Pulmonary Progress Note ---
Subjective Time Seen by a Provider: 06:22 Subjective/Events-last exam Pt is on RA with Sp02 93% Sepsis Event Evaluation Height, Weight, BMI Height: 6'1.00" Weight: 216lbs. 4.0oz. 97.522973xw; 29.00 BMI Method:Stated Focused Exam Time of Focused Exam: 14:15 Exam Exam Vital Signs Date Time Temp Pulse Resp B/P (MAP) Pulse Ox O2 Delivery O2 Flow Rate FiO2 11/21/20 04:00 36.8 102 22 100/60 (73) 93 Room Air 11/21/20 03:35 91 99/67 11/21/20 01:00 91 11/21/20 00:00 36.6 93 20 99/67 (78) 96 Nasal Cannula 2.00 11/20/20 20:22 36.4 94 19 100/84 (89) 93 Room Air 11/20/20 19:00 96 11/20/20 15:29 37.8 100 18 99/71 (80) 93 Room Air 11/20/20 12:10 36.8 11/20/20 12:02 100 14 98/71 (80) 93 Room Air 11/20/20 12:00 36.8 98 14 98/71 93 Room Air 11/20/20 11:00 98 12 108/71 (83) 91 Room Air 11/20/20 10:00 97 13 106/63 (77) 93 Room Air 11/20/20 09:20 92 Room Air 11/20/20 09:00 98 10 100/62 (75) 92 Room Air 11/20/20 08:00 100 12 97/63 (74) 92 Room Air 11/20/20 07:19 36.2 11/20/20 07:00 97 11/20/20 07:00 101 19 97/66 (76) 91 Room Air 11/20/20 06:55 36.8 101 20 93/56 90 Room Air 11/20/20 06:35 37.6 94 20 86/58 90 Room Air I & O 11/21/20 07:00 Intake Total 1410 ml Output Total 505 ml Balance 905 ml Height & Weight Height: 6'1.00" Weight: 216lbs. 4.0oz. 97.341858ua; 29.00 BMI Method:Stated General Appearance: No Apparent Distress HEENT: PERRL/EOMI Respiratory: Lungs Clear, Normal Breath Sounds Cardiovascular: Regular Rate, Rhythm, No Murmur, Normal Peripheral Pulses Capillary Refill: Less Than 3 Seconds Peripheral Pulses: 1+ Dorsalis Pedis (R), 1+ Left Dors-Pedis (L); 2+ Radial Pulses (R), 2+ Radial Pulses (L) Gastrointestinal: non tender, no organomegaly Extremity: Pedal Edema Neurologic/Psychiatric: Alert, Oriented x3 Results Lab Laboratory Tests 11/20/20 04:29 11/20/20 15:24 11/21/20 03:20 Assessment/Plan Assessment/Plan Cellulitis with severe sepsis s/p shock -Merrem and Vanco Anemia with upper GIB s/p 4 units of PRBC -Monitor Hb -Protonix BID -Surgery is consulted Cardiomyopathy Decubitus ulcers - pt is bed bound Left NILS MARTINEZ DO Nov 21, 2020 06:23
--- NOTE | 2020-11-21 07:17 | Progress Note - Surgery ---
RONY DÍAZ MED STUDENT 11/21/20 0717: Subjective Date Seen by a Provider: Nov 21, 2020 Time Seen by a Provider: 07:00 Subjective/Events-last exam Pt asleep upon entry but easily awoken. Pt is tearful when telling me about how how his dog is going to be put down. Pt c/o SOB, cough, stomach ache. Pt notes BM, flatus. No acute events overnight. Review of Systems General: No Chills HEENT: No Head Aches Pulmonary: Dyspnea, Cough Cardiovascular: No: Chest Pain Gastrointestinal: Abdominal Pain; No: Nausea, Vomiting Focused Exam Time of Focused Exam: 14:15 Objective Exam Vital Signs Date Time Temp Pulse Resp B/P (MAP) Pulse Ox O2 Delivery O2 Flow Rate FiO2 11/21/20 04:00 36.8 102 22 100/60 (73) 93 Room Air 11/21/20 03:35 91 99/67 11/21/20 01:00 91 11/21/20 00:00 36.6 93 20 99/67 (78) 96 Nasal Cannula 2.00 11/20/20 20:22 36.4 94 19 100/84 (89) 93 Room Air 11/20/20 19:00 96 11/20/20 15:29 37.8 100 18 99/71 (80) 93 Room Air 11/20/20 12:10 36.8 11/20/20 12:02 100 14 98/71 (80) 93 Room Air 11/20/20 12:00 36.8 98 14 98/71 93 Room Air 11/20/20 11:00 98 12 108/71 (83) 91 Room Air 11/20/20 10:00 97 13 106/63 (77) 93 Room Air 11/20/20 09:20 92 Room Air 11/20/20 09:00 98 10 100/62 (75) 92 Room Air 11/20/20 08:00 100 12 97/63 (74) 92 Room Air 11/20/20 07:19 36.2 I & O 11/21/20 07:00 Intake Total 1410 ml Output Total 505 ml Balance 905 ml Capillary Refill : Less Than 3 SecondsLess Than 3 Seconds General Appearance: No Apparent Distress HEENT: PERRL/EOMI Respiratory: Lungs Clear, Normal Breath Sounds Cardiovascular: Regular Rate, Rhythm, No Murmur, Normal Peripheral Pulses Peripheral Pulses: 1+ Dorsalis Pedis (R), 1+ Left Dors-Pedis (L); 2+ Radial Pulses (R), 2+ Radial Pulses (L) Gastrointestinal: non tender, no organomegaly Extremity: Pedal Edema Neurologic/Psychiatric: Alert, Oriented x3, Normal Mood/Affect Skin: Warm/Dry, Pallor Results Lab Laboratory Tests 11/20/20 12:11: Glucometer 177H 11/20/20 15:24: Hemoglobin 8.2#L, Hematocrit 26L 11/20/20 16:11: Glucometer 198H 11/20/20 20:47: Glucometer 156H 11/21/20 03:20: White Blood Count 6.5, Red Blood Count 2.78L, Hemoglobin 7.8L, Hematocrit 24L, Mean Corpuscular Volume 87, Mean Corpuscular Hemoglobin 28, Mean Corpuscular H emoglobin Concent 32, Red Cell Distribution Width 16.7H, Platelet Count 92L, Mean Platelet Volume 10.4, Immature Granulocyte % (Auto) 1, Neutrophils (%) (Auto) 75, Lymphocytes (%) (Auto) 16, Monocytes (%) (Auto) 5, Eosinophils (%) (Auto) 3, Basophils (%) (Auto) 0, Neutrophils # (Auto) 4.8, Lymphocytes # (Auto) 1.0, Monocytes # (Auto) 0.3, Eosinophils # (Auto) 0.2, Basophils # (Auto) 0.0, Immature Granulocyte # (Auto) 0.0, Sodium Level 137, Potassium Level 3.7, Chloride Level 110H, Carbon Dioxide Level 21, Anion Gap 6, Blood Urea Nitrogen 15, Creatinine 0.70, Estimat Glomerular Filtration Rate > 60, BUN/Creatinine Ratio 21, Glucose Level 177H, Calcium Level 6.7L, Phosphorus Level 2.2L, Magnesium Level 1.6 Microbiology 11/18/20 Blood Culture - Preliminary, Resulted No growth 11/12/20 MRSA Screen - Final, Complete 11/12/20 Urine Culture - Final, Complete NO GROWTH Assessment/Plan Assessment/Plan Assessment/Plan Severe anemia- had to be transfused yesterday (1 unit PRBC), continue to monitor H/H, avoid anticoagulation Upper GI bleed- most likely, but no signs of continued bleeding. Protonix, no NSAIDS Right hip fracture- deemed non-op on last admission Ascites, Covid negative, CAD Chest wound -exposed wire from cabg - good local wound care Hypotenstion- on norepinephrine running at 0.04 this AM, continue as needed Unstable blood sugar levels (episodes of hyper/hypoglycemia) Pt will need to be talked to about possible EGD and even colonoscopy, he continues to have drops in Hg. Clinical Quality Measures DVT/VTE Risk/Contraindication: Risk Factor Score Per Nursin RFS Level Per Nursing on Admit: 4+=Very High ANTONY BENNETT DO 11/21/20 0931: Subjective Subjective/Events-last exam Some shortness of breath. Using incentive spirometer some. Having bm and flatus. Pain fairly controlled. Denies n/v fever sweats chills or chest pain. Objective Exam General Appearance: No Apparent Distress, Obese HEENT: PERRL/EOMI Neck: Non Tender, Supple Respiratory: Chest Non Tender, No Accessory Muscle Use, No Respiratory Distress Cardiovascular: Regular Rate, Rhythm, No JVD Gastrointestinal: non tender, no organomegaly, other (edema lower portion) Extremity: Pedal Edema (b/l), Other (left bka) Skin: Warm/Dry, Pallor, Other (wounds multiple to right leg. edema) Assessment/Plan Assessment/Plan Assessment/Plan Severe anemia- had to be transfused yesterday (1 unit PRBC), continue to monitor H/H, avoid anticoagulation Upper GI bleed- most likely, but no signs of continued bleeding. Protonix, no NSAIDS Right hip fracture- deemed non-op on last admission Ascites, Covid negative, CAD Chest wound -exposed wire from cabg - good local wound care Hypotenstion- on norepinephrine running at 0.04 this AM, continue as needed Unstable blood sugar levels (episodes of hyper/hypoglycemia) EGD/colonoscopy in near future or inpatient if has significant drop. Supervisory-Addendum Brief Verification & Attestation Participated in pt care: history, MDM, physical Personally performed: exam, history, MDM, supervision of care Care discussed with: Medical Student Procedures: n/a Results interpretation: Verified all documentation Verification and Attestation of Medical Student E/M Service A medical student performed and documented this service in my presence. I reviewed and verified all information documented by the medical student and made modifications to such information, when appropriate. I personally performed the physical exam and medical decision making. Antony Bennett, Nov 21, 2020,09:31 RONY DÍAZ MED STUDENT Nov 21, 2020 07:17 ANTONY BENNETT DO Nov 21, 2020 09:31
--- NOTE | 2020-11-21 08:57 | Progress Note - Cardiology ---
Cardiology SOAP Progress Note Subjective: Lying in bed No c/o CP or SOB C/O LE swelling Objective: I&O/Vital Signs 11/20/20 11/21/20 11/21/20 11/21/20 21:00 00:00 01:00 03:35 Temp 36.6 Pulse 93 91 91 Resp 20 B/P (MAP) 99/67 (78) 99/67 Pulse Ox 93 96 O2 Delivery Room Air Nasal Cannula O2 Flow Rate 2.00 11/21/20 11/21/20 04:00 08:27 Temp 36.8 36.6 Pulse 102 99 Resp 22 22 B/P (MAP) 100/60 (73) 96/68 (77) Pulse Ox 93 93 O2 Delivery Room Air Room Air 11/21/20 00:00 Intake Total 410 ml Output Total 130 ml Balance 280 ml Weight (Pounds): 216 Weight (Ounces): 4.0 Weight (Calculated Kilograms): 97.871849 Constitutional: AAO x 3 Respiratory: chest is bilaterally symmetric, other (good air entry) Cardiovascular: regular rate-rhythm, S1 and S2 Gastrointestional: soft, audible bowel sounds Extremities: significant edema (bilat pitting edema) Neurologic/Psychiatric: other (moves extremities) Skin: other (multiple abrasion/wounds to LE bilat) Results/Procedures: Labs Laboratory Tests 11/20/20 12:11: Glucometer 177H 11/20/20 15:24: Hemoglobin 8.2#L, Hematocrit 26L 11/20/20 16:11: Glucometer 198H 11/20/20 20:47: Glucometer 156H 11/21/20 03:20: White Blood Count 6.5, Red Blood Count 2.78L, Hemoglobin 7.8L, Hematocrit 24L, Mean Corpuscular Volume 87, Mean Corpuscular Hemoglobin 28, Mean Corpuscular Hemoglobin Concent 32, Red Cell Distribution Width 16.7H, Platelet Count 92L, Mean Platelet Volume 10.4, Immature Granulocyte % (Auto) 1, Neutrophils (%) (Auto) 75, Lymphocytes (%) (Auto) 16, Monocytes (%) (Auto) 5, Eosinophils (%) (Auto) 3, Basophils (%) (Auto) 0, Neutrophils # (Auto) 4.8, Lymphocytes # (Auto) 1.0, Monocytes # (Auto) 0.3, Eosinophils # (Auto) 0.2, Basophils # (Auto) 0.0, Immature Granulocyte # (Auto) 0.0, Sodium Level 137, Potassium Level 3.7, Chloride Level 110H, Carbon Dioxide Level 21, Anion Gap 6, Blood Urea Nitrogen 15, Creatinine 0.70, Estimat Glomerular Filtration Rate > 60, BUN/Creatinine Ratio 21, Glucose Level 177H, Calcium Level 6.7L, Phosphorus Level 2.2L, Magnesium Level 1.6 Microbiology 11/18/20 Blood Culture - Preliminary, Resulted No growth 11/12/20 MRSA Screen - Final, Complete 11/12/20 Urine Culture - Final, Complete NO GROWTH Laboratory Tests 11/20/20 04:29 11/20/20 15:24 11/21/20 03:20 A/P: Assessment: Acute on chronic ischemic cardiomyopathy. Echo of 12/16/19 shows dilated cardiomyopathy with LV enlargement, diffuse hypokinesis and LVEF 25-30%, PASP approx 55 mmHg. cardiomyopathy medications held due to hypotension. Echocardiogram showed an EF of 20-25 percent. CAD. H/o CABG. Pt has no recollection, but previous records at this hosp [facility]G was in 2009 in [place], [place]. Last card cath at this hosp was in 2012: occluded LAD and RCA, severely diseased LCX; patent JACINTO to LAD, patent SVG to PDA, patent SVG to OM, diffusely atretic and occluded SVG to RI, SVG 35-40% A protruding end of a sternal wire from the cephalic part of the sternum. The patient states this has been present for many years and refuses any eval or treatment of this RLE cellulitis, continue antibiotics Septic shock on admission, management per hospitalist Severe anemia, s/p transfusion, continue to monitor. GI bleed, management per surgical services. S/p single chamber ICD (as seen on CXR of 10/25/20). This is [employer] device that was interrogated on 10/26/20 and found to be functioning normally with greater than 2 yrs of battery remaining L BKA. He doesn't know when or where or why it was done, and has had no f/u R hip fracture in Oct 2020 after a nonsyncopal fall. Was considered inoperable due to pt's neglect of it that has led to purulent skin breakdown Multiple areas of skin breakdown Apparently deliberate self-neglect Plan: Acute on chronic systolic CHF - give diuretics today BEA and BB being held d/t hypotension - adjust dosing for compliance Anemia of undetermined etiology being managed by surgical/medical services Monitor lab closely Records from Dr. Arcos reviewed in detail GOLDIE VARMA Nov 21, 2020 08:57
[2020-11-21] MEDS ORDERED: FUROSEMIDE 40 MG/4 ML INJ (LASIX) IVP ONE (09:00)
[2020-11-21] MEDS: CARVEDILOL 3.125 MG (COREG) TABLET PO SCH ×2 (10:32→21:33)
[2020-11-21] MEDS: PANTOPRAZOLE 40 MG (PROTONIX) VIAL IV SCH ×2 (10:32→21:33)
[2020-11-21] MEDS: ENALAPRIL 2.5 MG (VASOTEC) TAB PO SCH ×2 (10:32→21:34)
--- NOTE | 2020-11-21 12:32 | Progress Note - Hospitalist ---
Subjective HPI/CC On Admission Date Seen by Provider: Nov 21, 2020 Time Seen by Provider: 09:30 Subjective/Events-last exam He is feeling better. He has not had any bleeding as far as he knows. He is not having pain at this time. He is still very swollen in his lower extremities. He denies shortness of breath. Focused Exam Time of Focused Exam: 14:15 Objective Exam Vital Signs Vital Signs Date Time Temp Pulse Resp B/P (MAP) Pulse Ox O2 Delivery O2 Flow Rate FiO2 11/21/20 11:00 36.7 103 24 106/80 (89) 93 Room Air 11/21/20 00:00 2.00 11/18/20 14:35 28 Capillary Refill : Less Than 3 SecondsLess Than 3 Seconds General Appearance: No Apparent Distress, Chronically ill, Obese Respiratory: Lungs Clear, Normal Breath Sounds, No Respiratory Distress Cardiovascular: Regular Rate, Rhythm, No Murmur Gastrointestinal: Normal Bowel Sounds, Non Tender, Soft Extremity: No Inflammation; Swelling Neurologic/Psychiatric: Alert, Oriented x3, Other (agitated) Skin: Normal Color, Warm/Dry Results/Procedures Lab Laboratory Tests 11/20/20 15:24 11/21/20 03:20 Patient resulted labs reviewed. Imaging: Reviewed Imaging Report Assessment/Plan Assessment and Plan Assess & Plan/Chief Complaint Upper GI bleeding Acute blood loss anemia Hgb stable s/p 4 units PRBC this hospital stay General surgery following, appreciate assistance Planning for outpatient EGD/colonoscopy Thrombocytopenia Relatively stable, monitor Coronary artery disease status post bypass No acute needs, monitor Left AKA Nonrepaired right hip fracture Nonambulatory state with decubitus ulcers Bedbound status Pain control Wound care Acute on chronic respiratory failure with right upper lobe infiltrate right base s/p antibiotics Type 2 diabetes on insulin Levemir Sliding scale insulin DVT PPx: held due to bleeding Diagnosis/Problems Diagnosis/Problems (1) Severe anemia Status: Acute (2) Upper GI bleed Status: Acute (3) HFrEF (heart failure with reduced ejection fraction) Status: Acute (4) S/P BKA (below knee amputation) Status: Chronic (5) T2DM (type 2 diabetes mellitus) Status: Acute Qualifiers: Diabetes mellitus longterm insulin use: with longterm use Clinical Quality Measures DVT/VTE Risk/Contraindication: Risk Factor Score Per Nursin RFS Level Per Nursing on Admit: 4+=Very High DIANA VINES MD Nov 21, 2020 12:32
[2020-11-21] MEDS ORDERED: FUROSEMIDE 40 MG/4 ML INJ (LASIX) IVP NR (17:00)
[2020-11-21] MEDS ORDERED: NS IV 500 ML 500 ML IV SCH (17:00)
--- NOTE | 2020-11-21 17:00 | Progress Note - Cardiology ---
Cardiology SOAP Progress Note Subjective: Shortness of breath Gen malaise Denies cp or palp or syncope Objective: I&O/Vital Signs 11/21/20 11/21/20 11/21/20 11/21/20 06:46 08:27 09:00 11:00 Temp 36.6 36.7 Pulse 98 99 103 Resp 22 24 B/P (MAP) 96/68 (77) 106/80 (89) Pulse Ox 93 93 93 O2 Delivery Room Air Room Air Room Air 11/21/20 11/21/20 12:37 16:00 Temp 36.6 Pulse 102 101 Resp 24 B/P (MAP) 116/84 (95) Pulse Ox 93 O2 Delivery Room Air 11/21/20 00:00 Intake Total 410 ml Output Total 130 ml Balance 280 ml Weight (Pounds): 216 Weight (Ounces): 4.0 Weight (Calculated Kilograms): 97.584018 Constitutional: AAO x 3 Respiratory: chest is bilaterally symmetric, other (good air entry) Cardiovascular: regular rate-rhythm, S1 and S2 Gastrointestional: soft, audible bowel sounds Extremities: significant edema (bilat pitting edema) Neurologic/Psychiatric: other (moves extremities) Skin: other (multiple abrasion/wounds to LE bilat) Results/Procedures: Labs Laboratory Tests 11/20/20 20:47: Glucometer 156H 11/21/20 03:20: White Blood Count 6.5, Red Blood Count 2.78L, Hemoglobin 7.8L, Hematocrit 24L, Mean Corpuscular Volume 87, Mean Corpuscular Hemoglobin 28, Mean Corpuscular Hemoglobin Concent 32, Red Cell Distribution Width 16.7H, Platelet Count 92L, Mean Platelet Volume 10.4, Immature Granulocyte % (Auto) 1, Neutrophils (%) (Auto) 75, Lymphocytes (%) (Auto) 16, Monocytes (%) (Auto) 5, Eosinophils (%) (Auto) 3, Basophils (%) (Auto) 0, Neutrophils # (Auto) 4.8, Lymphocytes # (Auto) 1.0, Monocytes # (Auto) 0.3, Eosinophils # (Auto) 0.2, Basophils # (Auto) 0.0, Immature Granulocyte # (Auto) 0.0, Sodium Level 137, Potassium Level 3.7, Chloride Level 110H, Carbon Dioxide Level 21, Anion Gap 6, Blood Urea Nitrogen 15, Creatinine 0.70, Estimat Glomerular Filtration Rate > 60, BUN/Creatinine Ratio 21, Glucose Level 177H, Calcium Level 6.7L, Phosphorus Level 2.2L, Magnesium Level 1.6 11/21/20 10:31: Glucometer 205H 11/21/20 15:17: Glucometer 212H Microbiology 11/18/20 Blood Culture - Preliminary, Resulted No growth 11/12/20 MRSA Screen - Final, Complete 11/12/20 Urine Culture - Final, Complete NO GROWTH A/P: Assessment: Acute on chronic ischemic cardiomyopathy. Echo of 12/16/19 shows dilated cardiomyopathy with LV enlargement, diffuse hypokinesis and LVEF 25-30%, PASP approx 55 mmHg. cardiomyopathy medications held due to hypotension. Echocardiogram showed an EF of 20-25 percent. CAD. H/o CABG. Pt has no recollection, but previous records at this hosp indicate CABG was in 2009 in [place], [place]. Last card cath at this hosp was in 2012: occluded LAD and RCA, severely diseased LCX; patent JACINTO to LAD, patent SVG to PDA, patent SVG to OM, diffusely atretic and occluded SVG to RI, SVG 35- 40% A protruding end of a sternal wire from the cephalic part of the sternum. The patient states this has been present for many years and refuses any eval or treatment of this RLE cellulitis, continue antibiotics Septic shock on admission, management per hospitalist Severe anemia, s/p transfusion, continue to monitor. GI bleed, management per surgical services. S/p single chamber ICD (as seen on CXR of 10/25/20). This is [employer] device that was interrogated on 10/26/20 and found to be functioning normally with greater than 2 yrs of battery remaining L BKA. He doesn't know when or where or why it was done, and has had no f/u R hip fracture in Oct 2020 after a nonsyncopal fall. Was considered inoperable due to pt's neglect of it that has led to purulent skin breakdown Multiple areas of skin breakdown Apparently deliberate self-neglect Plan: Severe anemia is contributing to unstable symptoms. We recommend full eval and treatment. Meanwhile, blood transfusion Acute on chronic systolic CHF - give diuretics today BEA and BB being held d/t hypotension - adjust dosing for compliance Anemia of undetermined etiology being managed by surgical/medical services Monitor lab closely Records from Dr. Arcos reviewed in detail ELLIOT NATH MD FACP FACC CCDS Nov 21, 2020 17:00
[2020-11-22 00:01] LABS: HEMOGLOBIN 8.4 g/dL (13.3-17.7)
[2020-11-22] MEDS: HYDROcodone/APAP 10 MG/325 MG (LORTAB) TAB PO PRN ×3 (03:02→12:08)
[2020-11-22] MEDS: morphine INJ 4 MG/ML 1 ML (VIAL/SYRINGE) IV PRN ×3 (04:24→10:08)
[2020-11-22 04:35] VITALS: BP 87/62
[2020-11-22 04:50] LABS: BASOPHILS % (AUTO) 0 % (0-10); EOSINOPHILS # (AUTO) 0.3 10^3/uL (0.0-0.3); EOSINOPHILS % (AUTO) 5 % (0-10); HEMATOCRIT 26 % (40-54); HEMOGLOBIN 8.1 g/dL (13.3-17.7); LYMPHOCYTES # (AUTO) 1.2 10^3/uL (1.0-4.0); LYMPHOCYTES % (AUTO) 19 % (12-44); MEAN CORPUSCULAR HEMOGLOBIN 28 pg (25-34); MEAN CORPUSCULAR HGB CONC 32 g/dL (32-36); MEAN CORPUSCULAR VOLUME 87 fL (80-99); MEAN PLATELET VOLUME 10.7 fL (9.0-12.2); MONOCYTES # (AUTO) 0.5 10^3/uL (0.0-1.0); MONOCYTES % (AUTO) 8 % (0-12); NEUTROPHILS # (AUTO) 4.1 10^3/uL (1.8-7.8); NEUTROPHILS % (AUTO) 67 % (42-75); PLATELET COUNT 100 10^3/uL (130-400); WHITE BLOOD COUNT 6.1 10^3/uL (4.3-11.0)
[2020-11-22] MEDS: NOREPINEPHRINE 4 MG/250 ML 250 ML IV SCH ×2 (05:01→08:03)
[2020-11-22 05:03] LABS: CHLORIDE 105 MMOL/L (98-107); POTASSIUM 3.9 MMOL/L (3.6-5.0); SODIUM 137 MMOL/L (135-145)
[2020-11-22 05:04] LABS: CALCIUM 7.2 MG/DL (8.5-10.1)
[2020-11-22 05:05] LABS: GLUCOSE 134 MG/DL (70-105)
[2020-11-22 05:07] LABS: CARBON DIOXIDE 25 MMOL/L (21-32)
[2020-11-22] MEDS: inSUlin ASPART (NovoLOG) 1 UNIT/0.01 ML (CHARGE PER UNIT) SC SCH ×2 (05:07→12:05)
[2020-11-22 05:09] LABS: CREATININE SERUM 0.76 MG/DL (0.60-1.30); GFR ESTIMATED > 60; PHOSPHORUS 2.4 MG/DL (2.3-4.7)
[2020-11-22 05:10] LABS: BUN/CREATININE RATIO 20
[2020-11-22 05:11] LABS: MAGNESIUM 1.6 MG/DL (1.6-2.4)
--- NOTE | 2020-11-22 06:54 | Progress Note - Surgery ---
RONY DÍAZ MED STUDENT 11/22/20 0653: Subjective Date Seen by a Provider: Nov 22, 2020 Time Seen by a Provider: 06:55 Subjective/Events-last exam Pt being changed and dressed by nurses upon knocking. Waited until finished to enter. Pt denies SOB, chest pain, N/V. Pt denies BM today, notes flatus. Pt c/o left elbow lesion and groin skin irritation. Review of Systems General: No Chills HEENT: No Head Aches Pulmonary: No Dyspnea, No Cough Cardiovascular: No: Chest Pain Gastrointestinal: No: Nausea, Vomiting, Abdominal Pain Genitourinary: Other Musculoskeletal: other (Groin skin irritation), arm pain (Left elbow pain) Focused Exam Time of Focused Exam: 14:15 Objective Exam Vital Signs Date Time Temp Pulse Resp B/P (MAP) Pulse Ox O2 Delivery O2 Flow Rate FiO2 11/22/20 04:35 36.6 87 18 87/62 (70) 96 Nasal Cannula 2.00 11/22/20 01:00 90 11/21/20 23:44 36.2 93 12 110/79 (89) 97 Room Air 11/21/20 21:33 Room Air 11/21/20 21:30 36.7 93 18 108/67 91 Room Air 11/21/20 21:28 92 108/67 (81) 89 Room Air 11/21/20 19:49 36.6 112 19 119/67 (84) 96 Room Air 11/21/20 19:30 36.5 97 20 119/67 97 Room Air 11/21/20 19:00 36.6 108 22 95 Room Air 11/21/20 19:00 105 11/21/20 18:45 36.9 101 18 108/98 Room Air 11/21/20 18:29 36.9 100 20 116/84 Room Air 11/21/20 16:00 36.6 101 24 116/84 (95) 93 Room Air 11/21/20 12:37 102 11/21/20 11:00 36.7 103 24 106/80 (89) 93 Room Air 11/21/20 09:00 93 Room Air 11/21/20 08:27 36.6 99 22 96/68 (77) 93 Room Air I & O 11/22/20 07:00 Intake Total 1730 ml Output Total 3050 ml Balance -1320 ml Capillary Refill : Less Than 3 SecondsLess Than 3 Seconds General Appearance: No Apparent Distress, Chronically ill, Obese HEENT: PERRL/EOMI Neck: Non Tender, Supple Respiratory: Chest Non Tender, No Accessory Muscle Use, No Respiratory Distress, Rales (Right side more predominant) Cardiovascular: Regular Rate, Rhythm, No Murmur Peripheral Pulses: 1+ Dorsalis Pedis (R), 1+ Left Dors-Pedis (L); 2+ Radial Pulses (R), 2+ Radial Pulses (L) Gastrointestinal: normal bowel sounds, non tender, soft, no organomegaly, other (edema lower portion) Extremity: Swelling (Pitting), Other (Left elbow lesion) Neurologic/Psychiatric: Alert, Oriented x3 Skin: Normal Color, Warm/Dry, Other (Groin irritation) Results Lab Laboratory Tests 11/21/20 10:31: Glucometer 205H 11/21/20 15:17: Glucometer 212H 11/21/20 20:49: Glucometer 139H 11/21/20 23:50: Hemoglobin 8.4L, Hematocrit 27L 11/22/20 04:25: White Blood Count 6.1, Red Blood Count 2.93L, Hemoglobin 8.1L, Hematocrit 26L, Mean Corpuscular Volume 87, Mean Corpuscular Hemoglobin 28, Mean Corpuscular Hemoglobin Concent 32, Red Cell Distribution Width 16.8H, Platelet Count 100L, Mean Platelet Volume 10.7, Immature Granulocyte % (Auto) 1, Neutrophils (%) (Auto) 67, Lymphocytes (%) (Auto) 19, Monocytes (%) (Auto) 8, Eosinophils (%) (Auto) 5, Basophils (%) (Auto) 0, Neutrophils # (Auto) 4.1, Lymphocytes # (Auto) 1.2, Monocytes # (Auto) 0.5, Eosinophils # (Auto) 0.3, Basophils # (Auto) 0.0, Immature Granulocyte # (Auto) 0.0, Sodium Level 137, Potassium Level 3.9, Chloride Level 105, Carbon Dioxide Level 25, Anion Gap 7, Blood Urea Nitrogen 15, Creatinine 0.76, Estimat Glomerular Filtration Rate > 60, BUN/Creatinine Ratio 20, Glucose Level 134H, Calcium Level 7.2L, Phosphorus Level 2.4, Magnesium Level 1.6 Microbiology 11/18/20 Blood Culture - Preliminary, Resulted No growth 1/9/21 MRSA Screen - Final, Complete 11/12/20 Urine Culture - Final, Complete NO GROWTH Assessment/Plan Assessment/Plan Assessment/Plan Severe anemia- had to be transfused 11/20/19 (1 unit PRBC), continue to monitor H/H, avoid anticoagulation Upper GI bleed- most likely, but no signs of continued bleeding. Protonix, no NSAIDS Right hip fracture- deemed non-op on last admission Ascites, Covid negative, CAD Chest wound -exposed wire from cabg - good local wound care Hypotenstion- norepinephrine (currently HELD), continue as needed Unstable blood sugar levels (episodes of hyper/hypoglycemia) EGD/colonoscopy in near future or inpatient if has significant drop. Groin skin irritation Clinical Quality Measures DVT/VTE Risk/Contraindication: Risk Factor Score Per Nursin RFS Level Per Nursing on Admit: 4+=Very High ANTONY BENNETT DO 11/22/20 1639: Subjective Subjective/Events-last exam Patient tolerating diet. Hemoglobin stable. Patient planning for discharge today. Patient wants wire at chest wound removed or wound to heal. Patient wanting to go home. He denies any complaints at this time denies any fever sweats chills shortness of breath or chest pain. Objective Exam General Appearance: No Apparent Distress, Chronically ill, Obese HEENT: PERRL/EOMI Neck: Non Tender, Supple Respiratory: Chest Non Tender, No Accessory Muscle Use, No Respiratory Distress Cardiovascular: Regular Rate, Rhythm, No Murmur Gastrointestinal: non tender, soft, other (edema lower portion) Extremity: Swelling (Right lower extremity with multiple wounds, left BKA) Neurologic/Psychiatric: Alert, Oriented x3 Skin: Normal Color, Warm/Dry Lymphatic: No Adenopathy Assessment/Plan Assessment/Plan Assessment/Plan Severe anemia- had to be transfused 11/20/19 (1 unit PRBC), continue to monitor H/H, avoid anticoagulation Upper GI bleed- most likely, but no signs of continued bleeding. Protonix, no NSAIDS Right hip fracture- deemed non-op on last admission Ascites, Covid negative, CAD Chest wound -exposed wire from cabg - good local wound care if continues to improve could remove portion of wire and debride to attempt closure in near future Hypotenstion- norepinephrine (currently HELD), continue as needed Unstable blood sugar levels (episodes of hyper/hypoglycemia) Endoscopy inpatient vs outpatient, hgb stable okay to dc and do as outpatient Supervisory-Addendum Brief Verification & Attestation Participated in pt care: history, MDM, physical Personally performed: exam, history, MDM, supervision of care Care discussed with: Medical Student Procedures: n/a Results interpretation: Verified all documentation Verification and Attestation of Medical Student E/M Service A medical student performed and documented this service in my presence. I reviewed and verified all information documented by the medical student and made modifications to such information, when appropriate. I personally performed the physical exam and medical decision making. Antony Bennett, Nov 22, 2020,16:39 RONY DÍAZ MED STUDENT Nov 22, 2020 06:53 ANTONY BENNETT DO Nov 22, 2020 16:39
--- NOTE | 2020-11-22 07:13 | Pulmonary Progress Note ---
Subjective Time Seen by a Provider: 07:10 Subjective/Events-last exam No complications noted. Sepsis Event Evaluation Height, Weight, BMI Height: 6'1.00" Weight: 216lbs. 4.0oz. 97.734943gq; 29.00 BMI Method:Stated Focused Exam Time of Focused Exam: 14:15 Exam Exam Vital Signs Date Time Temp Pulse Resp B/P (MAP) Pulse Ox O2 Delivery O2 Flow Rate FiO2 11/22/20 04:35 36.6 87 18 87/62 (70) 96 Nasal Cannula 2.00 11/22/20 01:00 90 11/21/20 23:44 36.2 93 12 110/79 (89) 97 Room Air 11/21/20 21:33 Room Air 11/21/20 21:30 36.7 93 18 108/67 91 Room Air 11/21/20 21:28 92 108/67 (81) 89 Room Air 11/21/20 19:49 36.6 112 19 119/67 (84) 96 Room Air 11/21/20 19:30 36.5 97 20 119/67 97 Room Air 11/21/20 19:00 36.6 108 22 95 Room Air 11/21/20 19:00 105 11/21/20 18:45 36.9 101 18 108/98 Room Air 11/21/20 18:29 36.9 100 20 116/84 Room Air 11/21/20 16:00 36.6 101 24 116/84 (95) 93 Room Air 11/21/20 12:37 102 11/21/20 11:00 36.7 103 24 106/80 (89) 93 Room Air 11/21/20 09:00 93 Room Air 11/21/20 08:27 36.6 99 22 96/68 (77) 93 Room Air I & O 11/22/20 07:00 Intake Total 1730 ml Output Total 3050 ml Balance -1320 ml Height & Weight Height: 6'1.00" Weight: 216lbs. 4.0oz. 97.672732aa; 29.00 BMI Method:Stated General Appearance: No Apparent Distress, Chronically ill, Obese HEENT: PERRL/EOMI Neck: Non Tender, Supple Respiratory: Normal Breath Sounds, No Respiratory Distress, Rales (Right side predominant) Cardiovascular: Regular Rate, Rhythm, No Murmur Capillary Refill: Less Than 3 Seconds Peripheral Pulses: 1+ Dorsalis Pedis (R), 1+ Left Dors-Pedis (L); 2+ Radial Pulses (R), 2+ Radial Pulses (L) Gastrointestinal: normal bowel sounds, non tender, soft, no organomegaly, other (edema lower portion) Extremity: Swelling (Pitting), Other (Left elbow lesion) Neurologic/Psychiatric: Alert, Oriented x3 Skin: Normal Color, Warm/Dry Results Lab Laboratory Tests 11/20/20 15:24 11/21/20 03:20 11/21/20 23:50 11/22/20 04:25 Assessment/Plan Assessment/Plan Cellulitis with severe sepsis s/p shock -s/p Merrem and Vanco Acute on chronic respiratory failure with right upper lobe infiltrate right base s/p antibiotics -Repeat CXR Anemia with upper GIB s/p 4 units of PRBC -Monitor Hb -Protonix BID -Surgery is consulted Cardiomyopathy Decubitus ulcers - pt is bed bound Left NILS MARTINEZ DO Nov 22, 2020 07:13
[2020-11-22 08:03] VITALS: BP 101/64
[2020-11-22] MEDS: PANTOPRAZOLE 40 MG (PROTONIX) VIAL IV SCH (08:56)
[2020-11-22] MEDS: ENALAPRIL 2.5 MG (VASOTEC) TAB PO SCH (08:57)
[2020-11-22] MEDS: CARVEDILOL 3.125 MG (COREG) TABLET PO SCH (08:57)
--- NOTE | 2020-11-22 10:32 | Progress Note - Cardiology ---
Cardiology SOAP Progress Note Subjective: Gen weakness and malaise present Shortness of breath with activity No cp or palp or syncope Objective: I&O/Vital Signs 11/21/20 11/22/20 11/22/20 11/22/20 23:44 01:00 04:35 08:03 Temp 36.2 36.6 36.6 Pulse 93 90 87 91 Resp 10 21 19 B/P (MAP) 110/79 (89) 87/62 (70) 101/64 (76) Pulse Ox 97 96 96 O2 Delivery Room Air Nasal Cannula Room Air O2 Flow Rate 2.00 11/22/20 00:00 Intake Total 1050 ml Output Total 1850 ml Balance -800 ml Weight (Pounds): 216 Weight (Ounces): 4.0 Weight (Calculated Kilograms): 97.469581 Constitutional: AAO x 3 Respiratory: chest is bilaterally symmetric, other (good air entry) Cardiovascular: regular rate-rhythm, S1 and S2 Gastrointestional: soft, audible bowel sounds Extremities: significant edema (bilat pitting edema) Neurologic/Psychiatric: other (moves extremities) Skin: other (multiple abrasion/wounds to LE bilat) Results/Procedures: Labs Laboratory Tests 11/21/20 10:31: Glucometer 205H 11/21/20 15:17: Glucometer 212H 11/21/20 20:49: Glucometer 139H 11/21/20 23:50: Hemoglobin 8.4L, Hematocrit 27L 11/22/20 04:25: White Blood Count 6.1, Red Blood Count 2.93L, Hemoglobin 8.1L, Hematocrit 26L, Mean Corpuscular Volume 87, Mean Corpuscular Hemoglobin 28, Mean Corpuscular Hemoglobin Concent 32, Red Cell Distribution Width 16.8H, Platelet Count 100L, Mean Platelet Volume 10.7, Immature Granulocyte % (Auto) 1, Neutrophils (%) (Auto) 67, Lymphocytes (%) (Auto) 19, Monocytes (%) (Auto) 8, Eosinophils (%) (Auto) 5, Basophils (%) (Auto) 0, Neutrophils # (Auto) 4.1, Lymphocytes # (Auto) 1.2, Monocytes # (Auto) 0.5, Eosinophils # (Auto) 0.3, Basophils # (Auto) 0.0, Immature Granulocyte # (Auto) 0.0, Sodium Level 137, Potassium Level 3.9, Chloride Level 105, Carbon Dioxide Level 25, Anion Gap 7, Blood Urea Nitrogen 15, Creatinine 0.76, Estimat Glomerular Filtration Rate > 60, BUN/Creatinine Ratio 20, Glucose Level 134H, Calcium Level 7.2L, Phosphorus Level 2.4, Magnesium Level 1.6 Microbiology 11/18/20 Blood Culture - Preliminary, Resulted No growth 11/12/20 MRSA Screen - Final, Complete 11/12/20 Urine Culture - Final, Complete NO GROWTH A/P: Assessment: Ac on chronic systolic CHF due to chronic ischemic cardiomyopathy Echo of 11/17/20 (Dr Bustos) showed LVEF 25-30%, biatrial enlargement, PASP approx 45-50 mmHg CAD. H/o CABG. Pt has no recollection, but previous records at this hosp indicate CABG was in 2009 in [place], [place]. Last card cath at this hosp was in 2012: occluded LAD and RCA, severely diseased LCX; patent JACINTO to LAD, patent SVG to PDA, patent SVG to OM, diffusely atretic and occluded SVG to RI, SVG 35- 40% A protruding end of a sternal wire from the cephalic part of the sternum. The patient states this has been present for many years and refuses any eval or treatment of this RLE cellulitis and septic shock, managed by the Med Svce Severe anemia requiring transfusions, managed by the Med and Surg Svces S/p single chamber ICD (as seen on CXR of 10/25/20). This is [employer] device that was interrogated on 10/26/20 and found to be functioning normally with greater than 2 yrs of battery remaining L BKA. He doesn't know when or where or why it was done, and has had no f/u R hip fracture in Oct 2020 after a nonsyncopal fall. Was considered inoperable due to pt's neglect of it that has led to purulent skin breakdown Multiple areas of skin breakdown Plan: Severe anemia is contributing to unstable symptoms. We recommend full eval and treatment. Meanwhile, blood transfusion Titrate bb and BEA-inhib as allowed by bp Monitor lab closely Prognosis guarded (multisystem involvement with apparently downhill course since hip fracture in Oct 2020) ELLIOT NATH MD FACP FAC CCDS Nov 22, 2020 10:32
--- NOTE | 2020-11-22 11:15 | Diagnostic Imaging Report ---
INDICATION: Shortness of breath. COMPARISON: 11/16/2020. FINDINGS: Infiltrate, particularly in the right lung, shows an improvement. The prior enlargement of the cardiac silhouette is unchanged. The sternal wires are midline. The pacemaker device is stable. IMPRESSION: Improvements in infiltrates. Stable cardiomegaly. No adverse development. Interval right IJ removal without pneumothorax. Dictated by: Dictated on workstation # [id number]
[2020-11-22 12:00] VITALS: BP 103/69
[2020-11-22] MEDS ORDERED: FURO40TA4 PO ×2 (12:04)
--- NOTE | 2020-11-22 12:14 | Discharge Summary ---
Discharge Summary Hospital Course Was the Problem List Reviewed?: Yes Problems/Dx: (1) Severe anemia Status: Acute (2) Upper GI bleed Status: Acute (3) HFrEF (heart failure with reduced ejection fraction) Status: Acute (4) S/P BKA (below knee amputation) Status: Chronic (5) T2DM (type 2 diabetes mellitus) Status: Acute Qualifiers: Hospital Course Date of Admission: Nov 12, 2020 at 13:59 Admission Diagnosis : Hemorrhagic shock due to upper GI bleeding Family Physician/Provider: Andrew Dominguez MD Date of Discharge: 11/22/20 Discharge Diagnosis: Hemorrhagic shock due to upper GI bleeding Hospital Course: Richar Kasper is a 50-year-old male with complex medical issues including heart failure with reduced ejection fraction, krmqt-hee-flam amputation, bedbound, CAD s/p CABG with staple protruding from chest, who presented with shortness of breath. He initially required ICU admission and pressor support for hypotension. He was found to be severely anemic and required multiple units of PRBC transfusion. There was concern for septic shock but this is likely due to hemorrhagic shock. His hemoglobin stabilized. Surgery was consulted but defer to endoscopic evaluation of this time as he had stabilized. We will plan for an outpatient endoscopy. He was discharged home with home health. He will establish care with [facility] on . Labs and Pending Lab Test: Laboratory Tests 11/21/20 15:17: Glucometer 212H 11/21/20 20:49: Glucometer 139H 11/21/20 23:50: Hemoglobin 8.4L, Hematocrit 27L 11/22/20 04:25: Hemoglobin 8.1L, Hematocrit 26L, White Blood Count 6.1, Red Blood Count 2.93L, Mean Corpuscular Volume 87, Mean Corpuscular Hemoglobin 28, Mean Corpuscular Hemoglobin Concent 32, Red Cell Distribution Width 16.8H, Platelet Count 100L, Mean Platelet Volume 10.7, Immature Granulocyte % (Auto) 1, Neutrophils (%) (Auto) 67, Lymphocytes (%) (Auto) 19, Monocytes (%) (Auto) 8, Eosinophils (%) (Auto) 5, Basophils (%) (Auto) 0, Neutrophils # (Auto) 4.1, Lymphocytes # (Auto) 1.2, Monocytes # (Auto) 0.5, Eosinophils # (Auto) 0.3, Basophils # (Auto) 0.0, Immature Granulocyte # (Auto) 0.0, Sodium Level 137, Potassium Level 3.9, Chloride Level 105, Carbon Dioxide Level 25, Anion Gap 7, Blood Urea Nitrogen 15, Creatinine 0.76, Estimat Glomerular Filtration Rate > 60, BUN/Creatinine Ratio 20, Glucose Level 134H, Calcium Level 7.2L, Phosphorus Level 2.4, Magnesium Level 1.6 11/22/20 11:43: Lab Scanned Report Transfusion Reaction Form 11/22/20 12:02: Glucometer 152H Microbiology 11/18/20 Blood Culture - Preliminary, Resulted No growth 11/12/20 MRSA Screen - Final, Complete 11/12/20 Urine Culture - Final, Complete NO GROWTH Home Meds Active Furosemide 40 Mg Tablet 40 Mg PO BID 30 Days Reported Novolog (Insulin Aspart) 100 Unit/1 Ml Susp 10 Unit SQ TIDAC Levemir (Insulin Determir) 1,000 Units/10 Ml Soln 25 Units SQ BID Carvedilol 3.125 Mg Tablet 3.125 Mg PO BID Enalapril Maleate 2.5 Mg Tablet 2.5 Mg PO BID Aspirin 81 Mg Tab.chew 81 Mg PO DAILY Hydrocodone-Acetamin 10-325 mg (Hydrocodone/Acetaminophen) 1 Each Tablet 1 Ea PO Q4H PRN Ibuprofen 200 Mg Tablet 200-400 Mg PO Q6H PRN Assessment/Pt Instructions take medications as prescribed. Follow up with [facility] the [facility]. You will need an EGD scheduled as an outpatient. Discharge Planning: >30 minutes discharge planning Discharge Instructions Discharge Diet: ADA Diet Activity as Tolerated: Yes Discharge Physical Examination Vital Signs Vital Signs Date Time Temp Pulse Resp B/P (MAP) Pulse Ox O2 Delivery O2 Flow Rate FiO2 11/22/20 09:00 Room Air 11/22/20 08:03 36.6 91 19 101/64 (76) 96 11/22/20 04:35 2.00 11/18/20 14:35 28 General Appearance: No Apparent Distress, Chronically ill Respiratory: Lungs Clear, Normal Breath Sounds, No Respiratory Distress Cardiovascular: Regular Rate, Rhythm, No Murmur Gastrointestinal: Normal Bowel Sounds, Soft Extremity: Swelling, Other (left BKA) Skin: Other (decubitus ulcers) Neurologic/Psychiatric: Alert, Oriented x3, Other (flat affect) Allergies: Coded Allergies: raspberry (Unverified Allergy, Mild, 04/14/15) FROM UNCODED ALLERGIES Penicillins (Verified Allergy, Unknown, FEVER AND NAUSEA, 04/18/15) OCCURED AFTER RECEIVING IV Copy Copies To 1: [facility] [place] Summary Date of Admission Nov 12, 2020 at 13:59 Date of Discharge Discharge Date: Nov 22, 2020 Discharge Time: 12:08 Admission Diagnosis Hemorrhagic shock due to upper GI bleeding Consults/Procedures Consulations Cardiology, Surgery Discharge Diagnosis Hemorrhagic shock due to upper GI bleeding (1) Severe anemia Status: Acute (2) Upper GI bleed Status: Acute (3) HFrEF (heart failure with reduced ejection fraction) Status: Acute (4) S/P BKA (below knee amputation) Status: Chronic (5) T2DM (type 2 diabetes mellitus) Status: Acute Qualifiers: Clinical Quality Measures DVT/VTE Risk/Contraindication: Risk Factor Score Per Nursin RFS Level Per Nursing on Admit: 4+=Very High DIANA VINES MD Nov 22, 2020 12:12
--- NOTE | 2020-11-22 12:16 | D/C HH Face to Face Order ---
D/C Face to Face Orders Reconcile Patient Problems Problems Reviewed?: Yes Instructions for Patient Via [employer], Patient Instructions/FollowUp: follow up with [facility] on Physician to follow Patient: [facility] Discharge Diet for Home: ADA Diet Patient Data-Allergies,Ht & Wt Patient Allergies: Coded Allergies: raspberry (Unverified Allergy, Mild, 04/14/15) FROM UNCODED ALLERGIES Penicillins (Verified Allergy, Unknown, FEVER AND NAUSEA, 04/18/15) OCCURED AFTER RECEIVING IV Height (Feet): 6 Height (Inches): 1.00 Weight (Pounds): 216 Weight (Ounces): 4.0 Home Health Need/Face to Face Date of Face to Face: Nov 22, 2020 Clinical Findings: Generalized weakness and fatigue, Muscle weakness, Non or partial weight bearing I have seen Pt cmxl-fq-nphc: Yes Discharged To: Home Diagnosis/Conditions: Heart failure Debility Anemia Problems/Diagnosis/Condition: (1) Debility (2) Severe anemia (3) HFrEF (heart failure with reduced ejection fraction) (4) S/P BKA (below knee amputation) Patient is Homebound due to: Pepper fall risk due to instabilty, Muscle weakne ss, Non-weight bearing Homebound Status Due to the above stated illness, injury or surgical procedure (medical condition or diagnosis) and associated clinical findings, the patient is homebound because of his/her inability to leave home except with aid of a supportive device and/or person AND leaving the home requires a considerable and taxing effort or is medically contraindicated. Pt req the following assistanc: Aid of another person Home Health Nursing Orders Home Health Services Order: Nursing Services, [facility]-Evaluate & Treat, Physical Therapy-Evaluate & Treat Home Health Infusion Therapy Line Start Date: Nov 16, 2020 Therapy Orders Therapy Orders: OT (must have SN or PT order), Physical Therapy Therapy Specific Orders: Increase strength/endurance Certify Stmt I certify that this patient is under my care and that I, a nurse practitioner or a physician; a assistant controller working with me, had a face to face encounter that -meets the physician face to face encounter requirements with this patient as dated. DIANA VINES MD Nov 22, 2020 12:16
[2020-11-22 12:20] VITALS: BP 87/50
--- NOTE | 2020-11-22 13:30 | NUR ---
CM/CAITLIN finalized discharge. Plan: The patient will return to home with home health and an at home follow up appointment. Non-Emergent EMS for transport. Home Health: JIM/CAITLIN sent updated clinical and finalized discharge to [facility]. Carmela verbalized they will be able to admit patient. Appointment: JIM/CAITLIN contacted [facility] and spoke with Adrianna Mesa's nurser Barb. They have a home visit set up for at 11:00 a.m. JIM/CAITLIN informed the patient that Adrianna would only be willing to try and see him one more time due to his past non-compliance and if he didn't keep the appointment she would not see him again. He verbalized understanding. APS: JIM/CAITLIN attempted to contact Wen Reyes to inform her of the patient discharging home. No answer but a voice mail was left with call back number. EMS: Non-emergent EMS transport due to bed bound status and unhealed broken hip. CM/SS faxed form and face sheet. No further needs.
--- NOTE | 2020-11-22 14:00 | NUR ---
MANJIT OZUNA demonstrates understanding of discharge instructions and accurately returns instructions upon questioning. Copy of Post-Discharge Instructions and Medication Discharge Instructions given to pt. MANJIT OZUNA is able to manage continuing needs after discharge. Patients belongings returned to pt. Skin dry and intact; no breakdown noted. Patient discharged from 511-1 on at 1400. MANJIT OZUNA left floor via stretcher, accompanied by ems.
--- NOTE | 2020-11-23 12:49 | Physician Query Clarification ---
PQ-Further Specificity Admission/Discharge Admission Date: Nov 12, 2020 at 13:59 Discharge Date: Nov 22, 2020 at 14:00 Jori, The medical record reflects the following clinical scenario: History/Risk Factors: sepsis, shock, cellulitis, GIB, decub ulcer rt leg/foot, HTN w/a>c systolic CHF Clinical Findings: T34.4, P 92, R 27 BP 84/43, Lactic acid 8.41 Treatment: IVF, IV Vancomycin, IV Meropenem, pressors Question: Can you further specify whether or not patient had sepsis per the clinical indicators above? DS states There was concern for septic shock but this is likely due to hemorrhagic shock.. Please document a response in the Progress Notes or Discharge Summary. 1. Sepsis with hemorrhagic shock, septic shock ruled out 2. No sepsis or septic shock, patient had hemorrhagic shock due to GIB (melena) 3. Other, with explanation of the clinical findings. 4. Clinically undetermined, no explanation for the clinical findings. PHYSICIAN RESPONSE Can you specify per above: Other, explanation/clinical finding Explanation/Clinical Findings Likely combination of septic and hemorrhagic shock Please remember a lack of response to the above will prompt a phone page by CDI/Coding staff. In responding to this query, please exercise your independent professional judgment. The purpose of this communication is to more accurately reflect the complexity of your patients condition. The fact that a question is asked does not imply that any particular answer is desired or expected. Thank you for your timely response to this clarification. Requestors name: [email or web address] THIS PHYSICIAN QUERY FORM IS A PERMANENT PART OF THE MEDICAL RECORD TRUDI BARRON Nov 23, 2020 12:49 DIANA VINES MD Nov 24, 2020 20:47
== END 2020-11-22 14:00 | disposition home health service (06) | DRG 871 ==
LOC: EDUNIT# 09:56 → ER 09:58 → ICU 13:59 → 4TH 11-16 11:24 → ICU 11-18 00:45 → CSD 11-20 11:54
PROVIDERS: ADMIT Internal Medicine; ATTEND Internal Medicine
PROC: 02HV33Z Insertion of Infusion Device into Superior Vena Cava, Percutaneous Approach (ICD-10-PCS; principal; 2020-11-12)
DX: A41.9 Sepsis, unspecified organism (principal); R65.21 Severe sepsis with septic shock; R57.8 Other shock; I50.23 Acute on chronic systolic (congestive) heart failure; J96.20 Acute and chronic respiratory failure, unspecified whether with hypoxia or hypercapnia; K92.1 Melena; L03.115 Cellulitis of right lower limb; D62 Acute posthemorrhagic anemia; E87.2 Acidosis; E87.1 Hypo-osmolality and hyponatremia; Z20.822 Contact with and (suspected) exposure to COVID-19; R18.8 Other ascites; I25.810 Atherosclerosis of coronary artery bypass graft(s) without angina pectoris; I11.0 Hypertensive heart disease with heart failure; I25.5 Ischemic cardiomyopathy; L89.899 Pressure ulcer of other site, unspecified stage; Z74.01 Bed confinement status; S72.001D Fracture of unspecified part of neck of right femur, subsequent encounter for closed fracture with routine healing; E11.65 Type 2 diabetes mellitus with hyperglycemia; E11.649 Type 2 diabetes mellitus with hypoglycemia without coma; K21.9 Gastro-esophageal reflux disease without esophagitis; F17.210 Nicotine dependence, cigarettes, uncomplicated; M19.91 Primary osteoarthritis, unspecified site; M06.9 Rheumatoid arthritis, unspecified; F32.9 Major depressive disorder, single episode, unspecified; I25.10 Atherosclerotic heart disease of native coronary artery without angina pectoris; Z89.512 Acquired absence of left leg below knee; D69.6 Thrombocytopenia, unspecified; Z95.1 Presence of aortocoronary bypass graft; Z95.0 Presence of cardiac pacemaker; Z79.2 Long term (current) use of antibiotics; Z79.82 Long term (current) use of aspirin; Z79.4 Long term (current) use of insulin; Z88.0 Allergy status to penicillin; Z83.3 Family history of diabetes mellitus; Z82.49 Family history of ischemic heart disease and other diseases of the circulatory system; W06.XXXD Fall from bed, subsequent encounter
CPT/HCPCS: 36415; 36430; 36569; 51702; 71045; 71275; 74177; 76937; 80048; 80053; 80202; 81000; 82040; 82274; 82533; 82962; 83605; 83615; 83735; 83880; 84100; 84145; 85007; 85014; 85018; 85025; 85027; 85379; 85610; 85730; 86141; 86850; 86900; 86901; 86920; 87040; 87081; 87088; 87635; 87804; 93306; 94640; 94664; 94760; 96361; 96365; 96375; 99291

== ENCOUNTER 2020-11-25 09:21 | Emergency (ER) | payer MEDICARE ==
[~2020-11-25] VITALS: Ht 155 cm; Wt 115.0 kg
[~2020-11-25 09:21] MED LIST changes: +HYDR-3820 PO; +INSU100V16 SQ
[2020-11-25 09:51] LABS: BASOPHILS % (AUTO) 0 % (0-10); EOSINOPHILS # (AUTO) 0.1 10^3/uL (0.0-0.3); EOSINOPHILS % (AUTO) 1 % (0-10); HEMATOCRIT 31 % (40-54); HEMOGLOBIN 9.5 g/dL (13.3-17.7); LYMPHOCYTES # (AUTO) 1.5 10^3/uL (1.0-4.0); LYMPHOCYTES % (AUTO) 11 % (12-44); MEAN CORPUSCULAR HEMOGLOBIN 28 pg (25-34); MEAN CORPUSCULAR HGB CONC 31 g/dL (32-36); MEAN CORPUSCULAR VOLUME 88 fL (80-99); MEAN PLATELET VOLUME 10.7 fL (9.0-12.2); MONOCYTES # (AUTO) 0.6 10^3/uL (0.0-1.0); MONOCYTES % (AUTO) 5 % (0-12); NEUTROPHILS # (AUTO) 10.9 10^3/uL (1.8-7.8); NEUTROPHILS % (AUTO) 83 % (42-75); PLATELET COUNT 92 10^3/uL (130-400); WHITE BLOOD COUNT 13.2 10^3/uL (4.3-11.0)
[2020-11-25 10:02] LABS: ALBUMIN 2.4 GM/DL (3.2-4.5); CHLORIDE 103 MMOL/L (98-107); POTASSIUM 4.3 MMOL/L (3.6-5.0); SODIUM 136 MMOL/L (135-145)
[2020-11-25 10:03] LABS: CALCIUM 7.7 MG/DL (8.5-10.1); INR 1.3 (0.8-1.4); PROTHROMBIN TIME PATIENT 16.4 SEC (12.2-14.7)
[2020-11-25 10:04] LABS: GLUCOSE 230 MG/DL (70-105); TOTAL PROTEIN 5.7 GM/DL (6.4-8.2)
[2020-11-25 10:05] LABS: CARBON DIOXIDE 26 MMOL/L (21-32)
[2020-11-25 10:06] LABS: BILIRUBIN,TOTAL 0.9 MG/DL (0.1-1.0)
[2020-11-25 10:07] LABS: ALKALINE PHOSPHATASE 134 U/L (40-136)
[2020-11-25 10:08] LABS: GFR ESTIMATED > 60
[2020-11-25 10:09] LABS: BUN/CREATININE RATIO 18
[2020-11-25 10:11] LABS: ALANINE AMINOTRANSFERASE 11 U/L (0-55)
--- NOTE | 2020-11-25 10:12 | Diagnostic Imaging Report ---
INDICATION: Sepsis Portable chest 9:48 AM There are postoperative changes from CABG surgery. There is unipolar pacemaker with ICD. Heart size and pulmonary vascularity are normal. There is some faint patchy infiltrate in the right upper lung that is improved from 11/22/2020. IMPRESSION: Improving peripheral infiltrate right lung Dictated by: Dictated on workstation # [id number]
--- NOTE | 2020-11-25 10:23 | Diagnostic Imaging Report ---
INDICATION: Diabetic wounds COMPARISON: Limited to right ankle radiographs performed 04/28/2014. FINDINGS: There is severe bony demineralization limiting sensitivity for evaluating for acute cortical disruption. There are profound arthritic changes throughout the hind and midfoot with diffuse soft tissue swelling. No opaque foreign body or soft tissue gas. Chronic degenerative and erosive changes across the tibiotalar joint present. Mild metatarsophalangeal and interphalangeal arthritis not obviously changed. While an element of neuropathic foot is presumed, superimposition of osteomyelitis could not be excluded. If bony infection is clinically suspected follow-up with MRI recommended. 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 No opaque foreign body or gas. Diffuse swelling noted. Dictated by: Dictated on workstation # [id number]
[2020-11-25] MEDS ORDERED: LACTATED RINGERS 1,000 ML IV ONE (10:30)
[2020-11-25] MEDS ORDERED: CATHETER FLUSH 10 ML SYR IV PRN (10:45)
[2020-11-25] MEDS ORDERED: HOLD METFORMIN - RECEIVED CONTRAST 20 ML VIAL IV SCH (10:45)
[2020-11-25] MEDS ORDERED: IOHEXOL 350 MG/ML 100 ML (OMNIPAQUE 350) VIAL IV ONE (10:45)
[2020-11-25] MEDS ORDERED: fentaNYL INJECTION 100 MCG/2 ML AMP IVP ONE (11:45)
[2020-11-25 11:46] LABS: CLARITY,URINE SL CLOUDY; COLOR,URINE YELLOW; GLUCOSE, URINE (UA) NEGATIVE (NEGATIVE); KETONES,URINE NEGATIVE (NEGATIVE); LEUKOCYTE ESTERASE ,URINE 2+ (NEGATIVE); NITRITE,URINE NEGATIVE (NEGATIVE); PROTEIN,URINE 1+ (NEGATIVE)
[2020-11-25 11:56] LABS: BACTERIA,URINE MODERATE /HPF; BILIRUBIN,URINE 1+ (NEGATIVE); RBC,URINE RARE /HPF; WBC,URINE TNTC /HPF
--- NOTE | 2020-11-25 12:43 | Diagnostic Imaging Report ---
PROCEDURE: CT abdomen and pelvis with contrast. TECHNIQUE: Multiple contiguous axial images were obtained through the abdomen and pelvis after administration of intravenous contrast. Auto Exposure Controls were utilized during the CT exam to meet ALARA standards for radiation dose reduction. All CT scans use one or more of the following dose optimizing techniques: automated exposure control, MA and/or KvP adjustment based on patient size and exam type or iterative reconstruction. INDICATION: Abdominal pain. COMPARISON: Comparison is made with recent CT from 11/12/2020. FINDINGS: Imaging through lung bases does demonstrates airspace infiltrates in the right middle lobe. There is a small right pleural effusion. Liver and gallbladder are unremarkable. Pancreas and spleen are unremarkable. No adrenal mass is detected. Kidneys are unremarkable. Aorta is non-aneurysmal. Moderate ascites is again noted throughout the abdomen and pelvis. No significant bowel distention is identified. There is some muhf-lp-mwibsluc gastric distention with fluid. No well-formed fluid collection is seen. There is no free air. Bladder is decompressed by Farias catheter. There is edema in the subcutaneous soft tissues consistent with anasarca. IMPRESSION: 1. Small right pleural effusion. There is pbbiyaly-[id number] abdominal and pelvic ascites. The amount of ascites does appear to be increased since exam from 11/12/2020. No other significant abnormality in the abdomen or pelvis is identified. Dictated by: Dictated on workstation # [id number]
--- NOTE | 2020-11-25 13:33 | ED Abdominal Pain ---
General Chief Complaint: Abdominal/GI Problems Stated Complaint: ABD PAIN Sepsis Screen: No Definite Risk Source of Information: Patient Exam Limitations: No Limitations History of Present Illness Date Seen by Provider: Nov 25, 2020 Time Seen by Provider: 09:25 Initial Comments This 50-year-old gentleman presents to the emergency room via EMS due to concerns about a distended abdomen. He is quite debilitated after a recent prolonged hospital stay for severe sepsis. He has a right hip fracture that was not treated as he is a poor surgical candidate. He also has a left BKA. He is therefore immobile. His family helps care for him at home. The last 2 admissions he was offered placement in a shelter but adamantly declined. He is presently set up with a home health nurse 3 times a week along with wound care provided by home visits from [facility]. He has a large ulcer on the lateral aspect of the right foot as well as skin breakdown on his back and buttocks. Blood pressure was initially marginal but improving. He is afebrile. Because of his abdominal distention was noted during his last admission with ascites. There was an evaluation to determine if paracentesis can be performed. The hebert rgical team concluded he did not have enough fluid to safely attempt paracentesis. Allergies and Home Medications Allergies Coded Allergies: raspberry (Unverified Allergy, Mild, 04/14/15) FROM UNCODED ALLERGIES Penicillins (Verified Allergy, Unknown, FEVER AND NAUSEA, 04/18/15) OCCURED AFTER RECEIVING IV Home Medications Aspirin 81 Mg Tab.chew, 81 MG PO DAILY, (Reported) Carvedilol 3.125 Mg Tablet, 3.125 MG PO BID, (Reported) Ciprofloxacin HCl 500 Mg Tablet, 500 MG PO BID Prescribed by: GEORGES FRAZIER on 11/25/20 1346 Doxycycline Hyclate 100 Mg Tablet, 100 MG PO BID Prescribed by: GEORGES FRAZIER on 11/25/20 1346 Enalapril Maleate 2.5 Mg Tablet, 2.5 MG PO BID, (Reported) Fluconazole 150 Mg Tablet, 150 MG PO UD Take one now and repeat every 3 days. Prescribed by: GEORGES FRAZIER on 11/25/20 1455 Furosemide 40 Mg Tablet, 40 MG PO BID Prescribed by: DIANA VINES on 11/22/20 1204 Hydrocodone/Acetaminophen 1 Each Tablet, 1 EA PO Q4H PRN for PAIN-MODERATE (5- 7), (Reported) Ibuprofen 200 Mg Tablet, 200-400 MG PO Q6H PRN for PAIN-MILD (1-4), (Reported) Insulin Aspart 100 Unit/1 Ml Susp, 10 UNIT SQ TIDAC, (Reported) Insulin Determir 1,000 Units/10 Ml Soln, 25 UNITS SQ BID, (Reported) Patient Home Medication List Home Medication List Reviewed: Yes Review of Systems Review of Systems Constitutional: no symptoms reported EENTM: No Symptoms Reported Respiratory: No Symptoms Reported Cardiovascular: See HPI Gastrointestinal: See HPI Genitourinary: No Symptoms Reported Musculoskeletal: see HPI Skin: see HPI Psychiatric/Neurological: No Symptoms Reported Endocrine: No Symptoms Reported Hematologic/Lymphatic: No Symptoms Reported Past Geyiilc-Aymalp-Kkbztm Hx Past Med/Social Hx: Reviewed Nursing Past Med/Soc Hx Patient Social History Alcohol Use: Denies Use Type Used: Cigarettes Recent Infectious Disease Expo: No Recent Hopitalizations: Yes Immunizations Up To Date Tetanus Booster (TDap): Unknown PED Vaccines UTD: No Date of Pneumonia Vaccine: Sep 17, 2014 Date of Influenza Vaccine: Sep 13, 2014 Seasonal Allergies Seasonal Allergies: No Past Medical History Surgeries: Yes (LEFT BKA, DEBRIDEMENT) CABG, Orthopedic, Pacemaker Respiratory: No Cardiac: Yes High Cholesterol Neurological: Yes Reproductive Disorders: No Sexually Transmitted Disease: No HIV/AIDS: No Genitourinary: No Gastrointestinal: Yes Gastroesophageal Reflux Musculoskeletal: Yes Amputee, Arthritis, Rheumatoid Arthritis, Fractures, Contracture Endocrine: Yes Diabetes, Insulin dep HEENT: No Loss of Vision: Left Hearing Impairment: Denies Cancer: No (FAMILY) Psychosocial: Yes Depression Integumentary: Yes (ULCER WOUNDS ON RIGHT LOWER LEG/FOOT) Blood Disorders: No Adverse Reaction/Blood Tranf: No Family Medical History Colon cancer 19 FATHER Diabetes mellitus 19 FATHER Hypertension 19 FATHER No Pertinent Family Hx Physical Exam Vital Signs Vital Signs - First Documented 11/25/20 11/25/20 10:03 10:22 Temp 37.7 Pulse 110 Resp 24 B/P (MAP) 109/65 (80) Pulse Ox 94 O2 Delivery Room Air O2 Flow Rate 4.00 FiO2 96 Capillary Refill : Less Than 3 Seconds Height/Weight/BMI Height: 6'1.00" Weight: 216lbs. 4.0oz. 97.027994fn; 47.00 BMI Method:Stated General Appearance: WD/WN, mild distress HEENT: PERRL/EOMI Neck: normal inspection Respiratory: lungs clear, normal breath sounds, no respiratory distress Cardiovascular: regular rate, rhythm, no murmur, other Gastrointestinal: soft, distended (Erythema of the right lower extremity), other (Abdomen appeared warm and slightly erythematous with distention and venous dilatation. 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 Ulceration on the lateral aspect of the right foot.) Focused Exam Lactate Level 11/25/20 09:36: Lactic Acid Level 1.41 Lactic Acid Level Laboratory Tests Test 11/25/20 09:36 Lactic Acid Level 1.41 MMOL/L (0.50-2.00) Progress/Results/Core Measures Results/Orders Lab Results Laboratory Tests Test 11/25/20 09:36 11/25/20 11:40 Range/Units White Blood Count 13.2 H 4.3-11.0 10^3/uL Red Blood Count 3.45 L 4.30-5.52 10^6/uL Hemoglobin 9.5 L 13.3-17.7 g/dL Hematocrit 31 L 40-54 % Mean Corpuscular Volume 88 80-99 fL Mean Corpuscular Hemoglobin 28 25-34 pg Mean Corpuscular Hemoglobin Concent 31 L 32-36 g/dL Red Cell Distribution Width 18.1 H 10.0-14.5 % Platelet Count 92 L 130-400 10^3/uL Mean Platelet Volume 10.7 9.0-12.2 fL Immature Granulocyte % (Auto) 1 % Neutrophils (%) (Auto) 83 H 42-75 % Lymphocytes (%) (Auto) 11 L 12-44 % Monocytes (%) (Auto) 5 0-12 % Eosinophils (%) (Auto) 1 0-10 % Basophils (%) (Auto) 0 0-10 % Neutrophils # (Auto) 10.9 H 1.8-7.8 10^3/uL Lymphocytes # (Auto) 1.5 1.0-4.0 10^3/uL Monocytes # (Auto) 0.6 0.0-1.0 10^3/uL Eosinophils # (Auto) 0.1 0.0-0.3 10^3/uL Basophils # (Auto) 0.0 0.0-0.1 10^3/uL Immature Granulocyte # (Auto) 0.1 0.0-0.1 10^3/uL Prothrombin Time 16.4 H 12.2-14.7 SEC INR Comment 1.3 0.8-1.4 Activated Partial Thromboplast Time 29 24-35 SEC Sodium Level 136 135-145 MMOL/L Potassium Level 4.3 3.6-5.0 MMOL/L Chloride Level 103 98-107 MMOL/L Carbon Dioxide Level 26 21-32 MMOL/L Anion Gap 7 5-14 MMOL/L Blood Urea Nitrogen 14 7-18 MG/DL Creatinine 0.80 0.60-1.30 MG/DL Estimat Glomerular Filtration Rate > 60 BUN/Creatinine Ratio 18 Glucose Level 230 H 70-105 MG/DL Lactic Acid Level 1.41 0.50-2.00 MMOL/L Calcium Level 7.7 L 8.5-10.1 MG/DL Corrected Calcium 9.0 8.5-10.1 MG/DL Total Bilirubin 0.9 0.1-1.0 MG/DL Aspartate Amino Transf (AST/SGOT) 16 5-34 U/L Alanine Aminotransferase (ALT/SGPT) 11 0-55 U/L Alkaline Phosphatase 134 40-136 U/L C-Reactive Protein High Sensitivity 11.84 H 0.00-0.50 MG/DL Total Protein 5.7 L 6.4-8.2 GM/DL Albumin 2.4 L 3.2-4.5 GM/DL Lipase 23 8-78 U/L Urine Color YELLOW Urine Clarity SL CLOUDY Urine pH 5.0 5-9 Urine Specific [place] 1.025 H 1.016-1.022 Urine Protein 1+ H NEGATIVE Urine Glucose (UA) NEGATIVE NEGATIVE Urine Ketones NEGATIVE NEGATIVE Urine Nitrite NEGATIVE NEGATIVE Urine Bilirubin 1+ H NEGATIVE Urine Urobilinogen 0.2 < = 1.0 MG/DL Urine Leukocyte Esterase 2+ H NEGATIVE Urine RBC (Auto) 2+ H NEGATIVE Urine RBC RARE /HPF Urine WBC TNTC H /HPF Urine Squamous Epithelial Cells 2-5 /HPF Urine Crystals NONE /LPF Urine Bacteria MODERATE H /HPF Urine Casts NONE /LPF Urine Mucus NEGATIVE /LPF Urine Culture Indicated YES My Orders Orders - GEORGES GAMINO MD Cbc With Automated Diff (11/25/20 09:37) Comprehensive Metabolic Panel (11/25/20 09:37) Blood Culture (11/25/20 09:37) Sputum Culture (11/25/20 09:37) Urinalysis (11/25/20 09:37) Urine Culture (11/25/20 09:37) Protime With Inr (11/25/20 09:37) Partial Thromboplastin Time (11/25/20 09:37) Chest 1 View, Ap/Pa Only (11/25/20 09:37) Ed Iv/Invasive Line Start (11/25/20 09:37) Ed Iv/Invasive Line Start (11/25/20 09:37) Vital Signs Adult Sepsis Patie Q15M (11/25/20 09:37) O2 (11/25/20 09:37) Remove Rings In Anticipation O (11/25/20 09:37) Lactic Acid Analyzer (11/25/20 09:37) Foot, Right, 2 View (11/25/20 09:50) Ct Abdomen/Pelvis W (11/25/20 10:18) Lactated Ringers (Lr 1000 Ml Iv Solution (11/25/20 10:30) Hs C Reactive Protein (11/25/20 10:18) Lipase (11/25/20 10:18) Iohexol Injection (Omnipaque 350 Mg/Ml 1 (11/25/20 10:45) Received Contrast (Hold Metformin- Contr (11/25/20 10:45) Sodium Chloride Flush (Catheter Flush Sy (11/25/20 10:45) Farias Cath (11/25/20 11:14) Fentanyl Injection (Sublimaze Injection (11/25/20 11:45) Cefepime Injection (Maxipime Injection) (11/25/20 13:45) Medications Given in ED Current Medications Medications Dose Ordered Sig/Rachell Route Start Time Stop Time Status Last Admin Dose Admin Cefepime HCl 2000 mg/Sterile Water 20 ml @ 240 mls/hr ONCE ONCE IV 11/25/20 13:45 11/25/20 13:49 DC 11/25/20 13:56 240 MLS/HR Fentanyl Citrate 50 mcg ONCE ONCE IVP 11/25/20 11:45 11/25/20 11:46 DC 11/25/20 12:21 50 MCG Iohexol 100 ml ONCE ONCE IV 11/25/20 10:45 11/25/20 10:46 DC 11/25/20 12:06 100 ML Lactated Ringer's 1,000 ml @ 0 mls/hr Q0M ONCE IV 11/25/20 10:30 11/25/20 10:31 DC 11/25/20 11:46 1,000 MLS/HR Sodium Chloride 10 ml NEEDED PRN IV 11/25/20 10:45 11/25/20 15:57 DC 11/25/20 12:06 10 ML Vital Signs/I&O 11/25/20 11/25/20 11/25/20 10:03 10:22 15:11 Temp 37.7 37.7 Pulse 110 103 Resp 24 24 B/P (MAP) 109/65 (80) 123/74 (80) Pulse Ox 94 96 95 O2 Delivery Room Air OxyMask Room Air O2 Flow Rate 4.00 0 FiO2 96 Blood Pressure Mean: 80 Progress Progress Note : Progress Note Patient received a thorough work-up including CT scan of the abdomen and pelvis. Ascites was slightly worse than prior. There were small pleural effusions. Patient was not in respiratory distress. He maintained oxygen saturations once his fentanyl wore off. X-ray of the right foot could not rule out osteomyelitis. Patient was offered admission but declined. I discussed the case with Dr. Park. Since patient is adamantly opposed to being admitted to the shelter which is the natural progression of an admission to the hospital, it seems reasonable to emily his request and continue care at home. Patient is not unstable at this time. Patient is adamantly opposed admission to a shelter and is also opposed to admission to the hospital. He stated "I had rather rot at home than go to a rest home". I clearly stated my concerns to the patient regarding his overall wellbeing, his skin breakdown, potential for osteomyelitis in the right foot, and overall deconditioning. He acknowledged this concern and said he appreciated it. However, he still wanted to continue care at home. The situation was also discussed with Adrianna Peng who has been helping provide care at home. A dose of cefepime was administered before discharge. He received about 400 mL of IV fluids. Nursing staff was concerned about his skin breakdown when they placed the Farias catheter. This was particularly bad around the scrotal area. Hopefully leaving the Farias catheter in place will help keep the skin dry. Diflucan was prescribed along with the antibiotics. Diagnostic Imaging Diagonstic Imaging: CT Plain Films/CT/US/NM/MRI: abdomen, pelvis Comments CT abdomen pelvis viewed by me and report reviewed. See report below: NAME: MANJIT OZUNA [facility] REC#: [id number] PT STATUS: REG ER : 1970 PHYSICIAN: GEORGES GAMINO MD ADMIT DATE: 11/25/20/ER Signed Date of Exam:11/25/20 CT ABDOMEN/PELVIS W PROCEDURE: CT abdomen and pelvis with contrast. TECHNIQUE: Multiple contiguous axial images were obtained through the abdomen and pelvis after administration of intravenous contrast. Auto Exposure Controls were utilized during the CT exam to meet ALARA standards for radiation dose reduction. All CT scans use one or more of the following dose optimizing techniques: automated exposure control, MA and/or KvP adjustment based on patient size and exam type or iterative reconstruction. INDICATION: Abdominal pain. COMPARISON: Comparison is made with recent CT from 11/12/2020. FINDINGS: Imaging through lung bases does demonstrates airspace infiltrates in the right middle lobe. There is a small right pleural effusion. Liver and gallbladder are unremarkable. Pancreas and spleen are unremarkable. No adrenal mass is detected. Kidneys are unremarkable. Aorta is non-aneurysmal. Moderate ascites is again noted throughout the abdomen and pelvis. No significant bowel distention is identified. There is some gfgo-ob-mdpzvwsd gastric distention with fluid. No well-formed fluid collection is seen. There is no free air. Bladder is decompressed by Farias catheter. There is edema in the subcutaneous soft tissues consistent with anasarca. IMPRESSION: 1. Small right pleural effusion. There is rfkenunm-bm-oqwrr abdominal and pelvic ascites. The amount of ascites does appear to be increased since exam from 11/12/2020. No other significant abnormality in the abdomen or pelvis is identified. Dictated by: Dictated on workstation # [id number] Dict: 11/25/20 1228 Trans: 11/25/20 1451 [facility] [id number] Interpreted by: GÓMEZ BLANCA MD Electronically signed by: GÓMEZ BLANCA MD 11/25/20 145 Diagonstic Imaging: Xray Plain Films/CT/US/NM/MRI: chest Comments NAME: MANJIT OZUNA [facility] REC#: [id number] PT STATUS: DEP ER : 1970 PHYSICIAN: GEORGES GAMINO MD ADMIT DATE: 11/25/20/ER Signed Date of Exam:11/25/20 CHEST 1 VIEW, AP/PA ONLY INDICATION: Sepsis Portable chest 9:48 AM There are postoperative changes from CABG surgery. There is unipolar pacemaker with ICD. Heart size and pulmonary vascularity are normal. There is some faint patchy infiltrate in the right upper lung that is improved from 11/22/2020. IMPRESSION: Improving peripheral infiltrate right lung Dictated by: Dictated on workstation # [id number] Dict: 11/25/20 1007 Trans: 11/25/20 1653 [facility] [id number] Interpreted by: SHERRI COLLINS MD Electronically signed by: SHERRI COLLINS MD 11/25/201652 Reviewed: Reviewed by Me Diagonstic Imaging: Xray Comments Right foot x-ray viewed by me and report reviewed. See report below: NAME: MANJIT OZUNA [facility] REC#: [id number] PT STATUS: DEP ER : 1970 PHYSICIAN: GEORGES GAMINO MD ADMIT DATE: 11/25/20/ER Signed Date of Exam:11/25/20 FOOT, RIGHT, 2 VIEW INDICATION: Diabetic wounds COMPARISON: Limited to right ankle radiographs performed 04/28/2014. FINDINGS: There is severe bony demineralization limiting sensitivity for evaluating for acute cortical disruption. There are profound arthritic changes throughout the hind and midfoot with diffuse soft tissue swelling. No opaque foreign body or soft tissue gas. Chronic degenerative and erosive changes across the tibiotalar joint present. Mild metatarsophalangeal and interphalangeal arthritis not obviously changed. While an element of neuropathic foot is presumed, superimposition of osteomyelitis could not be excluded. If bony infection is clinically suspected follow-up with MRI recommended. 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 No opaque foreign body or gas. Diffuse swelling noted. Dictated by: Dictated on workstation # [id number] Dict: 11/25/20 1009 Trans: 11/25/20 1639 [facility] [id number] Interpreted by: THUY TOBIAS Electronically signed by: THUY TOBIAS 11/25/20 1639 Departure Impression Primary Impression: Urinary tract infection Qualified Codes: N39.0 - Urinary tract infection, site not specified Additional Impressions: Abdominal ascites Qualified Codes: R18.8 - Other ascites Decubitus ulcer of right foot Qualified Codes: L89.896 - Pressure-induced deep tissue damage of other site Debility Disposition: HOME, SELF-CARE Condition: Improved Departure-Patient Inst. Referrals: ANTONY DANIELS DAVID F MD (PCP/Family) Primary Care Physician Patient Instructions: Urinary Tract Infection, Adult (DC) Add. Discharge Instructions: Complete your antibiotics as prescribed. Continue with wound care instructions as directed by your home health team and primary care provider. Drain the catheter canister often. Return to the emergency room with worsening condition including fever, difficulty breathing, escalating pain, etc. Contact Dr. Daniels or the surgeon of your choice to discuss draining the abdominal fluid. Call with questions or concerns. All discharge instructions reviewed with patient and/or family. Voiced understanding. Scripts Fluconazole (Diflucan) 150 Mg Tablet 150 MG PO UD, #3 TAB Take one now and repeat every 3 days. Prov: GEORGES GAMINO MD 11/25/20 Doxycycline Hyclate (Doxycycline Hyclate) 100 Mg Tablet 100 MG PO BID, #20 TAB Prov: GEORGES GAMINO MD 11/25/20 Ciprofloxacin HCl (Ciprofloxacin HCl) 500 Mg Tablet 500 MG PO BID, #20 TAB Prov: GEORGES GAMINO MD 11/25/20 Copy Copies To 1: ESPERANZA LIGHT JOSHUA T MD Nov 25, 2020 13:32
[2020-11-25] MEDS ORDERED: CEFEPIME INJECTION 2,000 MG in WATER (STERILE) FOR INJECTION 20 ML IV ONE (13:45)
[2020-11-25] MEDS ORDERED: CIPR500T4 PO (13:46)
[2020-11-25] MEDS ORDERED: DOXY100T2 PO (13:46)
[2020-11-25] MEDS ORDERED: FLUC150T PO (14:55)
[2020-11-25 15:11] VITALS: BP 123/74
--- NOTE | 2020-11-25 15:41 | NUR ---
[facility] NOTIFIED FOR PT TO BE TRANSFERED HOME.
== END 2020-11-25 15:57 | disposition home or self-care (01) ==
LOC: EDUNIT# 09:21 → ER 09:25
DX: N39.0 Urinary tract infection, site not specified (principal); R18.8 Other ascites; L89.899 Pressure ulcer of other site, unspecified stage; R53.81 Other malaise; E11.9 Type 2 diabetes mellitus without complications; Z88.0 Allergy status to penicillin; Z95.1 Presence of aortocoronary bypass graft; Z95.0 Presence of cardiac pacemaker; Z82.49 Family history of ischemic heart disease and other diseases of the circulatory system; Z83.3 Family history of diabetes mellitus; Z80.0 Family history of malignant neoplasm of digestive organs; Z79.4 Long term (current) use of insulin; Z79.82 Long term (current) use of aspirin
CPT/HCPCS: 36415; 51702; 71045; 73620; 74177; 80053; 81000; 83605; 83690; 85025; 85610; 85730; 86141; 87040; 87077; 87088; 87186

== ENCOUNTER 2020-12-20 10:44 | Emergency (ER) | payer MEDICARE ==
[~2020-12-20] VITALS: Ht 155 cm; Wt 115.0 kg
[~2020-12-20 10:44] MED LIST changes: +CIPR500T5 PO; +DOXY100T2 PO; +FLUC150T PO
[2020-12-20] MEDS ORDERED: EPINEPHrine 0.1 MG/ML 10 ML (HOSPIRA) SYR IJ ONE (10:54)
[2020-12-20 15:06] VITALS: BP 0/0
== END 2020-12-20 15:06 | disposition expired ==
LOC: EDUNIT# 10:44 → ER 10:53
DX: R10.9 Unspecified abdominal pain (principal)
CPT/HCPCS: 31500; 36680